=== PATIENT | male | born 1960 | race African-American/Black ===

== ENCOUNTER 2018-03-01 12:59 | Emergency (ER) | payer OTHER ==
[~2018-03-01] VITALS: Ht 177.8 cm; Wt 80.0 kg
[~2018-03-01 12:59] MED LIST: HYDR-3111 PO; Z.0.NO CURRENT MEDS
[2018-03-01 13:02] VITALS: BP 116/66; PULSE 81; RESP 14; TEMP 97.2; O2SAT 99
--- NOTE | 2018-03-01 13:13 | PD ---
HPI Chief Complaint: Sore throat Time Seen by Provider: 13:10 Travel History International Travel<30 days: No Contact w/Intl Traveler<30days: No Traveled to known affect area: No History of Present Illness HPI 57-year-old male smoker presents for evaluation of sore throat. Symptoms started 2 weeks ago. He reports pain when he swallows. There is associated hoarse voice. Symptoms are mild, aggravated by swallowing, no alleviating factors. He denies cough, congestion, shortness of breath, regurgitation, abdominal pain, unusual weight loss, nausea or vomiting, fevers or chills. He is a patient at the [facility]. He has no other complaints at this time. [facility] Past Medical History Cancer: No Cardiovascular Problems: No Diabetes: No Diminished Hearing: No Endocrine: No Genitourinary: No Hepatitis: No Hiatal Hernia: No Immune Disorder: No Neurologic: Yes (SEIZURES IN THE PAST) Psychiatric: No Reproductive: No Respiratory: Yes (COPD) Immunizations Current: No Seizures: Yes (ONE X ONLY AFTER EATING GRAPE FRUIT) Thyroid Disease: No Past Surgical History Abdominal Surgery: No AICD: No Body Medical Devices: HARDWARE IN BOTH ANKLES, L KNEE AND L LEG Cardiac Surgery: No Ear Surgery: No Endocrine Surgery: No Eye Surgery: No Genitourinary Surgery: No Joint Replacement: No Oral Surgery: No Pacemaker: No Thoracic Surgery: No Social History Alcohol Use: Yes (BEER ONCE WEEK) Tobacco Use: Yes (1/2 PPD) Substance Use: No Allergies-Medications (Allergen,Severity, Reaction): Coded Allergies: grapefruit (Unverified Allergy, Severe, 05/03/17) SEIZURES Reported Meds & Prescriptions Reported Meds & Active Scripts Active Reported Vicodin 5/300 (Hydrocodone/Acetaminophen 5/300) 5 Mg/300 Mg Tab 1 Tab PO Q6H PRN No Current Meds (Miscellaneous Medication) Misc Review of Systems Except as stated in HPI: all other systems reviewed are Neg Physical Exam Narrative GENERAL: Well-developed well-nourished male in no acute distress SKIN: Warm and dry. HEAD: Atraumatic. Normocephalic. EYES: Pupils equal and round. No scleral icterus. No injection or drainage. ENT: No nasal bleeding or discharge. Mucous membranes pink and moist. There is no oral pharyngeal erythema or exudate. Uvula midline with no mass-effect. There is no stridor or drooling. Mildly hoarse voice. NECK: Trachea midline. No JVD. No lymphadenopathy. CARDIOVASCULAR: Regular rate and rhythm. No murmur appreciated. RESPIRATORY: No accessory muscle use. Clear to auscultation. Breath sounds equal bilaterally. GASTROINTESTINAL: Abdomen soft, non-tender, nondistended. Hepatic and splenic margins not palpable. Data Data Last Documented VS Vital Signs Date Time Temp Pulse Resp B/P (MAP) Pulse Ox O2 Delivery O2 Flow Rate FiO2 03/01/18 13:17 18 03/01/18 13:02 97.2 81 116/66 (83) 99 Orders Orders Group A Rapid Strep Screen (03/01/18 13:10) Ct Soft Tiss Neck W Iv Cont (03/01/18 ) Complete Blood Count With Diff (03/01/18 13:14) Basic Metabolic Panel (Bmp) (03/01/18 13:14) Iv Access Insert/Monitor (03/01/18 13:14) Strep Culture (Group A) (03/01/18 13:15) Ed Discharge Order (03/01/18 16:57) Labs Laboratory Tests Test 03/01/18 13:25 White Blood Count 7.6 TH/MM3 Red Blood Count 4.30 MIL/MM3 Hemoglobin 12.7 GM/DL Hematocrit 37.3 % Mean Corpuscular Volume 86.7 FL Mean Corpuscular Hemoglobin 29.4 PG Mean Corpuscular Hemoglobin Concent 33.9 % Red Cell Distribution Width 14.1 % Platelet Count 215 TH/MM3 Mean Platelet Volume 8.1 FL Neutrophils (%) (Auto) 50.5 % Lymphocytes (%) (Auto) 37.7 % Monocytes (%) (Auto) 10.4 % Eosinophils (%) (Auto) 1.0 % Basophils (%) (Auto) 0.4 % Neutrophils # (Auto) 3.8 TH/MM3 Lymphocytes # (Auto) 2.9 TH/MM3 Monocytes # (Auto) 0.8 TH/MM3 Eosinophils # (Auto) 0.1 TH/MM3 Basophils # (Auto) 0.0 TH/MM3 CBC Comment DIFF FINAL Differential Comment Blood Urea Nitrogen 7 MG/DL Creatinine 0.68 MG/DL Random Glucose 90 MG/DL Calcium Level 9.0 MG/DL Sodium Level 141 MEQ/L Potassium Level 3.5 MEQ/L Chloride Level 104 MEQ/L Carbon Dioxide Level 27.6 MEQ/L Anion Gap 9 MEQ/L Estimat Glomerular Filtration Rate 146 ML/MIN MDM Medical Decision Making Medical Screen Exam Complete: Yes Emergency Medical Condition: Yes Medical Record Reviewed: Yes Differential Diagnosis Pharyngitis, laryngeal malignancy, retropharyngeal abscess, epiglottitis, infectious mononucleosis Narrative Course 57-year-old male smoker presents with 2 weeks of sore throat and hoarse voice. Physical examination is benign. Rapid strep screen was performed and is negative. History is concerning in this 57-year-old male smoker for possible malignant etiology of his persistent sore throat and hoarse voice, therefore CT soft tissue neck was obtained and reveals small calcification tonsillar pillar base of tongue right and probably physiologic. Clinically this is not consistent with his symptoms. Lab work is unremarkable. Rapid strep screen is negative. At this point time the plan is to have a follow-up with his primary care physician at the [facility] if symptoms persist for possible ENT referral for laryngoscopy. He is agreeable to this plan. Diagnosis Primary Impression: Pharyngitis Additional Impression: Laryngitis Additional Instructions: Treated and well-nourished. Follow-up at the [facility] in 2 weeks if symptoms persist. Return for any emergent medical conditions. Med/Other Pt SpecificInfo: No Change to Meds Disposition: 01 DISCHARGE HOME Condition: Stable Franklin Hoffman Mar 01, 2018 13:13
[2018-03-01 13:41] LABS: AUTOMATED NEUTROPHIL # 3.8 TH/MM3 (1.8-7.7); BASOPHIL % 0.4 % (0.0-2.0); EOSINOPHIL # 0.1 TH/MM3 (0-0.4); HEMATOCRIT 37.3 % (39.0-51.0); HEMOGLOBIN 12.7 GM/DL (13.0-17.0); LYMPH % 37.7 % (9.0-44.0); LYMPHOCYTE # 2.9 TH/MM3 (1.0-4.8); MEAN CELL VOLUME 86.7 FL (80.0-100.0); MEAN CORPUSCULAR HEMOGLOBIN 29.4 PG (27.0-34.0); MEAN CORPUSCULAR HGB CONC 33.9 % (32.0-36.0); MEAN PLATELET VOLUME 8.1 FL (7.0-11.0); MONO % 10.4 % (0.0-8.0); MONOCYTE # 0.8 TH/MM3 (0-0.9); NEUT % 50.5 % (16.0-70.0); PLATELET COUNT 215 TH/MM3 (150-450); RED CELL DISTRIBUTION WIDTH 14.1 % (11.6-17.2); WHITE BLOOD COUNT 7.6 TH/MM3 (4.0-11.0)
[2018-03-01 13:53] LABS: BICARBONATE 27.6 MEQ/L (21.0-32.0); CREATININE 0.68 MG/DL (0.60-1.30)
--- NOTE | 2018-03-01 16:53 | RADRPT ---
EXAM DATE: 03/01/2018 4:39 PM EDT AGE/SEX: 57 years / Male INDICATIONS: Throat pain for two weeks. CLINICAL DATA: This is the patient's initial encounter. Patient reports that signs and symptoms have been present for 2 weeks and indicates a pain score of 6/10. MEDICAL/SURGICAL HISTORY: . Seizure None. RADIATION DOSE: 14.15 CTDI (mGy) COMPARISON: No prior exams available for comparison. TECHNIQUE: Helical acquisition was performed using a multirow detector CT scanner during the adminis tration of 70 ml Omnipaque 350 (iohexol) nonionic water-soluble contrast as a single exam dose. Usi ng automated exposure control and adjustment of the mA and/or kV according to patient size, radiation dose was kept as low as reasonably achievable to obtain optimal diagnostic quality images. FINDINGS: There is minimal mucoperiosteal thickening in the right maxillary sinus. There is a small calcificati on tonsillar pillar right side without inflammatory changes evident. The oropharynx and hypopharynx otherwise unremarkable. Region of the true vocal cords appear normal. There is no adenopathy in the mid and low neck. Subclavicular region is unremarkable. CONCLUSION: 1. Small calcification tonsillar pillar base of the tongue right side probably physiologic. Doubt fo reign body. Correlation suggested. No inflammatory changes evident. Minimal periosteal thickening right maxillary sinus. Electronically signed by: Morgan Marsh MD 03/01/2018 4:52 PM EDT
[2018-03-01] MEDS ORDERED: IOHEXOL 350 MG/ML 10 ML VIAL (for RAD DIAG) IVCONTRAST ONE (17:25)
== END 2018-03-01 17:31 | disposition home or self-care (01) ==
LOC: NEPC 12:59
DX: J02.9 Acute pharyngitis, unspecified (principal); J04.0 Acute laryngitis; J44.9 Chronic obstructive pulmonary disease, unspecified; F17.210 Nicotine dependence, cigarettes, uncomplicated; Z79.899 Other long term (current) drug therapy
CPT/HCPCS: 70491; 80048; 85025; 87081; 87880; 99285; Q9967

== ENCOUNTER 2018-06-15 12:29 | Inpatient (IN) ==
--- NOTE | 2018-06-15 14:07 | ED ---
HPI General Chief Complaint: Recheck/Abnormal Lab/Rx Stated Complaint: Medical Time Seen by Provider: 06/15/18 13:49 Source: patient, RN notes reviewed and old records reviewed Mode of arrival: ambulatory Limitations: no limitations History of Present Illness HPI narrative: 57-year-old male presents to the emergency department, sent from the [facility] for hypokalemia. He states he had labs drawn this morning when he got home he had received a phone call that he should go to the emergency department. He does not know how low his potassium was. He denies any history of hypokalemia. He has no chronic medical problems and takes no prescribed medications. He does state that he has had a 30 pound weight loss over the past month. He reports difficulty eating and has to drink water to get any food down. He has an appointment with GI tomorrow. No other symptoms or complaints. Moderate severity. complaint: abnormal lab Returns today for: called because of abnormal lab/test Context: called for abnormal lab result Associated symptoms: other (weight loss) Related Data Home Medications Medication Instructions Recorded Confirmed No Known Home Medications 06/15/18 06/15/18 Allergies Allergy/AdvReac Type Severity Reaction Status Date / Time grapefruit Allergy Severe Anaphylaxis Verified 06/15/18 14:08 Review of Systems ROS: all other systems reviewed are negative PMFSH Medical History Medical History Patient denies medical problems (Acute) Surgical History Surgical History No history of previous surgery (Acute) Social History Social History Substance History: No History of Abuse Second Hand Smoke Exposure: No Smoking Status: Current some day smoker Tobacco Type: Cigarettes How Often Do You Have a Drink Containing Alcohol: 2 to 4 times a month Recent Travel in [facility] within the Last 8 Weeks: No Recent Out of Country Travel within the Last 8 Weeks: No Immunization History Tetanus Immunization: >5 Years Hx Influenza Vaccine This Season: No Exam Narrative Exam Narrative: GENERAL: Well-nourished, well-developed male patient, afebrile. SKIN: Focused skin assessment warm/dry. HEAD: Normocephalic. Atraumatic. EYES: No scleral icterus. No injection or drainage. NECK: Supple, trachea midline. No JVD or lymphadenopathy. CARDIOVASCULAR: Regular rate and rhythm without murmurs, gallops, or rubs. RESPIRATORY: Breath sounds equal bilaterally. No accessory muscle use. Lung sounds are clear to auscultation GASTROINTESTINAL: Abdomen soft, non-tender, nondistended. MUSCULOSKELETAL: No cyanosis, or edema. BACK: Nontender without obvious deformity. No CVA tenderness. Course Initial Documented Vital Signs Temperature 98.4 F 06/15/18 12:36 Pulse Rate 98 H 06/15/18 12:36 Respiratory Rate 18 06/15/18 12:36 Blood Pressure 104/58 L 06/15/18 12:36 Pulse Oximetry 98 06/15/18 12:36 Last Documented Vital Signs Temperature 98.4 F 06/15/18 12:36 Pulse Rate 65 06/15/18 14:08 Respiratory Rate 18 06/15/18 14:01 Blood Pressure 115/69 06/15/18 14:01 Pulse Oximetry 99 06/15/18 14:01 Medical Decision Making MDM Narrative Medical decision making narrative: 57 year old male presents to the emergency department for evaluation of hypokalemia, sent from the [facility]. EKG, CBC, CMP are ordered and pending. CBC shows no acute abnormality. CMP shows hypokalemia 2.4. Patient is given potassium 40 mEq IV, 40 mg once p.o. Patient will be admitted for hypokalemia. Dr. Tirado accepted admission. Medical Screen Exam Complete: Yes Emergency Medical Condition: Yes Differential Diagnosis Differential Diagnosis: hypokalemia vs. ekg changes vs. medical clearance Medical Records Medical records reviewed: Yes I reviewed the patient's medical records. Lab Data Result diagrams: 06/15/18 14:10 06/15/18 14:10 Lab Results 06/15/18 06/15/18 Range/Units 14:10 14:10 WBC 7.8 (4.0-11.0) th/mm3 RBC 4.52 (4.50-5.90) mil/mm3 Hgb 13.7 (13.0-17.0) gm/dL Hct 40.6 (39.0-51.0) % MCV 89.7 (80.0-100.0) fL MCH 30.4 (27.0-34.0) pg MCHC 33.9 (32.0-36.0) % RDW 14.1 (11.6-17.2) % Plt Count 232 (150-450) th/mm3 MPV 7.9 (7.0-11.0) fL Neut % (Auto) 62.2 (16.0-70.0) % Lymph % (Auto) 27.3 (9.0-44.0) % Ray % (Auto) 9.9 H (0.0-8.0) % Eos % (Auto) 0.2 (0.0-4.0) % Baso % (Auto) 0.4 (0.0-2.0) % Neut # (Auto) 4.8 (1.8-7.7) th/mm3 Lymph # (Auto) 2.1 (1.0-4.8) th/mm3 Ray # (Auto) 0.8 (0.0-0.9) th/mm3 Eos # (Auto) 0.0 (0.0-0.4) th/mm3 Baso # (Auto) 0.0 (0.0-0.2) th/mm3 WBC Differential . Differential Comment Auto diff final Sodium 137 (136-145) meq/L Potassium 2.4 L* (3.5-5.1) meq/L Chloride 97 L (98-107) meq/L Carbon Dioxide 30.1 (21.0-32.0) meq/L Anion Gap 10 (5-15) meq/L BUN 10 (7-18) mg/dL Creatinine 0.86 (0.60-1.30) mg/dL Estimated GFR Greater than 89 (>89) mL/min Random Glucose 93 (74-106) mg/dL Calcium 9.5 (8.5-10.1) mg/dL Total Bilirubin 1.2 H (0.2-1.0) mg/dL AST 11 L (15-37) U/L ALT 11 L (12-78) U/L Alkaline Phosphatase 67 (45-117) U/L Total Protein 8.5 H (6.4-8.2) g/dL Albumin 3.2 L (3.4-5.0) g/dL Discharge Plan Physicians Team ED Provider: Keanu Worthy ED Midlevel Provider: Krystal Dunham Primary Care Provider: [facility] /Orders / Referrals /Forms Prescriptions: No Action No Known Home Medications RF: 0 Discharge Interventions Interventions: Vital Signs Last Done: 06/15/18 14:01 Status ED Status: Admitted Observation Patient
[2018-06-15 14:30] LABS: Baso % (Auto) 0.4 % (0.0-2.0); Eos % (Auto) 0.2 % (0.0-4.0); Hematocrit 40.6 % (39.0-51.0); Hemoglobin 13.7 gm/dL (13.0-17.0); Lymph # (Auto) 2.1 th/mm3 (1.0-4.8); Lymph % (Auto) 27.3 % (9.0-44.0); Mean Corpuscular HGB Conc 33.9 % (32.0-36.0); Mean Corpuscular Hemoglobin 30.4 pg (27.0-34.0); Mean Corpuscular Volume 89.7 fL (80.0-100.0); Mean Platelet Volume 7.9 fL (7.0-11.0); Mono # (Auto) 0.8 th/mm3 (0.0-0.9); Mono % (Auto) 9.9 % (0.0-8.0); Neut # (Auto) 4.8 th/mm3 (1.8-7.7); Neut % (Auto) 62.2 % (16.0-70.0); Platelet Count 232 th/mm3 (150-450); Red Blood Count 4.52 mil/mm3 (4.50-5.90); Red Cell Distribution Width 14.1 % (11.6-17.2); White Blood Count 7.8 th/mm3 (4.0-11.0)
[2018-06-15 14:58] LABS: Alanine Aminotransferase 11 U/L (12-78); Albumin 3.2 g/dL (3.4-5.0); Alkaline Phosphatase 67 U/L (45-117); Anion Gap 10 meq/L (5-15); Aspartate Aminotransferase 11 U/L (15-37); Blood Urea Nitrogen 10 mg/dL (7-18); Calcium 9.5 mg/dL (8.5-10.1); Carbon Dioxide 30.1 meq/L (21.0-32.0); Chloride 97 meq/L (98-107); Glomerular Filtration Rate Greater Than 89 mL/min (>89); Glucose,Random 93 mg/dL (74-106); Sodium 137 meq/L (136-145); Total Protein 8.5 g/dL (6.4-8.2)
[2018-06-15 15:05] LABS: Potassium 2.4 meq/L (3.5-5.1)
[2018-06-15] MEDS: Potassium Chlor 20 mEq Premix 20 MEQ/100 ML PIGGYBACK IV.SIG SCH ×2 (15:36→18:11)
[2018-06-15] MEDS ORDERED: Bisacodyl 10 MG Supp RECTAL PRN ×2 (16:05→16:06)
[2018-06-15] MEDS ORDERED: Potassium Chloride Inj 20 MEQ in Sod Chloride 0.9% Inj 1,000 ML IV.CONT SCH (16:08)
[2018-06-15] MEDS ORDERED: Potassium Chlor 10 mEq Premix 10 MEQ/100 ML PIGGYBACK IV.SIG SCH (17:00)
--- NOTE | 2018-06-15 17:04 | P.HPIM ---
History of Present Illness Service: [facility] Primary Care Physician: [facility] Chief Complaint: abn K at the [facility] today History of Present Illness: This is a 57-year-old -Italian male with no significant past medical history who presented to the emergency room after he had a doctor's visit today at the [facility] showing a low potassium. Patient reports that he is not on any medications, his only complaint is decreased appetite. Patient reports that for the past few months he has had difficulty swallowing liquids as well as solids due to pain. Patient is supposed to have an outpatient workup done at the [facility]. Patient reports 30 pound weight loss over the past few months due to decreased p.o. intake. Patient denies fever, chills, recent illness, chest pain , palpitations, and shortness of breath. Patient reports that he has never had an electrolyte abnormality before. Review of Systems All other systems reviewed negative except as stated in HPI PMFSH - History History Provided By: Patient - Medical History Medical History: Medical History (Last Updated 06/15/18 @ 16:49 by Sabrina Tirado MD) Patient denies medical problems (Acute) - Surgical History Surgical History: Surgical History (Last Updated 06/15/18 @ 16:49 by Sabrina Tirado MD) Hx of knee surgery (Acute) History of ankle surgery (Acute) - Family History Family History: Family History (Last Updated 06/15/18 @ 16:49 by Sabrina Tirado MD) Other No pertinent family history - Social History I have reviewed the patient's Social History: Yes - Tobacco History Second Hand Smoke Exposure: Yes Tobacco Use In Past 30 Days: Yes Smoking Status: Current some day smoker Tobacco Type: Cigarettes Packs Per Day: 1 - Alcohol History How Often Do You Have a Drink Containing Alcohol: 2 to 4 times a month - Substance Use History Substance History: No History of Abuse - Travel History History of Recent Travel: No Recent Travel in the [place] Within the Last 8 Weeks: No Recent Travel Out of the Country Within the Last 8 Weeks: No - Immunization History Tetanus Immunization: >5 Years Hx Influenza Vaccine This Season: No Medications and Allergies Active Medications: Active Medications Acetaminophen (Tylenol) 650 mg PO Q4H PRN PRN Reason: Temp > 100.4 Al Hydroxide/Mg Hydroxide (Milk Of Magnesia Liq) 30 ml PO Q12H PRN PRN Reason: Mild Constipation Bisacodyl (Dulcolax Supp) 10 mg RECTAL DAILY PRN PRN Reason: SEVERE CONSITIPATION Potassium Chloride (Kcl 20 Meq Premix Inj) 20 meq in 100 mls @ 50 mls/hr IV.SIG Q2H CLAUDIA Stop: 06/15/18 19:14 Last Admin: 06/15/18 15:36 Dose: 50 mls/hr Potassium Chloride 40 meq/ (Sodium Chloride) 1,020 mls @ 125 mls/hr IV.CONT .Q8H10M CLAUDIA Potassium Chloride (Kcl 20 Meq Premix Inj) 20 meq in 100 mls @ 50 mls/hr IV.SIG Q2H CLAUDIA Stop: 06/15/18 20:43 Lactulose (Lactulose Liq) 30 ml PO DAILY PRN PRN Reason: SEVERE CONSITIPATION Ondansetron HCl (Zofran Inj) 4 mg IV.PUSH Q6H PRN PRN Reason: NAUSEA OR VOMITING Senna/Docusate Sodium (Gilda-Colace) 1 tab PO BID CLAUDIA Sodium Chloride (Ns Flush) 2 ml IV.FLUSH PRN PRN PRN Reason: FLUSH AFTER USING IV ACCESS Allergies Allergy/AdvReac Type Severity Reaction Status Date / Time grapefruit Allergy Severe Anaphylaxis Verified 06/15/18 14:08 Home Medications Medication Instructions Recorded Confirmed Type No Known Home Medications 06/15/18 06/15/18 History Exam Vital signs: Vital Signs 06/15/18 12:36 06/15/18 14:01 06/15/18 14:08 Temperature 98.4 F Pulse Rate 98 H 63 65 Respiratory Rate 18 18 Blood Pressure 104/58 L 115/69 Pulse Oximetry 98 99 06/15/18 15:35 Temperature Pulse Rate 66 Respiratory Rate 18 Blood Pressure 97/61 L Pulse Oximetry 100 Intake & Output 06/14/18 06/15/18 06/15/18 18:59 06:59 18:59 Weight 77.111 kg Narrative: GENERAL: thin, AAM, in NAD, lying comfortably in bed SKIN: Warm and dry. HEAD: Normocephalic. EYES: No scleral icterus. No injection or drainage. NECK: Supple, trachea midline. No JVD or lymphadenopathy. CARDIOVASCULAR: Regular rate and rhythm without murmurs, gallops, or rubs. RESPIRATORY: Breath sounds equal bilaterally. No accessory muscle use. GASTROINTESTINAL: Abdomen soft, non-tender, nondistended. MUSCULOSKELETAL: No cyanosis, or edema. BACK: Nontender without obvious deformity. No CVA tenderness. Results - Labs CBC & Chem 7: 06/15/18 14:10 06/15/18 14:10 Labs: Short CBC 06/15/18 Range/Units 14:10 WBC 7.8 (4.0-11.0) th/mm3 Hgb 13.7 (13.0-17.0) gm/dL Hct 40.6 (39.0-51.0) % Plt Count 232 (150-450) th/mm3 BMP 06/15/18 14:10 Sodium 137 Potassium 2.4 L* Chloride 97 L Carbon Dioxide 30.1 BUN 10 Creatinine 0.86 Calcium 9.5 Liver Function 06/15/18 Range/Units 14:10 Total Bilirubin 1.2 H (0.2-1.0) mg/dL AST 11 L (15-37) U/L ALT 11 L (12-78) U/L Alkaline Phosphatase 67 (45-117) U/L Albumin 3.2 L (3.4-5.0) g/dL Caprini VTE Risk Assessment Caprini VTE Risk Assessment: No/Low Risk (score <= 1) Caprini Risk Assessment Model: Point Value = 1 Point Value = 2 Point Value = 3 Point Value = 5 Age 41-60 Minor surgery BMI > 25 kg/m2 Swollen legs Varicose veins or History of unexplained or recurrent spontaneous Oral contraceptives or hormone replacement Sepsis (< 1 month) Serious lung disease, including pneumonia (< 1 month) Abnormal pulmonary function Acute myocardial infarction Congestive heart failure (< 1 month) History of inflammatory bowel disease Medical patient at bed rest Age 61-74 Arthroscopic surgery Major open surgery (> 45 min) Laparoscopic surgery (> 45 min) Malignancy Confined to bed (> 72 hours) Immobilizing plaster cast Central venous access Age >= 75 History of VTE Family history of VTE Factor V Leiden Prothrombin [id number] Lupus anticoagulant Anticardiolipin antibodies Elevated serum homocysteine Heparin-induced thrombocytopenia Other congenital or acquired thrombophilia Stroke (< 1 month) Elective arthroplasty Hip, pelvis, or leg fracture Acute spinal cord injury (< 1 month) Prophylaxis Regimen: Total Risk Factor Score Risk Level Prophylaxis Regimen 0-1 Low Early ambulation 2 Moderate Order ONE of the following: *Sequential Compression Device (SCD) *Heparin 5000 units SQ BID 3-4 Higher Order ONE of the following medications: *Heparin 5000 units SQ TID *Enoxaparin/Lovenox 40 mg SQ daily (WT < 150 kg, CrCl > 30 mL/min) *Enoxaparin/Lovenox 30 mg SQ daily (WT < 150 kg, CrCl > 10-29 mL/min) *Enoxaparin/Lovenox 30 mg SQ BID (WT < 150 kg, CrCl > 30 mL/min) AND/OR *Sequential Compression Device (SCD) 5 or more Highest Order ONE of the following medications: *Heparin 5000 units SQ TID (Preferred with Epidurals) *Enoxaparin/Lovenox 40 mg SQ daily (WT < 150 kg, CrCl > 30 mL/min) *Enoxaparin/Lovenox 30 mg SQ daily (WT < 150 kg, CrCl > 10-29 mL/min) *Enoxaparin/Lovenox 30 mg SQ BID (WT < 150 kg, CrCl > 30 mL/min) AND *Sequential Compression Device (SCD) Assessment and Plan - Plan This is a 57 y/o AAM with no significant PMHx admitted for IP mgmt for Hypokalemia, HD#1 1. Hypokalemia -Due to decreased PO intake -K2.4 on admission, replaced with 80meq IV in ED -On Telemetry -Patient cannot tolerate PO, attempted to give oral K in the ED but not tolerated -STAT BMP at 2000 and in AM -Receiving NS with 40meq/L in IVF's 2. Dysphagia -occurs with fluids and solids -will get a bedside swallow study -will get GI consult for possible EGD 3. Weight loss -30lb. weight loss due to decreased PO intake -advised patient need for Colonoscopy as outpatient -will get hemoccult 4. 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
[2018-06-15] MEDS: Potassium Chloride Inj 40 MEQ in Sod Chloride 0.9% Inj 1,000 ML IV.CONT SCH (19:37)
[2018-06-15] MEDS ORDERED: Potassium Chlor 20 mEq Premix 20 MEQ/100 ML PIGGYBACK IV.SIG SCH (20:00)
[2018-06-15] MEDS ORDERED: Senna/Docusate Sodium 8.6/50 MG Tablet PO SCH (21:00)
[2018-06-15] MEDS: Senna/Docusate Sodium 8.6/50 MG Tablet PO SCH (21:34)
[2018-06-15 21:54] LABS: Anion Gap 10 meq/L (5-15); Blood Urea Nitrogen 10 mg/dL (7-18); Calcium 8.7 mg/dL (8.5-10.1); Carbon Dioxide 28.8 meq/L (21.0-32.0); Chloride 101 meq/L (98-107); Glomerular Filtration Rate Greater Than 89 mL/min (>89); Glucose,Random 106 mg/dL (74-106); Sodium 140 meq/L (136-145)
[2018-06-15 22:05] LABS: Potassium 2.7 meq/L (3.5-5.1)
[2018-06-15] MEDS ORDERED: Mag Sulf 1 gm/100 ml Premix 100 ML IV.SIG ONE (22:25)
[2018-06-16] MEDS: Potassium Chloride Inj 40 MEQ in Sod Chloride 0.9% Inj 1,000 ML IV.CONT SCH ×3 (03:47→17:05)
[2018-06-16 07:43] LABS: Baso % (Auto) 0.5 % (0.0-2.0); Eos % (Auto) 0.6 % (0.0-4.0); Hematocrit 38.2 % (39.0-51.0); Hemoglobin 12.8 gm/dL (13.0-17.0); Lymph # (Auto) 2.5 th/mm3 (1.0-4.8); Mean Corpuscular HGB Conc 33.4 % (32.0-36.0); Mean Corpuscular Hemoglobin 30.4 pg (27.0-34.0); Mean Corpuscular Volume 90.9 fL (80.0-100.0); Mono # (Auto) 0.8 th/mm3 (0.0-0.9); Mono % (Auto) 11.7 % (0.0-8.0); Neut # (Auto) 3.2 th/mm3 (1.8-7.7); Neut % (Auto) 49.2 % (16.0-70.0); Platelet Count 185 th/mm3 (150-450); Red Blood Count 4.21 mil/mm3 (4.50-5.90); Red Cell Distribution Width 14.2 % (11.6-17.2); White Blood Count 6.5 th/mm3 (4.0-11.0)
[2018-06-16 08:12] LABS: Albumin 2.7 g/dL (3.4-5.0); Anion Gap 9 meq/L (5-15); Aspartate Aminotransferase 14 U/L (15-37); Blood Urea Nitrogen 9 mg/dL (7-18); Calcium 8.4 mg/dL (8.5-10.1); Carbon Dioxide 25.4 meq/L (21.0-32.0); Chloride 105 meq/L (98-107); Glomerular Filtration Rate Greater Than 89 mL/min (>89); Glucose,Random 98 mg/dL (74-106); Potassium 3.2 meq/L (3.5-5.1); Sodium 139 meq/L (136-145)
[2018-06-16 08:14] LABS: Alanine Aminotransferase 9 U/L (12-78)
[2018-06-16 08:16] LABS: Alkaline Phosphatase 56 U/L (45-117); Total Protein 6.9 g/dL (6.4-8.2)
--- NOTE | 2018-06-16 09:03 | P.PN ---
Subjective Interval history: Patient doing well overnight, he reports that he has been eating overnight despite being NPO and awaiting swallow study. Reports continued pain with swallowing. Physical Exam Vital signs: Vital Signs 06/15/18 12:36 06/15/18 14:01 06/15/18 14:08 Temperature 98.4 F Pulse Rate 98 H 63 65 Respiratory Rate 18 18 Blood Pressure 104/58 L 115/69 Pulse Oximetry 98 99 06/15/18 15:35 06/15/18 19:00 06/15/18 19:42 Temperature 97.8 F Pulse Rate 66 70 67 Respiratory Rate 18 18 18 Blood Pressure 97/61 L 109/66 105/64 Pulse Oximetry 100 98 97 06/15/18 23:57 06/16/18 03:28 06/16/18 05:50 Temperature 98.4 F 98.0 F Pulse Rate 77 69 61 Respiratory Rate 18 20 Blood Pressure 82/50 L 102/69 Pulse Oximetry 100 97 06/16/18 07:46 Temperature 98.1 F Pulse Rate 70 Respiratory Rate 16 Blood Pressure 94/52 L Pulse Oximetry 100 Intake & Output 06/15/18 06/16/18 06/16/18 18:59 06:59 18:59 Intake Total 100 / 100 3035 / 3035 Balance 100 / 100 3035 / 3035 Weight 77.111 kg Intake: IV 100 / 100 1220 / 1220 KCl Inj 40 MEQ In NS Inj 1,000 1020 / 1020 ML @ 125 mls/hr IV.CONT .Q8H10M [facility] Rx#:[id number] Magnesium Sulfate 1 gm/D5W 100 100 / 100 ml Premix 100 ML @ 100 mls/hr IV.SIG ONCE ONE Rx#:[id number] KCl 20 mEq Premix Inj 20 meq In 100 / 100 100 / 100 100 ml @ 50 mls/hr IV.SIG Q2H [facility] Rx#:[id number] Oral 590 / 590 Other 1225 / 1225 Other: Other Intake Source Saline Solution # Voids 3 Date of Last Bowel Movement 06/14/18 Narrative: GENERAL: thin, AAM, in NAD, lying comfortably in bed SKIN: Warm and dry. HEAD: Normocephalic. EYES: No scleral icterus. No injection or drainage. NECK: Supple, trachea midline. No JVD or lymphadenopathy. CARDIOVASCULAR: Regular rate and rhythm without murmurs, gallops, or rubs. RESPIRATORY: Breath sounds equal bilaterally. No accessory muscle use. GASTROINTESTINAL: Abdomen soft, non-tender, nondistended. MUSCULOSKELETAL: No cyanosis, or edema. BACK: Nontender without obvious deformity. No CVA tenderness. Results - Labs CBC & Chem 7: 06/16/18 07:30 06/16/18 07:30 Laboratory Results - last 24 hr 06/15/18 06/15/18 06/15/18 14:10 14:10 21:06 WBC 7.8 RBC 4.52 Hgb 13.7 Hct 40.6 MCV 89.7 MCH 30.4 MCHC 33.9 RDW 14.1 Plt Count 232 MPV 7.9 Neut % (Auto) 62.2 Lymph % (Auto) 27.3 Weston % (Auto) 9.9 H Eos % (Auto) 0.2 Baso % (Auto) 0.4 Neut # (Auto) 4.8 Lymph # (Auto) 2.1 Weston # (Auto) 0.8 Eos # (Auto) 0.0 Baso # (Auto) 0.0 WBC Differential . Differential Comment Auto diff final Sodium 137 140 Potassium 2.4 L* 2.7 L* Chloride 97 L 101 Carbon Dioxide 30.1 28.8 Anion Gap 10 10 BUN 10 10 Creatinine 0.86 0.71 Estimated GFR Greater than 89 Greater than 89 Random Glucose 93 106 Calcium 9.5 8.7 D Magnesium Total Bilirubin 1.2 H AST 11 L ALT 11 L Alkaline Phosphatase 67 Total Protein 8.5 H Albumin 3.2 L 06/15/18 06/16/18 06/16/18 21:06 07:30 07:30 WBC 6.5 RBC 4.21 L Hgb 12.8 L Hct 38.2 L MCV 90.9 MCH 30.4 MCHC 33.4 RDW 14.2 Plt Count 185 MPV 8.0 Neut % (Auto) 49.2 Lymph % (Auto) 38.0 Weston % (Auto) 11.7 H Eos % (Auto) 0.6 Baso % (Auto) 0.5 Neut # (Auto) 3.2 Lymph # (Auto) 2.5 Weston # (Auto) 0.8 Eos # (Auto) 0.0 Baso # (Auto) 0.0 WBC Differential . Differential Comment Auto diff final Sodium 139 Potassium 3.2 L Chloride 105 Carbon Dioxide 25.4 Anion Gap 9 BUN 9 Creatinine 0.55 L Estimated GFR Greater than 89 Random Glucose 98 Calcium 8.4 L Magnesium 1.7 Total Bilirubin 0.7 AST 14 L ALT 9 L Alkaline Phosphatase 56 Total Protein 6.9 D Albumin 2.7 L Assessment and Plan - Plan This is a 57 y/o AAM with no significant PMHx admitted for IP mgmt for Hypokalemia, HD#2 1. Hypokalemia -Due to decreased PO intake -K2.4 on admission, replaced with 80meq IV in ED -K3.2 this AM, will give 40meq IV x1 and cont. NS with 40meq/L in IVF's -On Telemetry -Patient cannot tolerate PO, attempted to give oral K in the ED but not tolerated 2. Dysphagia -occurs with fluids and solids -will get a speech/swallow eval -GI consulted/their reccs as below: Plan: CT abdomen/pelvis to evaluate weight loss Will need EGD- unfortunately pt is eating breakfast so this can not be done today Can be done Tuesday vs outpatient depending on course and correction of electrolytes Protonix Soft diet Further recommendations to follow 3. Weight loss -30lb. weight loss due to decreased PO intake -advised patient need for Colonoscopy as outpatient -Pending hemoccult 4. DVT PPX: SCD's 5. Dispo: F/U CT ABD pelvis and BMP at 1300, if WNL D/C to f/u with GI as an outpatient for EGD Code Status: full Discussed Condition With: patient and plastic cutter Planning: D/C pending K results
--- NOTE | 2018-06-16 10:04 | P.CONGI ---
History of Present Illness Consult date: 06/16/18 Consult reason: Dysphagia Chief complaint: Hypokalemia History of Present Illness: This is a 57-year-old male who denies any significant past medical history. Patient went to the [place] to have routine labs done yesterday, lab work revealed severe hypokalemia which he states he has no history of, they sent him to the ER for further workup. Our service has been consulted to evaluate patient for complaints of dysphagia. He reports for the past 2 months he has been having issues swallowing, states worse with solids and has to drink liquids in order to pass the food. Does feel as if his food gets stuck. Has had extreme difficulty swallowing pills. Denies any odynophagia. Does report that he is regurgitating after meals, mostly just saliva. Denies any nausea or vomiting. Denies any shortness of breath or coughing with eating. Does report a 30 pound unintentional weight loss over the past 2 months which he has attributed to his inability to swallow food. Denies any change in his appetite. Denies any change in bowel habits including constipation and diarrhea, hematochezia and melena. Has never had an EGD or colonoscopy. Denies any family history significant for colon cancer. Patient reports drinking a beer a week. Smokes cigarettes once a week. Denies any illicit drug use. Denies any NSAID use. <Dinora Jimenez - Last Filed: 06/16/18 09:57> Review of Systems Constitutional: Reports weight loss Gastrointestinal: Denies abdominal pain, Denies black, tarry stools, Denies bright, red blood in stools, Denies change in bowel habits, Denies nausea, Denies vomiting Comments: dysphagia, denies odynophagia <Dinora Jimenez - Last Filed: 06/16/18 09:57> [facility] History History Provided By: Patient - Medical History Medical History: Medical History (Last Reviewed 06/16/18 @ 09:10 by KIZZY Cruz) Patient denies medical problems (Acute) - Surgical History Surgical History: Surgical History (Last Updated 06/15/18 @ 16:49 by Sabrina Tirado MD) Hx of knee surgery (Acute) History of ankle surgery (Acute) - Family History Family History: Family History (Last Updated 06/15/18 @ 16:49 by Sabrina Tirado MD) Other No pertinent family history - Tobacco History Second Hand Smoke Exposure: No Tobacco Use In Past 30 Days: No Smoking Status: Current every day smoker Tobacco Type: Cigarettes Packs Per Day: 1 - Alcohol History How Often Do You Have a Drink Containing Alcohol: 2 to 4 times a month - Substance Use History Substance History: No History of Abuse - Travel History History of Recent Travel: No Recent Travel in the [place] Within the Last 8 Weeks: No Recent Travel Out of the Country Within the Last 8 Weeks: No - Immunization History Tetanus Immunization: >5 Years Hx Influenza Vaccine This Season: No <Dinora Jimenez - Last Filed: 06/16/18 09:57> - Medical History Medical History: Medical History (Last Reviewed 06/16/18 @ 09:10 by KIZZY Cruz) Patient denies medical problems (Acute) - Surgical History Surgical History: Surgical History (Last Updated 06/15/18 @ 16:49 by Sabrina Tirado MD) Hx of knee surgery (Acute) History of ankle surgery (Acute) - Family History Family History: Family History (Last Updated 06/15/18 @ 16:49 by Sabrina Tirado MD) Other No pertinent family history <Aaron Silver - Last Filed: 06/16/18 11:51> Medications and Allergies Active Medications: Active Medications Acetaminophen (Tylenol) 650 mg PO Q4H PRN PRN Reason: Temp > 100.4 Al Hydroxide/Mg Hydroxide (Milk Of Magnesia Liq) 30 ml PO Q12H PRN PRN Reason: Mild Constipation Bisacodyl (Dulcolax Supp) 10 mg RECTAL DAILY PRN PRN Reason: SEVERE CONSITIPATION Potassium Chloride 40 meq/ (Sodium Chloride) 1,020 mls @ 125 mls/hr IV.CONT .Q8H10M [facility] Last Admin: 06/16/18 03:47 Dose: 125 mls/hr Potassium Chloride (Kcl 20 Meq Premix Inj) 20 meq in 100 mls @ 50 mls/hr IV.SIG Q2H [facility] Stop: 06/16/18 12:59 Lactulose (Lactulose Liq) 30 ml PO DAILY PRN PRN Reason: SEVERE CONSITIPATION Ondansetron HCl (Zofran Inj) 4 mg IV.PUSH Q6H PRN PRN Reason: NAUSEA OR VOMITING Senna/Docusate Sodium (Gilda-Colace) 1 tab PO BID [facility] Last Admin: 06/15/18 21:34 Dose: Not Given Sodium Chloride (Ns Flush) 2 ml IV.FLUSH PRN PRN PRN Reason: FLUSH AFTER USING IV ACCESS <Dinora Jimenez - Last Filed: 06/16/18 09:57> Active Medications: Active Medications Acetaminophen (Tylenol) 650 mg PO Q4H PRN PRN Reason: Temp > 100.4 Al Hydroxide/Mg Hydroxide (Milk Of Magnesia Liq) 30 ml PO Q12H PRN PRN Reason: Mild Constipation Bisacodyl (Dulcolax Supp) 10 mg RECTAL DAILY PRN PRN Reason: SEVERE CONSITIPATION Diatrizoate Meglum/Diatrizoate Sod ( Gastroview Liq) 18 ml PO ONCE [facility] Potassium Chloride 40 meq/ (Sodium Chloride) 1,020 mls @ 125 mls/hr IV.CONT .Q8H10M [facility] Last Admin: 06/16/18 10:30 Dose: Not Given Potassium Chloride (Kcl 20 Meq Premix Inj) 20 meq in 100 mls @ 50 mls/hr IV.SIG Q2H [facility] Stop: 06/16/18 12:59 Lactulose (Lactulose Liq) 30 ml PO DAILY PRN PRN Reason: SEVERE CONSITIPATION Ondansetron HCl (Zofran Inj) 4 mg IV.PUSH Q6H PRN PRN Reason: NAUSEA OR VOMITING Pantoprazole Sodium (Protonix Inj) 40 mg IV.PUSH Q24H [facility] Last Admin: 06/16/18 11:06 Dose: 40 mg Senna/Docusate Sodium (Gilda-Colace) 1 tab PO BID [facility] Last Admin: 06/16/18 11:08 Dose: 1 tab Sodium Chloride (Ns Flush) 2 ml IV.FLUSH PRN PRN PRN Reason: FLUSH AFTER USING IV ACCESS <Aaron Silver - Last Filed: 06/16/18 11:51> Allergies Allergy/AdvReac Type Severity Reaction Status Date / Time grapefruit Allergy Severe Anaphylaxis Verified 06/15/18 14:08 Home Medications Medication Instructions Recorded Confirmed Type No Known Home Medications 06/15/18 06/15/18 History Exam Vital signs: Vital Signs 06/15/18 12:36 06/15/18 14:01 06/15/18 14:08 Temperature 98.4 F Pulse Rate 98 H 63 65 Respiratory Rate 18 18 Blood Pressure 104/58 L 115/69 Pulse Oximetry 98 99 06/15/18 15:35 06/15/18 19:00 06/15/18 19:42 Temperature 97.8 F Pulse Rate 66 70 67 Respiratory Rate 18 18 18 Blood Pressure 97/61 L 109/66 105/64 Pulse Oximetry 100 98 97 06/15/18 23:57 06/16/18 03:28 06/16/18 05:50 Temperature 98.4 F 98.0 F Pulse Rate 77 69 61 Respiratory Rate 18 20 Blood Pressure 82/50 L 102/69 Pulse Oximetry 100 97 06/16/18 07:46 Temperature 98.1 F Pulse Rate 70 Respiratory Rate 16 Blood Pressure 94/52 L Pulse Oximetry 100 Intake & Output 06/15/18 06/16/18 06/16/18 18:59 06:59 18:59 Intake Total 100 / 100 3035 / 3035 Balance 100 / 100 3035 / 3035 Weight 77.111 kg Intake: IV 100 / 100 1220 / 1220 KCl Inj 40 MEQ In NS Inj 1,000 1020 / 1020 ML @ 125 mls/hr IV.CONT .Q8H10M [facility] Rx#:[id number] Magnesium Sulfate 1 gm/D5W 100 100 / 100 ml Premix 100 ML @ 100 mls/hr IV.SIG ONCE ONE Rx#:[id number] KCl 20 mEq Premix Inj 20 meq In 100 / 100 100 / 100 100 ml @ 50 mls/hr IV.SIG Q2H [facility] Rx#:[id number] Oral 590 / 590 Other 1225 / 1225 Other: Other Intake Source Saline Solution # Voids 3 Date of Last Bowel Movement 06/14/18 - Constitutional no acute distress - Routine HEENT Exam Head: Present: normocephalic, atraumatic - Routine Respiratory Exam Absent: accessory muscle use - Routine Abdominal Exam Present: soft, normoactive bowel sounds. Absent: tenderness, distended - Routine Skin Exam Present: dry, warm - Routine Neurological Exam Present: alert, oriented X3 <Dinora Jimenez - Last Filed: 06/16/18 09:57> Vital signs: Vital Signs 06/15/18 12:36 06/15/18 14:01 06/15/18 14:08 Temperature 98.4 F Pulse Rate 98 H 63 65 Respiratory Rate 18 18 Blood Pressure 104/58 L 115/69 Pulse Oximetry 98 99 06/15/18 15:35 06/15/18 19:00 06/15/18 19:42 Temperature 97.8 F Pulse Rate 66 70 67 Respiratory Rate 18 18 18 Blood Pressure 97/61 L 109/66 105/64 Pulse Oximetry 100 98 97 06/15/18 23:57 06/16/18 03:28 06/16/18 05:50 Temperature 98.4 F 98.0 F Pulse Rate 77 69 61 Respiratory Rate 18 20 Blood Pressure 82/50 L 102/69 Pulse Oximetry 100 97 06/16/18 07:46 06/16/18 11:34 Temperature 98.1 F 97.9 F Pulse Rate 70 61 Respiratory Rate 16 16 Blood Pressure 94/52 L 88/57 L Pulse Oximetry 100 100 Intake & Output 06/15/18 06/16/18 06/16/18 18:59 06:59 18:59 Intake Total 100 / 100 3035 / 3035 Balance 100 / 100 3035 / 3035 Weight 77.111 kg Intake: IV 100 / 100 1220 / 1220 KCl Inj 40 MEQ In NS Inj 1,000 1020 / 1020 ML @ 125 mls/hr IV.CONT .Q8H10M [facility] Rx#:[id number] Magnesium Sulfate 1 gm/D5W 100 100 / 100 ml Premix 100 ML @ 100 mls/hr IV.SIG ONCE ONE Rx#:[id number] KCl 20 mEq Premix Inj 20 meq In 100 / 100 100 / 100 100 ml @ 50 mls/hr IV.SIG Q2H [facility] Rx#:[id number] Oral 590 / 590 Other 1225 / 1225 Other: Other Intake Source Saline Solution # Voids 3 Date of Last Bowel Movement 06/14/18 <Aaron Silver - Last Filed: 06/16/18 11:51> Results - Labs CBC & Chem 7: 06/16/18 07:30 06/16/18 07:30 Labs: Laboratory Results - last 24 hr 06/15/18 06/15/18 06/15/18 14:10 14:10 21:06 WBC 7.8 RBC 4.52 Hgb 13.7 Hct 40.6 MCV 89.7 MCH 30.4 MCHC 33.9 RDW 14.1 Plt Count 232 MPV 7.9 Neut % (Auto) 62.2 Lymph % (Auto) 27.3 Glenn % (Auto) 9.9 H Eos % (Auto) 0.2 Baso % (Auto) 0.4 Neut # (Auto) 4.8 Lymph # (Auto) 2.1 Glenn # (Auto) 0.8 Eos # (Auto) 0.0 Baso # (Auto) 0.0 WBC Differential . Differential Comment Auto diff final Sodium 137 140 Potassium 2.4 L* 2.7 L* Chloride 97 L 101 Carbon Dioxide 30.1 28.8 Anion Gap 10 10 BUN 10 10 Creatinine 0.86 0.71 Estimated GFR Greater than 89 Greater than 89 Random Glucose 93 106 Calcium 9.5 8.7 D Magnesium Total Bilirubin 1.2 H AST 11 L ALT 11 L Alkaline Phosphatase 67 Total Protein 8.5 H Albumin 3.2 L 06/15/18 06/16/18 06/16/18 21:06 07:30 07:30 WBC 6.5 RBC 4.21 L Hgb 12.8 L Hct 38.2 L MCV 90.9 MCH 30.4 MCHC 33.4 RDW 14.2 Plt Count 185 MPV 8.0 Neut % (Auto) 49.2 Lymph % (Auto) 38.0 Glenn % (Auto) 11.7 H Eos % (Auto) 0.6 Baso % (Auto) 0.5 Neut # (Auto) 3.2 Lymph # (Auto) 2.5 Glenn # (Auto) 0.8 Eos # (Auto) 0.0 Baso # (Auto) 0.0 WBC Differential . Differential Comment Auto diff final Sodium 139 Potassium 3.2 L Chloride 105 Carbon Dioxide 25.4 Anion Gap 9 BUN 9 Creatinine 0.55 L Estimated GFR Greater than 89 Random Glucose 98 Calcium 8.4 L Magnesium 1.7 Total Bilirubin 0.7 AST 14 L ALT 9 L Alkaline Phosphatase 56 Total Protein 6.9 D Albumin 2.7 L <Dinora Jimenez - Last Filed: 06/16/18 09:57> - Labs CBC & Chem 7: 06/16/18 07:30 06/16/18 07:30 Labs: Laboratory Results - last 24 hr 06/15/18 06/15/18 06/15/18 14:10 14:10 21:06 WBC 7.8 RBC 4.52 Hgb 13.7 Hct 40.6 MCV 89.7 MCH 30.4 MCHC 33.9 RDW 14.1 Plt Count 232 MPV 7.9 Neut % (Auto) 62.2 Lymph % (Auto) 27.3 Glenn % (Auto) 9.9 H Eos % (Auto) 0.2 Baso % (Auto) 0.4 Neut # (Auto) 4.8 Lymph # (Auto) 2.1 Glenn # (Auto) 0.8 Eos # (Auto) 0.0 Baso # (Auto) 0.0 WBC Differential . Differential Comment Auto diff final Sodium 137 140 Potassium 2.4 L* 2.7 L* Chloride 97 L 101 Carbon Dioxide 30.1 28.8 Anion Gap 10 10 BUN 10 10 Creatinine 0.86 0.71 Estimated GFR Greater than 89 Greater than 89 Random Glucose 93 106 Calcium 9.5 8.7 D Magnesium Total Bilirubin 1.2 H AST 11 L ALT 11 L Alkaline Phosphatase 67 Total Protein 8.5 H Albumin 3.2 L 06/15/18 06/16/18 06/16/18 21:06 07:30 07:30 WBC 6.5 RBC 4.21 L Hgb 12.8 L Hct 38.2 L MCV 90.9 MCH 30.4 MCHC 33.4 RDW 14.2 Plt Count 185 MPV 8.0 Neut % (Auto) 49.2 Lymph % (Auto) 38.0 Glenn % (Auto) 11.7 H Eos % (Auto) 0.6 Baso % (Auto) 0.5 Neut # (Auto) 3.2 Lymph # (Auto) 2.5 Glenn # (Auto) 0.8 Eos # (Auto) 0.0 Baso # (Auto) 0.0 WBC Differential . Differential Comment Auto diff final Sodium 139 Potassium 3.2 L Chloride 105 Carbon Dioxide 25.4 Anion Gap 9 BUN 9 Creatinine 0.55 L Estimated GFR Greater than 89 Random Glucose 98 Calcium 8.4 L Magnesium 1.7 Total Bilirubin 0.7 AST 14 L ALT 9 L Alkaline Phosphatase 56 Total Protein 6.9 D Albumin 2.7 L <Aaron Silver - Last Filed: 06/16/18 11:51> Assessment and Plan - Plan Assessment: - Dysphagia Past 2 months he has been having issues swallowing, states worse with solids and has to drink liquids in order to pass the food. Does feel as if his food gets stuck. Has had extreme difficulty swallowing pills. Denies any odynophagia. Does report that he is regurgitating after meals, mostly just saliva. Denies any nausea or vomiting. Denies any shortness of breath or coughing with eating. Does report a 30 pound unintentional weight loss over the past 2 months which he has attributed to his inability to swallow food. Denies any change in his appetite. Denies any change in bowel habits including constipation and diarrhea, hematochezia and melena. Has never had an EGD or colonoscopy. Denies any family history significant for colon cancer. Patient reports drinking a beer a week. Smokes cigarettes once a week. Denies any illicit drug use. Denies any NSAID use. Plan: CT abdomen/pelvis to evaluate weight loss Will need EGD- unfortunately pt is eating breakfast so this can not be done today Can be done Tuesday vs outpatient depending on course and correction of electrolytes Electrolyte replacement per attending Protonix Soft diet Further recommendations to follow Pt has been seen and examined by myself and Dr. Silver and this note is written on his behalf <Dinora Jimenez - Last Filed: 06/16/18 09:57> - Plan Seen and examined with FITNESS SPECIALIST, CT abd/pelvis and egd planned. Egd tuesday or as outpatient depending upon clinical course. Thank you. The exam, history, and the medical decision-making described in the above note were completed with the assistance of the mid-level provider. I reviewed and agree with the findings presented. I attest that I had a [id number] encounter with the patient on the same day, and personally performed and documented my assessment and findings in the medical record. <Aaron Silver - Last Filed: 06/16/18 11:51>
[2018-06-16] MEDS ORDERED: Diatrizoate Meglum/Diatrizoate Sod Liq 9 ML UDC PO SCH (11:00)
[2018-06-16] MEDS: Pantoprazole Inj 40 MG Vial IV.PUSH SCH (11:06)
[2018-06-16] MEDS: Senna/Docusate Sodium 8.6/50 MG Tablet PO SCH ×2 (11:08→21:00)
[2018-06-16] MEDS: Potassium Chlor 20 mEq Premix 20 MEQ/100 ML PIGGYBACK IV.SIG SCH ×2 (14:06→20:02)
--- NOTE | 2018-06-16 15:14 | ECG ---
Date Performed: 06/15/2018 Time Performed: 14:38:01 PTAGE: 57 years EKG: SINUS BRADYCARDIA BORDERLINE ECG NO PREVIOUS TRACING DOCTOR: Rhiannon Olguin Interpretating Date/Time 06/16/2018 15:10:04
[2018-06-16 16:00] LABS: Anion Gap 9 meq/L (5-15); Blood Urea Nitrogen 7 mg/dL (7-18); Calcium 8.1 mg/dL (8.5-10.1); Carbon Dioxide 29.1 meq/L (21.0-32.0); Chloride 104 meq/L (98-107); Glomerular Filtration Rate Greater Than 89 mL/min (>89); Glucose,Random 81 mg/dL (74-106); Potassium 3.3 meq/L (3.5-5.1); Sodium 142 meq/L (136-145)
[2018-06-16] MEDS ORDERED: Potassium Chlor 20 mEq Premix 20 MEQ/100 ML PIGGYBACK IV.SIG SCH (18:00)
--- NOTE | 2018-06-16 19:01 | CT ---
EXAM DATE: 06/16/2018 6:15 PM EDT AGE/SEX: 57 years / Male INDICATIONS: Weight loss; rule out malignancy. Per patient lost 30 pounds in 1 month CLINICAL DATA: This is the patient's initial encounter. Patient reports that signs and symptoms have been present for 1 month and indicates a pain score of 3/10. MEDICAL/SURGICAL HISTORY: None. . Knee and ankle surgery ORAL CONTRAST: Prescribed oral contrast ingested. RADIATION DOSE: 5.14 CTDI (mGy) COMPARISON: [facility] [place] & [place]ELVIS W/O CONTRAST, 03/06/2012. . TECHNIQUE: Multiple contiguous axial images were obtained through the abdomen and pelvis following b olus infusion of 96 ml Omnipaque 350 (iohexol) nonionic water-soluble contrast as a single exam dos e. Prescribed oral contrast ingested. Using automated exposure control and adjustment of the mA and/ or kV according to patient size, radiation dose was kept as low as reasonably achievable to obtain op timal diagnostic quality images. DICOM format image data is available electronically for review and comparison. FINDINGS: Lung bases are clear. No acute findings in the liver, spleen, adrenals, kidneys or pancreas. No calci fied gallstones or biliary ductal dilatation. No pelvic masses or free fluid. Moderate to advanced degenerative disc disease in the spine. CONCLUSION: 1. No acute findings. Mild fatty liver. Electronically signed by: Justin Leon MD 06/16/2018 7:00 PM EDT
[2018-06-17] MEDS: Potassium Chloride Inj 40 MEQ in Sod Chloride 0.9% Inj 1,000 ML IV.CONT SCH ×2 (05:16→12:16)
[2018-06-17 05:35] LABS: Baso % (Auto) 0.5 % (0.0-2.0); Eos % (Auto) 0.7 % (0.0-4.0); Hematocrit 36.3 % (39.0-51.0); Hemoglobin 12.3 gm/dL (13.0-17.0); Lymph % (Auto) 31.5 % (9.0-44.0); Mean Corpuscular HGB Conc 33.8 % (32.0-36.0); Mean Corpuscular Hemoglobin 30.8 pg (27.0-34.0); Mean Corpuscular Volume 91.1 fL (80.0-100.0); Mean Platelet Volume 8.3 fL (7.0-11.0); Mono # (Auto) 0.7 th/mm3 (0.0-0.9); Mono % (Auto) 11.4 % (0.0-8.0); Neut # (Auto) 3.6 th/mm3 (1.8-7.7); Neut % (Auto) 55.9 % (16.0-70.0); Platelet Count 186 th/mm3 (150-450); Red Blood Count 3.98 mil/mm3 (4.50-5.90); Red Cell Distribution Width 14.4 % (11.6-17.2); White Blood Count 6.4 th/mm3 (4.0-11.0)
[2018-06-17 05:57] LABS: Anion Gap 11 meq/L (5-15); Blood Urea Nitrogen 7 mg/dL (7-18); Calcium 7.4 mg/dL (8.5-10.1); Carbon Dioxide 25.1 meq/L (21.0-32.0); Chloride 107 meq/L (98-107); Glomerular Filtration Rate Greater Than 89 mL/min (>89); Glucose,Random 109 mg/dL (74-106); Potassium 3.2 meq/L (3.5-5.1); Sodium 143 meq/L (136-145)
[2018-06-17 06:20] LABS: Total Protein 6.2 g/dL (6.4-8.2)
--- NOTE | 2018-06-17 08:20 | P.PN ---
Subjective Interval history: Follow-up on patient with dysphagia, weight loss. Patient seen and examined. Patient states he is able to swallow liquids without any difficulty but continues to have sensation of solid food getting stuck in his throat. He denies any complaints of chest pain, heartburn or shortness of breath. He denies any nausea vomiting or abdominal pain. Physical Exam Vital signs: Vital Signs 06/16/18 11:34 06/16/18 15:57 06/16/18 20:00 Temperature 97.9 F 98.3 F 88.7 F L Pulse Rate 61 75 75 Respiratory Rate 16 16 19 Blood Pressure 88/57 L 101/61 95/51 L Pulse Oximetry 100 100 99 06/16/18 23:52 Temperature 98.9 F Pulse Rate 73 Respiratory Rate 19 Blood Pressure 105/57 L Pulse Oximetry 100 Intake & Output 06/16/18 06/17/18 06/17/18 18:59 06:59 18:59 Intake Total 1120 / 1120 1120 / 1120 Balance 1120 / 1120 1120 / 1120 Intake: IV 1120 / 1120 1120 / 1120 KCl Inj 40 MEQ In NS Inj 1,000 1020 / 1020 1020 / 1020 ML @ 125 mls/hr IV.CONT .Q8H10M [facility] Rx#:[id number] KCl 20 mEq Premix Inj 20 meq In 100 / 100 100 ml @ 50 mls/hr IV.SIG Q2H [facility] Rx#:[id number] Other: Date of Last Bowel Movement 06/16/18 Narrative: GENERAL: Well-developed thin -[place] male, in no acute distress. Awake and alert. Appears comfortable. SKIN: Warm and dry. HEAD: Atraumatic. Normocephalic. EYES: Pupils equal and round. No scleral icterus. No injection or drainage. ENT: No nasal bleeding or discharge. Mucous membranes pink and moist. NECK: Trachea midline. CARDIOVASCULAR: Regular rate and rhythm. No murmur auscultated. RESPIRATORY: No accessory muscle use. Clear to auscultation. Breath sounds equal bilaterally. GASTROINTESTINAL: Abdomen soft, non-tender, nondistended. +BS. MUSCULOSKELETAL: Extremities without clubbing, cyanosis, or edema. No obvious deformities. NEUROLOGICAL: Awake and alert. No obvious cranial nerve deficits. Motor grossly within normal limits. Able to move all extremities spontaneously. Normal speech. PSYCHIATRIC: Appropriate mood and affect; insight and judgment normal. Results - Labs CBC & Chem 7: 06/17/18 04:56 06/17/18 04:56 Laboratory Results - last 24 hr 06/16/18 06/17/18 06/17/18 14:58 04:56 04:56 WBC 6.4 RBC 3.98 L Hgb 12.3 L Hct 36.3 L MCV 91.1 MCH 30.8 MCHC 33.8 RDW 14.4 Plt Count 186 MPV 8.3 Neut % (Auto) 55.9 Lymph % (Auto) 31.5 [place] % (Auto) 11.4 H Eos % (Auto) 0.7 Baso % (Auto) 0.5 Neut # (Auto) 3.6 Lymph # (Auto) 2.0 [place] # (Auto) 0.7 Eos # (Auto) 0.0 Baso # (Auto) 0.0 WBC Differential . Differential Comment Auto diff final Sodium 142 143 Potassium 3.3 L 3.2 L Chloride 104 107 Carbon Dioxide 29.1 25.1 Anion Gap 9 11 BUN 7 7 Creatinine 0.72 0.58 L Estimated GFR Greater than 89 Greater than 89 Random Glucose 81 109 H Calcium 8.1 L 7.4 L* Prot Corrected Calcium 7.9 L Total Protein 6.2 L D - Imaging Impressions Abdomen/Pelvis CT 06/16/18 00:00 CONCLUSION: 1. No acute findings. Mild fatty liver. Assessment and Plan - Plan 57 y/o AAM with no significant PMHx admitted for IP mgmt for Hypokalemia Hypokalemia Hypomagnesemia Due to decreased PO intake K2.4 on admission, replaced with 80meq IV in ED Persistent despite repletion, K 3.2 this am Mag level 1.3 -continue with IV K repletion -give 50meq eff x 1 dose now -IV mag repletion ordered -repeat labs in am to monitor response -Continuous cardiac monitoring Dysphagia, occurs with solids mostly -swallow study completed, cleared for soft diet with thin liquids -GI following, appreciate assistance. Plan for EGD on Tuesday. Suspect will need dilatation of esophagus. Weight loss 30lb. weight loss due to decreased PO intake CT abdomen/pelvis unremarkable -advised patient need for Colonoscopy as outpatient -Pending hemoccult -add ensure with meals TID Hypotensive, asymptomatic -Continue with IV fluids -Continue to monitor BP Hypocalcemia -IV calcium repletion ordered -Repeat labs in a.m. DVT PPX: Heparin sq Code Status: FULL Discussed Condition With: Patient, nursing staff, Dr. Davila Discharge Planning: Not ready for discharge secondary to electrolyte imbalance. Discharge pending GI clearance.
[2018-06-17] MEDS ORDERED: Potassium Chloride 25 MEQ Effervescent Tablet PO ONE (08:30)
[2018-06-17] MEDS ORDERED: Calcium Gluconate Inj 1 GM in Dextrose 5% in Water Inj 100 ML IV.SIG ONE ×2 (09:00)
[2018-06-17] MEDS: Senna/Docusate Sodium 8.6/50 MG Tablet PO SCH ×2 (10:38→21:32)
[2018-06-17] MEDS: Pantoprazole Inj 40 MG Vial IV.PUSH SCH (10:38)
--- NOTE | 2018-06-17 11:31 | P.PNGI ---
Subjective Interval history: Patient is sitting up head of bed elevated 45 degrees spitting saliva into a Gatorade bottle. Awake answering simple questions denies any current nausea or vomiting or abdominal pain Dysphasia with some choking episodes in the upper esophageal area, <Zarina Concepcion - Last Filed: 06/17/18 11:25> Interval history: Seen and examined with [employer]ILITY [employer], egd/dil planned for tuesday. NPO after midnight tomorrow. <Aaron Silver - Last Filed: 06/17/18 15:37> Physical Exam Vital signs: Vital Signs 06/16/18 11:34 06/16/18 15:57 06/16/18 20:00 Temperature 97.9 F 98.3 F 88.7 F L Pulse Rate 61 75 75 Respiratory Rate 16 16 19 Blood Pressure 88/57 L 101/61 95/51 L Pulse Oximetry 100 100 99 06/16/18 23:52 06/17/18 08:00 Temperature 98.9 F 98.6 F Pulse Rate 73 61 Respiratory Rate 19 16 Blood Pressure 105/57 L 95/54 L Pulse Oximetry 100 100 Intake & Output 06/16/18 06/17/18 06/17/18 18:59 06:59 18:59 Intake Total 1120 / 1120 1120 / 1120 Balance 1120 / 1120 1120 / 1120 Intake: IV 1120 / 1120 1120 / 1120 KCl Inj 40 MEQ In NS Inj 1,000 1020 / 1020 1020 / 1020 ML @ 125 mls/hr IV.CONT .Q8H10M [facility] Rx#:[id number] KCl 20 mEq Premix Inj 20 meq In 100 / 100 100 ml @ 50 mls/hr IV.SIG Q2H [facility] Rx#:[id number] Other: Date of Last Bowel Movement 06/16/18 - Constitutional mild distress, thin - Routine HEENT Exam Head: Present: normocephalic ENT: Present: mucous membranes moist - Routine Neck Exam Present: supple - Routine Respiratory Exam Present: accessory muscle use (No obvious shortness of breath) - Routine Cardiovascular Exam Present: RRR - Routine Abdominal Exam Present: soft, normoactive bowel sounds (Round, no obvious abdominal pain) - Routine Neurological Exam Present: alert <Zarina Concepcion - Last Filed: 06/17/18 11:25> Vital signs: Vital Signs 06/16/18 15:57 06/16/18 20:00 06/16/18 23:52 Temperature 98.3 F 88.7 F L 98.9 F Pulse Rate 75 75 73 Respiratory Rate 16 19 19 Blood Pressure 101/61 95/51 L 105/57 L Pulse Oximetry 100 99 100 06/17/18 08:00 06/17/18 12:00 Temperature 98.6 F 98.5 F Pulse Rate 62 80 Respiratory Rate 16 18 Blood Pressure 95/54 L 99/72 L Pulse Oximetry 100 100 Intake & Output 06/16/18 06/17/18 06/17/18 18:59 06:59 18:59 Intake Total 1120 / 1120 1120 / 1120 730 / 730 Balance 1120 / 1120 1120 / 1120 730 / 730 Intake: IV 1120 / 1120 1120 / 1120 730 / 730 KCl Inj 40 MEQ In NS Inj 1,000 1020 / 1020 1020 / 1020 620 / 620 ML @ 125 mls/hr IV.CONT .Q8H10M [facility] Rx#:[id number] Calcium Gluconate Inj 1 GM In 110 / 110 D5W Inj 100 ML @ 110 mls/hr IV. SIG ONCE ONE Rx#:[id number] KCl 20 mEq Premix Inj 20 meq In 100 / 100 100 ml @ 50 mls/hr IV.SIG Q2H [facility] Rx#:[id number] Other: Date of Last Bowel Movement 06/16/18 <Aaron Silver - Last Filed: 06/17/18 15:37> Results - Labs CBC & Chem 7: 06/17/18 04:56 06/17/18 04:56 Laboratory Results - last 24 hr 06/16/18 06/17/18 06/17/18 14:58 04:56 04:56 WBC 6.4 RBC 3.98 L Hgb 12.3 L Hct 36.3 L MCV 91.1 MCH 30.8 MCHC 33.8 RDW 14.4 Plt Count 186 MPV 8.3 Neut % (Auto) 55.9 Lymph % (Auto) 31.5 [place] % (Auto) 11.4 H Eos % (Auto) 0.7 Baso % (Auto) 0.5 Neut # (Auto) 3.6 Lymph # (Auto) 2.0 [place] # (Auto) 0.7 Eos # (Auto) 0.0 Baso # (Auto) 0.0 WBC Differential . Differential Comment Auto diff final Sodium 142 143 Potassium 3.3 L 3.2 L Chloride 104 107 Carbon Dioxide 29.1 25.1 Anion Gap 9 11 BUN 7 7 Creatinine 0.72 0.58 L Estimated GFR Greater than 89 Greater than 89 Random Glucose 81 109 H Calcium 8.1 L 7.4 L* Prot Corrected Calcium 7.9 L Magnesium Total Protein 6.2 L D 06/17/18 04:56 WBC RBC Hgb Hct MCV MCH MCHC RDW Plt Count MPV Neut % (Auto) Lymph % (Auto) [place] % (Auto) Eos % (Auto) Baso % (Auto) Neut # (Auto) Lymph # (Auto) [place] # (Auto) Eos # (Auto) Baso # (Auto) WBC Differential Differential Comment Sodium Potassium Chloride Carbon Dioxide Anion Gap BUN Creatinine Estimated GFR Random Glucose Calcium Prot Corrected Calcium Magnesium 1.3 L Total Protein - Imaging Impressions Abdomen/Pelvis CT 06/16/18 00:00 CONCLUSION: 1. No acute findings. Mild fatty liver. <Zarina Concepcion - Last Filed: 06/17/18 11:25> - Labs CBC & Chem 7: 06/17/18 04:56 06/17/18 04:56 Laboratory Results - last 24 hr 06/16/18 06/17/18 06/17/18 14:58 04:56 04:56 WBC 6.4 RBC 3.98 L Hgb 12.3 L Hct 36.3 L MCV 91.1 MCH 30.8 MCHC 33.8 RDW 14.4 Plt Count 186 MPV 8.3 Neut % (Auto) 55.9 Lymph % (Auto) 31.5 [place] % (Auto) 11.4 H Eos % (Auto) 0.7 Baso % (Auto) 0.5 Neut # (Auto) 3.6 Lymph # (Auto) 2.0 [place] # (Auto) 0.7 Eos # (Auto) 0.0 Baso # (Auto) 0.0 WBC Differential . Differential Comment Auto diff final Sodium 142 143 Potassium 3.3 L 3.2 L Chloride 104 107 Carbon Dioxide 29.1 25.1 Anion Gap 9 11 BUN 7 7 Creatinine 0.72 0.58 L Estimated GFR Greater than 89 Greater than 89 Random Glucose 81 109 H Calcium 8.1 L 7.4 L* Prot Corrected Calcium 7.9 L Magnesium Total Protein 6.2 L D 06/17/18 04:56 WBC RBC Hgb Hct MCV MCH MCHC RDW Plt Count MPV Neut % (Auto) Lymph % (Auto) [place] % (Auto) Eos % (Auto) Baso % (Auto) Neut # (Auto) Lymph # (Auto) [place] # (Auto) Eos # (Auto) Baso # (Auto) WBC Differential Differential Comment Sodium Potassium Chloride Carbon Dioxide Anion Gap BUN Creatinine Estimated GFR Random Glucose Calcium Prot Corrected Calcium Magnesium 1.3 L Total Protein - Imaging Impressions Abdomen/Pelvis CT 06/16/18 00:00 CONCLUSION: 1. No acute findings. Mild fatty liver. <Aaron Silver - Last Filed: 06/17/18 15:37> Assessment and Plan - Plan - Dysphagia Past 2 months he has been having issues swallowing, states worse with solids and has to drink liquids in order to pass the food. Does feel as if his food gets stuck. Has had extreme difficulty swallowing pills. Denies any odynophagia. Does report that he is regurgitating after meals, mostly just saliva. Denies any nausea or vomiting. Denies any shortness of breath or coughing with eating. Does report a 30 pound unintentional weight loss over the past 2 months which he has attributed to his inability to swallow food. Denies any change in his appetite. Denies any change in bowel habits including constipation and diarrhea, hematochezia and melena. Has never had an EGD or colonoscopy. Denies any family history significant for colon cancer. Patient reports drinking a beer a week. Smokes cigarettes once a week. Denies any illicit drug use. Denies any NSAID use. 06/17/2018 patient sits up in the bed with a Gatorade bottle spitting moderate to large amounts of saliva, states he does take a few bites of soft food after it is well chewed and chases it with liquids. Does note weight loss but unsure of how much. Hemoglobin 12.3. CT scan noted with mild fatty liver otherwise unremarkable. Discussing with him possible modified barium swallow today with hospitalist. Plan: Diet, dependent on testing, monitor for any obvious choking episodes, soft foods only Monitor labs with any obvious changes in hemoglobin Plan EGD Tuesday, consent, n.p.o. Tuesday night , will probably need dilatation of esophagus. Bowel regimen as needed Further recommendations to follow Patient was seen per myself and Dr. Silver, note was written on his behalf <Zarina Concepcion - Last Filed: 06/17/18 11:25>
[2018-06-17] MEDS ORDERED: Magnesium Sulfate Inj 2 GM in Sodium Chlor 0.9% Inj 96 ML IV.SIG ONE (17:00)
[2018-06-17] MEDS: Heparin - SQ 10,000 UNITS/ML Vial SQ SCH (21:31)
[2018-06-18 07:26] LABS: Anion Gap 9 meq/L (5-15); Blood Urea Nitrogen 7 mg/dL (7-18); Chloride 107 meq/L (98-107); Glomerular Filtration Rate Greater Than 89 mL/min (>89); Glucose,Random 85 mg/dL (74-106); Magnesium 1.4 mg/dL (1.5-2.5); Potassium 3.4 meq/L (3.5-5.1); Sodium 143 meq/L (136-145)
[2018-06-18] MEDS: Heparin - SQ 10,000 UNITS/ML Vial SQ SCH (08:48)
[2018-06-18] MEDS: Senna/Docusate Sodium 8.6/50 MG Tablet PO SCH (08:48)
[2018-06-18] MEDS ORDERED: Potassium Chloride Inj 20 MEQ, Magnesium Sulfate Inj 2 GM in Sod Chloride 0.9% Inj 1,00... IV.SIG ONE (10:00)
[2018-06-18] MEDS: Pantoprazole Inj 40 MG Vial IV.PUSH SCH (11:33)
--- NOTE | 2018-06-18 11:50 | P.PNGI ---
Subjective Interval history: Patient sitting up in the bed eating small amount of eggs which are very soft and keeping hydration close by Nausea vomiting or abdominal pain <Zarina Concepicon - Last Filed: 06/18/18 11:46> Physical Exam Vital signs: Vital Signs 06/17/18 12:00 06/17/18 16:00 06/17/18 19:55 Temperature 98.5 F 97.8 F 98.2 F Pulse Rate 80 74 76 Respiratory Rate 18 16 18 Blood Pressure 99/72 L 106/64 102/58 L Pulse Oximetry 100 100 100 06/17/18 20:20 06/18/18 00:00 06/18/18 04:00 Temperature 98.0 F 98.0 F Pulse Rate 62 73 69 Respiratory Rate 18 18 Blood Pressure 115/62 117/68 Pulse Oximetry 99 100 06/18/18 08:00 06/18/18 08:51 Temperature 98.5 F Pulse Rate 78 71 Respiratory Rate 16 Blood Pressure 101/55 L Pulse Oximetry 99 Intake & Output 06/17/18 06/18/18 06/18/18 18:59 06:59 18:59 Intake Total 730 / 730 100 / 100 Output Total 800 / 800 700 / 700 500 / 500 Balance -70 / -70 -600 / -600 -500 / -500 Intake: IV 730 / 730 100 / 100 KCl Inj 40 MEQ In NS Inj 1,000 620 / 620 ML @ 125 mls/hr IV.CONT .Q8H10M [facility] Rx#:[id number] Calcium Gluconate Inj 1 GM In 110 / 110 D5W Inj 100 ML @ 110 mls/hr IV. SIG ONCE ONE Rx#:[id number] Output: Urine 800 / 800 700 / 700 500 / 500 - Constitutional mild distress, thin - Routine HEENT Exam Head: Present: normocephalic ENT: Present: mucous membranes moist (Excessive copious amounts of saliva noted which patient is spitting up) - Routine Respiratory Exam Present: accessory muscle use (No obvious shortness of breath) - Routine Cardiovascular Exam Present: S1, S2 - Routine Abdominal Exam Present: soft, normoactive bowel sounds (No abdominal pain) <Zarina Concepcion - Last Filed: 06/18/18 11:46> Vital signs: Vital Signs 06/17/18 16:00 06/17/18 19:55 06/17/18 20:20 Temperature 97.8 F 98.2 F Pulse Rate 74 76 62 Respiratory Rate 16 18 Blood Pressure 106/64 102/58 L Pulse Oximetry 100 100 06/18/18 00:00 06/18/18 04:00 06/18/18 08:00 Temperature 98.0 F 98.0 F 98.5 F Pulse Rate 73 69 78 Respiratory Rate 18 18 16 Blood Pressure 115/62 117/68 101/55 L Pulse Oximetry 99 100 99 06/18/18 08:51 06/18/18 11:51 Temperature 98.5 F Pulse Rate 71 68 Respiratory Rate 16 Blood Pressure 98/58 L Pulse Oximetry 100 Intake & Output 06/17/18 06/18/18 06/18/18 18:59 06:59 18:59 Intake Total 730 / 730 100 / 100 Output Total 800 / 800 700 / 700 500 / 500 Balance -70 / -70 -600 / -600 -500 / -500 Intake: IV 730 / 730 100 / 100 KCl Inj 40 MEQ In NS Inj 1,000 620 / 620 ML @ 125 mls/hr IV.CONT .Q8H10M [facility] Rx#:[id number] Calcium Gluconate Inj 1 GM In 110 / 110 D5W Inj 100 ML @ 110 mls/hr IV. SIG ONCE ONE Rx#:[id number] Output: Urine 800 / 800 700 / 700 500 / 500 <Aaron Silver - Last Filed: 06/18/18 12:02> Results - Labs CBC & Chem 7: 06/17/18 04:56 06/18/18 05:39 Laboratory Results - last 24 hr 06/17/18 06/18/18 16:55 05:39 Sodium 143 Potassium 3.7 3.4 L Chloride 107 Carbon Dioxide 27.0 Anion Gap 9 BUN 7 Creatinine 0.42 L Estimated GFR Greater than 89 Random Glucose 85 Calcium 8.0 L Magnesium 1.4 L <Zarina Concepcion - Last Filed: 06/18/18 11:46> - Labs CBC & Chem 7: 06/17/18 04:56 06/18/18 05:39 Laboratory Results - last 24 hr 06/17/18 06/18/18 16:55 05:39 Sodium 143 Potassium 3.7 3.4 L Chloride 107 Carbon Dioxide 27.0 Anion Gap 9 BUN 7 Creatinine 0.42 L Estimated GFR Greater than 89 Random Glucose 85 Calcium 8.0 L Magnesium 1.4 L <Aaron Silver - Last Filed: 06/18/18 12:02> Assessment and Plan - Plan - Dysphagia Past 2 months he has been having issues swallowing, states worse with solids and has to drink liquids in order to pass the food. Does feel as if his food gets stuck. Has had extreme difficulty swallowing pills. Denies any odynophagia. Does report that he is regurgitating after meals, mostly just saliva. Denies any nausea or vomiting. Denies any shortness of breath or coughing with eating. Does report a 30 pound unintentional weight loss over the past 2 months which he has attributed to his inability to swallow food. Denies any change in his appetite. Denies any change in bowel habits including constipation and diarrhea, hematochezia and melena. Has never had an EGD or colonoscopy. Denies any family history significant for colon cancer. Patient reports drinking a beer a week. Smokes cigarettes once a week. Denies any illicit drug use. Denies any NSAID use. 06/17/2018 patient sits up in the bed with a Gatorade bottle spitting moderate to large amounts of saliva, states he does take a few bites of soft food after it is well chewed and chases it with liquids. Does note weight loss but unsure of how much. Hemoglobin 12.3. CT scan noted with mild fatty liver otherwise unremarkable. Discussing with him possible modified barium swallow today with hospitalist. 06/18/2018 patient is sitting on side of the bed attempting to eat soft eggs and drinking significant amount of hydration. Still spitting up copious amounts of saliva but is very cautious as to have no choking episodes. Discussed with patient again consent for EGD with dilatation to be done in a.m. patient understands and is agreeable. Denies any current nausea vomiting or abdominal pain. No obvious bleeding last hemoglobin noted 12.3 Plan: Diet, soft foods , lots of hydration at his bedside patient is instructed to eat slowly and chew food well Consent for EGD Tuesday with dilatation N.p.o. at midnight Monitor labs Bowel regimen as needed Supportive care Further recommendations to follow Patient was seen per myself and Dr. Silver, note was written on his behalf <Zarina Concepcion - Last Filed: 06/18/18 11:46> - Plan Seen and examined with [employer] [employer], sleeping comfortably. EGD/Dilation planned for tomorrow. <Aaron Silver - Last Filed: 06/18/18 12:02>
--- NOTE | 2018-06-18 13:21 | P.PN ---
Subjective Interval history: Follow-up on patient with dysphagia, weight loss. Patient seen and examined. Patient denies any changes. States he slept ok. No nausea, vomiting or abdominal pain. No chest pain or dyspnea. Physical Exam Vital signs: Vital Signs 06/17/18 16:00 06/17/18 19:55 06/17/18 20:20 Temperature 97.8 F 98.2 F Pulse Rate 74 76 62 Respiratory Rate 16 18 Blood Pressure 106/64 102/58 L Pulse Oximetry 100 100 06/18/18 00:00 06/18/18 04:00 06/18/18 08:00 Temperature 98.0 F 98.0 F 98.5 F Pulse Rate 73 69 73 Respiratory Rate 18 18 16 Blood Pressure 115/62 117/68 101/55 L Pulse Oximetry 99 100 99 06/18/18 08:51 06/18/18 11:51 Temperature 98.5 F Pulse Rate 71 68 Respiratory Rate 16 Blood Pressure 98/58 L Pulse Oximetry 100 Intake & Output 06/17/18 06/18/18 06/18/18 18:59 06:59 18:59 Intake Total 730 / 730 100 / 100 Output Total 800 / 800 700 / 700 500 / 500 Balance -70 / -70 -600 / -600 -500 / -500 Weight 79 kg Intake: IV 730 / 730 100 / 100 KCl Inj 40 MEQ In NS Inj 1,000 620 / 620 ML @ 125 mls/hr IV.CONT .Q8H10M [facility] Rx#:[id number] Calcium Gluconate Inj 1 GM In 110 / 110 D5W Inj 100 ML @ 110 mls/hr IV. SIG ONCE ONE Rx#:[id number] Output: Urine 800 / 800 700 / 700 500 / 500 Other: Date of Last Bowel Movement 06/16/18 Narrative: GENERAL: Well-developed thin -[place] male, in no acute distress. Awake and alert. Appears comfortable. SKIN: Warm and dry. HEENT: Atraumatic. Normocephalic. Pupils equal and round. No scleral icterus. No injection or drainage. No nasal bleeding or discharge. Mucous membranes pink and moist. NECK: Trachea midline. CARDIOVASCULAR: Regular rate and rhythm. No murmur auscultated. RESPIRATORY: No accessory muscle use. Clear to auscultation. Breath sounds equal bilaterally. GASTROINTESTINAL: Abdomen soft, non-tender, nondistended. +BS. MUSCULOSKELETAL: Extremities without clubbing, cyanosis, or edema. No obvious deformities. NEUROLOGICAL: Awake and alert. No obvious cranial nerve deficits. Motor grossly within normal limits. Able to move all extremities spontaneously. Normal speech. PSYCHIATRIC: Appropriate mood and affect; insight and judgment normal. Results - Labs CBC & Chem 7: 06/17/18 04:56 06/18/18 05:39 Laboratory Results - last 24 hr 06/17/18 06/18/18 16:55 05:39 Sodium 143 Potassium 3.7 3.4 L Chloride 107 Carbon Dioxide 27.0 Anion Gap 9 BUN 7 Creatinine 0.42 L Estimated GFR Greater than 89 Random Glucose 85 Calcium 8.0 L Magnesium 1.4 L Assessment and Plan - Plan 57 y/o AAM with no significant PMHx admitted for IP mgmt for Hypokalemia Hypokalemia Hypomagnesemia Due to decreased PO intake K2.4 on admission, replaced with 80meq IV in ED Persistent despite repletion, K 3.4 this am Mag level 1.4 after IV repletion -continue with IV K and mag repletion -repeat labs in am -Continuous cardiac monitoring Dysphagia, occurs with solids mostly -swallow study completed, cleared for soft diet with thin liquids -GI following, appreciate assistance. Plan for EGD tomorrow. Suspect will need dilatation of esophagus. -NPO p MN -continue on Protonix IV Weight loss 30lb. weight loss due to decreased PO intake CT abdomen/pelvis unremarkable -advised patient need for Colonoscopy as outpatient -Pending hemoccult -add ensure with meals TID Hypotensive, asymptomatic -Continue with IV fluids -Continue to monitor BP Hypocalcemia -improved s/p IV calcium repletion DVT PPX: Heparin sq Code Status: FULL Discussed Condition With: patient, nursing staff, Dr. Davila Discharge Planning: Not ready for discharge secondary to electrolyte imbalance. Discharge pending GI clearance.
[2018-06-19] MEDS: Heparin - SQ 10,000 UNITS/ML Vial SQ SCH ×2 (00:03→11:57)
[2018-06-19] MEDS: Senna/Docusate Sodium 8.6/50 MG Tablet PO SCH ×3 (00:03→20:37)
[2018-06-19 07:34] LABS: Anion Gap 8 meq/L (5-15); Blood Urea Nitrogen 6 mg/dL (7-18); Calcium 8.2 mg/dL (8.5-10.1); Carbon Dioxide 26.4 meq/L (21.0-32.0); Chloride 111 meq/L (98-107); Glomerular Filtration Rate Greater Than 89 mL/min (>89); Glucose,Random 86 mg/dL (74-106); Magnesium 1.4 mg/dL (1.5-2.5); Potassium 3.9 meq/L (3.5-5.1); Sodium 145 meq/L (136-145)
[2018-06-19] MEDS ORDERED: Lidocaine PF 1% Inj 5 ML Syringe OTHER ONE (10:45)
[2018-06-19] MEDS ORDERED: Succinylcholine Inj 100 MG/5 ML Syringe IV.PUSH ONE (10:45)
[2018-06-19] MEDS ORDERED: Glycopyrrolate Inj 1 MG/5 ML Syringe IV.PUSH ONE (10:45)
[2018-06-19] MEDS ORDERED: Phenylephrine/NS 1000 MCG/10ML Syringe IV.PUSH ONE (10:45)
[2018-06-19] MEDS ORDERED: Metoprolol Tartrate 25 MG Tablet PO ONE (11:00)
[2018-06-19] MEDS ORDERED: Sodium Chlor 0.9% Inj 500 ML IV.CONT ONE (11:00)
[2018-06-19] MEDS ORDERED: Chlorhexidine Gluconate 2% 1 Pack (2 Cloths) TOPICAL ONE (11:00)
[2018-06-19] MEDS ORDERED: fentaNYL 10 mcg/mL Premix Drip 2,500 MCG/250 ML BAG ONE (11:34)
--- NOTE | 2018-06-19 11:49 | P.PN ---
Subjective Interval history: Follow-up on patient with dysphagia, weight loss. Patient seen and examined. Patient is currently n.p.o. for procedure. He continues to have the same complaints of difficulty swallowing, sensation of food getting stuck in his throat. He denies any nausea or vomiting. He denies any abdominal pain. Physical Exam Vital signs: Vital Signs 06/18/18 11:51 06/18/18 15:57 06/18/18 20:00 Temperature 98.5 F 97.6 F Pulse Rate 68 84 75 Respiratory Rate 16 20 17 Blood Pressure 98/58 L 107/62 101/55 L Pulse Oximetry 100 100 100 06/18/18 23:31 06/19/18 03:45 06/19/18 07:51 Temperature 98.5 F 98.9 F 98.5 F Pulse Rate 69 75 62 Respiratory Rate 16 16 16 Blood Pressure 99/57 L 97/54 L 97/61 L Pulse Oximetry 100 100 100 Intake & Output 06/18/18 06/19/18 06/19/18 18:59 06:59 18:59 Intake Total 2807 / 2807 1000 / 1000 1000 / 1000 Output Total 500 / 500 600 / 600 275 / 275 Balance 2307 / 2307 400 / 400 725 / 725 Weight 79 kg 79 kg Intake: IV 1200 / 1200 1000 / 1000 1000 / 1000 NS + KCl 20 mEq Inj 1,000 ML @ 200 / 200 1000 / 1000 1000 / 1000 125 mls/hr IV.CONT .Q8H [facility] Rx# :[id number] KCl Inj 20 MEQ Magnesium 1000 / 1000 Sulfate Inj 2 GM In NS Inj 1, 000 ML @ 500 mls/hr IV.SIG ONCE ONE Rx#:[id number] Other 1607 / 1607 Output: Urine 500 / 500 600 / 600 275 / 275 Other: Other Intake Source Saline Solution Date of Last Bowel Movement 06/16/18 06/19/18 Narrative: GENERAL: Well-developed thin -[place]ian male, in no acute distress. Awake and alert. Appears comfortable. Lying on stretcher outside of room preparing to go to preop. SKIN: Warm and dry. HEENT: Atraumatic. Normocephalic. Pupils equal and round. No scleral icterus. No injection or drainage. No nasal bleeding or discharge. Mucous membranes pink and moist. NECK: Trachea midline. CARDIOVASCULAR: Regular rate and rhythm. No murmur auscultated. RESPIRATORY: No accessory muscle use. Clear to auscultation. Breath sounds equal bilaterally. GASTROINTESTINAL: Abdomen soft, non-tender, nondistended. +BS. MUSCULOSKELETAL: Extremities without clubbing, cyanosis, or edema. No obvious deformities. NEUROLOGICAL: Awake and alert. No obvious cranial nerve deficits. Motor grossly within normal limits. Able to move all extremities spontaneously. Normal speech. PSYCHIATRIC: Appropriate mood and affect; insight and judgment normal. Results - Labs CBC & Chem 7: 06/19/18 13:22 06/19/18 06:40 Laboratory Results - last 24 hr 06/19/18 06:40 Sodium 145 Potassium 3.9 Chloride 111 H Carbon Dioxide 26.4 Anion Gap 8 BUN 6 L Creatinine 0.40 L Estimated GFR Greater than 89 Random Glucose 86 Calcium 8.2 L Magnesium 1.4 L Microbiology 06/18/18 23:45 Stool Stool Occult Blood (SIMON) - Final Hemoccult negative Assessment and Plan - Plan 57 y/o AAM with no significant PMHx admitted for IP mgmt for Hypokalemia Hypokalemia Hypomagnesemia Due to decreased PO intake K2.4 on admission, replaced with 80meq IV in ED Mag level 1.4 after IV repletion -Potassium improved, 3.9 this morning. Continue on IV potassium with fluids. -IV mag repletion ordered -repeat labs in am -Continuous cardiac monitoring Dysphagia, occurs with solids mostly -swallow study completed, cleared for soft diet with thin liquids -GI following, appreciate assistance. For EGD today. Suspect will need dilatation of esophagus. Keep NPO. May need modified barium swallow following EGD procedure. -continue on Protonix IV Weight loss 30lb. weight loss due to decreased PO intake CT abdomen/pelvis unremarkable -advised patient need for Colonoscopy as outpatient -hemoccult neg -add ensure with meals TID Hypotensive, asymptomatic -Continue with IV fluids -Continue to monitor BP Hypocalcemia -improved s/p IV calcium repletion DVT PPX: Heparin sq Code Status: FULL Discussed Condition With: Patient, nursing staff, Dr. Davila Discharge Planning: Not ready for discharge secondary to electrolyte imbalance. Discharge pending GI clearance.
[2018-06-19] MEDS ORDERED: *morphine SULFATE 10 MG/ML PERIprocedure ONLY ONE (11:53)
[2018-06-19] MEDS ORDERED: *morphine SULFATE 4 MG/ML PERIprocedure ONLY ONE (12:17)
--- NOTE | 2018-06-19 12:30 | P.PCN ---
Date of procedure: 06/19/18 Pre-op diagnosis: Dysphagia Procedure: PROCEDURE PERFORMED EGD with dilation and biopsy PROCEDURE: The procedure, risks and benefits were discussed with Patient/POA and informed consent was obtained. Anesthesia sedated Patient with Diprivan. Patient was placed in the left lateral decubitus position. EGD: The Pentax videoscope was introduced through the oropharynx and advanced to the second portion of the duodenum under direct visualization. Retroflexion was performed in the stomach. FINDINGS: The pharynx was very irregular and friable with lots of oozing and bleeding and as such it was difficult to intubate the esophagus and as such the procedure was then changed to general anesthesia and using a guidewire I was able to intubate the esophagus I then dilated with a size 17 savory dilator and then I was able to advance the scope further down into the esophagus the patient had a very irregular and friable tumor of the pharynx and the upper esophagus this was biopsied from the esophageal side just at about the upper esophageal sphincter The esophagus apart from the proximal portion of the esophagus as described above the esophagus appeared to be unremarkable and within normal limits The stomach this to appear to be unremarkable with normal limits The duodenum this to appear to be unremarkable with normal limits ESTIMATED BLOOD LOSS: Minimal SPECIMENS REMOVED: Esophago-pharyngeal biopsy COMPLICATIONS: None 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
[2018-06-19 12:49] LABS: ABG Base Excess 1.5 mmol/L (-2-2); ABG PCO2 46 mmHg (38-42); ABG PO2 86 mmHG (61-120)
[2018-06-19] MEDS ORDERED: Propofol 1000 mg/100 ml Inj 1,000 MG/100 ML BOTTLE IV.CONT PRN (12:53)
[2018-06-19] MEDS ORDERED: Propofol Inj 500 MG/50 ML Vial ONE (12:55)
[2018-06-19] MEDS ORDERED: Magnesium Sulfate Inj 2 GM in Sodium Chlor 0.9% Inj 96 ML IV.SIG PRN (12:56)
[2018-06-19] MEDS ORDERED: Potassium Chloride 25 MEQ Effervescent Tablet PO PRN (12:56)
[2018-06-19] MEDS ORDERED: Potassium Chlor 40 mEq Premix 40 MEQ/100 ML PIGGYBACK IV.SIG PRN ×2 (12:56)
[2018-06-19] MEDS ORDERED: Potassium Phosphate 500 MG Soluble Tablet PO PRN ×2 (12:56)
[2018-06-19] MEDS ORDERED: Sodium Phosphate Inj 30 MMOL in Sodium Chlor 0.9% Inj 250 ML IV.SIG PRN (12:56)
[2018-06-19] MEDS ORDERED: Potassium Chlor 20 mEq Premix 20 MEQ/100 ML PIGGYBACK IV.SIG PRN ×2 (12:56)
[2018-06-19] MEDS ORDERED: Magnesium Oxide 400 MG Tablet PO PRN (12:56)
[2018-06-19] MEDS ORDERED: Potassium Phosphate Inj 30 MMOL in Sodium Chlor 0.9% Inj 250 ML IV.SIG PRN (12:56)
[2018-06-19] MEDS ORDERED: Magnesium Sulfate Inj 4 GM in Sodium Chlor 0.9% Inj 92 ML IV.SIG PRN (12:56)
--- NOTE | 2018-06-19 12:58 | XR ---
EXAM DATE: 06/19/2018 12:11 PM EDT AGE/SEX: 57 years / Male INDICATIONS: Endotracheal tube placement. CLINICAL DATA: This is the patient's initial encounter. Patient reports that signs and symptoms have been present for 1 day and indicates a pain score of Nonresponsive. MEDICAL/SURGICAL HISTORY: None. None. [place] [facility] [place]. . FINDINGS: The endotracheal tube has its tip approximately 4 cm above the anisha in good position. Basilar atele ctatic changes are noted. The heart is stable. The pulmonary vascular pattern is normal. Degenerative changes are noted throughout the thoracic spine. CONCLUSION: 1. Endotracheal tube has its tip approximately 4 cm above the anisha. 2. Bibasilar atelectatic changes. Electronically signed by: Keanu Mckinney MD 06/19/2018 12:57 PM EDT
[2018-06-19] MEDS: Dextrose 5%/NaCl 0.9% Inj 1,000 ML IV.CONT SCH (13:00)
[2018-06-19] MEDS ORDERED: Dextrose 50% in Water 50 ML Vial IV.PUSH PRN (13:00)
[2018-06-19] MEDS: Pantoprazole Inj 40 MG Vial IV.PUSH SCH (13:35)
[2018-06-19 13:53] LABS: Baso % (Auto) 0.4 % (0.0-2.0); Eos % (Auto) 0.2 % (0.0-4.0); Hematocrit 35.5 % (39.0-51.0); Hemoglobin 11.7 gm/dL (13.0-17.0); Lymph # (Auto) 1.1 th/mm3 (1.0-4.8); Lymph % (Auto) 14.9 % (9.0-44.0); Mean Corpuscular HGB Conc 32.9 % (32.0-36.0); Mean Corpuscular Hemoglobin 30.7 pg (27.0-34.0); Mean Corpuscular Volume 93.4 fL (80.0-100.0); Mean Platelet Volume 8.1 fL (7.0-11.0); Mono # (Auto) 0.4 th/mm3 (0.0-0.9); Mono % (Auto) 5.2 % (0.0-8.0); Neut # (Auto) 5.8 th/mm3 (1.8-7.7); Neut % (Auto) 79.3 % (16.0-70.0); Platelet Count 163 th/mm3 (150-450); Red Cell Distribution Width 14.8 % (11.6-17.2); White Blood Count 7.3 th/mm3 (4.0-11.0)
--- NOTE | 2018-06-19 14:14 | MB ---
cc: Gilmra Hermosillo MD DATE: 06/19/2018 CRITICAL CARE CONSULTATION HISTORY OF PRESENT ILLNESS: The patient is a 57-year-old male without significant past medical history who presented to [facility] ED on 06/15/2018 with a decreased appetite; a 30-pound weight loss over the last month. The patient has no chronic medical problems and takes no prescribed medications at home. He was found hypokalemic on admission with a potassium level of 2.[address] scan of the abdomen and pelvis obtained on 06/08/2018 which showed no acute findings and mild fatty liver. 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 He remains on mechanical ventilation postprocedure and Critical Care Medicine was consulted for critical care management. He is currently on fentanyl infusion for sedation and assist control ventilation. ABG showed a pH of 7.37, CO2 46, pO2 86, bicarbonate 26, and saturation of 94%. On AC mode, respiratory rate of 12, tidal volume 500, PEEP of 5 and FiO2 of 50%. Chest x-ray today showed ET tube above the anisha, bibasilar atelectatic changes. PAST MEDICAL HISTORY: No history of hypertension, diabetes, or hyperlipidemia. ALLERGIES: GRAPEFRUIT. MEDICATIONS AT HOME: None. PAST SURGICAL HISTORY: History of knee and ankle surgeries. FAMILY HISTORY: Noncontributory to present illness. REVIEW OF SYSTEMS: As per HPI; review of systems limited as the patient is intubated. PHYSICAL EXAMINATION: GENERAL: A 57-year-old male; remains on mechanical ventilation, post-endoscopy VITAL SIGNS: Temperature 98.5, pulse 62, respiratory rate is 16, blood pressure 97/61 with a MAP of 73, saturation 100% assist control ventilation, respiratory rate of 12, tidal volume 500, PEEP 5, FiO2 of 50%. HEENT: Atraumatic, normocephalic. Pupils are equal, round, reactive to light and accommodation. Extraocular muscles intact. Conjunctivae pink. Nonicteric sclerae. Oral mucosa within normal. NECK: Supple. No JVD, adenopathy or thyromegaly. Trachea in the midline. CARDIOVASCULAR: Regular rate and rhythm. Normal S1, S2. No murmurs, rubs or gallops. PULMONARY: Bilateral equal air entry. No rales or wheezing. ABDOMEN: Soft, nontender, not distended. Positive bowel sounds. EXTREMITIES: No cyanosis, clubbing or edema. NEUROLOGIC: Intubated and on fentanyl drip. LABORATORY DATA: Sodium 145, potassium 3.9, chloride 111, CO2 26, BUN 6, creatinine 0.40, glucose of 86, magnesium 1.4. CBC from 06/17/2018 showed a white blood cell count 6.4, hemoglobin 12.3, hematocrit 36, platelet count 186. RADIOGRAPHIC STUDIES: A chest x-ray showed ET tube above the anisha, bibasilar atelectatic changes. IMPRESSION: 1. Ventilator-dependent respiratory failure. 2. Esophagopharyngeal tumor. 3. Dysphagia. 4. Hypomagnesemia. 5. Anemia. RECOMMENDATIONS: 1. Continue with fentanyl infusion for sedation. 2. Monitor neuro status closely and daily sedation vacation. 3. Continue with vent support and maintain sats above 92%. 4. Bronchodilators in the form of DuoNeb every 6 hours and will initiate ICU vent bundle. 5. Start spontaneous breathing trials in the morning and possible extubation as tolerated. 6. We will check a CT scan of the chest with contrast; rule out metastatic disease. In addition, we will obtain a CT scan of the soft tissue of the neck. 7. Monitor heart rate and blood pressure closely and maintain MAP greater than 65 mmHg. 8. Continued IV fluids; we will change to D5-NS at 75 mL an hour. 9. Monitor renal function, I's and O's and electrolyte replacement per protocol. 10. Continue with Protonix for gastrointestinal prophylaxis. The patient is status post EGD, which showed esophagopharyngeal tumor. We will consult Oncology Service. 11. Monitor his CBC. 12. Monitor for signs of infection, which include fever and WBC. Jackson culture if he spikes a fever. 13. Gastrointestinal prophylaxis with Protonix 40 mg daily and deep venous thrombosis prophylaxis with sequential compression devices. 14. We will place a central line if indicated. MD JOANNE Shannon/cynthia , 01:16 PM , 01:30 PM
[2018-06-19 14:15] LABS: Anion Gap 7 meq/L (5-15); Blood Urea Nitrogen 5 mg/dL (7-18); Calcium 8.5 mg/dL (8.5-10.1); Carbon Dioxide 28.5 meq/L (21.0-32.0); Chloride 110 meq/L (98-107); Glomerular Filtration Rate Greater Than 89 mL/min (>89); Glucose,Random 90 mg/dL (74-106); Magnesium 1.3 mg/dL (1.5-2.5); Phosphorus 1.6 mg/dL (2.5-4.9); Sodium 145 meq/L (136-145)
[2018-06-19] MEDS ORDERED: fentaNYL 10 mcg/mL Premix Drip 2,500 MCG/250 ML BAG IV.SIG PRN (14:30)
[2018-06-19 14:40] LABS: Creatine Kinase 39 U/L (39-308)
[2018-06-19] MEDS: Mag Sulf 1 gm/100 ml Premix 100 ML IV.SIG SCH ×2 (14:44→15:50)
[2018-06-19] MEDS: Insulin NovoLIN Regular Correctional Sugar Inj SQ SCH ×3 (16:23→23:59)
--- NOTE | 2018-06-19 22:18 | CT ---
EXAM DATE: 06/19/2018 8:51 PM EDT AGE/SEX: 57 years / Male INDICATIONS: Throat pain. CLINICAL DATA: This is the patient's subsequent encounter. Patient reports that signs and symptoms h ave been present for 1 week and indicates a pain score of 5/10. MEDICAL/SURGICAL HISTORY: None. None. RADIATION DOSE: 13.94 CTDI (mGy) ; Combined studies [place] [facility] [facility] [place]/2018. . TECHNIQUE: Helical acquisition was performed using a multirow detector CT scanner during the adminis tration of 80 ml Omnipaque 350 (iohexol) nonionic water-soluble contrast as a cumulative dose for mu ltiple exams. Using automated exposure control and adjustment of the mA and/or kV according to patie nt size, radiation dose was kept as low as reasonably achievable to obtain optimal diagnostic quality images. DICOM format image data is available electronically for review and comparison. FINDINGS: There is masslike fullness in the left posterior oropharynx and hypopharynx estimated at approximatel y 2.1 x 2.5 x 4.6 cm in size. This could be infectious, inflammatory or neoplastic. A left jugulodigastric mass is present and measures approximately 1.7 x 1.4 x 1.9 cm with a low-densi ty interior. At the level of the thoracic inlet is an additional low-density mass on the right that measures appro ximately 2.3 x 2.5 x 2.6 cm. This abuts the esophagus and pushes both the esophagus and the trachea t o the left. It appears separate from the thyroid. Emphysema seen of the visualized lung apices. CONCLUSION: 1. Elongated left posterior oral pharyngeal and hypopharyngeal mass. 2. Small left jugular digastric mass which may be a necrotic cervical lymph node or a brachial cyst. 3. Right paraesophageal mass at the level of the thoracic inlet of concern for a partially necrotic lymph node. Electronically signed by: Osvaldo London MD 06/19/2018 10:17 PM EDT
--- NOTE | 2018-06-19 22:22 | CT ---
EXAM DATE: 06/19/2018 8:51 PM EDT AGE/SEX: 57 years / Male INDICATIONS: Shortness of breath. CLINICAL DATA: This is the patient's initial encounter. Patient reports that signs and symptoms have been present for 1 day and indicates a pain score of 0/10. MEDICAL/SURGICAL HISTORY: None. None. RADIATION DOSE: 15.58 CTDI (mGy) ; Combined studies COMPARISON: No prior exams available for comparison. TECHNIQUE: Multiple contiguous axial images were obtained through the chest during bolus infusion of 80 ml Omnipaque 350 (iohexol) nonionic water-soluble contrast as a cumulative dose for multiple exa ms. Images were obtained in suspended respiration using multiple row detector helical technique. U sing automated exposure control and adjustment of the mA and/or kV according to patient size, radiati on dose was kept as low as reasonably achievable to obtain optimal diagnostic quality images. DICOM format image data is available electronically for review and comparison. FINDINGS: There is mild emphysema. Small effusions and mild atelectasis seen of both bases. No pulmonary mass o r infiltrate demonstrated. No pneumothorax. There is a 2.3 x 2.4 x 2.7 cm mass with central low density to the right of the trachea and esophagus at the level of the thoracic inlet. No mediastinal, hilar or axillary lymphadenopathy. CONCLUSION: 1. Small bilateral pleural effusions and mild atelectasis. No pulmonary masses or infiltrates demons trated. 2. Right paraesophageal mass at the level of the thoracic inlet and of concern for a partially necro tic lymph node. Inflammatory and neoplastic etiologies are in the differential. 3. Mild emphysema. Electronically signed by: Osvaldo London MD 06/19/2018 10:20 PM EDT
--- NOTE | 2018-06-20 01:48 | MB ---
cc: Wally Oliver MD DATE: 06/19/2018 REASON FOR CONSULTATION: Consult requested by hospitalist for evaluation of hypopharyngeal/upper esophageal mass. HISTORY OF PRESENT ILLNESS: Maninder is a 57-year-old male. He is without any significant past medical history. He recently developed anorexia and difficulty swallowing. The dysphagia was progressive and initially it was for the solid food and then he was unable to swallow liquid. He has around 30-pound weight loss. He went to see his primary physician at [facility]. A blood test was done and he was found to have severe hypokalemia. He was advised to go to the emergency room. The patient came to the [place] [facility]. Admission blood test on 06/15/2018 did confirm severe hypokalemia with a potassium 2.4. The patient was admitted to the hospital. He has been treated with IV potassium and now his potassium is normal. Due to the difficulty swallowing, GI was consulted. Dr. Sandhu lumber planer, did the upper endoscopy. He found a very large irregular tumor in the hypopharyngeal area. He was unable to intubate the esophagus. He put a guidewire and dilated the area and then he was able to perform upper endoscopy. The duodenum, stomach and most of the esophagus was normal, except there was a friable mass noted in the upper esophagus or hypopharynx. It is difficult to ascertain the exact site of the tumor due to the bleeding. Biopsy of the mass was obtained from the esophagus side. The pathology report is pending. I have been asked to see the patient for further evaluation. The patient states that he is hungry and he wants to eat. He has difficulty swallowing for both solid and liquids. He had a CT scan of the abdomen and pelvis on 06/16/2018, which came back negative except for mild fatty liver. PAST MEDICAL HISTORY: None. PAST SURGICAL HISTORY: Knee surgery, ankle surgery due to trauma. ALLERGIES: NONE TO MEDICATIONS. MEDICATIONS PRIOR TO HOSPITAL: None. FAMILY HISTORY: None for malignancy. SOCIAL HISTORY: The patient smokes cigarettes, 1 pack a day for many years. He also drinks alcohol, 2 drinks every day. PHYSICAL EXAMINATION: GENERAL: He is a well-developed male in no apparent distress. VITAL SIGNS: Temperature is afebrile, 98.1, heart rate is 52, respiratory rate 27, blood pressure 113/64. HEAD, EYES, EARS, NOSE, AND THROAT: Pupils equal, round, reactive to light and accommodation, extraocular movements intact. Anicteric. No oral lesions noted. No thrush noted. NECK: Supple. No JVD. No masses noted. LUNGS: Clear. No wheezing, rhonchi, or rales. HEART: Regular rate and rhythm. No murmur heard. ABDOMEN: Soft and nontender. No hepatosplenomegaly. No abnormal bowel sounds. No guarding or rigidity noted. EXTREMITIES: No pedal edema. No cyanosis, no clubbing. NEUROLOGIC: Awake, alert, oriented x 3. Sensory and motor seem to be intact. SKIN: No bruises or petechiae noted. BREASTS: No masses noted. LYMPH NODES: No cervical, supraclavicular, or axillary lymphadenopathy noted. BACK: There is no spinal tenderness noted. ASSESSMENT: Large obstructive hypopharyngeal mass/upper esophageal mass. The biopsies were obtained and the results are still pending. PLAN: I have reviewed his available records. I have discussed with the patient regarding the upper endoscopy findings, which show a large hypopharyngeal or upper esophageal mass. Biopsies were obtained and I suspect that this will be a squamous cell carcinoma. I will get the CT scan of the soft tissue neck and chest for staging evaluation. Further recommendations once we have the results of the above tests and the pathology report. Thank you for asking my opinion. MD PASCUAL Morris/jairo , 11:52 PM , 12:07 AM GAR[facility] HEALTHEyad
[2018-06-20] MEDS: Dextrose 5%/NaCl 0.9% Inj 1,000 ML IV.CONT SCH (04:21)
[2018-06-20] MEDS: Insulin NovoLIN Regular Correctional Sugar Inj SQ SCH ×3 (04:55→11:36)
[2018-06-20 06:09] LABS: Alkaline Phosphatase 43 U/L (45-117); Total Protein 5.9 g/dL (6.4-8.2)
[2018-06-20 06:17] LABS: Alanine Aminotransferase 8 U/L (12-78); Albumin 2.1 g/dL (3.4-5.0); Anion Gap 10 meq/L (5-15); Aspartate Aminotransferase 18 U/L (15-37); Blood Urea Nitrogen 5 mg/dL (7-18); Calcium 8.1 mg/dL (8.5-10.1); Carbon Dioxide 24.1 meq/L (21.0-32.0); Chloride 109 meq/L (98-107); Glomerular Filtration Rate Greater Than 89 mL/min (>89); Glucose,Random 103 mg/dL (74-106); Magnesium 1.5 mg/dL (1.5-2.5); Phosphorus 2.4 mg/dL (2.5-4.9); Sodium 143 meq/L (136-145)
[2018-06-20 06:19] LABS: Potassium 4.7 meq/L (3.5-5.1)
[2018-06-20 06:52] LABS: Baso % (Auto) 0.2 % (0.0-2.0); Hemoglobin 10.8 gm/dL (13.0-17.0); Lymph # (Auto) 1.6 th/mm3 (1.0-4.8); Lymph % (Auto) 22.2 % (9.0-44.0); Mean Corpuscular HGB Conc 33.8 % (32.0-36.0); Mean Corpuscular Hemoglobin 30.8 pg (27.0-34.0); Mean Corpuscular Volume 91.3 fL (80.0-100.0); Mean Platelet Volume 8.3 fL (7.0-11.0); Mono # (Auto) 0.7 th/mm3 (0.0-0.9); Mono % (Auto) 9.9 % (0.0-8.0); Neut # (Auto) 4.9 th/mm3 (1.8-7.7); Neut % (Auto) 67.7 % (16.0-70.0); Platelet Count 173 th/mm3 (150-450); Red Blood Count 3.51 mil/mm3 (4.50-5.90); Red Cell Distribution Width 14.7 % (11.6-17.2); White Blood Count 7.2 th/mm3 (4.0-11.0)
[2018-06-20] MEDS: Senna/Docusate Sodium 8.6/50 MG Tablet PO SCH ×2 (08:22→21:42)
--- NOTE | 2018-06-20 11:19 | P.PNCC ---
Subjective Subjective Remarks/Hospital Course: 06/20: awake, alert, no acute distress. ROS negative. wants to eat. Objective Vital Signs / I&O: Vital Signs 06/19/18 11:37 06/19/18 11:45 06/19/18 12:00 Temperature 36.5 C Pulse Rate 102 H 104 H 96 H Respiratory Rate 30 H 29 H 30 H Blood Pressure 177/85 H 150/94 H 139/82 Pulse Oximetry 100 100 100 06/19/18 12:15 06/19/18 12:30 06/19/18 12:45 Temperature 36.3 C L Pulse Rate 82 79 80 Respiratory Rate 25 H 25 H 24 Blood Pressure 98/67 L 96/67 L 114/64 Pulse Oximetry 100 100 100 06/19/18 12:50 06/19/18 13:00 06/19/18 13:44 Temperature 36.8 C Pulse Rate 76 47 L Respiratory Rate 25 H 12 Blood Pressure 100/57 L Pulse Oximetry 100 100 100 06/19/18 14:00 06/19/18 14:30 06/19/18 15:00 Temperature Pulse Rate 89 45 L 49 L Respiratory Rate 23 12 12 Blood Pressure 134/86 100/57 L 112/62 Pulse Oximetry 100 100 100 06/19/18 15:08 06/19/18 15:30 06/19/18 16:00 Temperature 37.1 C Pulse Rate 51 L 45 L 56 L Respiratory Rate 12 12 16 Blood Pressure 107/62 102/62 Pulse Oximetry 100 100 100 06/19/18 16:30 06/19/18 16:36 06/19/18 17:00 Temperature Pulse Rate 54 L 48 L Respiratory Rate 14 14 14 Blood Pressure 108/73 102/58 L Pulse Oximetry 100 100 100 06/19/18 17:30 06/19/18 18:00 06/19/18 18:32 Temperature Pulse Rate 46 L 47 L 69 Respiratory Rate 16 22 16 Blood Pressure 99/57 L 94/57 L 120/67 Pulse Oximetry 100 100 100 06/19/18 18:45 06/19/18 19:00 06/19/18 19:01 Temperature Pulse Rate 53 L 55 L Respiratory Rate 14 15 Blood Pressure 101/58 L Pulse Oximetry 100 100 100 06/19/18 19:34 06/19/18 20:00 06/19/18 20:15 Temperature 36.7 C Pulse Rate 56 L 52 L Respiratory Rate 18 27 H Blood Pressure 111/61 113/64 Pulse Oximetry 98 99 99 06/19/18 20:31 06/19/18 21:00 06/19/18 21:54 Temperature Pulse Rate 50 L 52 L 56 L Respiratory Rate 18 10 L 11 L Blood Pressure 113/62 Pulse Oximetry 100 68 L 06/19/18 22:00 06/19/18 23:00 06/19/18 23:27 Temperature Pulse Rate 60 59 L 57 L Respiratory Rate 14 18 18 Blood Pressure 111/57 L Pulse Oximetry 100 100 97 06/20/18 00:00 06/20/18 01:00 06/20/18 02:00 Temperature 36.9 C Pulse Rate 45 L 48 L 48 L Respiratory Rate 9 L 13 11 L Blood Pressure 108/59 L 113/61 Pulse Oximetry 100 100 100 06/20/18 03:00 06/20/18 04:00 06/20/18 04:42 Temperature 36.7 C Pulse Rate 51 L 45 L 45 L Respiratory Rate 11 L 12 15 Blood Pressure 108/64 110/62 Pulse Oximetry 100 100 06/20/18 05:00 06/20/18 06:00 06/20/18 06:01 Temperature Pulse Rate 57 L 64 57 L Respiratory Rate 17 25 H 16 Blood Pressure 101/58 L 127/63 Pulse Oximetry 100 87 L 79 L 06/20/18 07:00 06/20/18 08:00 06/20/18 08:01 Temperature 36.9 C Pulse Rate 54 L 65 52 L Respiratory Rate 21 20 15 Blood Pressure 120/61 112/55 L Pulse Oximetry 100 73 L 100 06/20/18 09:00 06/20/18 09:01 06/20/18 09:28 Temperature Pulse Rate 43 L 44 L 52 L Respiratory Rate 11 L 13 16 Blood Pressure 115/62 Pulse Oximetry 100 100 100 06/20/18 10:00 Temperature Pulse Rate 57 L Respiratory Rate 24 Blood Pressure Pulse Oximetry 77 L Intake & Output 06/19/18 06/20/18 06/20/18 18:59 06:59 18:59 Intake Total 1870 / 1870 1000 / 1000 Output Total 625 / 625 800 / 800 Balance 1245 / 1245 200 / 200 Weight 78.471 kg Intake: IV 1420 / 1420 1000 / 1000 fentaNYL 10 mcg/mL Premix Drip 20 / 20 2,500 mcg In 250 ml @ 0 mls/hr .ROUTE .STK-MED ONE Rx#: [id number] D5W/Normal Saline Inj 1,000 ML 1000 / 1000 @ 75 mls/hr IV.CONT .[id number] [facility] Rx#:[id number] LR 1000 mL Inj 1,000 ML @ 30 200 / 200 mls/hr IV.CONT .Q24H [facility] Rx#: [id number] NS + KCl 20 mEq Inj 1,000 ML @ 1000 / 1000 125 mls/hr IV.CONT .Q8H [facility] Rx# :[id number] Magnesium Sulfate 1 gm/D5W 100 200 / 200 ml Premix 100 ML @ 100 mls/hr IV.SIG Q1H [facility] Rx#:[id number] Oral 0 / 0 Anesthesia Amount 450 / 450 Output: Urine 275 / 275 Urine Amount (Catheter) 350 / 350 800 / 800 Indwelling Urethral Catheter 350 / 350 800 / 800 Other: Date of Last Bowel Movement 06/19/18 06/19/18 # Bowel Movements 0 0 Result Diagrams: 06/20/18 06:29 06/20/18 04:37 Objective Remarks: GENERAL: Middle-age male, sitting in bed, no acute distress. HEENT: Normocephalic. Atraumatic. Pupils equal, round, reactive, conjugate. Mucous membranes are moist NECK: Trachea is midline. There is no JVD. CHEST: Unlabored. Equal chest rise. Nasal cannula oxygen. CARDIOVASCULAR: Normal rate, regular rhythm. Sinus. ABDOMEN: Soft, nontender, nondistended. No guarding. MUSCULOSKELETAL: Pulses 2+. No peripheral edema. NEUROLOGICAL: RASS 0. CAM -. GCS 15. Follows commands. Assessment and Plan - Assessment and Plan Plan: Assessment: 57-year-old male with esophageal mass status post EGD and biopsy now extubated from procedure and stable. Will allow GI to advance diet. Can transfer out of ICU. Appreciate oncologic recs. Esophageal Mass Acute Dysphagia - GI following - diet per GI - oncology consulted - path pending Acute hypoxic and hypercarbic respiratory failure- resolved - post EGD, now extubated doing well. - nebs - pulmonary toilet - wean o2 by nc as tolerated. SCDs S[facility] transfer out of ICU.
[2018-06-20] MEDS: Pantoprazole Inj 40 MG Vial IV.PUSH SCH (11:35)
--- NOTE | 2018-06-20 11:54 | P.PNONC ---
Subjective Interval history: Afebrile. Patient sitting up in chair, talking on the telephone. He has asked me to speak with his significant other via telephone, her name is Rula. I have spoken with her and answered all of her questions. Patient denies any pain or bleeding. He states he has been on a liquid diet and tolerating that, however he "wants to eat meat" We have discussed having a PEG tube placed for nutritional support and a consult for radiation oncology for the hypopharyngeal mass. Objective Vital Signs/Intake & Output: Vital Signs 06/19/18 11:37 06/19/18 11:45 06/19/18 12:00 Temperature 97.7 F Pulse Rate 102 H 104 H 96 H Respiratory Rate 30 H 29 H 30 H Blood Pressure 177/85 H 150/94 H 139/82 Pulse Oximetry 100 100 100 06/19/18 12:15 06/19/18 12:30 06/19/18 12:45 Temperature 97.4 F L Pulse Rate 82 79 80 Respiratory Rate 25 H 25 H 24 Blood Pressure 98/67 L 96/67 L 114/64 Pulse Oximetry 100 100 100 06/19/18 12:50 06/19/18 13:00 06/19/18 13:44 Temperature 98.2 F Pulse Rate 76 47 L Respiratory Rate 25 H 12 Blood Pressure 100/57 L Pulse Oximetry 100 100 100 06/19/18 14:00 06/19/18 14:30 06/19/18 15:00 Temperature Pulse Rate 89 45 L 49 L Respiratory Rate 23 12 12 Blood Pressure 134/86 100/57 L 112/62 Pulse Oximetry 100 100 100 06/19/18 15:08 06/19/18 15:30 06/19/18 16:00 Temperature 98.7 F Pulse Rate 51 L 45 L 56 L Respiratory Rate 12 12 16 Blood Pressure 107/62 102/62 Pulse Oximetry 100 100 100 06/19/18 16:30 06/19/18 16:36 06/19/18 17:00 Temperature Pulse Rate 54 L 48 L Respiratory Rate 14 14 14 Blood Pressure 108/73 102/58 L Pulse Oximetry 100 100 100 06/19/18 17:30 06/19/18 18:00 06/19/18 18:32 Temperature Pulse Rate 46 L 47 L 69 Respiratory Rate 16 22 16 Blood Pressure 99/57 L 94/57 L 120/67 Pulse Oximetry 100 100 100 06/19/18 18:45 06/19/18 19:00 06/19/18 19:01 Temperature Pulse Rate 53 L 55 L Respiratory Rate 14 15 Blood Pressure 101/58 L Pulse Oximetry 100 100 100 06/19/18 19:34 06/19/18 20:00 06/19/18 20:15 Temperature 98.1 F Pulse Rate 56 L 52 L Respiratory Rate 18 27 H Blood Pressure 111/61 113/64 Pulse Oximetry 98 99 99 06/19/18 20:31 06/19/18 21:00 06/19/18 21:54 Temperature Pulse Rate 50 L 52 L 56 L Respiratory Rate 18 10 L 11 L Blood Pressure 113/62 Pulse Oximetry 100 68 L 06/19/18 22:00 06/19/18 23:00 06/19/18 23:27 Temperature Pulse Rate 60 59 L 57 L Respiratory Rate 14 18 18 Blood Pressure 111/57 L Pulse Oximetry 100 100 97 06/20/18 00:00 06/20/18 01:00 06/20/18 02:00 Temperature 98.4 F Pulse Rate 45 L 48 L 48 L Respiratory Rate 9 L 13 11 L Blood Pressure 108/59 L 113/61 Pulse Oximetry 100 100 100 06/20/18 03:00 06/20/18 04:00 06/20/18 04:42 Temperature 98.0 F Pulse Rate 51 L 45 L 45 L Respiratory Rate 11 L 12 15 Blood Pressure 108/64 110/62 Pulse Oximetry 100 100 06/20/18 05:00 06/20/18 06:00 06/20/18 06:01 Temperature Pulse Rate 57 L 64 57 L Respiratory Rate 17 25 H 16 Blood Pressure 101/58 L 127/63 Pulse Oximetry 100 87 L 79 L 06/20/18 07:00 06/20/18 08:00 06/20/18 08:01 Temperature 98.4 F Pulse Rate 54 L 65 52 L Respiratory Rate 21 20 15 Blood Pressure 120/61 112/55 L Pulse Oximetry 100 73 L 100 06/20/18 09:00 06/20/18 09:01 06/20/18 09:28 Temperature Pulse Rate 43 L 44 L 52 L Respiratory Rate 11 L 13 16 Blood Pressure 115/62 Pulse Oximetry 100 100 100 06/20/18 10:00 Temperature Pulse Rate 57 L Respiratory Rate 24 Blood Pressure Pulse Oximetry 77 L Intake & Output 06/19/18 06/20/18 06/20/18 18:59 06:59 18:59 Intake Total 1870 / 1870 1000 / 1000 Output Total 625 / 625 800 / 800 Balance 1245 / 1245 200 / 200 Weight 78.471 kg Intake: IV 1420 / 1420 1000 / 1000 fentaNYL 10 mcg/mL Premix Drip 20 / 20 2,500 mcg In 250 ml @ 0 mls/hr .ROUTE .STK-MED ONE Rx#: [id number] D5W/Normal Saline Inj 1,000 ML 1000 / 1000 @ 75 mls/hr IV.CONT .[id number] [facility] Rx#:[id number] LR 1000 mL Inj 1,000 ML @ 30 200 / 200 mls/hr IV.CONT .Q24H ONE Rx#: [id number] NS + KCl 20 mEq Inj 1,000 ML @ 1000 / 1000 125 mls/hr IV.CONT .Q8H [facility] Rx# :[id number] Magnesium Sulfate 1 gm/D5W 100 200 / 200 ml Premix 100 ML @ 100 mls/hr IV.SIG Q1H [facility] Rx#:[id number] Oral 0 / 0 Anesthesia Amount 450 / 450 Output: Urine 275 / 275 Urine Amount (Catheter) 350 / 350 800 / 800 Indwelling Urethral Catheter 350 / 350 800 / 800 Other: Date of Last Bowel Movement 06/19/18 06/19/18 # Bowel Movements 0 0 Result Diagrams: 06/20/18 06:29 06/20/18 04:37 Laboratory Results: Laboratory Results - last 24 hr 06/19/18 06/19/18 06/19/18 12:42 13:00 13:22 WBC 7.3 RBC 3.80 L Hgb 11.7 L Hct 35.5 L MCV 93.4 MCH 30.7 MCHC 32.9 RDW 14.8 Plt Count 163 MPV 8.1 Neut % (Auto) 79.3 H Lymph % (Auto) 14.9 [place] % (Auto) 5.2 Eos % (Auto) 0.2 Baso % (Auto) 0.4 Neut # (Auto) 5.8 Lymph # (Auto) 1.1 [place] # (Auto) 0.4 Eos # (Auto) 0.0 Baso # (Auto) 0.0 WBC Differential . Differential Comment Auto diff final Puncture Site Left radial Patient Temperature 98.6 O2 Saturation 94 ABG pH 7.37 L ABG pCO2 46 H ABG pO2 86 ABG HCO3 26 ABG O2 Content 15.0 ABG Base Excess 1.5 ABG Methemoglobin 1.7 Gerry Test Present Hemoglobin 11.3 L Carboxyhemoglobin 0.8 O2 Delivery Device Ventilator Vent Setting Inspired O2 50 Critical Value No Sodium Potassium Chloride Carbon Dioxide Anion Gap BUN Creatinine Estimated GFR POC Glucose Random Glucose Calcium Phosphorus Magnesium Total Bilirubin AST ALT Alkaline Phosphatase Total Creatine Kinase Troponin I Total Protein Albumin Nasal Screen MRSA (PCR) Not detected 06/19/18 06/19/18 06/19/18 13:22 13:22 13:22 WBC RBC Hgb Hct MCV MCH MCHC RDW Plt Count MPV Neut % (Auto) Lymph % (Auto) [place] % (Auto) Eos % (Auto) Baso % (Auto) Neut # (Auto) Lymph # (Auto) [place] # (Auto) Eos # (Auto) Baso # (Auto) WBC Differential Differential Comment Puncture Site Patient Temperature O2 Saturation ABG pH ABG pCO2 ABG pO2 ABG HCO3 ABG O2 Content ABG Base Excess ABG Methemoglobin Gerry Test Hemoglobin Carboxyhemoglobin O2 Delivery Device Vent Setting Inspired O2 Critical Value Sodium 145 Potassium 4.0 Chloride 110 H Carbon Dioxide 28.5 Anion Gap 7 BUN 5 L Creatinine 0.47 L Estimated GFR Greater than 89 POC Glucose Random Glucose 90 Calcium 8.5 Phosphorus 1.6 L Magnesium 1.3 L Total Bilirubin AST ALT Alkaline Phosphatase Total Creatine Kinase 39 Troponin I Less than 0.02 L Total Protein Albumin Nasal Screen MRSA (PCR) 06/19/18 06/19/18 06/19/18 13:24 16:13 20:57 WBC RBC Hgb Hct MCV MCH MCHC RDW Plt Count MPV Neut % (Auto) Lymph % (Auto) [place] % (Auto) Eos % (Auto) Baso % (Auto) Neut # (Auto) Lymph # (Auto) [place] # (Auto) Eos # (Auto) Baso # (Auto) WBC Differential Differential Comment Puncture Site Patient Temperature O2 Saturation ABG pH ABG pCO2 ABG pO2 ABG HCO3 ABG O2 Content ABG Base Excess ABG Methemoglobin Gerry Test Hemoglobin Carboxyhemoglobin O2 Delivery Device Vent Setting Inspired O2 Critical Value Sodium Potassium Chloride Carbon Dioxide Anion Gap BUN Creatinine Estimated GFR POC Glucose 104 114 H 144 H Random Glucose Calcium Phosphorus Magnesium Total Bilirubin AST ALT Alkaline Phosphatase Total Creatine Kinase Troponin I Total Protein Albumin Nasal Screen MRSA (PCR) 06/19/18 06/20/18 06/20/18 23:05 04:25 04:37 WBC RBC Hgb Hct MCV MCH MCHC RDW Plt Count MPV Neut % (Auto) Lymph % (Auto) [place] % (Auto) Eos % (Auto) Baso % (Auto) Neut # (Auto) Lymph # (Auto) [place] # (Auto) Eos # (Auto) Baso # (Auto) WBC Differential Differential Comment Puncture Site Patient Temperature O2 Saturation ABG pH ABG pCO2 ABG pO2 ABG HCO3 ABG O2 Content ABG Base Excess ABG Methemoglobin Gerry Test Hemoglobin Carboxyhemoglobin O2 Delivery Device Vent Setting Inspired O2 Critical Value Sodium 143 Potassium 4.7 Chloride 109 H Carbon Dioxide 24.1 Anion Gap 10 BUN 5 L Creatinine 0.48 L Estimated GFR Greater than 89 POC Glucose 120 H 113 H Random Glucose 103 Calcium 8.1 L Phosphorus 2.4 L Magnesium 1.5 Total Bilirubin 0.4 AST 18 ALT 8 L Alkaline Phosphatase 43 L Total Creatine Kinase Troponin I Total Protein 5.9 L Albumin 2.1 L Nasal Screen MRSA (PCR) 06/20/18 06/20/18 06:29 08:15 WBC 7.2 RBC 3.51 L Hgb 10.8 L Hct 32.0 L MCV 91.3 MCH 30.8 MCHC 33.8 RDW 14.7 Plt Count 173 MPV 8.3 Neut % (Auto) 67.7 Lymph % (Auto) 22.2 [place] % (Auto) 9.9 H Eos % (Auto) 0.0 Baso % (Auto) 0.2 Neut # (Auto) 4.9 Lymph # (Auto) 1.6 [place] # (Auto) 0.7 Eos # (Auto) 0.0 Baso # (Auto) 0.0 WBC Differential . Differential Comment Auto diff final Puncture Site Patient Temperature O2 Saturation ABG pH ABG pCO2 ABG pO2 ABG HCO3 ABG O2 Content ABG Base Excess ABG Methemoglobin Gerry Test Hemoglobin Carboxyhemoglobin O2 Delivery Device Vent Setting Inspired O2 Critical Value Sodium Potassium Chloride Carbon Dioxide Anion Gap BUN Creatinine Estimated GFR POC Glucose 100 Random Glucose Calcium Phosphorus Magnesium Total Bilirubin AST ALT Alkaline Phosphatase Total Creatine Kinase Troponin I Total Protein Albumin Nasal Screen MRSA (PCR) Culture Results: Microbiology 06/18/18 23:45 Stool Occult Blood (SIMON) - Final Stool Hemoccult negative Imaging Studies: Impressions Chest CT 06/19/18 00:00 CONCLUSION: 1. Small bilateral pleural effusions and mild atelectasis. No pulmonary masses or infiltrates demonstrated. 2. Right paraesophageal mass at the level of the thoracic inlet and of concern for a partially necrotic lymph node. Inflammatory and neoplastic etiologies are in the differential. 3. Mild emphysema. Soft Tissue Neck CT 06/19/18 00:00 CONCLUSION: 1. Elongated left posterior oral pharyngeal and hypopharyngeal mass. 2. Small left jugular digastric mass which may be a necrotic cervical lymph node or a brachial cyst. 3. Right paraesophageal mass at the level of the thoracic inlet of concern for a partially necrotic lymph node. Chest X-Ray 06/19/18 12:11 CONCLUSION: 1. Endotracheal tube has its tip approximately 4 cm above the anisha. 2. Bibasilar atelectatic changes. Medications: Active Medications Generic Name Dose Route Start Last Admin Trade Name Freq PRN Reason Stop Dose Admin Albuterol 1 ampul 06/19/18 16:00 06/20/18 09:26 Duoneb Neb (Carol Ann) NEB 1 ampul Q6HR NEB CAROL ANN Administration Heparin Sodium (Porcine) 5,000 units 06/17/18 21:00 06/19/18 11:57 Heparin Inj SQ Not Given Q12HR CAROL ANN Sodium Phosphate 30 mmol/ 260 mls @ 42 mls/hr 06/19/18 12:56 06/20/18 07:18 Sodium Chloride IV.SIG 42 mls/hr UNSCH PRN Administration For Phosphorus < 2.5 mg/dL Dextrose/Sodium Chloride 1,000 mls @ 75 mls/hr 06/19/18 15:00 06/20/18 04:21 D5w/Normal Saline Inj IV.CONT 75 mls/hr .[id number] CAROL ANN Administration Fentanyl 2,500 mcg in 250 mls @ 5 mls/hr 06/19/18 14:30 06/19/18 18:56 Fentanyl 10 Mcg/Ml Premix Drip IV.SIG 0 mcg/hr TITRATE PRN 0 mls/hr Per Protocol Titration Protocol 50 MCG/HR Insulin Human Regular 0 units 06/19/18 16:00 06/20/18 08:23 Novolin R Correctional Sugar Inj SQ Not Given Q4HR [facility] Protocol Pantoprazole Sodium 40 mg 06/16/18 11:00 06/19/18 13:35 Protonix Inj IV.PUSH Not Given Q24H CAROL ANN Senna/Docusate Sodium 1 tab 06/15/18 21:00 06/20/18 08:22 Gilda-Colace PO 1 tab BID CAROL ANN Administration Objective Remarks: GENERAL: Thin, disheveled middle-aged male patient, sitting up in chair, in no acute distress. SKIN: Warm and dry. HEAD: Normocephalic. EYES: No scleral icterus. No injection or drainage. NECK: Supple, trachea midline. CARDIOVASCULAR: Regular rate and rhythm without murmurs. RESPIRATORY: Breath sounds equal bilaterally. Non-labored at rest. GASTROINTESTINAL: Abdomen soft, non-tender, nondistended. EXTREMITIES: No cyanosis, or edema. MUSCULOSKELETAL: Adequate muscle tone. NEUROLOGICAL: No obvious focal deficit. Awake, alert, and oriented x3. PSYCHIATRIC: Appropriate mood and affect; insight and judgment normal. Assessment/Plan - Plan Mr. López is a 57-year-old gentleman, who receives his medical care with the [facility]. He went to his primary care physician at the [facility] with complaints of difficulty swallowing. Patient had dysphasia which was progressive, a 30 pound weight loss. His primary care did a blood test and found that he had severe hypokalemia and advised him to go the emergency room. Patient was found to have a hypopharyngeal mass and oncology was consulted. Plan: 1. Large obstructive hypopharyngeal mass/upper esophageal mass. Biopsies were obtained and the results are pending. Mass suspicious for squamous cell carcinoma. Status post EGD on 06/19/2018. CT soft tissue neck showed the following: an elongated left posterior oral pharyngeal and hypopharyngeal mass. Small left jugular digastric mass which may be a necrotic cervical lymph node or brachial cyst. Right paraesophageal mass at the level of the thoracic inlet of concern for a partially necrotic lymph node. CT chest did not show any pulmonary masses or infiltrates. 2. Consult placed to radiation oncology. 3. Hypokalemia, corrected. 4.7 meq/L today. 4. Recommend PEG tube placement for nutritional support. Patient will need PEG tube prior to discharge. - Attending Statement The exam, history, and the medical decision-making described in the above note were completed with the assistance of the mid-level provider. I reviewed and agree with the findings presented. I attest that I had a [id number] encounter with the patient on the same day, and personally performed and documented my assessment and findings in the medical record. able to swallowliquid. CT chest = no lung mets. CT neck = hypopharngeal mass. d/w pt PEG consult XRT
--- NOTE | 2018-06-20 14:58 | P.PNGI ---
Subjective Interval history: Patient is currently sitting up in the chair oxygen on 2 L, talking on the phone in the intensive care setting According to the patient and the nurse and record patient extubated himself yesterday afternoon and states the tube was uncomfortable <Zarina Concepcion - Last Filed: 06/20/18 14:48> Physical Exam Vital signs: Vital Signs 06/19/18 15:00 06/19/18 15:08 06/19/18 15:30 Temperature Pulse Rate 49 L 51 L 45 L Respiratory Rate 12 12 12 Blood Pressure 112/62 107/62 Pulse Oximetry 100 100 100 06/19/18 16:00 06/19/18 16:30 06/19/18 16:36 Temperature 98.7 F Pulse Rate 56 L 54 L Respiratory Rate 16 14 14 Blood Pressure 102/62 108/73 Pulse Oximetry 100 100 100 06/19/18 17:00 06/19/18 17:30 06/19/18 18:00 Temperature Pulse Rate 48 L 46 L 47 L Respiratory Rate 14 16 22 Blood Pressure 102/58 L 99/57 L 94/57 L Pulse Oximetry 100 100 100 06/19/18 18:32 06/19/18 18:45 06/19/18 19:00 Temperature Pulse Rate 69 53 L Respiratory Rate 16 14 Blood Pressure 120/67 Pulse Oximetry 100 100 100 06/19/18 19:01 06/19/18 19:34 06/19/18 20:00 Temperature 98.1 F Pulse Rate 55 L 56 L 52 L Respiratory Rate 15 18 27 H Blood Pressure 101/58 L 111/61 113/64 Pulse Oximetry 100 98 99 06/19/18 20:15 06/19/18 20:31 06/19/18 21:00 Temperature Pulse Rate 50 L 52 L Respiratory Rate 18 10 L Blood Pressure Pulse Oximetry 99 100 06/19/18 21:54 06/19/18 22:00 06/19/18 23:00 Temperature Pulse Rate 56 L 60 59 L Respiratory Rate 11 L 14 18 Blood Pressure 113/62 Pulse Oximetry 68 L 100 100 06/19/18 23:27 06/20/18 00:00 06/20/18 01:00 Temperature 98.4 F Pulse Rate 57 L 45 L 48 L Respiratory Rate 18 9 L 13 Blood Pressure 111/57 L 108/59 L Pulse Oximetry 97 100 100 06/20/18 02:00 06/20/18 03:00 06/20/18 04:00 Temperature 98.0 F Pulse Rate 48 L 51 L 45 L Respiratory Rate 11 L 11 L 12 Blood Pressure 113/61 108/64 110/62 Pulse Oximetry 100 100 100 06/20/18 04:42 06/20/18 05:00 06/20/18 06:00 Temperature Pulse Rate 45 L 57 L 64 Respiratory Rate 15 17 25 H Blood Pressure 101/58 L Pulse Oximetry 100 87 L 06/20/18 06:01 06/20/18 07:00 06/20/18 08:00 Temperature 98.4 F Pulse Rate 57 L 54 L 65 Respiratory Rate 16 21 20 Blood Pressure 127/63 120/61 Pulse Oximetry 79 L 100 73 L 06/20/18 08:01 06/20/18 09:00 06/20/18 09:01 Temperature Pulse Rate 52 L 43 L 44 L Respiratory Rate 15 11 L 13 Blood Pressure 112/55 L 115/62 Pulse Oximetry 100 100 100 06/20/18 09:28 06/20/18 10:00 06/20/18 10:10 Temperature Pulse Rate 52 L 57 L 63 Respiratory Rate 16 24 24 Blood Pressure 109/70 Pulse Oximetry 100 77 L 83 L 06/20/18 11:00 06/20/18 12:00 Temperature 97.6 F Pulse Rate 49 L 65 Respiratory Rate 13 15 Blood Pressure 111/64 133/67 Pulse Oximetry 97 62 L Intake & Output 06/19/18 06/20/18 06/20/18 18:59 06:59 18:59 Intake Total 1870 / 1870 1000 / 1000 Output Total 625 / 625 800 / 800 Balance 1245 / 1245 200 / 200 Weight 78.471 kg Intake: IV 1420 / 1420 1000 / 1000 fentaNYL 10 mcg/mL Premix Drip 20 / 20 2,500 mcg In 250 ml @ 0 mls/hr .ROUTE .STK-MED ONE Rx#: [id number] D5W/Normal Saline Inj 1,000 ML 1000 / 1000 @ 75 mls/hr IV.CONT .[id number] [facility] Rx#:[id number] LR 1000 mL Inj 1,000 ML @ 30 200 / 200 mls/hr IV.CONT .Q24H [facility] Rx#: [id number] NS + KCl 20 mEq Inj 1,000 ML @ 1000 / 1000 125 mls/hr IV.CONT .Q8H [facility] Rx# :[id number] Magnesium Sulfate 1 gm/D5W 100 200 / 200 ml Premix 100 ML @ 100 mls/hr IV.SIG Q1H [facility] Rx#:[id number] Oral 0 / 0 Anesthesia Amount 450 / 450 Output: Urine 275 / 275 Urine Amount (Catheter) 350 / 350 800 / 800 Indwelling Urethral Catheter 350 / 350 800 / 800 Other: Date of Last Bowel Movement 06/19/18 06/19/18 06/19/18 # Bowel Movements 0 0 - Constitutional no acute distress, obese, cachectic - Routine HEENT Exam ENT: Present: mucous membranes moist - Routine Respiratory Exam Present: accessory muscle use (No obvious shortness of breath) - Routine Cardiovascular Exam Present: S1, S2 - Routine Abdominal Exam Present: soft (Flat, no obvious tenderness), normoactive bowel sounds - Urinary Catheter Management Indwelling Urethral Catheter Cath placed during this visit: yes Reason for continuing: Hourly intake/output Insertion date: 06/19/18 Insertion time: 11:53 <Zarina Concepcion - Last Filed: 06/20/18 14:48> Vital signs: Vital Signs 06/19/18 16:36 06/19/18 17:00 06/19/18 17:30 Temperature Pulse Rate 48 L 46 L Respiratory Rate 14 14 16 Blood Pressure 102/58 L 99/57 L Pulse Oximetry 100 100 100 06/19/18 18:00 06/19/18 18:32 06/19/18 18:45 Temperature Pulse Rate 47 L 69 Respiratory Rate 22 16 Blood Pressure 94/57 L 120/67 Pulse Oximetry 100 100 100 06/19/18 19:00 06/19/18 19:01 06/19/18 19:34 Temperature Pulse Rate 53 L 55 L 56 L Respiratory Rate 14 15 18 Blood Pressure 101/58 L 111/61 Pulse Oximetry 100 100 98 06/19/18 20:00 06/19/18 20:15 06/19/18 20:31 Temperature 98.1 F Pulse Rate 52 L 50 L Respiratory Rate 27 H 18 Blood Pressure 113/64 Pulse Oximetry 99 99 06/19/18 21:00 06/19/18 21:54 06/19/18 22:00 Temperature Pulse Rate 52 L 56 L 60 Respiratory Rate 10 L 11 L 14 Blood Pressure 113/62 Pulse Oximetry 100 68 L 100 06/19/18 23:00 06/19/18 23:27 06/20/18 00:00 Temperature 98.4 F Pulse Rate 59 L 57 L 45 L Respiratory Rate 18 18 9 L Blood Pressure 111/57 L Pulse Oximetry 100 97 100 06/20/18 01:00 06/20/18 02:00 06/20/18 03:00 Temperature Pulse Rate 48 L 48 L 51 L Respiratory Rate 13 11 L 11 L Blood Pressure 108/59 L 113/61 108/64 Pulse Oximetry 100 100 100 06/20/18 04:00 06/20/18 04:42 06/20/18 05:00 Temperature 98.0 F Pulse Rate 45 L 45 L 57 L Respiratory Rate 12 15 17 Blood Pressure 110/62 101/58 L Pulse Oximetry 100 100 06/20/18 06:00 06/20/18 06:01 06/20/18 07:00 Temperature Pulse Rate 64 57 L 54 L Respiratory Rate 25 H 16 21 Blood Pressure 127/63 120/61 Pulse Oximetry 87 L 79 L 100 06/20/18 08:00 06/20/18 08:01 06/20/18 09:00 Temperature 98.4 F Pulse Rate 65 52 L 43 L Respiratory Rate 20 15 11 L Blood Pressure 112/55 L Pulse Oximetry 73 L 100 100 06/20/18 09:01 06/20/18 09:28 06/20/18 10:00 Temperature Pulse Rate 44 L 52 L 57 L Respiratory Rate 13 16 24 Blood Pressure 115/62 Pulse Oximetry 100 100 77 L 06/20/18 10:10 06/20/18 11:00 06/20/18 12:00 Temperature 97.6 F Pulse Rate 63 49 L 65 Respiratory Rate 24 13 15 Blood Pressure 109/70 111/64 133/67 Pulse Oximetry 83 L 97 62 L 06/20/18 13:00 06/20/18 14:00 06/20/18 14:22 Temperature Pulse Rate 54 L 68 71 Respiratory Rate 15 23 23 Blood Pressure 112/62 91/59 L Pulse Oximetry 65 L 98 99 06/20/18 15:00 06/20/18 15:08 06/20/18 16:00 Temperature 98.5 F Pulse Rate 57 L 67 57 L Respiratory Rate 17 16 12 Blood Pressure 92/55 L Pulse Oximetry 100 100 06/20/18 16:02 Temperature Pulse Rate 58 L Respiratory Rate 13 Blood Pressure 107/57 L Pulse Oximetry 97 Intake & Output 06/19/18 06/20/18 06/20/18 18:59 06:59 18:59 Intake Total 1870 / 1870 1000 / 1000 Output Total 625 / 625 800 / 800 Balance 1245 / 1245 200 / 200 Weight 78.471 kg Intake: IV 1420 / 1420 1000 / 1000 fentaNYL 10 mcg/mL Premix Drip 20 / 20 2,500 mcg In 250 ml @ 0 mls/hr .ROUTE .STK-MED ONE Rx#: [id number] D5W/Normal Saline Inj 1,000 ML 1000 / 1000 @ 75 mls/hr IV.CONT .[id number] [facility] Rx#:[id number] LR 1000 mL Inj 1,000 ML @ 30 200 / 200 mls/hr IV.CONT .Q24H [facility] Rx#: [id number] NS + KCl 20 mEq Inj 1,000 ML @ 1000 / 1000 125 mls/hr IV.CONT .Q8H [facility] Rx# :[id number] Magnesium Sulfate 1 gm/D5W 100 200 / 200 ml Premix 100 ML @ 100 mls/hr IV.SIG Q1H [facility] Rx#:[id number] Oral 0 / 0 Anesthesia Amount 450 / 450 Output: Urine 275 / 275 Urine Amount (Catheter) 350 / 350 800 / 800 Indwelling Urethral Catheter 350 / 350 800 / 800 Other: Date of Last Bowel Movement 06/19/18 06/19/18 06/19/18 # Bowel Movements 0 0 - Urinary Catheter Management Indwelling Urethral Catheter Cath placed during this visit: no <Bayron Sandhu E - Last Filed: 06/20/18 18:59> Results - Labs CBC & Chem 7: 06/20/18 06:29 06/20/18 04:37 Laboratory Results - last 24 hr 06/19/18 06/19/18 06/19/18 13:00 16:13 20:57 WBC RBC Hgb Hct MCV MCH MCHC RDW Plt Count MPV Neut % (Auto) Lymph % (Auto) [place] % (Auto) Eos % (Auto) Baso % (Auto) Neut # (Auto) Lymph # (Auto) [place] # (Auto) Eos # (Auto) Baso # (Auto) WBC Differential Differential Comment Sodium Potassium Chloride Carbon Dioxide Anion Gap BUN Creatinine Estimated GFR POC Glucose 114 H 144 H Random Glucose Calcium Phosphorus Magnesium Total Bilirubin AST ALT Alkaline Phosphatase Total Protein Albumin Nasal Screen MRSA (PCR) Not detected 06/19/18 06/20/18 06/20/18 23:05 04:25 04:37 WBC RBC Hgb Hct MCV MCH MCHC RDW Plt Count MPV Neut % (Auto) Lymph % (Auto) [place] % (Auto) Eos % (Auto) Baso % (Auto) Neut # (Auto) Lymph # (Auto) [place] # (Auto) Eos # (Auto) Baso # (Auto) WBC Differential Differential Comment Sodium 143 Potassium 4.7 Chloride 109 H Carbon Dioxide 24.1 Anion Gap 10 BUN 5 L Creatinine 0.48 L Estimated GFR Greater than 89 POC Glucose 120 H 113 H Random Glucose 103 Calcium 8.1 L Phosphorus 2.4 L Magnesium 1.5 Total Bilirubin 0.4 AST 18 ALT 8 L Alkaline Phosphatase 43 L Total Protein 5.9 L Albumin 2.1 L Nasal Screen MRSA (PCR) 06/20/18 06/20/18 06:29 08:15 WBC 7.2 RBC 3.51 L Hgb 10.8 L Hct 32.0 L MCV 91.3 MCH 30.8 MCHC 33.8 RDW 14.7 Plt Count 173 MPV 8.3 Neut % (Auto) 67.7 Lymph % (Auto) 22.2 [place] % (Auto) 9.9 H Eos % (Auto) 0.0 Baso % (Auto) 0.2 Neut # (Auto) 4.9 Lymph # (Auto) 1.6 [place] # (Auto) 0.7 Eos # (Auto) 0.0 Baso # (Auto) 0.0 WBC Differential . Differential Comment Auto diff final Sodium Potassium Chloride Carbon Dioxide Anion Gap BUN Creatinine Estimated GFR POC Glucose 100 Random Glucose Calcium Phosphorus Magnesium Total Bilirubin AST ALT Alkaline Phosphatase Total Protein Albumin Nasal Screen MRSA (PCR) - Imaging Impressions Chest CT 06/19/18 00:00 CONCLUSION: 1. Small bilateral pleural effusions and mild atelectasis. No pulmonary masses or infiltrates demonstrated. 2. Right paraesophageal mass at the level of the thoracic inlet and of concern for a partially necrotic lymph node. Inflammatory and neoplastic etiologies are in the differential. 3. Mild emphysema. Soft Tissue Neck CT 06/19/18 00:00 CONCLUSION: 1. Elongated left posterior oral pharyngeal and hypopharyngeal mass. 2. Small left jugular digastric mass which may be a necrotic cervical lymph node or a brachial cyst. 3. Right paraesophageal mass at the level of the thoracic inlet of concern for a partially necrotic lymph node. <Zarina Concepcion - Last Filed: 06/20/18 14:48> - Labs CBC & Chem 7: 06/20/18 06:29 06/20/18 04:37 Laboratory Results - last 24 hr 06/19/18 06/19/18 06/19/18 13:00 20:57 23:05 WBC RBC Hgb Hct MCV MCH MCHC RDW Plt Count MPV Neut % (Auto) Lymph % (Auto) [place] % (Auto) Eos % (Auto) Baso % (Auto) Neut # (Auto) Lymph # (Auto) [place] # (Auto) Eos # (Auto) Baso # (Auto) WBC Differential Differential Comment Sodium Potassium Chloride Carbon Dioxide Anion Gap BUN Creatinine Estimated GFR POC Glucose 144 H 120 H Random Glucose Calcium Phosphorus Magnesium Total Bilirubin AST ALT Alkaline Phosphatase Total Protein Albumin Nasal Screen MRSA (PCR) Not detected 06/20/18 06/20/18 06/20/18 04:25 04:37 06:29 WBC 7.2 RBC 3.51 L Hgb 10.8 L Hct 32.0 L MCV 91.3 MCH 30.8 MCHC 33.8 RDW 14.7 Plt Count 173 MPV 8.3 Neut % (Auto) 67.7 Lymph % (Auto) 22.2 [place] % (Auto) 9.9 H Eos % (Auto) 0.0 Baso % (Auto) 0.2 Neut # (Auto) 4.9 Lymph # (Auto) 1.6 [place] # (Auto) 0.7 Eos # (Auto) 0.0 Baso # (Auto) 0.0 WBC Differential . Differential Comment Auto diff final Sodium 143 Potassium 4.7 Chloride 109 H Carbon Dioxide 24.1 Anion Gap 10 BUN 5 L Creatinine 0.48 L Estimated GFR Greater than 89 POC Glucose 113 H Random Glucose 103 Calcium 8.1 L Phosphorus 2.4 L Magnesium 1.5 Total Bilirubin 0.4 AST 18 ALT 8 L Alkaline Phosphatase 43 L Total Protein 5.9 L Albumin 2.1 L Nasal Screen MRSA (PCR) 06/20/18 08:15 WBC RBC Hgb Hct MCV MCH MCHC RDW Plt Count MPV Neut % (Auto) Lymph % (Auto) [place] % (Auto) Eos % (Auto) Baso % (Auto) Neut # (Auto) Lymph # (Auto) [place] # (Auto) Eos # (Auto) Baso # (Auto) WBC Differential Differential Comment Sodium Potassium Chloride Carbon Dioxide Anion Gap BUN Creatinine Estimated GFR POC Glucose 100 Random Glucose Calcium Phosphorus Magnesium Total Bilirubin AST ALT Alkaline Phosphatase Total Protein Albumin Nasal Screen MRSA (PCR) - Imaging Impressions Chest CT 06/19/18 00:00 CONCLUSION: 1. Small bilateral pleural effusions and mild atelectasis. No pulmonary masses or infiltrates demonstrated. 2. Right paraesophageal mass at the level of the thoracic inlet and of concern for a partially necrotic lymph node. Inflammatory and neoplastic etiologies are in the differential. 3. Mild emphysema. Soft Tissue Neck CT 06/19/18 00:00 CONCLUSION: 1. Elongated left posterior oral pharyngeal and hypopharyngeal mass. 2. Small left jugular digastric mass which may be a necrotic cervical lymph node or a brachial cyst. 3. Right paraesophageal mass at the level of the thoracic inlet of concern for a partially necrotic lymph node. <Bayron Sandhu E - Last Filed: 06/20/18 18:59> Assessment and Plan - Plan 06/20/2018 patient is status post EGD per Dr. Sandhu 06/19/2018. Findings include irregular and friable pharynx. Using a guidewire the esophagus was intubated and a friable tumor of the pharynx and upper esophagus /pharyngeal area was biopsied. Stomach and duodenal were unremarkable. This tumor is likely malignant. Patient was evaluated and working with speech therapy today. Initially plan was to leave intubated for at least 24 hours but patient extubated himself and states that he did not feel well. He was closely monitored in the intensive care and has had no problems with shortness of breath. Was evaluated per speech therapy today and has been able to tolerate clear liquids current hemoglobin 10.8 bilirubin and LFTs are normal. Patient has been evaluated per oncology for further recommendations. Currently patient is requesting a cheeseburger but explained to him the reasons for maintaining very soft foods and liquids. Soft tissue neck CT showed elongated left posterior oral pharyngeal and hypopharyngeal mass. Small left jugular digastric mass which may be a necrotic lymph node or a brachial cyst. Right parapharyngeal mass at the level of the thoracic outlet of concern for partially necrotic lymph node. Plan Diet, monitor swallow any choking episodes, clear liquids for now, patient tolerate and without any issues Biopsies are pending Monitor lab Supportive care Protonix IV Bowel regimen as needed Further recommendations to follow Patient was seen per myself and Dr. Sandhu, note was written on his behalf <Zarina Concepcion - Last Filed: 06/20/18 14:48> - Plan Patient seen and examined Agree with above Continue with current supportive care Monitor labs Oncology note noted we will plan on a PEG tube placement tomorrow Cancer has been confirmed on pathology <Bayron Sandhu - Last Filed: 06/20/18 18:59>
[2018-06-20] MEDS: Heparin - SQ 10,000 UNITS/ML Vial SQ SCH (21:42)
[2018-06-21 05:38] LABS: Hematocrit 31.3 % (39.0-51.0); Hemoglobin 10.3 gm/dL (13.0-17.0); Mean Corpuscular HGB Conc 32.9 % (32.0-36.0); Mean Corpuscular Hemoglobin 30.3 pg (27.0-34.0); Mean Corpuscular Volume 92.1 fL (80.0-100.0); Mean Platelet Volume 9.2 fL (7.0-11.0); Platelet Count 175 th/mm3 (150-450); Red Cell Distribution Width 14.4 % (11.6-17.2); White Blood Count 6.2 th/mm3 (4.0-11.0)
[2018-06-21 05:50] LABS: Anion Gap 8 meq/L (5-15); Blood Urea Nitrogen 4 mg/dL (7-18); Calcium 7.8 mg/dL (8.5-10.1); Carbon Dioxide 29.6 meq/L (21.0-32.0); Chloride 110 meq/L (98-107); Glomerular Filtration Rate Greater Than 89 mL/min (>89); Glucose,Random 71 mg/dL (74-106); Sodium 148 meq/L (136-145)
[2018-06-21] MEDS ORDERED: Lidocaine PF 1% Inj 5 ML Syringe OTHER ONE ×2 (10:00)
[2018-06-21] MEDS ORDERED: Succinylcholine Inj 100 MG/5 ML Syringe IV.PUSH ONE ×2 (10:00)
[2018-06-21] MEDS: Heparin - SQ 10,000 UNITS/ML Vial SQ SCH ×2 (10:35→21:54)
[2018-06-21] MEDS: Senna/Docusate Sodium 8.6/50 MG Tablet PO SCH ×2 (10:36→21:56)
[2018-06-21] MEDS ORDERED: Potassium Chloride 25 MEQ Effervescent Tablet PO ONE (10:55)
--- NOTE | 2018-06-21 10:55 | P.PCN ---
Date of procedure: 06/21/18 Pre-op diagnosis: Throat cancer, dysphagia Procedure: PROCEDURE PERFORMED EGD with PEG placement PROCEDURE: The procedure, risks and benefits were discussed with Patient/POA and informed consent was obtained. Anesthesia sedated Patient with Diprivan. Patient was placed in the left lateral decubitus position. EGD: The Pentax videoscope was introduced through the oropharynx and advanced to the second portion of the duodenum under direct visualization. Retroflexion was performed in the stomach. FINDINGS: The esophagus this was normal The stomach this was normal The duodenum this was normal Following the evaluation of the stomach and the duodenum the stomach was insufflated with air and the area of PEG placement was identified through indentation and transillumination the area was prepped and draped in usual fashion 5 cc of lidocaine were injected locally a small incision was made then an Angiocath was passed into the stomach through which a guidewire was passed this was retrieved with the scope into that a PEG tube was attached and pulled into place and thereafter secured in usual fashion The patient tolerated procedure well and there are no immediate complications ESTIMATED BLOOD LOSS: None SPECIMENS REMOVED: None COMPLICATIONS: None IMPRESSION: Normal EGD Successful PEG placement PLAN: 1. May use PEG tube for medications today 2. May start feeding tomorrow 3. May obtain nutritional consult for tube feeding 4. Flush tube with 50 cc of water every 4-6 hours 5. Always flush tube after feedings 6. Apply abdominal binder as necessary 7. Clamp G-tube after use and flush. Anesthesia: CASSIDY MORENO Surgeon: Bayron Sandhu Pathology: none sent Condition: stable Disposition: floor
[2018-06-21] MEDS: Pantoprazole Inj 40 MG Vial IV.PUSH SCH (12:20)
--- NOTE | 2018-06-21 13:34 | P.PNIM ---
Subjective Interval history: The patient was resting in bed. He said that he was hungry. He denied any pain in his stomach. He said he had the tube placed earlier. Discussed with nursing. Physical Exam Vital signs: Vital Signs 06/20/18 14:00 06/20/18 14:22 06/20/18 15:00 Temperature Pulse Rate 68 71 57 L Respiratory Rate 23 23 17 Blood Pressure 91/59 L 92/55 L Pulse Oximetry 98 99 100 06/20/18 15:08 06/20/18 16:00 06/20/18 16:02 Temperature 98.5 F Pulse Rate 67 57 L 58 L Respiratory Rate 16 12 13 Blood Pressure 107/57 L Pulse Oximetry 100 97 06/20/18 17:00 06/20/18 18:00 06/20/18 19:01 Temperature Pulse Rate 64 85 53 L Respiratory Rate 22 24 13 Blood Pressure 100/55 L 137/71 109/55 L Pulse Oximetry 90 L 99 100 06/20/18 20:00 06/20/18 21:00 06/20/18 21:19 Temperature 98.6 F Pulse Rate 76 64 54 L Respiratory Rate 18 30 H 17 Blood Pressure 122/69 122/62 Pulse Oximetry 98 99 06/20/18 21:28 06/21/18 00:00 06/21/18 01:21 Temperature 98.8 F Pulse Rate 56 L 62 Respiratory Rate 12 Blood Pressure 108/58 L Pulse Oximetry 98 100 06/21/18 04:00 06/21/18 04:08 06/21/18 07:00 Temperature 99.5 F Pulse Rate 68 80 78 Respiratory Rate 17 16 Blood Pressure 94/51 L Pulse Oximetry 98 06/21/18 08:00 06/21/18 09:09 06/21/18 09:10 Temperature 99.1 F Pulse Rate 80 79 Respiratory Rate 18 Blood Pressure 112/64 Pulse Oximetry 98 98 06/21/18 10:15 06/21/18 10:30 06/21/18 10:56 Temperature 98.2 F 98.2 F Pulse Rate 99 H 98 H 90 Respiratory Rate 14 14 14 Blood Pressure 119/62 121/70 127/70 Pulse Oximetry 100 100 100 06/21/18 11:32 06/21/18 11:43 06/21/18 12:00 Temperature 98.6 F Pulse Rate 79 86 Respiratory Rate 19 Blood Pressure 139/84 Pulse Oximetry 99 98 Intake & Output 06/20/18 06/21/18 06/21/18 18:59 06:59 18:59 Intake Total 2340 / 2340 300 / 300 Output Total 1100 / 1100 200 / 200 Balance 1240 / 1240 -200 / -200 300 / 300 Weight 77.6 kg Intake: IV 1360 / 1360 D5W/Normal Saline Inj 1,000 ML 1000 / 1000 @ 75 mls/hr IV.CONT .[id number] [facility] Rx#:[id number] Magnesium Sulfate Inj 2 GM In 100 / 100 NS Inj 96 ML @ 50 mls/hr IV.SIG [facility] PRN Rx#:[id number] Sodium Phosphate Inj 30 MMOL In 260 / 260 NS Inj 250 ML @ 42 mls/hr IV. SIG UNSCH PRN Rx#:[id number] Oral 980 / 980 Anesthesia Amount 300 / 300 Output: Urine 1100 / 1100 200 / 200 Other: Date of Last Bowel Movement 06/19/18 06/20/18 Narrative: GENERAL: No distress. SKIN: Warm and dry. HEENT: Atraumatic. Normocephalic. Pupils equal and round. No scleral icterus. No injection or drainage. No nasal bleeding or discharge. Mucous membranes pink and moist. NECK: Trachea midline. CARDIOVASCULAR: Regular rate and rhythm. No murmur auscultated. RESPIRATORY: No accessory muscle use. Clear to auscultation. Breath sounds equal bilaterally. GASTROINTESTINAL: Abdomen soft, non-tender, nondistended. +BS. PEG tube in place. MUSCULOSKELETAL: Extremities without clubbing, cyanosis, or edema. No obvious deformities. NEUROLOGICAL: Awake and alert. No obvious cranial nerve deficits. Motor grossly within normal limits. Able to move all extremities spontaneously. Normal speech. - Urinary Catheter Management Indwelling Urethral Catheter Cath placed during this visit: yes Reason for continuing: Hourly intake/output Insertion date: 06/19/18 Insertion time: 11:53 Results - Labs CBC & Chem 7: 06/21/18 03:43 06/21/18 03:43 Laboratory Results - last 24 hr 06/21/18 06/21/18 03:43 03:43 WBC 6.2 RBC 3.40 L Hgb 10.3 L Hct 31.3 L MCV 92.1 MCH 30.3 MCHC 32.9 RDW 14.4 Plt Count 175 MPV 9.2 Sodium 148 H Potassium 3.0 L D Chloride 110 H Carbon Dioxide 29.6 Anion Gap 8 BUN 4 L Creatinine 0.36 L Estimated GFR Greater than 89 Random Glucose 71 L Calcium 7.8 L Assessment and Plan - Plan Hypokalemia Hypomagnesemia Hypernatremia Due to decreased PO intake K 2.4 on admission. Mag level 1.4 after IV repletion -D5W with KCl. -repeat labs in am -Continuous cardiac monitoring Dysphagia GI consult appreciated. Esophageal Mass noted. Biopsy confirming SCC. - GI following - tube feeding to begin 06/22. Tinter Photograph consult pending. - oncology following. -speech therapy following. Acute hypoxic and hypercarbic respiratory failure- resolved - post EGD, now extubated doing well. - nebs - pulmonary toilet - wean o2 by nc as tolerated. Weight loss 30lb. weight loss due to decreased PO intake CT abdomen/pelvis unremarkable -tube feeds. Hypotensive, asymptomatic -Continue with IV fluids -Continue to monitor BP Hypocalcemia -improved s/p IV calcium repletion DVT PPX: Heparin sq
--- NOTE | 2018-06-21 14:18 | P.DIET ---
Nutritional Evaluation Type of nutrition evaluation: initial Nutrition consult regarding: Tube Feeding [place] [facility] [place] Subjective Comments: Reports 30# weight loss. Objective - Diagnosis Hypokalemia - Objective % IBW: 93 (IBW = 184#) Body Weight Used for Calculations: Actual (77.6 kg) Energy Needs - Lower Range (kCal/kg): 30 Energy Needs - Upper Range (kCal/kg): 35 Lower Limit kCal/kg (kCals): 2,328 Upper Limit kCal/kg (kCals): 2,716 Lower Limit Protein Factor (Grams per Kg): 1.2 Upper Limit Protein Factor (Grams per Kg): 1.5 Lower Protein Needs (Protein): 93 Upper Protein Needs (Protein): 116 Dietitian Reviewed in Medical Record: Curent medications, Intake & Output, Labs , Medical history Diet Order: NPO Assessment Assessment: Pt is having PEG placed today 2' to an esophageal mass interfering with po intake. To meet needs with TFing, recommend Jevity 1.5 goal rate of 70 mls/hr to provide 2520 kcals, 107 gms protein and 1277 mls of free water. Additional water flushes per MD. Recommendations: Jevity 1.5 @ 70 mls/hr goal Dietitian to Monitor: Lab values, Intake & Output, Tube feeding tolerance, Weight change, Swallow recommendations, Medical course
[2018-06-21] MEDS: KCL 20 mEq/Dextrose 5% Inj 1,000 ML IV.CONT SCH (16:37)
--- NOTE | 2018-06-21 16:43 | P.PNONC ---
Subjective Interval history: Patient lying in bed, resting comfortably. He is status post PEG tube placement this morning. He reports he is hungry and thirsty. We have discussed his pathology findings. Questions answered. Objective Vital Signs/Intake & Output: Vital Signs 06/20/18 17:00 06/20/18 18:00 06/20/18 19:01 Temperature Pulse Rate 64 85 53 L Respiratory Rate 22 24 13 Blood Pressure 100/55 L 137/71 109/55 L Pulse Oximetry 90 L 99 100 06/20/18 20:00 06/20/18 21:00 06/20/18 21:19 Temperature 98.6 F Pulse Rate 76 64 54 L Respiratory Rate 18 30 H 17 Blood Pressure 122/69 122/62 Pulse Oximetry 98 99 06/20/18 21:28 06/21/18 00:00 06/21/18 01:21 Temperature 98.8 F Pulse Rate 56 L 62 Respiratory Rate 12 Blood Pressure 108/58 L Pulse Oximetry 98 100 06/21/18 04:00 06/21/18 04:08 06/21/18 07:00 Temperature 99.5 F Pulse Rate 68 80 78 Respiratory Rate 17 16 Blood Pressure 94/51 L Pulse Oximetry 98 06/21/18 08:00 06/21/18 09:09 06/21/18 09:10 Temperature 99.1 F Pulse Rate 80 79 Respiratory Rate 18 Blood Pressure 112/64 Pulse Oximetry 98 98 06/21/18 10:15 06/21/18 10:30 06/21/18 10:56 Temperature 98.2 F 98.2 F Pulse Rate 99 H 98 H 90 Respiratory Rate 14 14 14 Blood Pressure 119/62 121/70 127/70 Pulse Oximetry 100 100 100 06/21/18 11:32 06/21/18 11:43 06/21/18 12:00 Temperature 98.6 F Pulse Rate 79 86 Respiratory Rate 19 Blood Pressure 139/84 Pulse Oximetry 99 98 Intake & Output 06/20/18 06/21/18 06/21/18 18:59 06:59 18:59 Intake Total 2340 / 2340 300 / 300 Output Total 1100 / 1100 200 / 200 Balance 1240 / 1240 -200 / -200 300 / 300 Weight 77.6 kg Intake: IV 1360 / 1360 D5W/Normal Saline Inj 1,000 ML 1000 / 1000 @ 75 mls/hr IV.CONT .[id number] [facility] Rx#:[id number] Magnesium Sulfate Inj 2 GM In 100 / 100 NS Inj 96 ML @ 50 mls/hr IV.SIG UNSCH PRN Rx#:[id number] Sodium Phosphate Inj 30 MMOL In 260 / 260 NS Inj 250 ML @ 42 mls/hr IV. SIG UNSCH PRN Rx#:[id number] Oral 980 / 980 Anesthesia Amount 300 / 300 Output: Urine 1100 / 1100 200 / 200 Other: Date of Last Bowel Movement 06/19/18 06/20/18 Result Diagrams: 06/21/18 03:43 06/21/18 03:43 Laboratory Results: Laboratory Results - last 24 hr 06/21/18 06/21/18 03:43 03:43 WBC 6.2 RBC 3.40 L Hgb 10.3 L Hct 31.3 L MCV 92.1 MCH 30.3 MCHC 32.9 RDW 14.4 Plt Count 175 MPV 9.2 Sodium 148 H Potassium 3.0 L D Chloride 110 H Carbon Dioxide 29.6 Anion Gap 8 BUN 4 L Creatinine 0.36 L Estimated GFR Greater than 89 Random Glucose 71 L Calcium 7.8 L Culture Results: Microbiology 06/18/18 23:45 Stool Occult Blood (SIMON) - Final Stool Hemoccult negative Medications: Active Medications Generic Name Dose Route Start Last Admin Trade Name Freq PRN Reason Stop Dose Admin Albuterol 1 ampul 06/19/18 16:00 06/21/18 11:43 Duoneb Neb (Carol Ann) NEB Not Given Q6HR NEB [facility] Heparin Sodium (Porcine) 5,000 units 06/17/18 21:00 06/21/18 10:35 Heparin Inj SQ Not Given Q12HR [facility] Pantoprazole Sodium 40 mg 06/16/18 11:00 06/21/18 12:20 Protonix Inj IV.PUSH 40 mg Q24H [facility] Administration Senna/Docusate Sodium 1 tab 06/15/18 21:00 06/21/18 10:36 Gilda-Colace PO Not Given BID [facility]OL [facility] Objective Remarks: GENERAL: Thin, disheveled middle-aged male patient, lying in bed, in no acute distress. SKIN: Warm and dry. HEAD: Normocephalic. EYES: No scleral icterus. No injection or drainage. NECK: Supple, trachea midline. CARDIOVASCULAR: Regular rate and rhythm without murmurs. RESPIRATORY: Breath sounds equal bilaterally. Non-labored at rest. GASTROINTESTINAL: Abdomen soft, non-tender, nondistended. PEG tube in place, dressing dry/intact. EXTREMITIES: No cyanosis, or edema. MUSCULOSKELETAL: Adequate muscle tone. NEUROLOGICAL: No obvious focal deficit. Awake, alert, and oriented x3. PSYCHIATRIC: Appropriate mood and affect; insight and judgment normal. Assessment/Plan - Plan Mr. López is a 57-year-old gentleman, who [facility]. He went to his primary care physician at the [facility] with complaints of difficulty swallowing. Patient had dysphasia which was progressive, a 30 pound weight loss. His primary care did a blood test and found that he had severe hypokalemia and advised him to go the emergency room. Patient was found to have a hypopharyngeal mass and oncology was consulted. Plan: 1. Large obstructive hypopharyngeal mass/upper esophageal mass. 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 2. Radiation oncology consulted. 3. Hypokalemia, receiving replacement. 4. Status post PEG tube placement for nutritional support. Patient reports he is hungry and thirsty. spoke to Dr. Vaughan, okayed using peg tube now. Nursing staff notified that pt could have clear liquids and feedings via peg tube, per dietary recommendation. - Attending Statement The exam, history, and the medical decision-making described in the above note were completed with the assistance of the mid-level provider. I reviewed and agree with the findings presented. I attest that I had a [id number] encounter with the patient on the same day, and personally performed and documented my assessment and findings in the medical record. S/P PEG tube today. D/W Dr Sandhu. Today he did not see tiumor in the esophagus as he was not bleeding and was not swollen. He has tumor in the hypopharynx statring from base of tongue. Bx =- sq cell ca. Recommend XRT and chemo. D/W DR Peres radiation oncologist. Start tube feeding today. NPO by speech therapy for aspiration risk. d/w RN pt needs to talk to [facility] about getting treatment here vs in [place].
--- NOTE | 2018-06-21 16:56 | P.CON ---
History of Present Illness Service: radiation oncology Primary Care Provider: [facility] Family Provider: [facility] Chief [facility] History of Present Illness: Mr. López with difficulty swallowing. Bx proven cancer hypopharnyx, upper esophagus. PMFSH - History History Provided By: Patient - Medical History Medical History: Medical History (Last Reviewed 06/21/18 @ 10:13 by Justin Vargas, PT) Patient denies medical problems (Acute) - Surgical History Surgical History: Surgical History (Last Reviewed 06/21/18 @ 10:13 by Justin Vargas, PT) Hx of knee surgery (Acute) History of ankle surgery (Acute) - Family History Family History: Family History (Last Reviewed 06/17/18 @ 09:45 by Renato Thorne) Other No pertinent family history - Tobacco History Second Hand Smoke Exposure: No Tobacco Use In Past 30 Days: No Smoking Status: Current every day smoker Tobacco Type: Cigarettes Packs Per Day: 1 - Alcohol History How Often Do You Have a Drink Containing Alcohol: 2 to 4 times a month - Substance Use History Substance History: No History of Abuse - Travel History History of Recent Travel: No Recent Travel in the [place] Within the Last 8 Weeks: No Recent Travel Out of the Country Within the Last 8 Weeks: No - Immunization History Tetanus Immunization: >5 Years Hx Influenza Vaccine This Season: No Medications and Allergies Active Medications: Active Medications Acetaminophen (Tylenol) 650 mg PO Q4H PRN PRN Reason: Temp > 100.4 Al Hydroxide/Mg Hydroxide (Milk Of Magnesia Liq) 30 ml PO Q12H PRN PRN Reason: Mild Constipation Albuterol (Duoneb Neb (Carol Ann)) 1 ampul NEB Q6HR NEB [facility] Last Admin: 06/21/18 16:53 Dose: 1 ampul Bisacodyl (Dulcolax Supp) 10 mg RECTAL DAILY PRN PRN Reason: SEVERE CONSITIPATION Dextrose (D50w Vial) 50 ml IV.PUSH UNSCH PRN PRN Reason: PER HYPOGLYCEMIA PROTOCOL Glucagon (Glucagon Inj) 1 mg OTHER PRN PRN PRN Reason: for Hypoglycemia Protocol Heparin Sodium (Porcine) (Heparin Inj) 5,000 units SQ Q12HR [facility] Last Admin: 06/21/18 10:35 Dose: Not Given Potassium Chloride/Dextrose (D5w + Kcl 20 Meq Inj) 1,000 mls @ 100 mls/hr IV.CONT .Q10H [facility] Last Admin: 06/21/18 16:37 Dose: 100 mls/hr Lactulose (Lactulose Liq) 30 ml PO DAILY PRN PRN Reason: SEVERE CONSITIPATION Miscellaneous Information ([facility] Nursing Information) 0 each OTHER UNSCH PRN PRN Reason: SEE LABEL COMMENTS Stop: 06/22/18 10:59 Ondansetron HCl (Zofran Inj) 4 mg IV.PUSH Q6H PRN PRN Reason: NAUSEA OR VOMITING Pantoprazole Sodium (Protonix Inj) 40 mg IV.PUSH Q24H [facility] Last Admin: 06/21/18 12:20 Dose: 40 mg Senna/Docusate Sodium (Gilda-Colace) 1 tab PO BID [facility] Last Admin: 06/21/18 10:36 Dose: Not Given Sodium Chloride (Ns Flush) 2 ml IV.FLUSH PRN PRN PRN Reason: FLUSH AFTER USING IV ACCESS Sodium Chloride (Ns Flush) 2 ml IV.FLUSH BID [facility] Allergies Allergy/AdvReac Type Severity Reaction Status Date / Time grapefruit Allergy Severe Anaphylaxis Verified 06/15/18 14:08 Home Medications Medication Instructions Recorded Confirmed Type No Known Home Medications 06/15/18 06/15/18 History Physical Exam Vital signs: Vital Signs 06/20/18 17:00 06/20/18 18:00 06/20/18 19:01 Temperature Pulse Rate 64 85 53 L Respiratory Rate 22 24 13 Blood Pressure 100/55 L 137/71 109/55 L Pulse Oximetry 90 L 99 100 06/20/18 20:00 06/20/18 21:00 06/20/18 21:19 Temperature 98.6 F Pulse Rate 76 64 54 L Respiratory Rate 18 30 H 17 Blood Pressure 122/69 122/62 Pulse Oximetry 98 99 06/20/18 21:28 06/21/18 00:00 06/21/18 01:21 Temperature 98.8 F Pulse Rate 56 L 62 Respiratory Rate 12 Blood Pressure 108/58 L Pulse Oximetry 98 100 06/21/18 04:00 06/21/18 04:08 06/21/18 07:00 Temperature 99.5 F Pulse Rate 68 80 78 Respiratory Rate 17 16 Blood Pressure 94/51 L Pulse Oximetry 98 06/21/18 08:00 06/21/18 09:09 06/21/18 09:10 Temperature 99.1 F Pulse Rate 80 79 Respiratory Rate 18 Blood Pressure 112/64 Pulse Oximetry 98 98 06/21/18 10:15 06/21/18 10:30 06/21/18 10:56 Temperature 98.2 F 98.2 F Pulse Rate 99 H 98 H 90 Respiratory Rate 14 14 14 Blood Pressure 119/62 121/70 127/70 Pulse Oximetry 100 100 100 06/21/18 11:32 06/21/18 11:43 06/21/18 12:00 Temperature 98.6 F Pulse Rate 79 86 Respiratory Rate 19 Blood Pressure 139/84 Pulse Oximetry 99 98 06/21/18 16:46 06/21/18 16:54 Temperature 98.8 F Pulse Rate 61 81 Respiratory Rate 18 18 Blood Pressure 123/65 Pulse Oximetry 98 Intake & Output 06/20/18 06/21/18 06/21/18 18:59 06:59 18:59 Intake Total 2340 / 2340 300 / 300 Output Total 1100 / 1100 200 / 200 Balance 1240 / 1240 -200 / -200 300 / 300 Weight 77.6 kg Intake: IV 1360 / 1360 D5W/Normal Saline Inj 1,000 ML 1000 / 1000 @ 75 mls/hr IV.CONT .[id number] [facility] Rx#:[id number] Magnesium Sulfate Inj 2 GM In 100 / 100 NS Inj 96 ML @ 50 mls/hr IV.SIG UNSCH PRN Rx#:[id number] Sodium Phosphate Inj 30 MMOL In 260 / 260 NS Inj 250 ML @ 42 mls/hr IV. SIG UNSCH PRN Rx#:[id number] Oral 980 / 980 Anesthesia Amount 300 / 300 Output: Urine 1100 / 1100 200 / 200 Other: Date of Last Bowel Movement 06/19/18 06/20/18 - Urinary Catheter Management Indwelling Urethral Catheter Cath placed during this visit: yes Reason for continuing: Hourly intake/output Insertion date: 06/19/18 Insertion time: 11:53 Assessment and Plan - Plan Discussed with dr rizo. Combined chemo-xrt. Dental evalation perhaps extraction. To be seen in our clinic 06-23-18
[2018-06-21] MEDS: Sodium Chloride 0.9% 2 ML Flush BID IV.FLUSH SCH (21:55)
[2018-06-22] MEDS: KCL 20 mEq/Dextrose 5% Inj 1,000 ML IV.CONT SCH (02:30)
[2018-06-22 05:12] LABS: Hemoglobin 10.3 gm/dL (13.0-17.0); Mean Corpuscular HGB Conc 34.4 % (32.0-36.0); Mean Corpuscular Hemoglobin 30.8 pg (27.0-34.0); Mean Corpuscular Volume 89.5 fL (80.0-100.0); Mean Platelet Volume 9.2 fL (7.0-11.0); Platelet Count 174 th/mm3 (150-450); Red Blood Count 3.35 mil/mm3 (4.50-5.90); Red Cell Distribution Width 13.9 % (11.6-17.2)
[2018-06-22 05:37] LABS: Anion Gap 8 meq/L (5-15); Blood Urea Nitrogen 6 mg/dL (7-18); Calcium 8.3 mg/dL (8.5-10.1); Carbon Dioxide 28.9 meq/L (21.0-32.0); Chloride 106 meq/L (98-107); Glomerular Filtration Rate Greater Than 89 mL/min (>89); Glucose,Random 101 mg/dL (74-106); Magnesium 1.6 mg/dL (1.5-2.5); Phosphorus 3.5 mg/dL (2.5-4.9); Sodium 143 meq/L (136-145)
--- NOTE | 2018-06-22 09:24 | P.PNGI ---
Subjective Interval history: Pt is sleeping, awakes to me calling his name, tolerating TF okay, a little sore around site of PEG tube <Ebenezer Broussard - Last Filed: 06/22/18 09:16> Physical Exam Vital signs: Vital Signs 06/21/18 10:15 06/21/18 10:30 06/21/18 10:56 Temperature 98.2 F 98.2 F Pulse Rate 99 H 98 H 90 Respiratory Rate 14 14 14 Blood Pressure 119/62 121/70 127/70 Pulse Oximetry 100 100 100 06/21/18 11:32 06/21/18 11:43 06/21/18 12:00 Temperature 98.6 F Pulse Rate 79 86 Respiratory Rate 19 Blood Pressure 139/84 Pulse Oximetry 99 98 06/21/18 16:00 06/21/18 16:46 06/21/18 16:54 Temperature 98.8 F Pulse Rate 68 61 81 Respiratory Rate 18 18 Blood Pressure 123/65 Pulse Oximetry 98 06/21/18 20:00 06/21/18 23:33 06/22/18 00:00 Temperature 98.9 F 98.8 F Pulse Rate 75 61 56 L Respiratory Rate 16 18 Blood Pressure 112/64 110/60 Pulse Oximetry 98 99 06/22/18 04:00 06/22/18 05:04 06/22/18 07:00 Temperature 98.7 F Pulse Rate 63 72 82 Respiratory Rate 16 16 Blood Pressure 113/68 Pulse Oximetry 99 98 Intake & Output 06/21/18 06/22/18 06/22/18 18:59 06:59 18:59 Intake Total 300 / 300 1000 / 1000 Output Total 850 / 850 850 / 850 Balance -550 / -550 150 / 150 Weight 77.4 kg Intake: IV 1000 / 1000 D5W + KCL 20 mEq Inj 1,000 ML @ 1000 / 1000 100 mls/hr IV.CONT .Q10H [facility] Rx#:[id number] Anesthesia Amount 300 / 300 Output: Urine 850 / 850 850 / 850 Other: Date of Last Bowel Movement 06/20/18 Narrative: GENERAL: No distress. SKIN: Warm and dry. CARDIOVASCULAR: Regular rate and rhythm. No murmur auscultated. RESPIRATORY: No accessory muscle use. Clear to auscultation. Breath sounds equal bilaterally. GASTROINTESTINAL: Abdomen soft, non-tender, nondistended. +BS. PEG tube in place. MUSCULOSKELETAL: Extremities without clubbing, cyanosis, or edema. No obvious deformities. NEUROLOGICAL: Awake and alert. - Urinary Catheter Management Indwelling Urethral Catheter Cath placed during this visit: yes Reason for continuing: Hourly intake/output Insertion date: 06/19/18 Insertion time: 11:53 <Ebenezer Broussard - Last Filed: 06/22/18 09:16> Vital signs: Vital Signs 06/21/18 16:54 06/21/18 20:00 06/21/18 23:33 Temperature 98.9 F 98.8 F Pulse Rate 81 75 61 Respiratory Rate 18 16 18 Blood Pressure 112/64 110/60 Pulse Oximetry 98 99 06/22/18 00:00 06/22/18 04:00 06/22/18 05:04 Temperature 98.7 F Pulse Rate 56 L 63 72 Respiratory Rate 16 16 Blood Pressure 113/68 Pulse Oximetry 99 98 06/22/18 07:00 06/22/18 09:17 06/22/18 11:00 Temperature 98.4 F Pulse Rate 82 60 55 L Respiratory Rate 16 Blood Pressure 113/70 Pulse Oximetry 99 06/22/18 12:34 06/22/18 15:00 06/22/18 16:05 Temperature 98.8 F 98.9 F Pulse Rate 74 52 L 53 L Respiratory Rate 16 16 Blood Pressure 93/60 L 95/53 L Pulse Oximetry 99 99 06/22/18 16:44 Temperature Pulse Rate Respiratory Rate Blood Pressure Pulse Oximetry 98 Intake & Output 06/21/18 06/22/18 06/22/18 18:59 06:59 18:59 Intake Total 300 / 300 1000 / 1000 800 / 800 Output Total 850 / 850 850 / 850 Balance -550 / -550 150 / 150 800 / 800 Weight 77.4 kg Intake: IV 1000 / 1000 800 / 800 D5W + KCL 20 mEq Inj 1,000 ML @ 1000 / 1000 800 / 800 100 mls/hr IV.CONT .Q10H [facility] Rx#:[id number] Anesthesia Amount 300 / 300 Output: Urine 850 / 850 850 / 850 Other: Date of Last Bowel Movement 06/20/18 06/20/18 - Urinary Catheter Management Indwelling Urethral Catheter Cath placed during this visit: no <Bayron Sandhu - Last Filed: 06/22/18 16:47> Results - Labs CBC & Chem 7: 06/22/18 03:45 06/22/18 03:45 Laboratory Results - last 24 hr 06/22/18 06/22/18 03:45 03:45 WBC 7.0 RBC 3.35 L Hgb 10.3 L Hct 30.0 L MCV 89.5 MCH 30.8 MCHC 34.4 RDW 13.9 Plt Count 174 MPV 9.2 Sodium 143 Potassium 4.0 D Chloride 106 Carbon Dioxide 28.9 Anion Gap 8 BUN 6 L Creatinine 0.50 L Estimated GFR Greater than 89 Random Glucose 101 Calcium 8.3 L Phosphorus 3.5 D Magnesium 1.6 - Imaging Abdomen/Pelvis CT 06/16/18 00:00 CONCLUSION: 1. No acute findings. Mild fatty liver. Chest CT 06/19/18 00:00 CONCLUSION: 1. Small bilateral pleural effusions and mild atelectasis. No pulmonary masses or infiltrates demonstrated. 2. Right paraesophageal mass at the level of the thoracic inlet and of concern for a partially necrotic lymph node. Inflammatory and neoplastic etiologies are in the differential. 3. Mild emphysema. Soft Tissue Neck CT 06/19/18 00:00 CONCLUSION: 1. Elongated left posterior oral pharyngeal and hypopharyngeal mass. 2. Small left jugular digastric mass which may be a necrotic cervical lymph node or a brachial cyst. 3. Right paraesophageal mass at the level of the thoracic inlet of concern for a partially necrotic lymph node. Chest X-Ray 06/19/18 12:11 CONCLUSION: 1. Endotracheal tube has its tip approximately 4 cm above the anisha. 2. Bibasilar atelectatic changes. <Ebenezer Broussard - Last Filed: 06/22/18 09:16> - Labs CBC & Chem 7: 06/22/18 03:45 06/22/18 03:45 Laboratory Results - last 24 hr 06/22/18 06/22/18 03:45 03:45 WBC 7.0 RBC 3.35 L Hgb 10.3 L Hct 30.0 L MCV 89.5 MCH 30.8 MCHC 34.4 RDW 13.9 Plt Count 174 MPV 9.2 Sodium 143 Potassium 4.0 D Chloride 106 Carbon Dioxide 28.9 Anion Gap 8 BUN 6 L Creatinine 0.50 L Estimated GFR Greater than 89 Random Glucose 101 Calcium 8.3 L Phosphorus 3.5 D Magnesium 1.6 <Bayron Sandhu E - Last Filed: 06/22/18 16:47> Assessment and Plan - Plan - Dysphagia- S/P EGD/PEG on 06/21/18, tolerating TF okay - Esophageal Mass- status post EGD per Dr. Sandhu 06/19/2018. Findings include irregular and friable pharynx. Using a guidewire the esophagus was intubated and a friable tumor of the pharynx and upper esophagus / pharyngeal area was biopsied. Stomach and duodenal were unremarkable. This tumor is likely malignant. Biopsy confirming SCC. Oncology following. Plan: - cont TF - oncology on the case - Flush tube after every feeding and meds administration - Gi will sign off - Pt seen and examined by Dr. Sandhu and myself and this note is written on his behalf. <Ebenezer Broussard - Last Filed: 06/22/18 09:16> - Plan Patient seen and examined Agree with above Continue with current supportive care Monitor labs Okay to start tube feeds Not much to add from a GI perspective we will sign off <Bayron Sandhu E - Last Filed: 06/22/18 16:47>
[2018-06-22] MEDS: Heparin - SQ 10,000 UNITS/ML Vial SQ SCH (09:26)
[2018-06-22] MEDS: Senna/Docusate Sodium 8.6/50 MG Tablet PO SCH (09:26)
[2018-06-22] MEDS: Sodium Chloride 0.9% 2 ML Flush BID IV.FLUSH SCH (09:27)
--- NOTE | 2018-06-22 10:40 | P.PNONC ---
Subjective Interval history: Patient sitting at the bedside. Talking on the telephone. He states he has still not been able to eat and ask if he can. He was awaiting speech therapy eval. Tube feeds started yesterday, tolerating well. Complains of some soreness at the PEG tube site. We have discussed his discharge home and his follow-up with radiation oncology and . I have also spoken on the telephone with his significant other Rula. All questions were answered. Objective Vital Signs/Intake & Output: Vital Signs 06/21/18 10:56 06/21/18 11:32 06/21/18 11:43 Temperature 98.2 F 98.6 F Pulse Rate 90 79 Respiratory Rate 14 19 Blood Pressure 127/70 139/84 Pulse Oximetry 100 99 98 06/21/18 12:00 06/21/18 16:00 06/21/18 16:46 Temperature 98.8 F Pulse Rate 86 68 61 Respiratory Rate 18 Blood Pressure 123/65 Pulse Oximetry 98 06/21/18 16:54 06/21/18 20:00 06/21/18 23:33 Temperature 98.9 F 98.8 F Pulse Rate 81 75 61 Respiratory Rate 18 16 18 Blood Pressure 112/64 110/60 Pulse Oximetry 98 99 06/22/18 00:00 06/22/18 04:00 06/22/18 05:04 Temperature 98.7 F Pulse Rate 56 L 63 72 Respiratory Rate 16 16 Blood Pressure 113/68 Pulse Oximetry 99 98 06/22/18 07:00 06/22/18 09:17 Temperature 98.4 F Pulse Rate 82 60 Respiratory Rate 16 Blood Pressure 113/70 Pulse Oximetry 99 Intake & Output 06/21/18 06/22/18 06/22/18 18:59 06:59 18:59 Intake Total 300 / 300 1000 / 1000 800 / 800 Output Total 850 / 850 850 / 850 Balance -550 / -550 150 / 150 800 / 800 Weight 77.4 kg Intake: IV 1000 / 1000 800 / 800 D5W + KCL 20 mEq Inj 1,000 ML @ 1000 / 1000 800 / 800 100 mls/hr IV.CONT .Q10H [facility] Rx#:[id number] Anesthesia Amount 300 / 300 Output: Urine 850 / 850 850 / 850 Other: Date of Last Bowel Movement 06/20/18 06/20/18 Result Diagrams: 06/22/18 03:45 06/22/18 03:45 Laboratory Results: Laboratory Results - last 24 hr 06/22/18 06/22/18 03:45 03:45 WBC 7.0 RBC 3.35 L Hgb 10.3 L Hct 30.0 L MCV 89.5 MCH 30.8 MCHC 34.4 RDW 13.9 Plt Count 174 MPV 9.2 Sodium 143 Potassium 4.0 D Chloride 106 Carbon Dioxide 28.9 Anion Gap 8 BUN 6 L Creatinine 0.50 L Estimated GFR Greater than 89 Random Glucose 101 Calcium 8.3 L Phosphorus 3.5 D Magnesium 1.6 Culture Results: Microbiology 06/18/18 23:45 Stool Occult Blood (SIMON) - Final Stool Hemoccult negative Medications: Active Medications Generic Name Dose Route Start Last Admin Trade Name Freq PRN Reason Stop Dose Admin Albuterol 1 ampul 06/19/18 16:00 06/22/18 09:51 Duoneb Neb (Carol Ann) NEB Not Given Q6HR NEB [facility] Heparin Sodium (Porcine) 5,000 units 06/17/18 21:00 06/22/18 09:26 Heparin Inj SQ 5,000 units Q12HR [facility] Administration Pantoprazole Sodium 40 mg 06/16/18 11:00 06/21/18 12:20 Protonix Inj IV.PUSH 40 mg Q24H [facility] Administration Senna/Docusate Sodium 1 tab 06/15/18 21:00 06/22/18 09:26 Gilda-Colace PO Not Given BID [facility] Sodium Chloride 2 ml 06/21/18 21:00 06/22/18 09:27 Ns Flush IV.FLUSH 2 ml BID [facility] Administration Objective Remarks: GENERAL: Thin, disheveled middle-aged male patient, sitting at bedside, in no acute distress. SKIN: Warm and dry. HEAD: Normocephalic. EYES: No scleral icterus. No injection or drainage. NECK: Supple, trachea midline. CARDIOVASCULAR: Regular rate and rhythm without murmurs. RESPIRATORY: Breath sounds diminished, equal bilaterally. Non-labored at rest. GASTROINTESTINAL: Abdomen soft, non-tender, nondistended. PEG tube in place, dressing dry/intact. EXTREMITIES: No cyanosis, or edema. MUSCULOSKELETAL: Adequate muscle tone. NEUROLOGICAL: No obvious focal deficit. Awake, alert, and oriented x3. PSYCHIATRIC: Appropriate mood and affect; insight and judgment normal. Assessment/Plan - Plan Mr. López is a 57-year-old gentleman, [facility] He went to his primary care physician at the [place] with complaints of difficulty swallowing. Patient had dysphasia which was progressive, a 30 pound weight loss. His primary care did a blood test and found that he had severe hypokalemia and advised him to go the emergency room. Patient was found to have a hypopharyngeal mass and oncology was consulted. Plan: 1. Squamous cell carcinoma with large obstructive hypopharyngeal mass/upper esophageal mass. Patient will follow up with radiation oncology tomorrow and in the clinic next week to begin treatment. 2. I have spoken with Nahomy from case management. She states the patient has [facility] and Medicaid. She states he will be able to have treatment here locally. She will arrange for his transportation. 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 She will call radiation oncology in regards to his appointment tomorrow and will also call our office to make his appointment for next week. Patient and his significant other aware. 3. Status post PEG tube placement for nutritional support. Patient reports he is hungry and thirsty. spoke to Dr. Vaughan yesterday, okayed using peg tube and pt being allowed to eat clear liquids. Nursing staff notified , however held feedings until cleared by speech therapy. Pt awaiting clearance to eat. Will discuss with RN. 4. Patient cleared for discharge from an oncology standpoint. He will follow- up with next week. He has f/u with Rad onc on 06/23/18. Case management making arrangements. - Attending Statement The exam, history, and the medical decision-making described in the above note were completed with the assistance of the mid-level provider. I reviewed and agree with the findings presented. I attest that I had a [id number] encounter with the patient on the same day, and personally performed and documented my assessment and findings in the medical record. tolerating tube feeding well. Wants to eat. speech therapy needs to clear him to eat. Ok to d/c from oncology standpoint. FU as outpt if [facility] authorize to be treated locally.
[2018-06-22] MEDS: Pantoprazole Inj 40 MG Vial IV.PUSH SCH (12:05)
--- NOTE | 2018-06-22 15:34 | P.PNIM ---
Subjective Interval history: The patient was resting in a chair. He said that he was having little discomfort at the site of the PEG tube otherwise was feeling well. He denied any nausea. Discussed with nursing. Physical Exam Vital signs: Vital Signs 06/21/18 16:00 06/21/18 16:46 06/21/18 16:54 Temperature 98.8 F Pulse Rate 68 61 81 Respiratory Rate 18 18 Blood Pressure 123/65 Pulse Oximetry 98 06/21/18 20:00 06/21/18 23:33 06/22/18 00:00 Temperature 98.9 F 98.8 F Pulse Rate 75 61 56 L Respiratory Rate 16 18 Blood Pressure 112/64 110/60 Pulse Oximetry 98 99 06/22/18 04:00 06/22/18 05:04 06/22/18 07:00 Temperature 98.7 F Pulse Rate 63 72 82 Respiratory Rate 16 16 Blood Pressure 113/68 Pulse Oximetry 99 98 06/22/18 09:17 06/22/18 11:00 06/22/18 12:34 Temperature 98.4 F 98.8 F Pulse Rate 60 55 L 74 Respiratory Rate 16 16 Blood Pressure 113/70 93/60 L Pulse Oximetry 99 99 Intake & Output 06/21/18 06/22/18 06/22/18 18:59 06:59 18:59 Intake Total 300 / 300 1000 / 1000 800 / 800 Output Total 850 / 850 850 / 850 Balance -550 / -550 150 / 150 800 / 800 Weight 77.4 kg Intake: IV 1000 / 1000 800 / 800 D5W + KCL 20 mEq Inj 1,000 ML @ 1000 / 1000 800 / 800 100 mls/hr IV.CONT .Q10H [facility] Rx#:[id number] Anesthesia Amount 300 / 300 Output: Urine 850 / 850 850 / 850 Other: Date of Last Bowel Movement 06/20/18 06/20/18 Narrative: GENERAL: No distress. SKIN: Warm and dry. CARDIOVASCULAR: Regular rate and rhythm. No murmur auscultated. RESPIRATORY: No accessory muscle use. Clear to auscultation. Breath sounds equal bilaterally. GASTROINTESTINAL: Abdomen soft, non-tender, nondistended. +BS. PEG tube in place. MUSCULOSKELETAL: Extremities without clubbing, cyanosis, or edema. No obvious deformities. NEUROLOGICAL: Awake and alert. - Urinary Catheter Management Indwelling Urethral Catheter Cath placed during this visit: yes Reason for continuing: Hourly intake/output Insertion date: 06/19/18 Insertion time: 11:53 Results - Labs CBC & Chem 7: 06/22/18 03:45 06/22/18 03:45 Laboratory Results - last 24 hr 06/22/18 06/22/18 03:45 03:45 WBC 7.0 RBC 3.35 L Hgb 10.3 L Hct 30.0 L MCV 89.5 MCH 30.8 MCHC 34.4 RDW 13.9 Plt Count 174 MPV 9.2 Sodium 143 Potassium 4.0 D Chloride 106 Carbon Dioxide 28.9 Anion Gap 8 BUN 6 L Creatinine 0.50 L Estimated GFR Greater than 89 Random Glucose 101 Calcium 8.3 L Phosphorus 3.5 D Magnesium 1.6 Assessment and Plan - Plan Hypokalemia Hypomagnesemia Hypernatremia Due to decreased PO intake K 2.4 on admission. Mag level 1.4 after IV repletion -repeat labs in am -Continuous cardiac monitoring Dysphagia/ Esophageal cancer GI consult appreciated. Esophageal Mass noted. Biopsy confirming SCC. - GI following - tube feeding started 06/22. - oncology/ radiation onc following. -speech therapy following. Modified barium swallow scheduled 06/23. Acute hypoxic and hypercarbic respiratory failure- resolved - post EGD, now extubated doing well. - nebs - pulmonary toilet - wean o2 by nc as tolerated. Weight loss 30lb. weight loss due to decreased PO intake CT abdomen/pelvis unremarkable -tube feeds. Hypotensive, asymptomatic -Continue with IV fluids -Continue to monitor BP Hypocalcemia -improved s/p IV calcium repletion DVT PPX: Heparin sq Discharge Planning: Anticipate d/c home in 1-2 days with [facility]
--- NOTE | 2018-06-22 16:56 | P.DCO ---
- Physical Therapy Order: Evaluate and treat, Improve ambulation, Strength and gait training - Home Health Nursing Order: Medical education, Signs/symptoms of disease process, Medication education-adverse effect, Wound care and dressing changes, Nursing assessment with vital signs - Case Management Consult Yes - Certification I have seen patient Maninder López on 06/22/18. My clinical findings support the need for the requested home health care services because: Deconditioned with increased weakness, Limited ability to care for self, Injectable medication education/administration I certify that my clinical findings support that this patient is homebound because: Unsafe to leave home unassisted
[2018-06-23] MEDS: Heparin - SQ 10,000 UNITS/ML Vial SQ SCH ×3 (00:52→20:04)
[2018-06-23] MEDS: Senna/Docusate Sodium 8.6/50 MG Tablet PO SCH ×3 (00:52→20:14)
[2018-06-23] MEDS: Sodium Chloride 0.9% 2 ML Flush BID IV.FLUSH SCH ×3 (00:56→20:14)
[2018-06-23 07:26] LABS: Hematocrit 33.7 % (39.0-51.0); Hemoglobin 11.3 gm/dL (13.0-17.0); Mean Corpuscular HGB Conc 33.6 % (32.0-36.0); Mean Corpuscular Hemoglobin 30.7 pg (27.0-34.0); Mean Corpuscular Volume 91.2 fL (80.0-100.0); Mean Platelet Volume 8.9 fL (7.0-11.0); Platelet Count 198 th/mm3 (150-450); Red Cell Distribution Width 14.3 % (11.6-17.2); White Blood Count 6.2 th/mm3 (4.0-11.0)
[2018-06-23 07:46] LABS: Anion Gap 7 meq/L (5-15); Blood Urea Nitrogen 6 mg/dL (7-18); Calcium 8.1 mg/dL (8.5-10.1); Carbon Dioxide 30.7 meq/L (21.0-32.0); Chloride 108 meq/L (98-107); Glomerular Filtration Rate Greater Than 89 mL/min (>89); Glucose,Random 97 mg/dL (74-106); Potassium 3.6 meq/L (3.5-5.1); Sodium 146 meq/L (136-145)
[2018-06-23] MEDS: Acetaminophen 325 MG Tablet PO PRN ×4 (09:29→23:43)
--- NOTE | 2018-06-23 12:46 | RADONCMHDR ---
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 López initially seen as inpatient. He remains inpatient. He will be discharged today. Biopsy-proven hypopharyngeal esophageal cancer. He reports difficulty swallowing proxy 2 months. Is unable at times to swallow his own saliva. He denies any prior radiation therapy. He did have a PEG tube placed. He comes in today for further evaluation. He does report 1 loose tooth lower mandible. Teeth seem in fairly reasonable condition in a general way. Further evaluation with dentist in the works. He does report a dry throat. REVIEW OF SYSTEMS: ConstitutionalComplains of change in weight loss of 30lbs in 2 months. Denies lack of appetite, fatigue, fever, lethargy, malaise, night sweats and rigors / chills.Allergic/Immunologic Complains of allergies. Denies adverse reactions.HeadDenies alopecia.EyesComplains of visual difficulties WEARS CORRECTIVE LENSES. Denies blurred vision, double vision, lacrimation, night blindness and photophobia.ENMTComplains of dysphagia, mouth dryness and sputum production. Denies ear pain, epistaxis, esophagitis, problems with hearing, oral bleeding, otitis, sinusitis, stomatitis, altered taste and tinnitus.NeckDenies neck masses, muscle weakness, neck pain, decreased range of motion and swelling of the neck.IntegumentaryDenies alopecia, blistering, bruising, dry skin, facial burning, nail changes, photosensitivity, pruritus, rash and urticaria.BreastsDenies breast masses, nipple discharge, nipple inversion and pain. CardiovascularDenies arrhythmias, chest pain, dyspnea, edema, orthopnea and palpitations. RespiratoryComplains of cough clear/white. Denies dyspnea, hemoptysis, hiccoughs, pleuritic chest pain and wheezing.GastrointestinalComplains of abdominal pain. Denies change in bowel habits, constipation, diarrhea, heartburn / dyspepsia, hematemesis, hematochezia, hemorrhoids, melena / GI bleeding, nausea, pain / cramping, satiety and vomiting.ROS Genitourinary (M) Complains of nocturia. Denies dysuria, frequency, hematuria, impotence, incontinence, renal stone disease, retrograde ejaculation, scrotal swelling, urgency and urine color change. MusculoskeletalDenies arthritis, bone pain, joint pain, muscle weakness and decreased range of motion.NeurologicComplains of seizure x1 in lifetime. Denies disorientation, dizziness, abnormal gait, headaches, insomnia, memory loss, motor weakness, sensory problems, paralysis and stroke.PsychiatricDenies delusions, hallucinations, mood swings, depression and euphoria. EndocrineDenies diabetes, hot flashes, menstrual irregularities and thyroid disease. Hematologic/LymphaticDenies easy bruising and tender or enlarged lymph nodes. PHYSICAL EXAMINATION: KPS 90. Eyes extraocular muscle intact. No scleral icterus extremities no clubbing cyanosis edema. Vital signs noted. Teeth in fair condition. Bottom tooth one tooth loose left side slightly left of midline. Oral mucosa moist. Appears to have a mass involving the posterior pharyngeal wall oropharynx. No mass tongue base palpation. Palpable neck node level 2 left neck. Flexible nasopharyngoscopy performed. 2% viscous lidocaine. Significant pooling in the oropharynx. Posterior pharyngeal wall with mass. Seems to involve piriform sinus hypopharynx as well. Base of tongue appears normal vallecula appears normal. The scope withdrawn RADIOLOGY DATA: CT soft tissue neck demonstrates approximately 2-3 cm mass hypopharynx area. PET/CT ordered pending. PATHOLOGY DATA: Squamous cell cancer inpatient biopsy. ASESSMENT /PLAN: Mr. López 58-year-old male with biopsy-proven squamous cell cancer oropharynx hypopharynx. We discussed definitive deviation peer we discussed PEG tube. We discussed dietitian to help with feeding. We discussed [place] nurse navigator to help with dental extractions if needed or dental evaluation. I placed a call to significant other Rula [phone]. I discussed his case with Dr. Oliver as well. We do recommend combined chemoradiation therapy. NCCNguidelines would support this approach. We discussed potential toxicities pain with swallowing sore throat. We discussed facial hair loss. We discussed skin darkening. We discussed significant toxicity pain with swallowing sore throat. Low risk of severe permanent injury such as inability to swallow. He is agreeable to proceeding with treatment. We will schedule him for CT simulation today. He may need further dental work that would require re-simulation but perhaps not. Fairly locally advanced disease on exam imaging. Plan 70 Gy to gross disease gross jorje disease greater than 50 Gy to bilateral neck. We will coordinate care with Dr. Oliver. Recommend combined chemo radiation. Greater than 50% of the 25-minute [id number] encounter today involved treatment considerations counseling coordination of care. Plan reevaluation in 1 week. Will review nurse navigator further outpatient imaging treatment plan. Ronald Peres MD 06/23/2018 12:45:30 PM This report was verified electronicallyThis report was verified electronically
--- NOTE | 2018-06-23 13:24 | P.PNONC ---
Subjective Interval history: Patient wants to eat Tolerating PEG tube feeding well at 65 cc an hour. Wants to go home Objective Vital Signs/Intake & Output: Vital Signs 06/22/18 15:00 06/22/18 16:05 06/22/18 16:44 Temperature 98.9 F Pulse Rate 52 L 53 L Respiratory Rate 16 Blood Pressure 95/53 L Pulse Oximetry 99 98 06/22/18 20:00 06/22/18 20:47 06/23/18 00:00 Temperature 98.4 F 99.0 F Pulse Rate 63 60 59 L Respiratory Rate 16 20 16 Blood Pressure 109/62 103/55 L Pulse Oximetry 100 98 06/23/18 04:00 06/23/18 08:00 06/23/18 09:09 Temperature 99.3 F 99.8 F H Pulse Rate 70 73 64 Respiratory Rate 18 16 Blood Pressure 100/53 L 112/56 L Pulse Oximetry 98 98 Intake & Output 06/22/18 06/23/18 06/23/18 18:59 06:59 18:59 Intake Total 1024 / 1024 Output Total 1000 / 1000 650 / 650 Balance -650 / -650 Weight 75.6 kg Intake: IV 800 / 800 D5W + KCL 20 mEq Inj 1,000 ML @ 800 / 800 100 mls/hr IV.CONT .Q10H [facility] Rx#:[id number] Tube Feeding Water Bolus Amount 200 / 200 Output: Urine 1000 / 1000 650 / 650 Other: Date of Last Bowel Movement 06/20/18 06/20/18 06/20/18 Result Diagrams: 06/23/18 06:05 06/23/18 06:05 Laboratory Results: Laboratory Results - last 24 hr 06/23/18 06/23/18 06:05 06:05 WBC 6.2 RBC 3.70 L Hgb 11.3 L Hct 33.7 L MCV 91.2 MCH 30.7 MCHC 33.6 RDW 14.3 Plt Count 198 MPV 8.9 Sodium 146 H Potassium 3.6 Chloride 108 H Carbon Dioxide 30.7 Anion Gap 7 BUN 6 L Creatinine 0.53 L Estimated GFR Greater than 89 Random Glucose 97 Calcium 8.1 L Medications: Active Medications Generic Name Dose Route Start Last Admin Trade Name Freq PRN Reason Stop Dose Admin Acetaminophen 650 mg 06/15/18 16:06 06/23/18 09:29 Tylenol PO 650 mg Q4H PRN Administration Temp > 100.4 Albuterol 1 ampul 06/19/18 16:00 06/23/18 08:31 Duoneb Neb (Carol Ann) NEB Not Given Q6HR NEB CAROL ANN Heparin Sodium (Porcine) 5,000 units 06/17/18 21:00 06/23/18 09:32 Heparin Inj SQ Not Given Q12HR CAROL ANN Lansoprazole 30 mg 06/23/18 09:00 06/23/18 09:30 Prevacid Solutab NG/OG 30 mg DAILY CAROL ANN Administration Senna/Docusate Sodium 1 tab 06/15/18 21:00 06/23/18 09:31 Gilda-Colace PO Not Given BID CAROL ANN Sodium Chloride 2 ml 06/15/18 13:59 06/23/18 09:31 Ns Flush IV.FLUSH 2 ml PRN PRN Administration FLUSH AFTER USING IV ACCESS Sodium Chloride 2 ml 06/21/18 21:00 06/23/18 09:43 Ns Flush IV.FLUSH Not Given BID CAROL ANN Sterile Water 100 ml 06/22/18 12:00 06/23/18 00:56 Free Water G-TUBE 100 ml Q6HR CAROL ANN Administration Objective Remarks: GENERAL: Well-nourished, well-developed patient. SKIN: Warm and dry. HEAD: Normocephalic. EYES: No scleral icterus. No injection or drainage. NECK: Supple, trachea midline. No JVD or lymphadenopathy. LYMPHATIC: No adenopathy. CARDIOVASCULAR: Regular rate and rhythm without murmurs. RESPIRATORY: Breath sounds equal bilaterally. No accessory muscle use. GASTROINTESTINAL: Abdomen soft, non-tender, nondistended. EXTREMITIES: No cyanosis, or edema. MUSCULOSKELETAL: Adequate muscle tone. NEUROLOGICAL: No obvious focal deficit. Awake, alert, and oriented x3. Assessment/Plan - Plan Mr. López is a 57-year-old gentleman, who receives his medical care with the [place]. He went to his primary care physician at the [place] with complaints of difficulty swallowing. Patient had dysphasia which was progressive, a 30 pound weight loss. His primary care did a blood test and found that he had severe hypokalemia and advised him to go the emergency room. Patient was found to have a hypopharyngeal mass and oncology was consulted. Plan: 1. Squamous cell carcinoma with large obstructive hypopharyngeal mass/upper esophageal mass. Patient will follow up with radiation oncology tomorrow and in the clinic next week to begin treatment. 2. I have spoken with Nahomy from case management. She states the patient has [place] and [place]. She states he will be able to have treatment here locally. She will arrange for his transportation. She will speak with his director of casework services with his Medicaid. She will call radiation oncology in regards to his appointment tomorrow and will also call our office to make his appointment for next week. Patient and his significant other aware. 3. Status post PEG tube placement for nutritional support. Patient reports he is hungry and thirsty. spoke to Dr. Vaughan yesterday, okayed using peg tube and pt being allowed to eat clear liquids. Nursing staff notified , however held feedings until cleared by speech therapy. Pt awaiting clearance to eat. Will discuss with RN. 4. Patient cleared for discharge from an oncology standpoint. He will follow- up with next week. He has f/u with Rad onc on 06/23/18. Case management making arrangements. 06/23/2018 Patient has been tolerating PEG tube feeding extremely well. Patient is still n.p.o. by speech therapist. Patient will have barium swallow this afternoon and the speech therapist decide whether he can eat or drink. Patient can be discharged from oncology standpoint. [place] approved radiation and chemotherapy locally. I will see the patient back in the office next week sometime and arrange the chemotherapy.. Patient was evaluated by Dr. Peres again today. On his examination he agrees that patient has oral hypopharyngeal cancer and not esophageal cancer. He will arrange PET scan as an outpatient. We will give him combined concurrent radiation and chemotherapy. I will sign off on the case and will be available as needed
--- NOTE | 2018-06-23 14:31 | FL ---
EXAM DATE: 06/23/2018 12:00 AM EDT AGE/SEX: 57 years / Male INDICATIONS: Dysphagia. Pharyngeal tumor. CLINICAL DATA: This is the patient's subsequent encounter. Patient reports that signs and symptoms h ave been present for 2 months and indicates a pain score of 0/10. MEDICAL/SURGICAL HISTORY: None. . Peg tube placed this week. COMPARISON: No prior exams available for comparison. FLUORO TIME: 1.6 IMAGE COUNT: 0 FINDINGS: A modified barium swallow was performed with speech pathology. Patient was given a variety of liquids to swallow. There is pooling of all substances, including thin barium, nectar-thick barium and puddi ng-thick barium, within the paired valleculae and piriform sinuses. Minimal transient penetration of the supraglottic larynx occurs with large boluses of thin barium. No tracheal aspiration occurs. For a full detailed report, see report by the speech pathologist. CONCLUSION: Pooling of all substances, including thin barium, nectar-thick barium and pudding-thick barium, withi n the paired valleculae and piriform sinuses. Minimal transient penetration of the supraglottic laryn x occurs with large boluses of thin barium. No tracheal aspiration occurs. Electronically signed by: Keanu Mckinney MD 06/23/2018 2:30 PM EDT
--- NOTE | 2018-06-23 15:45 | P.DS ---
Date of admission: 06/19/18 13:20 Primary care physician: [facility] Anticipated date of discharge: 06/27/18 Brief History from admission: This is a 57-year-old -[place] male with no significant past medical history who presented to the emergency room after he had a doctor's visit today at the [facility] showing a low potassium. Patient reports that he is not on any medications, his only complaint is decreased appetite. Patient reports that for the past few months he has had difficulty swallowing liquids as well as solids due to pain. Patient is supposed to have an outpatient workup done at the [facility]. Patient reports 30 pound weight loss over the past few months due to decreased p.o. intake. Patient denies fever, chills, recent illness, chest pain , palpitations, and shortness of breath. Patient reports that he has never had an electrolyte abnormality before. Patient update on day of discharge: The patient was anxious to go home. He did have a fever overnight and examination of the PEG tube did reveal pus. Discharge will be held for fever workup and initiation of IV antibiotics. DS: Diagnosis - Discharge Diagnosis (1) Hypopharyngeal cancer Status: Acute (2) Acute hypokalemia Status: Acute DS: Medications - Discharge Medications Prescriptions: lactose-reduced food with fibr [Jevity 1.5 Salvador] See Label Instructions .ROUTE .COMPLEX 30 Days lansoprazole [Prevacid SoluTab] 30 mg NG/OG DAILY #30 tab water for injection, sterile 300 ml G-TUBE Q8H 30 Days ml DS: Summary Hospital Course: Dysphagia/ Hypopharyngeal cancer GI was consulted. Esophageal mass noted on EGD. Biopsy confirmed SCC. Oncology and radiation oncology were consulted. A PEG tube was placed, the flooring machine operator was consulted and tube feeds were started. Bolus tube feeding recommendations were made in anticipation of discharge. The pt worked with speech therapy and a modified barium swallow was performed. The pt will be discharged with home health services. He will follow up with oncology and GI as an outpt. Fever Pt with fever of 101.3 overnight 06/27. PEG tube with foul-smelling pus around it. He was callaway-cultured and IV vancomycin was started. Discharge was held. GI was notified about the PEG tube. He will received Tylenol as needed. Antibiotics will be adjusted as needed pending the work-up. Hypokalemia/ Hypomagnesemia/ Hypernatremia Potassium level was 2.4 on admission. He received repletion. He was monitored on telemetry. He was started on tube feeds. Resolved. Acute hypoxic and hypercarbic respiratory failure The pt remained intubated following the EGD. He has been doing well on room air. He received oxygen and nebs as needed. He will have a repeat CXR as part of the fever work-up. - Time Spent with Patient Total time spent providing and/or coordinating discharge services: Greater than 30 minutes - Quality: VTE Deep Vein Thrombosis/Pulmonary Embolism Present on Admission: No Exam Vital signs: Vital Signs 06/22/18 16:05 06/22/18 16:44 06/22/18 20:00 Temperature 98.9 F 98.4 F Pulse Rate 53 L 63 Respiratory Rate 16 16 Blood Pressure 95/53 L 109/62 Pulse Oximetry 99 98 100 06/22/18 20:47 06/23/18 00:00 06/23/18 04:00 Temperature 99.0 F 99.3 F Pulse Rate 60 59 L 70 Respiratory Rate 20 16 18 Blood Pressure 103/55 L 100/53 L Pulse Oximetry 98 98 06/23/18 08:00 06/23/18 09:09 06/23/18 13:35 Temperature 99.8 F H 98.2 F Pulse Rate 73 64 61 Respiratory Rate 16 16 Blood Pressure 112/56 L 106/67 Pulse Oximetry 98 99 Intake & Output 06/22/18 06/23/18 06/23/18 18:59 06:59 18:59 Intake Total 1024 / 1024 Output Total 1000 / 1000 650 / 650 Balance -650 / -650 Weight 75.6 kg Intake: IV 800 / 800 D5W + KCL 20 mEq Inj 1,000 ML @ 800 / 800 100 mls/hr IV.CONT .Q10H [facility] Rx#:[id number] Tube Feeding Water Bolus Amount 200 / 200 Output: Urine 1000 / 1000 650 / 650 Other: Date of Last Bowel Movement 06/20/18 06/20/18 06/20/18 Narrative: GENERAL: No distress. SKIN: Warm and dry. CARDIOVASCULAR: Regular rate and rhythm. No murmur auscultated. RESPIRATORY: No accessory muscle use. Clear to auscultation. Breath sounds equal bilaterally. GASTROINTESTINAL: Abdomen soft, non-tender, nondistended. +BS. PEG tube in place with small amount of foul smelling pus noted. MUSCULOSKELETAL: Extremities without clubbing, cyanosis, or edema. No obvious deformities. NEUROLOGICAL: Awake and alert. Results Procedures completed during hospitalization: See hospital course Completed studies during hospitalization: Pending at discharge 06/19/18 11:51 Surgical [PTH] Urgent Labs on day of discharge: Labs from last 24 hours 06/23/18 06/23/18 06:05 06:05 WBC 6.2 RBC 3.70 L Hgb 11.3 L Hct 33.7 L MCV 91.2 MCH 30.7 MCHC 33.6 RDW 14.3 Plt Count 198 MPV 8.9 Sodium 146 H Potassium 3.6 Chloride 108 H Carbon Dioxide 30.7 Anion Gap 7 BUN 6 L Creatinine 0.53 L Estimated GFR Greater than 89 Random Glucose 97 Calcium 8.1 L - Impressions ITS Impressions Abdomen/Pelvis CT 06/16/18 00:00 CONCLUSION: 1. No acute findings. Mild fatty liver. Chest CT 06/19/18 00:00 CONCLUSION: 1. Small bilateral pleural effusions and mild atelectasis. No pulmonary masses or infiltrates demonstrated. 2. Right paraesophageal mass at the level of the thoracic inlet and of concern for a partially necrotic lymph node. Inflammatory and neoplastic etiologies are in the differential. 3. Mild emphysema. Soft Tissue Neck CT 06/19/18 00:00 CONCLUSION: 1. Elongated left posterior oral pharyngeal and hypopharyngeal mass. 2. Small left jugular digastric mass which may be a necrotic cervical lymph node or a brachial cyst. 3. Right paraesophageal mass at the level of the thoracic inlet of concern for a partially necrotic lymph node. Chest X-Ray 06/19/18 12:11 CONCLUSION: 1. Endotracheal tube has its tip approximately 4 cm above the anisha. 2. Bibasilar atelectatic changes. Videofluoroscopic Swallow 06/23/18 00:00 CONCLUSION: Pooling of all substances, including thin barium, nectar-thick barium and pudding-thick barium, within the paired valleculae and piriform sinuses. Minimal transient penetration of the supraglottic larynx occurs with large boluses of thin barium. No tracheal aspiration occurs. Discharge Plan - Discharge Disposition Patient Disposition: Disch W/Home Health Service - Discharge Condition Condition: Stable - Discharge Details Anticipated Discharge Date: 06/26/18 - Physicians Team Primary Care Provider: [facility] Attending Provider: Bola Perry Other Providers: Aaron Silver MD ; Kennedy Rivera MD ; Mary Oliver MD ; Ronald Peres MD
--- NOTE | 2018-06-23 16:53 | P.PNIM ---
Subjective Interval history: The patient was on his way for an examination. He was hoping to go home soon. He denied any acute complaints. Discussed with nursing and case management. Physical Exam Vital signs: Vital Signs 06/22/18 20:00 06/22/18 20:47 06/23/18 00:00 Temperature 98.4 F 99.0 F Pulse Rate 63 60 59 L Respiratory Rate 16 20 16 Blood Pressure 109/62 103/55 L Pulse Oximetry 100 98 06/23/18 04:00 06/23/18 08:00 06/23/18 09:09 Temperature 99.3 F 99.8 F H Pulse Rate 70 73 64 Respiratory Rate 18 16 Blood Pressure 100/53 L 112/56 L Pulse Oximetry 98 98 06/23/18 13:35 Temperature 98.2 F Pulse Rate 61 Respiratory Rate 16 Blood Pressure 106/67 Pulse Oximetry 99 Intake & Output 06/22/18 06/23/18 06/23/18 18:59 06:59 18:59 Intake Total 1024 / 1024 Output Total 1000 / 1000 650 / 650 Balance -650 / -650 Weight 75.6 kg Intake: IV 800 / 800 D5W + KCL 20 mEq Inj 1,000 ML @ 800 / 800 100 mls/hr IV.CONT .Q10H FORMERLY [facility], 1928–1983 Rx#:[id number] Tube Feeding Water Bolus Amount 200 / 200 Output: Urine 1000 / 1000 650 / 650 Other: Date of Last Bowel Movement 06/20/18 06/20/18 06/20/18 Narrative: GENERAL: No distress. SKIN: Warm and dry. CARDIOVASCULAR: Regular rate and rhythm. No murmur auscultated. RESPIRATORY: No accessory muscle use. Clear to auscultation. Breath sounds equal bilaterally. GASTROINTESTINAL: Abdomen soft, non-tender, nondistended. +BS. PEG tube in place. MUSCULOSKELETAL: Extremities without clubbing, cyanosis, or edema. No obvious deformities. NEUROLOGICAL: Awake and alert. - Urinary Catheter Management Indwelling Urethral Catheter Cath placed during this visit: yes Reason for continuing: Hourly intake/output Insertion date: 06/19/18 Insertion time: 11:53 Results - Labs CBC & Chem 7: 06/23/18 06:05 06/23/18 06:05 Laboratory Results - last 24 hr 06/23/18 06/23/18 06:05 06:05 WBC 6.2 RBC 3.70 L Hgb 11.3 L Hct 33.7 L MCV 91.2 MCH 30.7 MCHC 33.6 RDW 14.3 Plt Count 198 MPV 8.9 Sodium 146 H Potassium 3.6 Chloride 108 H Carbon Dioxide 30.7 Anion Gap 7 BUN 6 L Creatinine 0.53 L Estimated GFR Greater than 89 Random Glucose 97 Calcium 8.1 L - Imaging Impressions Videofluoroscopic Swallow 06/23/18 00:00 CONCLUSION: Pooling of all substances, including thin barium, nectar-thick barium and pudding-thick barium, within the paired valleculae and piriform sinuses. Minimal transient penetration of the supraglottic larynx occurs with large boluses of thin barium. No tracheal aspiration occurs. 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 Mag level 1.4 after IV repletion -repeat labs in am -Continuous cardiac monitoring Dysphagia/ Esophageal cancer GI consult appreciated. Esophageal Mass noted. Biopsy confirming SCC. - GI following - tube feeding started 06/22. Will need home health care and tube feeds set up for discharge. Case management assistance appreciated. - oncology/ radiation onc following. -speech therapy following. Modified barium swallow noted. Acute hypoxic and hypercarbic respiratory failure- resolved - post EGD, now extubated doing well. - nebs - pulmonary toilet - wean o2 by nc as tolerated. Weight loss 30lb. weight loss due to decreased PO intake CT abdomen/pelvis unremarkable -tube feeds. Hypotensive, asymptomatic -Continue with IV fluids -Continue to monitor BP Hypocalcemia -improved s/p IV calcium repletion DVT PPX: Heparin sq Discharge Planning: Anticipate d/c home when home health care is set up
[2018-06-24] MEDS: Acetaminophen 325 MG Tablet PO PRN ×2 (05:13→14:42)
[2018-06-24 06:54] LABS: Hematocrit 32.9 % (39.0-51.0); Mean Corpuscular HGB Conc 33.4 % (32.0-36.0); Mean Corpuscular Hemoglobin 30.4 pg (27.0-34.0); Mean Corpuscular Volume 91.1 fL (80.0-100.0); Mean Platelet Volume 9.1 fL (7.0-11.0); Platelet Count 209 th/mm3 (150-450); Red Blood Count 3.61 mil/mm3 (4.50-5.90); Red Cell Distribution Width 14.1 % (11.6-17.2); White Blood Count 6.1 th/mm3 (4.0-11.0)
[2018-06-24 07:33] LABS: Anion Gap 9 meq/L (5-15); Blood Urea Nitrogen 8 mg/dL (7-18); Calcium 8.6 mg/dL (8.5-10.1); Carbon Dioxide 29.5 meq/L (21.0-32.0); Chloride 107 meq/L (98-107); Glomerular Filtration Rate Greater Than 89 mL/min (>89); Glucose,Random 96 mg/dL (74-106); Magnesium 1.8 mg/dL (1.5-2.5); Phosphorus 3.3 mg/dL (2.5-4.9); Potassium 3.5 meq/L (3.5-5.1); Sodium 145 meq/L (136-145)
[2018-06-24] MEDS: Sodium Chloride 0.9% 2 ML Flush BID IV.FLUSH SCH ×2 (08:43→21:12)
[2018-06-24] MEDS: Heparin - SQ 10,000 UNITS/ML Vial SQ SCH ×2 (08:43→21:07)
[2018-06-24] MEDS: Senna/Docusate Sodium 8.6/50 MG Tablet PO SCH ×2 (08:43→21:01)
[2018-06-24] MEDS ORDERED: Potassium Chloride 25 MEQ Effervescent Tablet PO ONE (15:35)
--- NOTE | 2018-06-24 16:08 | P.PNIM ---
Subjective Interval history: The patient reports that he has been working with speech therapy. He has some pain still at the PEG tube site. Discussed with nursing who reports tube feed residuals. Physical Exam Vital signs: Vital Signs 06/23/18 20:00 06/23/18 21:33 06/24/18 00:00 Temperature 99.5 F 98.5 F Pulse Rate 69 67 Respiratory Rate 16 18 Blood Pressure 90/49 L 107/65 Pulse Oximetry 99 99 99 06/24/18 04:00 06/24/18 07:27 06/24/18 08:00 Temperature 99.3 F 97.9 F Pulse Rate 64 65 64 Respiratory Rate 18 18 Blood Pressure 93/62 L 103/60 Pulse Oximetry 97 100 06/24/18 12:00 Temperature 98.7 F Pulse Rate 61 Respiratory Rate 16 Blood Pressure 119/71 Pulse Oximetry 100 Intake & Output 06/23/18 06/24/18 06/24/18 18:59 06:59 18:59 Intake Total 1330 / 1330 1050 / 1050 Output Total 500 / 500 750 / 750 Balance 830 / 830 300 / 300 Intake: Oral 0 / 0 Tube Feeding 1280 / 1280 700 / 700 Water Bolus Amount 50 / 50 350 / 350 Output: Urine 500 / 500 750 / 750 Other: Date of Last Bowel Movement 06/20/18 06/20/18 06/22/18 Narrative: GENERAL: No distress. SKIN: Warm and dry. CARDIOVASCULAR: Regular rate and rhythm. No murmur auscultated. RESPIRATORY: No accessory muscle use. Clear to auscultation. Breath sounds equal bilaterally. GASTROINTESTINAL: Abdomen soft, non-tender, nondistended. +BS. PEG tube in place. MUSCULOSKELETAL: Extremities without clubbing, cyanosis, or edema. No obvious deformities. NEUROLOGICAL: Awake and alert. - Urinary Catheter Management Indwelling Urethral Catheter Cath placed during this visit: yes Reason for continuing: Hourly intake/output Insertion date: 06/19/18 Insertion time: 11:53 Results - Labs CBC & Chem 7: 06/24/18 05:59 06/24/18 05:59 Laboratory Results - last 24 hr 06/24/18 06/24/18 05:59 05:59 WBC 6.1 RBC 3.61 L Hgb 11.0 L Hct 32.9 L MCV 91.1 MCH 30.4 MCHC 33.4 RDW 14.1 Plt Count 209 MPV 9.1 Sodium 145 Potassium 3.5 Chloride 107 Carbon Dioxide 29.5 Anion Gap 9 BUN 8 Creatinine 0.47 L Estimated GFR Greater than 89 Random Glucose 96 Calcium 8.6 Phosphorus 3.3 Magnesium 1.8 - Procedures See hospital course Assessment and Plan - Assessment (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 Mag level 1.4 after IV repletion -monitor as needed. -continue tube feeds. -Continuous cardiac monitoring Dysphagia/ Esophageal cancer GI consult appreciated. Esophageal Mass noted. Biopsy confirming SCC. - GI following - tube feeding started 06/22. Will need home health care and tube feeds set up for discharge. Case management assistance appreciated. - oncology/ radiation onc following. -speech therapy following. Modified barium swallow noted. -decrease tube feeds to 50 ml/hr. Reconsult reference librarian to see if bolus feedings are an option. Acute hypoxic and hypercarbic respiratory failure- resolved - post EGD, now extubated doing well. - nebs - pulmonary toilet - wean o2 by nc as tolerated. Weight loss 30lb. weight loss due to decreased PO intake CT abdomen/pelvis unremarkable -tube feeds. Hypotensive, asymptomatic -Continue with IV fluids -Continue to monitor BP Hypocalcemia -improved s/p IV calcium repletion DVT PPX: Heparin sq Discharge Planning: Anticipate d/c home when home health care is set up, likely Tuesday
[2018-06-25 07:10] LABS: Hematocrit 33.1 % (39.0-51.0); Mean Corpuscular HGB Conc 33.2 % (32.0-36.0); Mean Corpuscular Hemoglobin 30.2 pg (27.0-34.0); Mean Corpuscular Volume 90.8 fL (80.0-100.0); Mean Platelet Volume 8.8 fL (7.0-11.0); Platelet Count 220 th/mm3 (150-450); Red Blood Count 3.64 mil/mm3 (4.50-5.90); Red Cell Distribution Width 14.3 % (11.6-17.2); White Blood Count 7.2 th/mm3 (4.0-11.0)
[2018-06-25 07:35] LABS: Anion Gap 9 meq/L (5-15); Blood Urea Nitrogen 7 mg/dL (7-18); Carbon Dioxide 29.8 meq/L (21.0-32.0); Chloride 104 meq/L (98-107); Glomerular Filtration Rate Greater Than 89 mL/min (>89); Glucose,Random 89 mg/dL (74-106); Sodium 143 meq/L (136-145)
[2018-06-25] MEDS: Heparin - SQ 10,000 UNITS/ML Vial SQ SCH ×2 (08:02→20:07)
[2018-06-25] MEDS: Sodium Chloride 0.9% 2 ML Flush BID IV.FLUSH SCH ×2 (08:03→20:07)
[2018-06-25] MEDS: Senna/Docusate Sodium 8.6/50 MG Tablet PO SCH ×2 (08:03→20:07)
--- NOTE | 2018-06-25 10:49 | P.PNIM ---
Subjective Interval history: The patient was resting comfortably in bed. He was hoping to go home tomorrow. He described less pain at the PEG tube site. Discussed with nursing. Physical Exam Vital signs: Vital Signs 06/24/18 12:00 06/24/18 16:00 06/24/18 20:00 Temperature 98.7 F 99.2 F 99.2 F Pulse Rate 61 78 69 Respiratory Rate 16 16 15 Blood Pressure 119/71 108/58 L 108/63 Pulse Oximetry 100 99 97 06/25/18 00:00 06/25/18 04:00 06/25/18 06:46 Temperature 98.6 F 98 F Pulse Rate 70 60 59 L Respiratory Rate 16 16 Blood Pressure 98/57 L 97/60 L Pulse Oximetry 98 100 06/25/18 08:00 06/25/18 09:44 Temperature 98.5 F Pulse Rate 61 Respiratory Rate 16 Blood Pressure 95/59 L Pulse Oximetry 98 95 Intake & Output 06/24/18 06/25/18 06/25/18 18:59 06:59 18:59 Intake Total 1250 / 1250 480 / 480 Output Total 740 / 740 575 / 575 Balance 510 / 510 -95 / -95 Weight 75.5 kg Intake: Oral 610 / 610 480 / 480 Tube Feeding 460 / 460 Water Bolus Amount 180 / 180 Output: Urine 740 / 740 575 / 575 Other: Date of Last Bowel Movement 06/22/18 06/22/18 06/22/18 Narrative: GENERAL: No distress. SKIN: Warm and dry. CARDIOVASCULAR: Regular rate and rhythm. No murmur auscultated. RESPIRATORY: No accessory muscle use. Clear to auscultation. Breath sounds equal bilaterally. GASTROINTESTINAL: Abdomen soft, non-tender, nondistended. +BS. PEG tube in place. MUSCULOSKELETAL: Extremities without clubbing, cyanosis, or edema. No obvious deformities. NEUROLOGICAL: Awake and alert. - Urinary Catheter Management Indwelling Urethral Catheter Cath placed during this visit: yes Reason for continuing: Hourly intake/output Insertion date: 06/19/18 Insertion time: 11:53 Results - Labs CBC & Chem 7: 06/25/18 06:30 06/25/18 06:30 Laboratory Results - last 24 hr 06/25/18 06/25/18 06:30 06:30 WBC 7.2 RBC 3.64 L Hgb 11.0 L Hct 33.1 L MCV 90.8 MCH 30.2 MCHC 33.2 RDW 14.3 Plt Count 220 MPV 8.8 Sodium 143 Potassium 4.0 Chloride 104 Carbon Dioxide 29.8 Anion Gap 9 BUN 7 Creatinine 0.51 L Estimated GFR Greater than 89 Random Glucose 89 Calcium 8.0 L - Procedures See hospital course Assessment and Plan - Assessment (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 Mag level 1.4 after IV repletion -monitor as needed. -continue tube feeds. -Continuous cardiac monitoring Dysphagia/ Esophageal cancer GI consult appreciated. Esophageal Mass noted. Biopsy confirming SCC. -GI following -tube feeding started 06/22. Will need home health care and tube feeds set up for discharge. Case management assistance appreciated. -oncology/ radiation onc following. -speech therapy following. Modified barium swallow noted. -decrease tube feeds to 50 ml/hr. Reconsult seo engineer to see if bolus feedings are an option. Still with large residuals. Acute hypoxic and hypercarbic respiratory failure- resolved -post EGD, now extubated doing well. -nebs -pulmonary toilet -wean o2 by nc as tolerated. Weight loss 30lb. weight loss due to decreased PO intake CT abdomen/pelvis unremarkable -tube feeds as above. Hypotension Asymptomatic. -Continue to monitor BP off of IVFs. Hypocalcemia -improved s/p IV calcium repletion DVT PPX: Heparin sq Discharge Planning: Anticipate d/c home when home health care is set up, likely Tuesday
--- NOTE | 2018-06-25 11:34 | P.DIET ---
Nutritional Evaluation Type of nutrition evaluation: follow-up Nutrition consult regarding: Tube Feeding [place] [facility] [place] [facility] [place] Subjective Subjective Comments: Reports 30# weight loss. Objective - Diagnosis Hypokalemia - Objective % IBW: 93 (IBW = 184#) Body Weight Used for Calculations: Actual (77.6 kg) Energy Needs - Lower Range (kCal/kg): 30 Energy Needs - Upper Range (kCal/kg): 35 Lower Limit kCal/kg (kCals): 2,328 Upper Limit kCal/kg (kCals): 2,716 Lower Limit Protein Factor (Grams per Kg): 1.2 Upper Limit Protein Factor (Grams per Kg): 1.5 Lower Protein Needs (Protein): 93 Upper Protein Needs (Protein): 116 Dietitian Reviewed in Medical Record: Curent medications, Intake & Output, Labs , Medical history Diet Order: TF Speech Therapy Recommendations: Yes (CL for pleasure) Assessment Assessment: Pt with PEG placed 2' to an esophageal mass interfering with po intake. Per speech, pt can have CL diet for pleasure only. [facility] [place] of current TF Jevity 1.5. Nutritional needs as assessed above. Recommend bolus feedings as below which will provide 2520 kcals, 107 gms protein and 1277 mls of free water. This is adequate to meet pt's nutritional needs. Recommendations: TF Jevity 1.5 bolus feedings: suggested schedule below: 1. 360mls at 8am, 11am, 2pm, 8pm and 240mls at 5pm 2. 30mls free water flush before and after each feeding 3. 300mls q 8 hrs to meet pt's fluid needs. Dietitian to Monitor: Lab values, Intake & Output, Tube feeding tolerance, Weight change, Medical course
[2018-06-26 06:24] LABS: Hematocrit 33.3 % (39.0-51.0); Mean Corpuscular HGB Conc 32.9 % (32.0-36.0); Mean Corpuscular Hemoglobin 29.9 pg (27.0-34.0); Mean Platelet Volume 8.1 fL (7.0-11.0); Platelet Count 241 th/mm3 (150-450); Red Blood Count 3.66 mil/mm3 (4.50-5.90); Red Cell Distribution Width 14.3 % (11.6-17.2); White Blood Count 8.3 th/mm3 (4.0-11.0)
[2018-06-26 06:52] LABS: Anion Gap 8 meq/L (5-15); Blood Urea Nitrogen 8 mg/dL (7-18); Calcium 8.4 mg/dL (8.5-10.1); Carbon Dioxide 30.7 meq/L (21.0-32.0); Chloride 99 meq/L (98-107); Glomerular Filtration Rate Greater Than 89 mL/min (>89); Glucose,Random 98 mg/dL (74-106); Potassium 3.8 meq/L (3.5-5.1); Sodium 138 meq/L (136-145)
[2018-06-26] MEDS: Heparin - SQ 10,000 UNITS/ML Vial SQ SCH ×2 (08:57→21:19)
[2018-06-26] MEDS: Senna/Docusate Sodium 8.6/50 MG Tablet PO SCH ×2 (08:57→21:17)
[2018-06-26] MEDS: Sodium Chloride 0.9% 2 ML Flush BID IV.FLUSH SCH ×2 (08:58→21:20)
--- NOTE | 2018-06-26 14:42 | P.PNIM ---
Subjective Interval history: The pt was looking forward to going home. No acute complaints. Discussed with nursing. Physical Exam Vital signs: Vital Signs 06/25/18 16:00 06/25/18 20:00 06/26/18 00:00 Temperature 99.9 F H 99 F 98.4 F Pulse Rate 66 69 66 Respiratory Rate 16 16 16 Blood Pressure 93/51 L 108/66 92/55 L Pulse Oximetry 100 100 06/26/18 04:00 06/26/18 07:40 06/26/18 08:50 Temperature 99.4 F 99.7 F H Pulse Rate 75 68 77 Respiratory Rate 16 16 Blood Pressure 106/58 L 106/57 L Pulse Oximetry 98 98 06/26/18 12:00 06/26/18 12:09 Temperature 99.1 F Pulse Rate 70 68 Respiratory Rate 18 Blood Pressure 87/48 L Pulse Oximetry 98 Intake & Output 06/25/18 06/26/18 06/26/18 18:59 06:59 18:59 Intake Total 4840 / 4840 1125 / 1125 Output Total 560 / 560 950 / 950 Balance 4280 / 4280 175 / 175 Weight 75.2 kg Intake: Oral 440 / 440 Tube Feeding 4000 / 4000 500 / 500 Tube Irrigant 400 / 400 Water Bolus Amount 625 / 625 Output: Urine 560 / 560 950 / 950 Other: Date of Last Bowel Movement 06/22/18 06/22/18 Narrative: GENERAL: No distress. SKIN: Warm and dry. CARDIOVASCULAR: Regular rate and rhythm. No murmur auscultated. RESPIRATORY: No accessory muscle use. Clear to auscultation. Breath sounds equal bilaterally. GASTROINTESTINAL: Abdomen soft, non-tender, nondistended. +BS. PEG tube in place. MUSCULOSKELETAL: Extremities without clubbing, cyanosis, or edema. No obvious deformities. NEUROLOGICAL: Awake and alert. - Urinary Catheter Management Indwelling Urethral Catheter Cath placed during this visit: yes Reason for continuing: Hourly intake/output Insertion date: 06/19/18 Insertion time: 11:53 Results - Labs CBC & Chem 7: 06/26/18 06:15 06/26/18 06:15 Laboratory Results - last 24 hr 06/26/18 06/26/18 06:15 06:15 WBC 8.3 RBC 3.66 L Hgb 11.0 L Hct 33.3 L MCV 91.0 MCH 29.9 MCHC 32.9 RDW 14.3 Plt Count 241 MPV 8.1 Sodium 138 Potassium 3.8 Chloride 99 Carbon Dioxide 30.7 Anion Gap 8 BUN 8 Creatinine 0.58 L Estimated GFR Greater than 89 Random Glucose 98 Calcium 8.4 L - Procedures See hospital course Assessment and Plan - Assessment (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 Mag level 1.4 after IV repletion -monitor as needed. -continue tube feeds. Changed to bolus feeds. -Continuous cardiac monitoring Dysphagia/ Esophageal cancer GI consult appreciated. Esophageal Mass noted. Biopsy confirming SCC. -GI following -tube feeding started 06/22. Will need home health care and tube feeds set up for discharge. Case management assistance appreciated. -oncology/ radiation onc following. -speech therapy following. Modified barium swallow noted. -change to bolus feeds per help desk coordinator. Acute hypoxic and hypercarbic respiratory failure- resolved -post EGD, now extubated doing well. -nebs -pulmonary toilet -wean o2 by nc as tolerated. Weight loss 30lb. weight loss due to decreased PO intake CT abdomen/pelvis unremarkable -tube feeds as above. Hypotension Asymptomatic. -Continue to monitor BP off of IVFs. Hypocalcemia -improved s/p IV calcium repletion DVT PPX: Heparin sq Discharge Planning: Anticipate d/c home when home health care is set up, likely Tuesday
[2018-06-27] MEDS: Acetaminophen 325 MG Tablet PO PRN ×3 (00:17→19:35)
[2018-06-27 06:56] LABS: Hematocrit 32.6 % (39.0-51.0); Hemoglobin 10.8 gm/dL (13.0-17.0); Mean Corpuscular HGB Conc 33.1 % (32.0-36.0); Mean Corpuscular Hemoglobin 30.1 pg (27.0-34.0); Mean Corpuscular Volume 90.8 fL (80.0-100.0); Mean Platelet Volume 8.8 fL (7.0-11.0); Platelet Count 237 th/mm3 (150-450); Red Blood Count 3.59 mil/mm3 (4.50-5.90); Red Cell Distribution Width 13.6 % (11.6-17.2); White Blood Count 7.7 th/mm3 (4.0-11.0)
[2018-06-27 07:14] LABS: Anion Gap 10 meq/L (5-15); Blood Urea Nitrogen 10 mg/dL (7-18); Calcium 8.4 mg/dL (8.5-10.1); Carbon Dioxide 31.5 meq/L (21.0-32.0); Chloride 99 meq/L (98-107); Glomerular Filtration Rate Greater Than 89 mL/min (>89); Glucose,Random 89 mg/dL (74-106); Potassium 3.8 meq/L (3.5-5.1); Sodium 140 meq/L (136-145)
[2018-06-27] MEDS: Senna/Docusate Sodium 8.6/50 MG Tablet PO SCH ×2 (09:53→21:46)
[2018-06-27] MEDS: Sodium Chloride 0.9% 2 ML Flush BID IV.FLUSH SCH ×2 (09:54→21:46)
[2018-06-27] MEDS: Heparin - SQ 10,000 UNITS/ML Vial SQ SCH ×2 (09:54→21:45)
[2018-06-27] MEDS ORDERED: Vancomycin Consult Pharmacy OTHER PRN (12:11)
--- NOTE | 2018-06-27 13:03 | P.PNIM ---
Subjective Interval history: The patient was anxious to go home. He had no acute complaints except for some mild abdominal discomfort. He said he was tolerating the tube feeds. Discussed with nursing. Physical Exam Vital signs: Vital Signs 06/26/18 16:00 06/26/18 16:45 06/26/18 17:21 Temperature 100.4 F H Pulse Rate 67 74 Respiratory Rate 16 Blood Pressure 98/64 L Pulse Oximetry 98 98 06/26/18 20:02 06/26/18 20:55 06/27/18 00:00 Temperature 100.5 F H 101.3 F H Pulse Rate 72 70 72 Respiratory Rate 16 16 Blood Pressure 102/58 L 98/52 L Pulse Oximetry 98 98 06/27/18 00:12 06/27/18 04:01 06/27/18 04:35 Temperature 100 F H Pulse Rate 70 63 68 Respiratory Rate 16 Blood Pressure 98/52 L Pulse Oximetry 98 06/27/18 07:00 06/27/18 09:12 06/27/18 09:46 Temperature 99.9 F H Pulse Rate 69 75 Respiratory Rate 16 Blood Pressure 101/58 L Pulse Oximetry 98 98 06/27/18 11:00 06/27/18 12:33 Temperature 101 F H Pulse Rate 81 80 Respiratory Rate 16 Blood Pressure 110/59 L Pulse Oximetry 99 Intake & Output 06/26/18 06/27/18 06/27/18 18:59 06:59 18:59 Intake Total 1140 / 1140 Output Total 350 / 350 Balance 790 / 790 Weight 70.8 kg Intake: Oral 240 / 240 Tube Feeding 500 / 500 Water Bolus Amount 400 / 400 Output: Urine 350 / 350 Other: Date of Last Bowel Movement 06/22/18 Narrative: GENERAL: No distress. SKIN: Warm and dry. CARDIOVASCULAR: Regular rate and rhythm. No murmur auscultated. RESPIRATORY: No accessory muscle use. Clear to auscultation. Breath sounds equal bilaterally. GASTROINTESTINAL: Abdomen soft, non-tender, nondistended. +BS. PEG tube in place with small amount of foul-smelling pus around it. MUSCULOSKELETAL: Extremities without clubbing, cyanosis, or edema. No obvious deformities. NEUROLOGICAL: Awake and alert. - Urinary Catheter Management Indwelling Urethral Catheter Cath placed during this visit: yes Reason for continuing: Hourly intake/output Insertion date: 06/19/18 Insertion time: 11:53 Results - Labs CBC & Chem 7: 06/27/18 05:18 06/27/18 05:18 Laboratory Results - last 24 hr 06/27/18 06/27/18 05:18 05:18 WBC 7.7 RBC 3.59 L Hgb 10.8 L Hct 32.6 L MCV 90.8 MCH 30.1 MCHC 33.1 RDW 13.6 Plt Count 237 MPV 8.8 Sodium 140 Potassium 3.8 Chloride 99 Carbon Dioxide 31.5 Anion Gap 10 BUN 10 Creatinine 0.59 L Estimated GFR Greater than 89 Random Glucose 89 Calcium 8.4 L - Procedures See hospital course Assessment and Plan - Assessment (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 -monitor as needed. -continue tube feeds. Changed to bolus feeds. -Continuous cardiac monitoring -resolved. Dysphagia/ Esophageal cancer GI consult appreciated. Esophageal Mass noted. Biopsy confirming SCC. -tube feeding started 06/22. Will need home health care and tube feeds set up for discharge. Case management assistance appreciated. -oncology/ radiation onc following. -speech therapy following. Modified barium swallow noted. -change to bolus feeds per hospital sales representative. Fever Pt with fever overnight 06/27. PEG tube with foul-smelling pus around it. -callaway-culture. -GI notified about PEG tube. -start IV vancomycin. -Tylenol as needed. Acute hypoxic and hypercarbic respiratory failure- resolved -post EGD, now extubated doing well. -nebs -pulmonary toilet -wean o2 by nc as tolerated. -CXR pending. Weight loss 30lb. weight loss due to decreased PO intake CT abdomen/pelvis unremarkable -tube feeds as above. Hypotension Asymptomatic. -Continue to monitor BP off of IVFs. Hypocalcemia -improved s/p IV calcium repletion DVT PPX: Heparin sq Discharge Planning: Discharge held for fever work-up, antibiotics
--- NOTE | 2018-06-27 14:03 | XR ---
EXAM DATE: 06/27/2018 11:46 AM EDT AGE/SEX: 57 years / Male INDICATIONS: Cough. Evaluate for possible pneumonia. CLINICAL DATA: This is the patient's subsequent encounter. Patient reports that signs and symptoms h ave been present for 2 weeks and indicates a pain score of 0/10. MEDICAL/SURGICAL HISTORY: None. . Knee and ankle surgery COMPARISON: [facility] [place], CHEST 1V SINGLE AP, 06/19/2018. . FINDINGS: A single AP view of the chest demonstrates the lungs to be symmetrically aerated without evidence of mass, infiltrate or effusion. The cardiomediastinal contours are unremarkable. Osseous structures a re intact. CONCLUSION: No acute cardiopulmonary disease. There is no evidence of pneumonia. Electronically signed by: Bola Lancaster MD 06/27/2018 2:02 PM EDT
[2018-06-27 15:17] LABS: Bilirubin,Urine Negative (Negative); Clarity,Urine Clear (Clear); Color,Urine Yellow (Yellw/Straw); Glucose,Urine (UA) Negative (Negative); Leukocyte Esterase,Urine Negative (Negative); Nitrite,Urine Negative (Negative); Specific Gravity,Urine 1.011 (1.002-1.035); Squamous Epithelial Cell,Urine <1 /hpf (0-5); Urobilinogen,Urine 4 or Greater mg/dL (Less than 2)
[2018-06-27] MEDS: Vancomycin Inj 1,250 MG in Sodium Chlor 0.9% Inj 250 ML IV.SIG SCH (16:02)
--- NOTE | 2018-06-27 17:13 | P.PNGI ---
Subjective Interval history: 57-year-old male, status post PEG tube placement on 06/21/2018 without any complications. Patient noted increased soreness at PEG tube site over the past 24 hours and today noted pain during PEG tube feeding. Patient has been doing his own bolus feeds without any known complications. Gastroenterology was reconsulted to evaluate possible PEG tube site infection. <Zarina Concepcion - Last Filed: 06/27/18 17:16> Physical Exam Vital signs: Vital Signs 06/26/18 17:21 06/26/18 20:02 06/26/18 20:55 Temperature 100.5 F H Pulse Rate 72 70 Respiratory Rate 16 Blood Pressure 102/58 L Pulse Oximetry 98 98 06/27/18 00:00 06/27/18 00:12 06/27/18 04:01 Temperature 101.3 F H Pulse Rate 72 70 63 Respiratory Rate 16 Blood Pressure 98/52 L Pulse Oximetry 98 06/27/18 04:35 06/27/18 07:00 06/27/18 09:12 Temperature 100 F H Pulse Rate 68 69 Respiratory Rate 16 Blood Pressure 98/52 L Pulse Oximetry 98 98 06/27/18 09:46 06/27/18 11:00 06/27/18 12:33 Temperature 99.9 F H 101 F H Pulse Rate 75 81 80 Respiratory Rate 16 16 Blood Pressure 101/58 L 110/59 L Pulse Oximetry 98 99 06/27/18 14:49 06/27/18 15:00 Temperature 99.9 F H Pulse Rate 79 77 Respiratory Rate 16 Blood Pressure 104/56 L Pulse Oximetry 99 Intake & Output 06/26/18 06/27/18 06/27/18 18:59 06:59 18:59 Intake Total 1140 / 1140 Output Total 350 / 350 Balance 790 / 790 Weight 70.8 kg Intake: Oral 240 / 240 Tube Feeding 500 / 500 Water Bolus Amount 400 / 400 Output: Urine 350 / 350 Other: Date of Last Bowel Movement 06/22/18 - Urinary Catheter Management Indwelling Urethral Catheter Cath placed during this visit: yes Reason for continuing: Hourly intake/output Insertion date: 06/19/18 Insertion time: 11:53 <Zarina Concepcion - Last Filed: 06/27/18 17:16> Vital signs: Vital Signs 06/26/18 20:02 06/26/18 20:55 06/27/18 00:00 Temperature 100.5 F H 101.3 F H Pulse Rate 72 70 72 Respiratory Rate 16 16 Blood Pressure 102/58 L 98/52 L Pulse Oximetry 98 98 06/27/18 00:12 06/27/18 04:01 06/27/18 04:35 Temperature 100 F H Pulse Rate 70 63 68 Respiratory Rate 16 Blood Pressure 98/52 L Pulse Oximetry 98 06/27/18 07:00 06/27/18 09:12 06/27/18 09:46 Temperature 99.9 F H Pulse Rate 69 75 Respiratory Rate 16 Blood Pressure 101/58 L Pulse Oximetry 98 98 06/27/18 11:00 06/27/18 12:33 06/27/18 14:49 Temperature 101 F H 99.9 F H Pulse Rate 81 80 79 Respiratory Rate 16 16 Blood Pressure 110/59 L 104/56 L Pulse Oximetry 99 99 06/27/18 15:00 Temperature Pulse Rate 77 Respiratory Rate Blood Pressure Pulse Oximetry Intake & Output 06/26/18 06/27/18 06/27/18 18:59 06:59 18:59 Intake Total 1140 / 1140 Output Total 350 / 350 Balance 790 / 790 Weight 70.8 kg Intake: Oral 240 / 240 Tube Feeding 500 / 500 Water Bolus Amount 400 / 400 Output: Urine 350 / 350 Other: Date of Last Bowel Movement 06/22/18 - Urinary Catheter Management Indwelling Urethral Catheter Cath placed during this visit: no <Aaron Silver - Last Filed: 06/27/18 17:49> Results - Labs CBC & Chem 7: 06/27/18 05:18 06/27/18 05:18 Laboratory Results - last 24 hr 06/27/18 06/27/18 06/27/18 05:18 05:18 14:45 WBC 7.7 RBC 3.59 L Hgb 10.8 L Hct 32.6 L MCV 90.8 MCH 30.1 MCHC 33.1 RDW 13.6 Plt Count 237 MPV 8.8 Sodium 140 Potassium 3.8 Chloride 99 Carbon Dioxide 31.5 Anion Gap 10 BUN 10 Creatinine 0.59 L Estimated GFR Greater than 89 Random Glucose 89 Calcium 8.4 L Urine Color Yellow Urine Clarity Clear Urine pH 7.0 Ur Specific [place] 1.011 Urine Protein Negative Urine Glucose (UA) Negative Urine Ketones Negative Urine Occult Blood Negative Urine Nitrate Negative Urine Bilirubin Negative Urine Urobilinogen 4 or greater Ur Leukocyte Esterase Negative Urine RBC Less than 1 Urine WBC Less than 1 Ur Squamous Epith Cells <1 Micro UA Comment Culture not ind Ur Microscopic Review Not Reportable Urine Culture Comments Culture not ind - Imaging Impressions Chest X-Ray 06/27/18 11:46 CONCLUSION: No acute cardiopulmonary disease. There is no evidence of pneumonia. - Procedures See hospital course <Zarina Concepcion - Last Filed: 06/27/18 17:16> - Labs CBC & Chem 7: 06/27/18 05:18 06/27/18 05:18 Laboratory Results - last 24 hr 06/27/18 06/27/18 06/27/18 05:18 05:18 14:45 WBC 7.7 RBC 3.59 L Hgb 10.8 L Hct 32.6 L MCV 90.8 MCH 30.1 MCHC 33.1 RDW 13.6 Plt Count 237 MPV 8.8 Sodium 140 Potassium 3.8 Chloride 99 Carbon Dioxide 31.5 Anion Gap 10 BUN 10 Creatinine 0.59 L Estimated GFR Greater than 89 Random Glucose 89 Calcium 8.4 L Urine Color Yellow Urine Clarity Clear Urine pH 7.0 Ur Specific [place] 1.011 Urine Protein Negative Urine Glucose (UA) Negative Urine Ketones Negative Urine Occult Blood Negative Urine Nitrate Negative Urine Bilirubin Negative Urine Urobilinogen 4 or greater Ur Leukocyte Esterase Negative Urine RBC Less than 1 Urine WBC Less than 1 Ur Squamous Epith Cells <1 Micro UA Comment Culture not ind Ur Microscopic Review Not Reportable Urine Culture Comments Culture not ind - Imaging Impressions Chest X-Ray 06/27/18 11:46 CONCLUSION: No acute cardiopulmonary disease. There is no evidence of pneumonia. <Aaron Silver - Last Filed: 06/27/18 17:49> Assessment and Plan - Plan Gastroenterology was reconsulted for possible PEG tube site infection. Patient noted increased soreness at PEG tube site 24 hours ago and today while given his on bolus feeds he noticed pain during the feeding. Site showed some mild erythema with crusty purulent drainage around the for before. Tube was painful to any type of movement on examination. Will evaluate correct tube placement as well as any acute signs of infection or peritonitis. -Patient initially admitted with dysphagia- S/P EGD/PEG on 06/21/18 - Esophageal Mass- status post EGD per Dr. Sandhu 06/19/2018. Findings include irregular and friable pharynx. Using a guidewire the esophagus was intubated and a friable tumor of the pharynx and upper esophagus / pharyngeal area was biopsied. Stomach and duodenal were unremarkable. This tumor is likely malignant. Biopsy confirming SCC. 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 Plan Diet hold all tube feeds for now Placed patient IV hydration D5 and half-normal saline at 84 cc an hour Wound culture is pending from today. Check CT scan abdomen with IV contrast, evaluate for any signs of peritonitis and tube placement position Monitor labs with special attention to white count Vancomycin IV was initiated today Further recommendations to follow Patient was seen per myself and Dr. Silver, note was written on his behalf <Zarina Concepcion - Last Filed: 06/27/18 17:16> - Plan Seen and examined with ADULT CARE PROVIDER, pain and tenderness around PEG site since yesterday. HOLD TF. check CT. cultures ordered. Will follow. <Aaron Silver - Last Filed: 06/27/18 17:49>
[2018-06-27] MEDS: Dextrose 5%/NaCl 0.45% Inj 1,000 ML IV.CONT SCH (17:55)
--- NOTE | 2018-06-27 19:11 | CT ---
EXAM DATE: 06/27/2018 5:47 PM EDT AGE/SEX: 57 years / Male INDICATIONS: Evaluate peg tube. CLINICAL DATA: This is the patient's initial encounter. Patient reports that signs and symptoms have been present for 1 day and indicates a pain score of 4/10. MEDICAL/SURGICAL HISTORY: . Peg tube. Esophageal cancer . Orthopedic ORAL CONTRAST: No oral contrast ingested. RADIATION DOSE: 7.76 CTDI (mGy) COMPARISON: [facility] [place]ELVIS W CONTRAST, 06/16/2018. . TECHNIQUE: Multiple contiguous axial images were obtained through the abdomen and pelvis following b olus infusion of 70 ml Omnipaque 350 (iohexol) nonionic water-soluble contrast as a single exam dos e. No oral contrast ingested. Using automated exposure control and adjustment of the mA and/or kV ac cording to patient size, radiation dose was kept as low as reasonably achievable to obtain optimal di agnostic quality images. DICOM format image data is available electronically for review and comparis on. FINDINGS: Lower Lungs: There is increased density at the posterior right lower lung likely related to atelectas is. Liver: The liver has a homogeneous density without space-occupying lesion. There is no dilation of th e biliary tree. Spleen: Homogeneous density without enlargement. Pancreas: Unremarkable without mass or calcification. Kidneys: Normal in size and shape. No evidence of hydronephrosis. There is a 0.8 cm hypodensity seen in the posterior left upper kidney and a 1.1 cm density seen in the anterior superior lateral right kidney. These were present previously. They likely represent cysts. Adrenal Glands: Unremarkable. Aorta: The aorta and proximal iliac vessels are grossly unremarkable without aneurysmal dilation. Bowel/Mesentery: There is a G-tube. The tip appears to extend into the anterior aspect of the stomac h. The bulb of the G-tube is seen just deep to the anterior abdominal wall. Presumably the anterior a spect of the stomach is present coursing anterior abdominal wall although the anterior margin of the stomach cannot be discerned. Dilated or thickened bowel is not seen. Abdominal Wall: Again noted is the G-tube. Retroperitoneum: No evidence of adenopathy in the retrocrural, para-aortic, or deep pelvic regions. Bladder: Contours are smooth. Reproductive Organs: No abnormal masses or calcifications seen. Inguinal: The inguinal region is unremarkable without evidence of adenopathy. Bony Structures: There is degenerative change in the lumbar spine. CONCLUSION: 1. NG tube with its tip in the stomach. The bulb portion of the G tube is just deep to the anterior abdominal wall. 2. Hypodensities in the kidneys likely related to cysts. Electronically signed by: Osvaldo Gaston MD 06/27/2018 7:09 PM EDT
[2018-06-28] MEDS: Vancomycin Inj 1,250 MG in Sodium Chlor 0.9% Inj 250 ML IV.SIG SCH ×2 (02:44→14:24)
[2018-06-28] MEDS: Senna/Docusate Sodium 8.6/50 MG Tablet PO SCH ×2 (09:02→20:32)
[2018-06-28] MEDS: Heparin - SQ 10,000 UNITS/ML Vial SQ SCH ×2 (09:03→20:44)
[2018-06-28] MEDS: Dextrose 5%/NaCl 0.45% Inj 1,000 ML IV.CONT SCH ×2 (09:56→20:45)
--- NOTE | 2018-06-28 11:15 | P.PNIM ---
Subjective Interval history: Patient reports some discomfort around the feeding tube. Otherwise no new complaints. Afebrile. Physical Exam Vital signs: Vital Signs 06/27/18 12:33 06/27/18 14:49 06/27/18 15:00 Temperature 101 F H 99.9 F H Pulse Rate 80 79 77 Respiratory Rate 16 16 Blood Pressure 110/59 L 104/56 L Pulse Oximetry 99 99 06/27/18 19:35 06/27/18 20:06 06/27/18 21:50 Temperature 101.6 F H 100.1 F H Pulse Rate 78 83 Respiratory Rate 18 Blood Pressure 110/68 Pulse Oximetry 97 06/27/18 23:41 06/28/18 00:22 06/28/18 04:00 Temperature 99.5 F 99.7 F H Pulse Rate 81 74 69 Respiratory Rate 18 Blood Pressure 98/56 L 91/54 L Pulse Oximetry 99 99 06/28/18 04:05 06/28/18 07:48 06/28/18 08:52 Temperature 98.8 F Pulse Rate 66 68 72 Respiratory Rate 16 Blood Pressure 100/59 L Pulse Oximetry 98 Intake & Output 06/27/18 06/28/18 06/28/18 18:59 06:59 18:59 Intake Total 1362.5 / 1362.5 805 / 805 1000 / 1000 Output Total 1335 / 1335 775 / 775 Balance 27.5 / 27.5 30 / 30 1000 / 1000 Weight 70 kg Intake: IV 262.5 / 262.5 265 / 265 1000 / 1000 D5W/1/2 NS Inj 1,000 ML @ 84 1000 / 1000 mls/hr IV.CONT .[id number] [facility] Rx# :[id number] Vancomycin Inj 1,250 MG In NS 262.5 / 262.5 265 / 265 Inj 250 ML @ 262.5 mls/hr IV. SIG Q12H [facility] Rx#:[id number] Oral 0 / 0 540 / 540 Tube Feeding 600 / 600 Water Bolus Amount 500 / 500 Output: Urine 1335 / 1335 775 / 775 Other: Date of Last Bowel Movement 06/22/18 06/27/18 Narrative: GENERAL: No distress. SKIN: PEG tube dressing appear clean and intact. No surrounding cellulitis or drainage noted today. CARDIOVASCULAR: Regular rate and rhythm. No murmur auscultated. RESPIRATORY: No accessory muscle use. Clear to auscultation. Breath sounds equal bilaterally. GASTROINTESTINAL: Abdomen soft, non-tender, nondistended. +BS. PEG tube in place. MUSCULOSKELETAL: Extremities without clubbing, cyanosis, or edema. No obvious deformities. NEUROLOGICAL: Awake and alert. - Urinary Catheter Management Indwelling Urethral Catheter Cath placed during this visit: yes Reason for continuing: Hourly intake/output Insertion date: 06/19/18 Insertion time: 11:53 Results - Labs CBC & Chem 7: 06/27/18 05:18 06/27/18 05:18 Laboratory Results - last 24 hr 06/27/18 14:45 Urine Color Yellow Urine Clarity Clear Urine pH 7.0 Ur Specific [place] 1.011 Urine Protein Negative Urine Glucose (UA) Negative Urine Ketones Negative Urine Occult Blood Negative Urine Nitrate Negative Urine Bilirubin Negative Urine Urobilinogen 4 or greater Ur Leukocyte Esterase Negative Urine RBC Less than 1 Urine WBC Less than 1 Ur Squamous Epith Cells <1 Micro UA Comment Culture not ind Ur Microscopic Review Not Reportable Urine Culture Comments Culture not ind Microbiology 06/27/18 12:53 Blood - Peripheral Aerobic Blood Culture - Preliminary No growth in 1 day 06/27/18 12:53 Blood - Peripheral Anaerobic Blood Culture - Preliminary No growth in 1 day 06/27/18 12:48 Blood - Peripheral Aerobic Blood Culture - Preliminary No growth in 1 day 06/27/18 12:48 Blood - Peripheral Anaerobic Blood Culture - Preliminary No growth in 1 day 06/27/18 12:37 Wound - Abdominal Gram Stain - Final - Imaging Impressions Abdomen/Pelvis CT 06/27/18 00:00 CONCLUSION: 1. NG tube with its tip in the stomach. The bulb portion of the G tube is just deep to the anterior abdominal wall. 2. Hypodensities in the kidneys likely related to cysts. Chest X-Ray 06/27/18 11:46 CONCLUSION: No acute cardiopulmonary disease. There is no evidence of pneumonia. 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 -Electrolyte abnormalities corrected after replacement. Patient restarted on tube feeding. Fever with concern for PEG site infection: -callaway-culture. -Appreciate GI following. CT of the abdomen results noted. - KUB with Gastrografin study per GI today. -Continue IV vancomycin. -Tylenol as needed. Dysphagia/ Esophageal cancer GI consult appreciated. Esophageal Mass noted. Biopsy confirming SCC. -tube feeding started 06/22. Will need home health care and tube feeds set up for discharge. Case management assistance appreciated. -oncology/ radiation onc following. -speech therapy following. Modified barium swallow noted. -change to bolus feeds per roller presser operator. Tube feed on hold for now. Acute hypoxic and hypercarbic respiratory failure- resolved -post EGD, now extubated doing well. -nebs -pulmonary toilet -wean o2 by nc as tolerated. -CXR pending. Weight loss 30lb. weight loss due to decreased PO intake CT abdomen/pelvis unremarkable -tube feeds as above. Hypotension Asymptomatic. -Continue to monitor BP off of IVFs. Hypocalcemia -improved s/p IV calcium repletion DVT PPX: Heparin sq
--- NOTE | 2018-06-28 11:41 | P.PNGI ---
Subjective Interval history: Pt resting in bed. Complaining of some pain around PEG site. Currently no active drainage, gauze bandage is clean, dry and intact. TF on hold. <Dinora Jimenez - Last Filed: 06/28/18 11:33> Physical Exam Vital signs: Vital Signs 06/27/18 12:33 06/27/18 14:49 06/27/18 15:00 Temperature 101 F H 99.9 F H Pulse Rate 80 79 77 Respiratory Rate 16 16 Blood Pressure 110/59 L 104/56 L Pulse Oximetry 99 99 06/27/18 19:35 06/27/18 20:06 06/27/18 21:50 Temperature 101.6 F H 100.1 F H Pulse Rate 78 83 Respiratory Rate 18 Blood Pressure 110/68 Pulse Oximetry 97 06/27/18 23:41 06/28/18 00:22 06/28/18 04:00 Temperature 99.5 F 99.7 F H Pulse Rate 81 74 69 Respiratory Rate 18 Blood Pressure 98/56 L 91/54 L Pulse Oximetry 99 99 06/28/18 04:05 06/28/18 07:48 06/28/18 08:52 Temperature 98.8 F Pulse Rate 66 68 72 Respiratory Rate 16 Blood Pressure 100/59 L Pulse Oximetry 98 Intake & Output 06/27/18 06/28/18 06/28/18 18:59 06:59 18:59 Intake Total 1362.5 / 1362.5 805 / 805 1000 / 1000 Output Total 1335 / 1335 775 / 775 Balance 27.5 / 27.5 30 / 30 1000 / 1000 Weight 70 kg Intake: IV 262.5 / 262.5 265 / 265 1000 / 1000 D5W/1/2 NS Inj 1,000 ML @ 84 1000 / 1000 mls/hr IV.CONT .[id number] [facility] Rx# :[id number] Vancomycin Inj 1,250 MG In NS 262.5 / 262.5 265 / 265 Inj 250 ML @ 262.5 mls/hr IV. SIG Q12H [facility] Rx#:[id number] Oral 0 / 0 540 / 540 Tube Feeding 600 / 600 Water Bolus Amount 500 / 500 Output: Urine 1335 / 1335 775 / 775 Other: Date of Last Bowel Movement 06/22/18 06/27/18 - Constitutional no acute distress - Routine HEENT Exam Head: Present: normocephalic, atraumatic - Routine Respiratory Exam Absent: accessory muscle use - Routine Abdominal Exam Present: soft, normoactive bowel sounds, tenderness (tenderness around PEG, PEG site with no active drainage, gauze dressing is clean, dry and intact ). Absent : distended - Routine Skin Exam Present: dry, warm - Routine Neurological Exam Present: alert, oriented X3 - Urinary Catheter Management Indwelling Urethral Catheter Cath placed during this visit: yes Reason for continuing: Hourly intake/output Insertion date: 06/19/18 Insertion time: 11:53 <Dinora Jimenez - Last Filed: 06/28/18 11:33> Vital signs: Vital Signs 06/27/18 14:49 06/27/18 15:00 06/27/18 19:35 Temperature 99.9 F H 101.6 F H Pulse Rate 79 77 78 Respiratory Rate 16 18 Blood Pressure 104/56 L 110/68 Pulse Oximetry 99 97 06/27/18 20:06 06/27/18 21:50 06/27/18 23:41 Temperature 100.1 F H Pulse Rate 83 81 Respiratory Rate Blood Pressure Pulse Oximetry 06/28/18 00:22 06/28/18 04:00 06/28/18 04:05 Temperature 99.5 F 99.7 F H Pulse Rate 74 69 66 Respiratory Rate 18 Blood Pressure 98/56 L 91/54 L Pulse Oximetry 99 99 06/28/18 07:48 06/28/18 08:52 Temperature 98.8 F Pulse Rate 68 72 Respiratory Rate 16 Blood Pressure 100/59 L Pulse Oximetry 98 Intake & Output 06/27/18 06/28/18 06/28/18 18:59 06:59 18:59 Intake Total 1362.5 / 1362.5 805 / 805 1000 / 1000 Output Total 1335 / 1335 775 / 775 Balance 27.5 / 27.5 30 / 30 1000 / 1000 Weight 70 kg Intake: IV 262.5 / 262.5 265 / 265 1000 / 1000 D5W/1/2 NS Inj 1,000 ML @ 84 1000 / 1000 mls/hr IV.CONT .[id number] [facility] Rx# :[id number] Vancomycin Inj 1,250 MG In NS 262.5 / 262.5 265 / 265 Inj 250 ML @ 262.5 mls/hr IV. SIG Q12H [facility] Rx#:[id number] Oral 0 / 0 540 / 540 Tube Feeding 600 / 600 Water Bolus Amount 500 / 500 Output: Urine 1335 / 1335 775 / 775 Other: Date of Last Bowel Movement 06/22/18 06/27/18 - Urinary Catheter Management Indwelling Urethral Catheter Cath placed during this visit: no <Aaron Silver - Last Filed: 06/28/18 14:06> Results - Labs CBC & Chem 7: 06/27/18 05:18 06/27/18 05:18 Laboratory Results - last 24 hr 06/27/18 14:45 Urine Color Yellow Urine Clarity Clear Urine pH 7.0 Ur Specific [place] 1.011 Urine Protein Negative Urine Glucose (UA) Negative Urine Ketones Negative Urine Occult Blood Negative Urine Nitrate Negative Urine Bilirubin Negative Urine Urobilinogen 4 or greater Ur Leukocyte Esterase Negative Urine RBC Less than 1 Urine WBC Less than 1 Ur Squamous Epith Cells <1 Micro UA Comment Culture not ind Ur Microscopic Review Not Reportable Urine Culture Comments Culture not ind Microbiology 06/27/18 12:53 Blood - Peripheral Aerobic Blood Culture - Preliminary No growth in 1 day 06/27/18 12:53 Blood - Peripheral Anaerobic Blood Culture - Preliminary No growth in 1 day 06/27/18 12:48 Blood - Peripheral Aerobic Blood Culture - Preliminary No growth in 1 day 06/27/18 12:48 Blood - Peripheral Anaerobic Blood Culture - Preliminary No growth in 1 day 06/27/18 12:37 Wound - Abdominal Gram Stain - Final - Imaging Impressions Abdomen/Pelvis CT 06/27/18 00:00 CONCLUSION: 1. NG tube with its tip in the stomach. The bulb portion of the G tube is just deep to the anterior abdominal wall. 2. Hypodensities in the kidneys likely related to cysts. Chest X-Ray 06/27/18 11:46 CONCLUSION: No acute cardiopulmonary disease. There is no evidence of pneumonia. - Procedures See hospital course <Dinoar Jimenez - Last Filed: 06/28/18 11:33> - Labs CBC & Chem 7: 06/27/18 05:18 06/27/18 05:18 Laboratory Results - last 24 hr 06/27/18 14:45 Urine Color Yellow Urine Clarity Clear Urine pH 7.0 Ur Specific [place] 1.011 Urine Protein Negative Urine Glucose (UA) Negative Urine Ketones Negative Urine Occult Blood Negative Urine Nitrate Negative Urine Bilirubin Negative Urine Urobilinogen 4 or greater Ur Leukocyte Esterase Negative Urine RBC Less than 1 Urine WBC Less than 1 Ur Squamous Epith Cells <1 Micro UA Comment Culture not ind Ur Microscopic Review Not Reportable Urine Culture Comments Culture not ind Microbiology 06/27/18 12:37 Wound - Abdominal Gram Stain - Final 06/27/18 12:37 Wound - Abdominal Wound Culture - Preliminary Streptococcus species 06/27/18 12:53 Blood - Peripheral Aerobic Blood Culture - Preliminary No growth in 1 day 06/27/18 12:53 Blood - Peripheral Anaerobic Blood Culture - Preliminary No growth in 1 day 06/27/18 12:48 Blood - Peripheral Aerobic Blood Culture - Preliminary No growth in 1 day 06/27/18 12:48 Blood - Peripheral Anaerobic Blood Culture - Preliminary No growth in 1 day - Imaging Impressions Abdomen/Pelvis CT 06/27/18 00:00 CONCLUSION: 1. NG tube with its tip in the stomach. The bulb portion of the G tube is just deep to the anterior abdominal wall. 2. Hypodensities in the kidneys likely related to cysts. Chest X-Ray 06/27/18 11:46 CONCLUSION: No acute cardiopulmonary disease. There is no evidence of pneumonia. Abdomen X-Ray 06/28/18 00:00 CONCLUSION: Contrast is seen within the stomach suggesting good placement of PEG tube. 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 S/P EGD with successful PEG placement on 06/21 RECONSULT for drainage around PEG CT abd/pelvis W IV contrast --> NG tube with its tip in the stomach. The bulb portion of the G tube is just deep to the anterior abdominal wall. (06/28) CT noted as above. No active drainage from PEG. Gauze dressing is clean , dry and intact. Bumper pulled back about 2 cm to loosen PEG tube. KUB with Gastrografin to confirm placement. Hold TF. Wound gram stain- few WBCs, mixed magda. Culture pending Discussed with Dr. Luther Plan: KUB with Gastrografin Hold TF Wound culture pending Dressing changes as needed Further recommendations pending results This patient has been seen and examined by myself and Dr. Silver and this note is written on his behalf <Dinora Jimenez - Last Filed: 06/28/18 11:33> - Plan Seen and examined with WARDROBE CONSULTANT, PEG tube bumper loosened. Gastrografin through G tube. IF position verified can resume TF . Discussed with pt. Nurse and Dr Bills. <Aaron Silver - Last Filed: 06/28/18 14:06>
[2018-06-28] MEDS ORDERED: Diatrizoate Meglum/Diatrizoate Sod Liq 120 ML Bottle (for RAD diag) G-TUBE ONE (13:25)
--- NOTE | 2018-06-28 13:42 | XR ---
EXAM DATE: 06/28/2018 12:00 AM EDT AGE/SEX: 57 years / Male INDICATIONS: Peg tube placement. CLINICAL DATA: This is the patient's subsequent encounter. Patient reports that signs and symptoms h ave been present for 1 week and indicates a pain score of 0/10. MEDICAL/SURGICAL HISTORY: . Esophageal cancer . Peg tube. COMPARISON: No prior exams available for comparison. FINDINGS: The abdominal bowel gas pattern is normal. There is oral contrast within the stomach and within the large bowel. No abnormal masses, calcifications, or organomegaly is seen. The osseous structures are unremarkable. CONCLUSION: Contrast is seen within the stomach suggesting good placement of PEG tube. Electronically signed by: José Miguel Cabrera MD 06/28/2018 1:41 PM EDT
[2018-06-28] MEDS: Sodium Chloride 0.9% 2 ML Flush BID IV.FLUSH SCH (21:00)
[2018-06-29] MEDS ORDERED: Pharmacy Ordered Lab Info OTHER ONE (01:45)
[2018-06-29] MEDS: Vancomycin Inj 1,250 MG in Sodium Chlor 0.9% Inj 250 ML IV.SIG SCH (02:10)
[2018-06-29 02:38] LABS: Hematocrit 31.7 % (39.0-51.0); Hemoglobin 10.5 gm/dL (13.0-17.0); Mean Corpuscular HGB Conc 33.1 % (32.0-36.0); Mean Corpuscular Hemoglobin 29.9 pg (27.0-34.0); Mean Corpuscular Volume 90.2 fL (80.0-100.0); Mean Platelet Volume 8.7 fL (7.0-11.0); Platelet Count 254 th/mm3 (150-450); Red Blood Count 3.51 mil/mm3 (4.50-5.90); Red Cell Distribution Width 13.7 % (11.6-17.2); White Blood Count 5.7 th/mm3 (4.0-11.0)
[2018-06-29 02:53] LABS: Glomerular Filtration Rate Greater Than 89 mL/min (>89)
[2018-06-29 02:54] LABS: Vancomycin,Trough 12.3 mcg/mL (5.0-10.0)
--- NOTE | 2018-06-29 09:56 | P.PNGI ---
Subjective Interval history: Patient resting in bed, giving himself free water flushes. Denies any tenderness to exit at this time. Denies any nausea, vomiting, abdominal pain. <Dinora Jimenez - Last Filed: 06/29/18 13:06> Physical Exam Vital signs: Vital Signs 06/28/18 12:00 06/28/18 12:58 06/28/18 16:00 Temperature 98.9 F 99.7 F H Pulse Rate 72 67 84 Respiratory Rate 16 19 Blood Pressure 94/59 L 90/57 L Pulse Oximetry 99 99 06/28/18 17:18 06/28/18 20:00 06/28/18 20:40 Temperature 99.5 F Pulse Rate 66 70 Respiratory Rate 15 Blood Pressure 104/60 Pulse Oximetry 98 99 06/28/18 23:20 06/29/18 00:06 06/29/18 04:10 Temperature 99 F Pulse Rate 66 68 66 Respiratory Rate 18 Blood Pressure 103/58 L Pulse Oximetry 99 06/29/18 04:40 06/29/18 07:00 06/29/18 08:20 Temperature 97.8 F Pulse Rate 62 69 Respiratory Rate 16 Blood Pressure 93/58 L Pulse Oximetry 98 98 Intake & Output 06/28/18 06/29/18 06/29/18 18:59 06:59 18:59 Intake Total 1265 / 1265 1265 / 1265 Output Total 625 / 625 720 / 720 Balance 640 / 640 545 / 545 Weight 70.2 kg Intake: IV 1265 / 1265 1265 / 1265 D5W/1/2 NS Inj 1,000 ML @ 84 1000 / 1000 1000 / 1000 mls/hr IV.CONT .[id number] [facility] Rx# :[id number] Vancomycin Inj 1,250 MG In NS 265 / 265 265 / 265 Inj 250 ML @ 262.5 mls/hr IV. SIG Q12H [facility] Rx#:[id number] Output: Urine 625 / 625 720 / 720 Other: Date of Last Bowel Movement 06/27/18 06/27/18 - Constitutional no acute distress - Routine HEENT Exam Head: Present: normocephalic, atraumatic - Routine Respiratory Exam Absent: accessory muscle use - Routine Abdominal Exam Present: soft, normoactive bowel sounds. Absent: tenderness, distended Comments: PEG site with no active drainage, gauze dressing is clean, dry and intact - Routine Skin Exam Present: dry, warm - Routine Neurological Exam Present: alert, oriented X3 - Urinary Catheter Management Indwelling Urethral Catheter Cath placed during this visit: yes Reason for continuing: Hourly intake/output Insertion date: 06/19/18 Insertion time: 11:53 <Dinora Jimenez - Last Filed: 06/29/18 13:06> Vital signs: Vital Signs 06/28/18 17:18 06/28/18 20:00 06/28/18 20:40 Temperature 99.5 F Pulse Rate 66 70 Respiratory Rate 15 Blood Pressure 104/60 Pulse Oximetry 98 99 06/28/18 23:20 06/29/18 00:06 06/29/18 04:10 Temperature 99 F Pulse Rate 66 68 66 Respiratory Rate 18 Blood Pressure 103/58 L Pulse Oximetry 99 06/29/18 04:40 06/29/18 07:00 06/29/18 08:20 Temperature 97.8 F Pulse Rate 62 69 Respiratory Rate 16 Blood Pressure 93/58 L Pulse Oximetry 98 98 06/29/18 09:55 06/29/18 11:00 06/29/18 12:49 Temperature 98.4 F 99.2 F Pulse Rate 70 86 90 Respiratory Rate 16 18 Blood Pressure 102/66 91/53 L Pulse Oximetry 100 99 Intake & Output 06/28/18 06/29/18 06/29/18 18:59 06:59 18:59 Intake Total 1265 / 1265 1265 / 1265 1100 / 1100 Output Total 625 / 625 720 / 720 Balance 640 / 640 545 / 545 1100 / 1100 Weight 70.2 kg Intake: IV 1265 / 1265 1265 / 1265 1100 / 1100 D5W/1/2 NS Inj 1,000 ML @ 84 1000 / 1000 1000 / 1000 1000 / 1000 mls/hr IV.CONT .[id number] [facility] Rx# :[id number] Vancomycin Inj 1,250 MG In NS 265 / 265 265 / 265 Inj 250 ML @ 262.5 mls/hr IV. SIG Q12H [facility] Rx#:[id number] Rocephin Inj 1,000 MG In NS Inj 100 / 100 100 ML @ 200 mls/hr IV.SIG Q12H [facility] Rx#:[id number] Output: Urine 625 / 625 720 / 720 Other: Date of Last Bowel Movement 06/27/18 06/27/18 - Urinary Catheter Management Indwelling Urethral Catheter Cath placed during this visit: no <Aaron Silver - Last Filed: 06/29/18 16:53> Results - Labs CBC & Chem 7: 06/29/18 02:08 06/29/18 02:08 Laboratory Results - last 24 hr 06/29/18 06/29/18 02:08 02:08 WBC 5.7 RBC 3.51 L Hgb 10.5 L Hct 31.7 L MCV 90.2 MCH 29.9 MCHC 33.1 RDW 13.7 Plt Count 254 MPV 8.7 Creatinine 0.46 L Estimated GFR Greater than 89 Vancomycin Trough 12.3 H Microbiology 06/27/18 12:37 Wound - Abdominal Gram Stain - Final 06/27/18 12:37 Wound - Abdominal Wound Culture - Preliminary Streptococcus species 06/27/18 12:53 Blood - Peripheral Aerobic Blood Culture - Preliminary No growth in 1 day 06/27/18 12:53 Blood - Peripheral Anaerobic Blood Culture - Preliminary No growth in 1 day 06/27/18 12:48 Blood - Peripheral Aerobic Blood Culture - Preliminary No growth in 1 day 06/27/18 12:48 Blood - Peripheral Anaerobic Blood Culture - Preliminary No growth in 1 day - Imaging Impressions Abdomen X-Ray 06/28/18 00:00 CONCLUSION: Contrast is seen within the stomach suggesting good placement of PEG tube. - Procedures See hospital course <Dinora Jimenez - Last Filed: 06/29/18 13:06> - Labs CBC & Chem 7: 06/29/18 02:08 06/29/18 02:08 Laboratory Results - last 24 hr 06/29/18 06/29/18 02:08 02:08 WBC 5.7 RBC 3.51 L Hgb 10.5 L Hct 31.7 L MCV 90.2 MCH 29.9 MCHC 33.1 RDW 13.7 Plt Count 254 MPV 8.7 Creatinine 0.46 L Estimated GFR Greater than 89 Vancomycin Trough 12.3 H Microbiology 06/27/18 12:37 Wound - Abdominal Gram Stain - Final 06/27/18 12:37 Wound - Abdominal Wound Culture - Final Beta Streptococcus Group C Beta Streptococcus Group F Fusobacterium species 06/27/18 12:53 Blood - Peripheral Aerobic Blood Culture - Preliminary No growth in 2 days 06/27/18 12:53 Blood - Peripheral Anaerobic Blood Culture - Preliminary No growth in 2 days 06/27/18 12:48 Blood - Peripheral Aerobic Blood Culture - Preliminary No growth in 2 days 06/27/18 12:48 Blood - Peripheral Anaerobic Blood Culture - Preliminary No growth in 2 days <Aaron Silver - Last Filed: 06/29/18 16:53> Assessment and Plan - Plan Assessment: - Dysphagia S/P EGD on 06/19 with 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 S/P EGD with successful PEG placement on 06/21 RECONSULT for drainage around PEG CT abd/pelvis W IV contrast --> NG tube with its tip in the stomach. The bulb portion of the G tube is just deep to the anterior abdominal wall. (06/28) CT noted as above. No active drainage from PEG. Gauze dressing is clean , dry and intact. Bumper pulled back about 2 cm to loosen PEG tube. KUB with Gastrografin to confirm placement. Hold TF. Wound gram stain- few WBCs, mixed magda. (+) strep (06/29) S/P KUB with Gastrografin yesterday which reveals good placement of PEG in stomach. Pt denies any pain to PEG site. No active drainage. Wound culture (+) strep- started on Rocephin Discussed with Dr. Luther Plan: Resume TF Dressing changes as needed Our service will sign off, please reconsult as needed Have pt follow up with GI after DC This patient has been seen and examined by myself and Dr. Silver and this note is written on his behalf <Dinora Jimenez - Last Filed: 06/29/18 13:06> - Plan Seen and examined by COST CONTROL SPECIALIST, resume TF as needed. GI will sign off. Thank you <Aaron Silver - Last Filed: 06/29/18 16:53>
[2018-06-29] MEDS: Sodium Chloride 0.9% 2 ML Flush BID IV.FLUSH SCH ×2 (09:58→12:51)
[2018-06-29] MEDS: Heparin - SQ 10,000 UNITS/ML Vial SQ SCH (09:58)
[2018-06-29] MEDS: Senna/Docusate Sodium 8.6/50 MG Tablet PO SCH (09:59)
[2018-06-29 12:50] VITALS: BP 91/53; PULSE 90; RESP 18; TEMP 99.2; O2SAT 99
--- NOTE | 2018-06-29 13:29 | P.DS ---
Date of admission: 06/19/18 13:20 Primary care physician: [facility] Anticipated date of discharge: 06/27/18 Brief History from admission: HPI from the admitting physician: This is a 57-year-old -[place] male with no significant past medical history who presented to the emergency room after he had a doctor's visit today at the [facility] showing a low potassium. Patient reports that he is not on any medications, his only complaint is decreased appetite. Patient reports that for the past few months he has had difficulty swallowing liquids as well as solids due to pain. Patient is supposed to have an outpatient workup done at the [facility]. Patient reports 30 pound weight loss over the past few months due to decreased p.o. intake. Patient denies fever, chills, recent illness, chest pain , palpitations, and shortness of breath. Patient reports that he has never had an electrolyte abnormality before. Patient update on day of discharge: Patient reports he is feeling great. He denies further abdominal pain. Abdominal film shows feeding tube in the right place. DS: Diagnosis - Discharge Diagnosis (1) Hypopharyngeal cancer Status: Acute (2) Acute hypokalemia Status: Acute (3) Irritation around percutaneous endoscopic gastrostomy (PEG) tube site Status: Acute DS: Medications - Discharge Medications Prescriptions: lactose-reduced food with fibr [Jevity 1.5 Salvador] See Label Instructions .ROUTE .COMPLEX 30 Days lansoprazole [Prevacid SoluTab] 30 mg NG/OG DAILY #30 tab water for injection, sterile 300 ml G-TUBE Q8H 30 Days ml DS: Summary Hospital Course: 57-year-old male admitted and treated for the following: Dysphagia/ Hypopharyngeal cancer GI was consulted. Esophageal mass noted on EGD. Biopsy confirmed SCC. Oncology and radiation oncology were consulted. A PEG tube was placed, the benefit director was consulted and tube feeds were started. Bolus tube feeding recommendations were made. The pt worked with speech therapy and a modified barium swallow was performed. The pt will be discharged with home health services. He will follow up with oncology and GI as an outpt. The patient did develop a fever, irritation and some drainage around PEG tube site. Tube readjusted per GI. This was cultured and grew beta strep. He was treated with antibiotics Hypokalemia/ Hypomagnesemia/ Hypernatremia Potassium level was 2.4 on admission. He received repletion. He was monitored on telemetry. He was started on tube feeds. Resolved. Acute hypoxic and hypercarbic respiratory failure The pt remained intubated following the EGD. He was later extubated and has been doing well on room air. He received oxygen and nebs as needed. - Time Spent with Patient Total time spent providing and/or coordinating discharge services: Greater than 30 minutes - Quality: VTE Deep Vein Thrombosis/Pulmonary Embolism Present on Admission: No Exam Vital signs: Vital Signs 06/28/18 16:00 06/28/18 17:18 06/28/18 20:00 Temperature 99.7 F H Pulse Rate 84 66 Respiratory Rate 19 Blood Pressure 90/57 L Pulse Oximetry 99 98 06/28/18 20:40 06/28/18 23:20 06/29/18 00:06 Temperature 99.5 F 99 F Pulse Rate 70 66 68 Respiratory Rate 15 18 Blood Pressure 104/60 103/58 L Pulse Oximetry 99 99 06/29/18 04:10 06/29/18 04:40 06/29/18 07:00 Temperature 97.8 F Pulse Rate 66 62 69 Respiratory Rate 16 Blood Pressure 93/58 L Pulse Oximetry 98 06/29/18 08:20 06/29/18 09:55 06/29/18 11:00 Temperature 98.4 F Pulse Rate 70 86 Respiratory Rate 16 Blood Pressure 102/66 Pulse Oximetry 98 100 06/29/18 12:49 Temperature 99.2 F Pulse Rate 90 Respiratory Rate 18 Blood Pressure 91/53 L Pulse Oximetry 99 Intake & Output 06/28/18 06/29/18 06/29/18 18:59 06:59 18:59 Intake Total 1265 / 1265 1265 / 1265 Output Total 625 / 625 720 / 720 Balance 640 / 640 545 / 545 Weight 70.2 kg Intake: IV 1265 / 1265 1265 / 1265 D5W/1/2 NS Inj 1,000 ML @ 84 1000 / 1000 1000 / 1000 mls/hr IV.CONT .[id number] [facility] Rx# :[id number] Vancomycin Inj 1,250 MG In NS 265 / 265 265 / 265 Inj 250 ML @ 262.5 mls/hr IV. SIG Q12H [facility] Rx#:[id number] Output: Urine 625 / 625 720 / 720 Other: Date of Last Bowel Movement 06/27/18 06/27/18 Narrative: GENERAL: No distress. SKIN: PEG tube dressing appear clean and intact. No surrounding cellulitis or drainage noted today. CARDIOVASCULAR: Regular rate and rhythm. No murmur auscultated. RESPIRATORY: No accessory muscle use. Clear to auscultation. Breath sounds equal bilaterally. GASTROINTESTINAL: Abdomen soft, non-tender, nondistended. +BS. PEG tube in place. MUSCULOSKELETAL: Extremities without clubbing, cyanosis, or edema. No obvious deformities. NEUROLOGICAL: Awake and alert. Results Procedures completed during hospitalization: See hospital course Completed studies during hospitalization: Pending at discharge 06/19/18 11:51 Surgical [PTH] Urgent Labs on day of discharge: Labs from last 24 hours 06/29/18 06/29/18 02:08 02:08 WBC 5.7 RBC 3.51 L Hgb 10.5 L Hct 31.7 L MCV 90.2 MCH 29.9 MCHC 33.1 RDW 13.7 Plt Count 254 MPV 8.7 Creatinine 0.46 L Estimated GFR Greater than 89 Vancomycin Trough 12.3 H Preliminary micro results at discharge 06/27/18 12:53 Aerobic Blood Culture - Preliminary Blood - Peripheral No growth in 2 days Anaerobic Blood Culture - Preliminary No growth in 2 days 06/27/18 12:48 Aerobic Blood Culture - Preliminary Blood - Peripheral No growth in 2 days Anaerobic Blood Culture - Preliminary No growth in 2 days - Impressions ITS Impressions Chest CT 06/19/18 00:00 CONCLUSION: 1. Small bilateral pleural effusions and mild atelectasis. No pulmonary masses or infiltrates demonstrated. 2. Right paraesophageal mass at the level of the thoracic inlet and of concern for a partially necrotic lymph node. Inflammatory and neoplastic etiologies are in the differential. 3. Mild emphysema. Soft Tissue Neck CT 06/19/18 00:00 CONCLUSION: 1. Elongated left posterior oral pharyngeal and hypopharyngeal mass. 2. Small left jugular digastric mass which may be a necrotic cervical lymph node or a brachial cyst. 3. Right paraesophageal mass at the level of the thoracic inlet of concern for a partially necrotic lymph node. Videofluoroscopic Swallow 06/23/18 00:00 CONCLUSION: Pooling of all substances, including thin barium, nectar-thick barium and pudding-thick barium, within the paired valleculae and piriform sinuses. Minimal transient penetration of the supraglottic larynx occurs with large boluses of thin barium. No tracheal aspiration occurs. Abdomen/Pelvis CT 06/27/18 00:00 CONCLUSION: 1. NG tube with its tip in the stomach. The bulb portion of the G tube is just deep to the anterior abdominal wall. 2. Hypodensities in the kidneys likely related to cysts. Chest X-Ray 06/27/18 11:46 CONCLUSION: No acute cardiopulmonary disease. There is no evidence of pneumonia. Abdomen X-Ray 06/28/18 00:00 CONCLUSION: Contrast is seen within the stomach suggesting good placement of PEG tube. Discharge Plan - Discharge Disposition Patient Disposition: /Home Health Service - Discharge Condition Condition: Stable - Discharge Order Discharge Orders: Discharge Order (Routine); Ordered 06/29/18 Ordered By: Bayron Luther - Discharge Details Anticipated Discharge Date: 06/29/18 - Physicians Team Primary Care Provider: [facility] Attending Provider: Bayron Luther Other Providers: Aaron Silver MD ; Kennedy Rivera MD ; Mary Oliver MD ; Ronald Peres MD
== END 2018-06-29 16:20 | disposition home health service (06) ==
LOC: NEPE 12:29 → NEDH 12:29 → NEPHCDU 19:35 → HCPC 06-19 11:34 → HIMC 06-19 12:08 → HCIN 06-21 00:30
PROVIDERS: ADMIT Family Medicine; ATTEND Family Medicine
DX: R13.10 Dysphagia, unspecified; R63.0 Anorexia; K76.0 Fatty (change of) liver, not elsewhere classified; R63.3 Feeding difficulties; C13.9 Malignant neoplasm of hypopharynx, unspecified; E87.0 Hyperosmolality and hypernatremia; C13.8 Malignant neoplasm of overlapping sites of hypopharynx; E87.6 Hypokalemia; E83.51 Hypocalcemia; R63.4 Abnormal weight loss; F17.210 Nicotine dependence, cigarettes, uncomplicated; E83.42 Hypomagnesemia; J96.02 Acute respiratory failure with hypercapnia; I95.9 Hypotension, unspecified; C15.3 Malignant neoplasm of upper third of esophagus; D64.9 Anemia, unspecified; J96.01 Acute respiratory failure with hypoxia; Z91.018 Allergy to other foods

== ENCOUNTER 2018-07-26 13:17 | Observation (INO) ==
--- NOTE | 2018-07-26 16:44 | ED ---
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 The patient had a PEG tube placed on June 21. He reports that he gets most of his nutrition through this although he typically drinks water and vegetable juices orally. He reports that his feeding tube has been clogged for 2 days. He denies any abdominal pain, nausea or vomiting, fevers or chills. He otherwise feels well. He is following with an oncologist at the [facility] in [place]. Radiation oncologist Dr. Peres. He has not yet started chemotherapy or radiation. He has no other complaints at this time. Related Data Previous Rx's Medication Instructions Recorded lansoprazole [Prevacid SoluTab] 30 mg NG/OG DAILY #30 tab 06/23/18 cefuroxime axetil 500 mg PO Q12H #8 tab 06/29/18 Allergies Allergy/AdvReac Type Severity Reaction Status Date / Time grapefruit Allergy Severe Anaphylaxis Verified 07/26/18 13:27 Review of Systems ROS: all other systems reviewed are negative [facility] Medical History Medical History Patient denies medical problems (Acute) Tumor (Acute) Surgical History Surgical History Hx of knee surgery (Acute) History of ankle surgery (Acute) Social History Social History Substance History: No History of Abuse Second Hand Smoke Exposure: No Smoking Status: Current some day smoker Tobacco Type: Cigarettes Packs Per Day: 1 Cigarettes Per Day: 20.0 How Often Do You Have a Drink Containing Alcohol: Never Hx Recent Travel: No Recent Travel in [facility] within the Last 8 Weeks: No Recent Out of Country Travel within the Last 8 Weeks: No Exam Narrative Exam Narrative: GENERAL: This is a well-developed somewhat thin appearing male in no acute distress. He is holding a spitting bottle in his hand, occasionally spits into it. Vital signs from triage were reviewed however they were retaken when he presented to the room and he is afebrile, is not tachycardic and he has normal blood pressure. SKIN: Warm and dry. HEAD: Atraumatic. Normocephalic. EYES: Pupils equal and round. No scleral icterus. No injection or drainage. ENT: No nasal bleeding or discharge. Mucous membranes pink and moist. NECK: Trachea midline. No JVD. CARDIOVASCULAR: Regular rate and rhythm. No murmur appreciated. RESPIRATORY: No accessory muscle use. Clear to auscultation. Breath sounds equal bilaterally. GASTROINTESTINAL: Abdomen soft, non-tender, nondistended. Hepatic and splenic margins not palpable. PEG tube is noted left upper quadrant, Intact. MUSCULOSKELETAL: No obvious deformities. No clubbing. No cyanosis. No edema. NEUROLOGICAL: Awake and alert. No obvious cranial nerve deficits. Motor grossly within normal limits. Normal speech. Course Initial Documented Vital Signs Temperature 100.2 F H 07/26/18 13:25 Pulse Rate 116 H 07/26/18 13:25 Respiratory Rate 18 07/26/18 13:25 Blood Pressure 94/55 L 07/26/18 13:25 Pulse Oximetry 98 07/26/18 13:25 Last Documented Vital Signs Temperature 98.3 F 07/26/18 13:27 Pulse Rate 66 07/26/18 13:27 Respiratory Rate 19 07/26/18 13:27 Blood Pressure 124/62 07/26/18 13:27 Pulse Oximetry 100 07/26/18 13:27 Medical Decision Making MAILE Attestation MAILE supervised visit: Yes Attestation: I was present with the advanced practitioner during the management of this patient. I discussed the case with the advanced practitioner and agree with the findings and plan as documented in their note except as noted below. 57yM with PEG for dysphagia placed 5 weeks ago by GI, presents with inability to flush tube. Here, we were unable to flush the tube and it was noted to be leaking. We attempted placement of a new tube but met resistance; COLLEEN Hoffman discussed with GI, who recommends keeping the patient in the hospital with plan to place new PEG tomorrow. MDM Narrative Medical decision making narrative: 57-year-old male with PEG tube which was placed on June 21 via endoscopy, history of esophageal cancer, presents because his feeding tube is been clogged for the past 2 days. The nurse attempted to flush however fluid was leaking around the PEG tube insertion site. Therefore we attempted to exchange the PEG tube at bedside however were met with a lot of resistance when attempting to insert the new one. Therefore I discussed with the on-call technical sales specialist Dr. Trejo who would like the patient to be admitted and she will consult and likely place a new PEG tube tomorrow. Medical Screen Exam Complete: Yes Emergency Medical Condition: Yes Differential Diagnosis Differential Diagnosis: Clogged PEG tube versus dislodged PEG tube versus infected PEG tube site Discharge Plan Discharge Disposition Patient Disposition: 30 Still Patient Discharge Condition Condition: Stable Discharge Details Diagnosis: PEG tube malfunction Physicians Team ED Provider: Yisel Preston ED Midlevel Provider: Franklin Hoffman Primary Care Provider: [facility] Attending Provider: Bear Oconnor Other Providers: Lindsay Trejo Rxs /Orders / Referrals /Forms Prescriptions: No Action lansoprazole [Prevacid SoluTab] 30 mg Tablet,Disintegrat, Delay Rel 30 mg NG/OG DAILY Qty: 30 RF: 0 cefuroxime axetil 500 mg Tablet 500 mg PO Q12H Qty: 8 RF: 0 Status ED Status: With Doctor
[2018-07-26] MEDS ORDERED: Iohexol 350 MG/ML 50 ML Vial (for Rad Diag) IVCONTRAST ONE (18:41)
[2018-07-26 19:16] LABS: Baso % (Auto) 0.4 % (0.0-2.0); Eos # (Auto) 0.1 th/mm3 (0.0-0.4); Eos % (Auto) 0.9 % (0.0-4.0); Hematocrit 34.7 % (39.0-51.0); Hemoglobin 11.4 gm/dL (13.0-17.0); Lymph # (Auto) 2.8 th/mm3 (1.0-4.8); Lymph % (Auto) 29.6 % (9.0-44.0); Mean Corpuscular Hemoglobin 29.2 pg (27.0-34.0); Mean Corpuscular Volume 88.5 fL (80.0-100.0); Mean Platelet Volume 8.5 fL (7.0-11.0); Mono # (Auto) 1.1 th/mm3 (0.0-0.9); Mono % (Auto) 12.1 % (0.0-8.0); Neut # (Auto) 5.3 th/mm3 (1.8-7.7); Platelet Count 254 th/mm3 (150-450); Red Blood Count 3.92 mil/mm3 (4.50-5.90); White Blood Count 9.3 th/mm3 (4.0-11.0)
[2018-07-26 19:28] LABS: Activated Partial Thrombo Time 28.9 sec (23.4-31.7); INR 1.1 Ratio; Prothrombin Time 10.9 sec (9.8-11.6)
[2018-07-26 19:48] LABS: Alanine Aminotransferase 11 U/L (12-78)
[2018-07-26 19:49] LABS: Alkaline Phosphatase 56 U/L (45-117); Total Protein 9.2 g/dL (6.4-8.2)
[2018-07-26 19:52] LABS: Anion Gap 13 meq/L (5-15); Aspartate Aminotransferase 16 U/L (15-37); Blood Urea Nitrogen 16 mg/dL (7-18); Calcium 10.1 mg/dL (8.5-10.1); Carbon Dioxide 26.3 meq/L (21.0-32.0); Chloride 100 meq/L (98-107); Glomerular Filtration Rate Greater Than 89 mL/min (>89); Glucose,Random 70 mg/dL (74-106); Magnesium 2.1 mg/dL (1.5-2.5); Sodium 139 meq/L (136-145)
--- NOTE | 2018-07-26 22:00 | P.HPIM ---
History of Present Illness Primary Care Physician: [facility] Chief Complaint: peg tube malfuction History of Present Illness: 57 y/o male with a recent diagnosis of Hypopharyngeal cancer and recent peg placement on 06/21 presented to the ED with complaints of a clogged peg tube. Patient states it has been clogged for the past 2 days. He is still able to take liquids and soft foods by mouth. He has not started any chemo or radiation as of yet for the cancer. The peg tube was attempted to be replaced in the ED but was unsuccessful. Patient denies any chest pain, sob, fever, chills, abdominal pain, nausea or vomiting. Review of Systems ROS: all other systems reviewed are negative [facility] Medical History Medical History Patient denies medical problems (Acute) Tumor (Acute) Surgical History Surgical History Hx of knee surgery (Acute) History of ankle surgery (Acute) Family History Family History Other No pertinent family history Social History Social History Substance History: No History of Abuse Second Hand Smoke Exposure: No Smoking Status: Current some day smoker Tobacco Type: Cigarettes Packs Per Day: 1 Cigarettes Per Day: 20.0 How Often Do You Have a Drink Containing Alcohol: Never Hx Recent Travel: No Recent Travel in [facility] within the Last 8 Weeks: No Recent Out of Country Travel within the Last 8 Weeks: No Immunization History Tetanus Immunization: <5 Years Medications and Allergies Allergies Allergy/AdvReac Type Severity Reaction Status Date / Time grapefruit Allergy Severe Anaphylaxis Verified 07/26/18 13:27 Active Medications: Active Medications Sodium Chloride (Ns Flush) 2 ml IV.FLUSH BID [facility] Sodium Chloride (Ns Flush) 2 ml IV.FLUSH PRN PRN PRN Reason: FLUSH AFTER USING IV ACCESS Physical Exam Vital signs: Last Vital Signs Temp 98.8 F 07/26/18 20:00 Pulse 93 H 07/26/18 20:00 Resp 14 07/26/18 20:00 BP 86/50 L 07/26/18 20:00 Pulse Ox 100 07/26/18 20:00 Intake & Output 07/24/18 07/25/18 07/26/18 07/27/18 06:59 06:59 06:59 06:59 Weight 72.575 kg Narrative: GENERAL: well nourished patient in no distress SKIN: Warm and dry. HEAD: Normocephalic. EYES: No scleral icterus. No injection or drainage. NECK: Supple, trachea midline. No JVD or lymphadenopathy. CARDIOVASCULAR: Regular rate and rhythm without murmurs, gallops, or rubs. RESPIRATORY: Breath sounds equal bilaterally. No accessory muscle use. GASTROINTESTINAL: Abdomen soft, non-tender, nondistended. MUSCULOSKELETAL: No cyanosis, or edema. old peg site non drainaging Assessment and Plan Plan 57 y/o male with a recent diagnosis of Hypopharyngeal cancer and recent peg placement on 06/21 presented to the ED with complaints of a clogged peg tube. Malfunction peg tube -Consult to GI for replacement -NPO Hypopharyngeal cancer, squamous cell -Patient will follow outpatient with oncology DVT prophylaxis: SCDs Discussed Condition With: Patient and RN
--- NOTE | 2018-07-27 08:40 | P.CONGI ---
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 Patient presented to the emergency room at [facility] on 07/26/2018 with complaint of PEG tube being clogged. Patient states tube has been clogged and leaking for 2 days. Patient states that he administers 6 cans of tube feeding once daily every evening, and thinks he may have forgotten to flush tube after administering. Patient states he tried to flush tube numerous times with warm water and was unsuccessful. Patient endorses that he does eat solid foods from time to time and tries to maintain soft consistency foods. He is aware that he needs to take precautions due to intermittent difficulty swallowing. Patient states he has not yet begun chemo or radiation for the pharyngeal tumor and will be following up with physicians in [place] regarding treatment. Patient denies ever having had a colonoscopy. Denies any known family history for gastrointestinal disorders. Patient states he normally has one loose bowel movement daily without any noted blood or mucus. Patient does endorse smoking cigarettes 1 pack/day and states he does drink alcohol socially on the weekend estimated 4 beers. Our service has been consulted for PEG tube replacement <Jayne Barger - Last Filed: 07/27/18 08:26> Review of Systems All other systems reviewed negative except as stated in HPI <Jayne Barger - Last Filed: 07/27/18 08:26> PMFSH - History History Provided By: Patient - Medical History Medical History: Medical History (Last Reviewed 07/26/18 @ 23:23 by MONICA Machado) Patient denies medical problems (Acute) Tumor - Surgical History Surgical History: Surgical History (Last Reviewed 07/26/18 @ 23:23 by MONICA Machado) Hx of knee surgery (Acute) History of ankle surgery (Acute) - Family History Family History: Family History (Last Reviewed 07/26/18 @ 23:23 by MONICA Machado) Other No pertinent family history - Tobacco History Second Hand Smoke Exposure: Yes Tobacco Use In Past 30 Days: Yes Smoking Status: Current some day smoker Tobacco Type: Cigarettes Packs Per Day: 1 - Alcohol History How Often Do You Have a Drink Containing Alcohol: Never - Substance Use History Substance History: No History of Abuse - Travel History History of Recent Travel: No Recent Travel in the [place] Within the Last 8 Weeks: No Recent Travel Out of the Country Within the Last 8 Weeks: No - Immunization History Tetanus Immunization: <5 Years <Jayne Barger - Last Filed: 07/27/18 08:26> - Medical History Medical History: Medical History (Last Reviewed 07/26/18 @ 23:23 by MONICA Machado) Patient denies medical problems (Acute) Tumor - Surgical History Surgical History: Surgical History (Last Reviewed 07/26/18 @ 23:23 by MONICA Machado) Hx of knee surgery (Acute) History of ankle surgery (Acute) - Family History Family History: Family History (Last Reviewed 07/26/18 @ 23:23 by MONICA Machado) Other No pertinent family history <Lindsay Trejo - Last Filed: 07/27/18 21:42> Medications and Allergies Active Medications: Active Medications Sodium Chloride (Ns Flush) 2 ml IV.FLUSH BID [facility] Last Admin: 07/26/18 23:18 Dose: 2 ml Sodium Chloride (Ns Flush) 2 ml IV.FLUSH PRN PRN PRN Reason: FLUSH AFTER USING IV ACCESS <Jayne Barger - Last Filed: 07/27/18 08:26> Active Medications: Active Medications Miscellaneous Information (Mis Nursing Information) 0 each OTHER UNSCH PRN PRN Reason: SEE LABEL COMMENTS Stop: 07/28/18 16:24 Sodium Chloride (Ns Flush) 2 ml IV.FLUSH BID [facility] Last Admin: 07/27/18 20:48 Dose: 2 ml Sodium Chloride (Ns Flush) 2 ml IV.FLUSH PRN PRN PRN Reason: FLUSH AFTER USING IV ACCESS <Lindsay Trejo - Last Filed: 07/27/18 21:42> Allergies Allergy/AdvReac Type Severity Reaction Status Date / Time grapefruit Allergy Severe Anaphylaxis Verified 07/26/18 13:27 Exam Vital signs: Vital Signs 07/26/18 13:25 07/26/18 13:27 07/26/18 19:13 Temperature 100.2 F H 98.3 F Pulse Rate 116 H 66 92 H Respiratory Rate 18 19 16 Blood Pressure 94/55 L 124/62 116/60 Pulse Oximetry 98 100 07/26/18 20:00 07/27/18 00:00 07/27/18 04:00 Temperature 98.8 F 99.4 F 99.0 F Pulse Rate 93 H 80 76 Respiratory Rate 14 19 17 Blood Pressure 86/50 L 93/59 L 93/58 L Pulse Oximetry 100 98 98 07/27/18 07:45 Temperature 97.3 F L Pulse Rate 79 Respiratory Rate 16 Blood Pressure 100/57 L Pulse Oximetry 99 Intake & Output 07/26/18 07/27/18 07/27/18 18:59 06:59 18:59 Intake Total 650 / 650 Balance 650 / 650 Weight 72.575 kg 72.575 kg Intake: Oral 650 / 650 Other: # Voids 2 Date of Last Bowel Movement 07/25/18 Weight On Admission 72.575 kg - Constitutional no acute distress - Routine HEENT Exam Head: Present: normocephalic - Routine Respiratory Exam Present: CTA bilaterally. Absent: accessory muscle use - Routine Cardiovascular Exam Present: RRR - Routine Abdominal Exam Present: soft, normoactive bowel sounds. Absent: tenderness, distended, guarding, firm Comments: PEG tube site with small amount of loaiza colored drainage on gauze dressing - Routine Extremities Exam Absent: edema - Routine Skin Exam Present: dry, warm - Routine Neurological Exam Present: alert - Routine Psychiatric Exam Present: normal affect, cooperative <Barger,Jayne - Last Filed: 07/27/18 08:26> Vital signs: Vital Signs 07/27/18 00:00 07/27/18 04:00 07/27/18 07:45 Temperature 99.4 F 99.0 F 97.3 F L Pulse Rate 80 76 79 Respiratory Rate 19 17 16 Blood Pressure 93/59 L 93/58 L 100/57 L Pulse Oximetry 98 98 99 07/27/18 11:44 07/27/18 16:24 07/27/18 16:30 Temperature 98.6 F 97.9 F Pulse Rate 78 94 H 92 H Respiratory Rate 18 16 16 Blood Pressure 90/52 L 94/63 L 96/63 L Pulse Oximetry 99 100 100 07/27/18 16:45 07/27/18 19:59 Temperature 98.7 F Pulse Rate 88 71 Respiratory Rate 16 14 Blood Pressure 114/71 102/65 Pulse Oximetry 100 99 Intake & Output 07/27/18 07/27/18 07/28/18 06:59 18:59 06:59 Intake Total 650 / 650 300 / 300 Balance 650 / 650 300 / 300 Weight 72.575 kg Intake: Oral 650 / 650 Anesthesia Amount 300 / 300 Other: # Voids 2 Date of Last Bowel Movement 07/25/18 Weight On Admission 72.575 kg <Lindsay Trejo - Last Filed: 07/27/18 21:42> Results - Labs CBC & Chem 7: 07/26/18 19:00 07/26/18 19:00 Labs: Laboratory Results - last 24 hr 07/26/18 07/26/18 07/26/18 19:00 19:00 19:00 WBC 9.3 RBC 3.92 L Hgb 11.4 L Hct 34.7 L MCV 88.5 MCH 29.2 MCHC 33.0 RDW 13.0 Plt Count 254 MPV 8.5 Neut % (Auto) 57.0 Lymph % (Auto) 29.6 [place] % (Auto) 12.1 H Eos % (Auto) 0.9 Baso % (Auto) 0.4 Neut # (Auto) 5.3 Lymph # (Auto) 2.8 [place] # (Auto) 1.1 H Eos # (Auto) 0.1 Baso # (Auto) 0.0 WBC Differential . Differential Comment Auto diff final PT 10.9 INR 1.1 APTT 28.9 Sodium 139 Potassium 4.0 Chloride 100 Carbon Dioxide 26.3 Anion Gap 13 BUN 16 Creatinine 0.72 Estimated GFR Greater than 89 Random Glucose 70 L Calcium 10.1 Magnesium 2.1 Total Bilirubin 0.7 AST 16 ALT 11 L Alkaline Phosphatase 56 Total Protein 9.2 H Albumin 3.0 L <Jayne Barger - Last Filed: 07/27/18 08:26> - Labs CBC & Chem 7: 07/26/18 19:00 07/26/18 19:00 <Lindsay Trejo - Last Filed: 07/27/18 21:42> Assessment and Plan (1) PEG tube malfunction Status: Acute Code(s): K94.23 - Gastrostomy malfunction - Plan This patient is a 57-year-old male 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 Patient presented to the emergency room at [facility] on 07/26/2018 with complaint of PEG tube being clogged. Patient states tube has been clogged and leaking for 2 days. Patient states that he administers 6 cans of tube feeding once daily every evening, and thinks he may have forgotten to flush tube after administering. Patient states he tried to flush tube numerous times with warm water and was unsuccessful. Patient endorses that he does eat solid foods from time to time and tries to maintain soft consistency foods. He is aware that he needs to take precautions due to intermittent difficulty swallowing. Patient states he has not yet begun chemo or radiation for the pharyngeal tumor and will be following up with physicians in [place] regarding treatment. Patient denies ever having had a colonoscopy. Denies any known family history for gastrointestinal disorders. Patient states he normally has one loose bowel movement daily without any noted blood or mucus. Patient does endorse smoking cigarettes 1 pack/day and states he does drink alcohol socially on the weekend estimated 4 beers. Our service has been consulted for PEG tube replacement PEG tube placement PEG tube clogged times 2 days per patient. Patient attempted to flush same numerous times with warm water and was unsuccessful. Status post recent diagnosis hypopharyngeal tumor. Patient states he is able to tolerate soft foods by mouth. Feeding tube removed upon arrival to ER and will be replaced by endoscopy. 06/21/2018 EGD with PEG placement procedure: The esophagus this was normal The stomach this was normal The duodenum this was normal Following the evaluation of the stomach and the duodenum the stomach was insufflated with air and the area of PEG placement was identified through indentation and transillumination the area was prepped and draped in usual fashion 5 cc of lidocaine were injected locally a small incision was made then an Angiocath was passed into the stomach through which a guidewire was passed this was retrieved with the scope into that a PEG tube was attached and pulled into place and thereafter secured in usual fashion The patient tolerated procedure well and there are no immediate complications Plan -Remain n.p.o. -Obtain consent for PEG placement with EGD -PEG placement scheduled for today -Supportive care -Further recommendations to follow This patient has been seen by myself and Dr. Trejo and this note is written on her behalf - Attending Attestation Dr. Trejo <Jayne Barger - Last Filed: 07/27/18 08:26> (1) PEG tube malfunction Status: Acute Code(s): K94.23 - Gastrostomy malfunction - Attending Attestation seen, examined agree with above <Lindsay Trejo - Last Filed: 07/27/18 21:42>
--- NOTE | 2018-07-27 13:41 | P.PN ---
Subjective Interval history: Patient seen lying quietly in bed. He is waiting for interventional radiology to replace PEG tube. Denies any nausea or vomiting. No chest pain or shortness of breath. No fever or chills. Tells me that he does have family at home who helps care for him and he would like to get out of here as soon as possible. Physical Exam Vital signs: Vital Signs 07/26/18 19:13 07/26/18 20:00 07/27/18 00:00 Temperature 98.8 F 99.4 F Pulse Rate 92 H 93 H 80 Respiratory Rate 16 14 19 Blood Pressure 116/60 86/50 L 93/59 L Pulse Oximetry 100 98 07/27/18 04:00 07/27/18 07:45 07/27/18 11:44 Temperature 99.0 F 97.3 F L 98.6 F Pulse Rate 76 79 78 Respiratory Rate 17 16 18 Blood Pressure 93/58 L 100/57 L 90/52 L Pulse Oximetry 98 99 99 Intake & Output 07/26/18 07/27/18 07/27/18 18:59 06:59 18:59 Intake Total 650 / 650 Balance 650 / 650 Weight 72.575 kg 72.575 kg Intake: Oral 650 / 650 Other: # Voids 2 Date of Last Bowel Movement 07/25/18 Weight On Admission 72.575 kg Narrative: GENERAL: Thin, well-developed adult male in no distress. SKIN: Warm and dry. HEAD: Normocephalic. CARDIOVASCULAR: Regular rate and rhythm. RESPIRATORY: Breath sounds equal bilaterally. No accessory muscle use. GASTROINTESTINAL: Abdomen soft, non-tender, nondistended. Gauze dressing over former PEG site; no drainage noted. MUSCULOSKELETAL: No cyanosis, or edema. Neuro: Alert and oriented Results - Labs CBC & Chem 7: 07/26/18 19:00 07/26/18 19:00 Laboratory Results - last 24 hr 07/26/18 07/26/18 07/26/18 19:00 19:00 19:00 WBC 9.3 RBC 3.92 L Hgb 11.4 L Hct 34.7 L MCV 88.5 MCH 29.2 MCHC 33.0 RDW 13.0 Plt Count 254 MPV 8.5 Neut % (Auto) 57.0 Lymph % (Auto) 29.6 Lane % (Auto) 12.1 H Eos % (Auto) 0.9 Baso % (Auto) 0.4 Neut # (Auto) 5.3 Lymph # (Auto) 2.8 Lane # (Auto) 1.1 H Eos # (Auto) 0.1 Baso # (Auto) 0.0 WBC Differential . Differential Comment Auto diff final PT 10.9 INR 1.1 APTT 28.9 Sodium 139 Potassium 4.0 Chloride 100 Carbon Dioxide 26.3 Anion Gap 13 BUN 16 Creatinine 0.72 Estimated GFR Greater than 89 Random Glucose 70 L Calcium 10.1 Magnesium 2.1 Total Bilirubin 0.7 AST 16 ALT 11 L Alkaline Phosphatase 56 Total Protein 9.2 H Albumin 3.0 L Assessment and Plan - Plan 57 y/o male with a recent diagnosis of Hypopharyngeal cancer and recent peg placement on 06/21 presented to the ED with complaints of a clogged peg tube. 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 Patient can be discharged once cleared by GI
[2018-07-27] MEDS ORDERED: ceFAZolin 1 GM Premix Inj 1 GM/50 ML FROZ.PIGGY IV.SIG ONE (15:52)
--- NOTE | 2018-07-27 16:32 | GIPROC ---
[facility] [address] [facility]. 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 TOPICAL ANESTHETIC: none CONSENT: The patient understands the risks and benefits of the procedure and understands that these risks include, but are not limited to: sedation, allergic reaction, infection, perforation and/or bleeding. Alternative means of evaluation and treatment include, among others: physical exam, x-rays, and/or surgical intervention. The patient elects to proceed with this endoscopic procedure. medical equipment was checked for proper function. Hand hygiene and appropriate measures for infection prevention was taken. After the risks, benefits and alternatives of the procedure were thoroughly explained, Informed consent was verified, confirmed and timeout was successfully executed by the treatment team. The patient was anesthetized with topical anesthesia and the Pentax EG-[id number] endoscope was introduced through the mouth and advanced to the esophagus upper. The gastroscope was then slowly withdrawn and removed. Patietn placed in supine position, scope passed above upper esophageal sphyncter, very fraible mucosa, bleeding easily, changed to pediatric sope, could not be passed , also bleeding from tumor, mild desaturations, discussed with anesthesia we will cancel procedure for now . Bleeding stopped-20 cc loss. ADVERSE EVENTS: There were no complications. IMPRESSIONS: Patietn placed in supine position, scope passed above upper esophageal sphyncter, very fraible mucosa, bleeding easily, changed to pediatric sope, could not be passed , also bleeding from tumor, mild desaturations, discussed with anesthesia we will cancel procedure for now . Bleeding stopped RECOMMENDATIONS: Clear liquid consult ir for peg placement PATIENT CONDITION: stable DISPOSITION: Inpatient REPEAT EXAM: Return as needed for EGD Lindsay Trejo MD eSigned: Lindsay Trejo MD 07/27/2018 4:32 PM cc:
--- NOTE | 2018-07-28 10:39 | P.PNGI ---
Subjective Interval history: Patient resting soundly with eyes closed Discussed plan for interventional radiology PEG tube placement N.p.o. at this time, states he tolerated small amounts of clear liquids without coughing or choking <Jayne Barger - Last Filed: 07/28/18 10:39> Physical Exam Vital signs: Vital Signs 07/27/18 11:44 07/27/18 16:24 07/27/18 16:30 Temperature 98.6 F 97.9 F Pulse Rate 78 94 H 92 H Respiratory Rate 18 16 16 Blood Pressure 90/52 L 94/63 L 96/63 L Pulse Oximetry 99 100 100 07/27/18 16:45 07/27/18 19:59 07/27/18 23:45 Temperature 98.7 F 98.3 F Pulse Rate 88 71 87 Respiratory Rate 16 14 16 Blood Pressure 114/71 102/65 101/60 Pulse Oximetry 100 99 98 07/28/18 03:57 07/28/18 07:41 Temperature 98.6 F 98.1 F Pulse Rate 77 79 Respiratory Rate 16 16 Blood Pressure 103/60 107/61 Pulse Oximetry 98 100 Intake & Output 07/27/18 07/28/18 07/28/18 18:59 06:59 18:59 Intake Total 660 / 660 Output Total 200 / 200 Balance 660 / 660 -200 / -200 Intake: Oral 360 / 360 Anesthesia Amount 300 / 300 Output: Urine 200 / 200 Other: Date of Last Bowel Movement 07/25/18 - Constitutional no acute distress - Routine HEENT Exam Head: Present: normocephalic - Routine Respiratory Exam Present: CTA bilaterally. Absent: accessory muscle use - Routine Abdominal Exam Present: soft, normoactive bowel sounds, tenderness, wound. Absent: distended, guarding, firm Comments: PEG tube site without drainage - Routine Extremities Exam Absent: edema - Routine Skin Exam Present: dry, warm - Routine Neurological Exam Present: alert - Routine Psychiatric Exam Present: normal affect, cooperative <Jayne Barger - Last Filed: 07/28/18 10:39> Vital signs: Vital Signs 07/27/18 19:59 07/27/18 23:45 07/28/18 03:57 Temperature 98.7 F 98.3 F 98.6 F Pulse Rate 71 87 77 Respiratory Rate 14 16 16 Blood Pressure 102/65 101/60 103/60 Pulse Oximetry 99 98 98 07/28/18 07:41 07/28/18 11:51 07/28/18 16:05 Temperature 98.1 F 99.4 F 97.7 F Pulse Rate 79 71 71 Respiratory Rate 16 20 20 Blood Pressure 107/61 91/52 L 105/67 Pulse Oximetry 100 99 97 07/28/18 16:15 07/28/18 16:30 Temperature Pulse Rate 66 65 Respiratory Rate 20 20 Blood Pressure 96/60 L 100/63 Pulse Oximetry 96 96 Intake & Output 07/27/18 07/28/18 07/28/18 18:59 06:59 18:59 Intake Total 710 / 710 Output Total 200 / 200 Balance 710 / 710 -200 / -200 Intake: IV 50 / 50 Oral 360 / 360 Anesthesia Amount 300 / 300 Output: Urine 200 / 200 Other: Date of Last Bowel Movement 07/25/18 07/25/18 <Lindsay Trejo - Last Filed: 07/28/18 17:39> Results - Labs CBC & Chem 7: 07/26/18 19:00 07/26/18 19:00 <Jayne Barger - Last Filed: 07/28/18 10:39> - Labs CBC & Chem 7: 07/26/18 19:00 07/26/18 19:00 - Imaging Impressions Gastrostomy Tube Placement 07/28/18 00:00 CONCLUSION: 1. Uncomplicated gastrostomy tube placement as above. 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 Patient presented to the emergency room at [facility] on 07/26/2018 with complaint of PEG tube being clogged. Patient states tube has been clogged and leaking for 2 days. Patient states that he administers 6 cans of tube feeding once daily every evening, and thinks he may have forgotten to flush tube after administering. Patient states he tried to flush tube numerous times with warm water and was unsuccessful. Patient endorses that he does eat solid foods from time to time and tries to maintain soft consistency foods. He is aware that he needs to take precautions due to intermittent difficulty swallowing. Patient states he has not yet begun chemo or radiation for the pharyngeal tumor and will be following up with physicians in [place] regarding treatment. Patient denies ever having had a colonoscopy. Denies any known family history for gastrointestinal disorders. Patient states he normally has one loose bowel movement daily without any noted blood or mucus. Patient does endorse smoking cigarettes 1 pack/day and states he does drink alcohol socially on the weekend estimated 4 beers. Our service has been consulted for PEG tube replacement PEG tube placement PEG tube clogged times 2 days per patient. Patient attempted to flush same numerous times with warm water and was unsuccessful. Status post recent diagnosis hypopharyngeal tumor. Patient states he is able to tolerate soft foods by mouth. Feeding tube removed upon arrival to ER and will be replaced by endoscopy. 06/21/2018 EGD with PEG placement procedure: The esophagus this was normal The stomach this was normal The duodenum this was normal Following the evaluation of the stomach and the duodenum the stomach was insufflated with air and the area of PEG placement was identified through indentation and transillumination the area was prepped and draped in usual fashion 5 cc of lidocaine were injected locally a small incision was made then an Angiocath was passed into the stomach through which a guidewire was passed this was retrieved with the scope into that a PEG tube was attached and pulled into place and thereafter secured in usual fashion The patient tolerated procedure well and there are no immediate complications 07/28/2018 07/27/2018 PEG tube replacement attempt: Patient placed in supine position, scope passed above upper esophageal sphincter, very friable mucosa, bleeding easily, changed to pediatric scope, could not be passed , also bleeding from tumor, mild desaturations, discussed with anesthesia we will cancel procedure for now . Bleeding stopped. Plan -N.p.o. -IR consulted for PEG placement -Supportive care -Further recommendations to follow This patient has been seen by myself and Dr. Trejo and this note is written on her behalf - Attending Attestation Dr. Trejo <Jayne Barger - Last Filed: 07/28/18 10:39> (1) PEG tube malfunction Status: Acute Code(s): K94.23 - Gastrostomy malfunction - Attending Attestation seen, examined agree with above gi will sign off call us as needed <Lindsay Trejo - Last Filed: 07/28/18 17:39>
--- NOTE | 2018-07-28 15:15 | P.PN ---
Subjective Interval history: Patient is seen lying in bed. He is waiting for second try PEG tube placement. Denies any nausea vomiting or diarrhea. He has been able to swallow without difficulty. Currently n.p.o. Physical Exam Vital signs: Vital Signs 07/27/18 16:24 07/27/18 16:30 07/27/18 16:45 Temperature 97.9 F Pulse Rate 94 H 92 H 88 Respiratory Rate 16 16 16 Blood Pressure 94/63 L 96/63 L 114/71 Pulse Oximetry 100 100 100 07/27/18 19:59 07/27/18 23:45 07/28/18 03:57 Temperature 98.7 F 98.3 F 98.6 F Pulse Rate 71 87 77 Respiratory Rate 14 16 16 Blood Pressure 102/65 101/60 103/60 Pulse Oximetry 99 98 98 07/28/18 07:41 07/28/18 11:51 Temperature 98.1 F 99.4 F Pulse Rate 79 71 Respiratory Rate 16 20 Blood Pressure 107/61 91/52 L Pulse Oximetry 100 99 Intake & Output 07/27/18 07/28/18 07/28/18 18:59 06:59 18:59 Intake Total 710 / 710 Output Total 200 / 200 Balance 710 / 710 -200 / -200 Intake: IV 50 / 50 Oral 360 / 360 Anesthesia Amount 300 / 300 Output: Urine 200 / 200 Other: Date of Last Bowel Movement 07/25/18 07/25/18 Narrative: GENERAL: Thin, well-developed adult male in no distress. SKIN: Warm and dry. HEAD: Normocephalic. CARDIOVASCULAR: Regular rate and rhythm. RESPIRATORY: Breath sounds equal bilaterally. No accessory muscle use. GASTROINTESTINAL: Abdomen soft, non-tender, nondistended. Gauze dressing over former PEG site; no drainage noted. MUSCULOSKELETAL: No cyanosis, or edema. Neuro: Alert and oriented Results - Labs CBC & Chem 7: 07/26/18 19:00 07/26/18 19:00 Assessment and Plan - Assessment (1) PEG tube malfunction Code(s): K94.23 - Gastrostomy malfunction Status: Acute - Plan 57 y/o male with a recent diagnosis of Hypopharyngeal cancer and recent peg placement on 06/21 presented to the ED with complaints of a clogged peg tube. 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 Patient can be discharged once cleared by GI
[2018-07-28] MEDS ORDERED: fentaNYL Citrate Inj 100 MCG/2 ML Ampul ONE (15:21)
--- NOTE | 2018-07-28 16:54 | IR ---
EXAM DATE: 07/28/2018 4:13 PM EST AGE/SEX: 57 years / Male INDICATIONS: Patient presents with clogged Peg tube in need of a new one. CLINICAL DATA: This is the patient's initial encounter. Patient reports that signs and symptoms have been present for 2 days and indicates a pain score of 0/10. MEDICAL/SURGICAL HISTORY: . Hypopharyngeal cancer . Knee surgery, ankle surgery COMPARISON: No prior exams available for comparison. FLUORO TIME (min): .9 IMAGE SERIES: SEDATION TIME (min): 30 CONTRAST (cc): 10cc Omnipaque (iohexol) 350 MEDICATION(S): 2mg fentanyl (Sublimaze) IV 100mcg fentanyl (Sublimaze) IV DEVICE(S): 18 [place]ian gastrostomy tube . . PROCEDURE: 1. Fluoroscopically guided gastrostomy tube placement. 2. Conscious sedation with continuous EKG and oximetry monitoring. The risks, benefits and alternatives to the procedure were explained and verbal and written consent w as obtained. The site was prepped in sterile fashion. Full sterile technique was used, including ca p, mask, sterile gloves and gown and a large sterile sheet. Hand hygiene and 2% chlorhexidine and/or betadine/alcohol prep was utilized per protocol for cutaneous antisepsis. The skin and subcutaneous tissues were infiltrated with local anesthetic solution. Fluoroscopy was used to corry the position of the liver.. The stomach was insufflated with room air. Three percutaneous fasteners were placed to secure the anterior gastric wall. A small incision was made between the fasteners. The stomach was accessed with an 18 gauge needle. A n 0.035 wire was advanced into the small bowel. The tract was dilated. The gastrostomy tube was int roduced through a peel-away sheath. The position was confirmed with an injection of contrast. Conscious sedation was performed with the prescribed dosages and duration as above in the presence of an independent trained radiology nurse to assist in the monitoring of the patient. EKG and oximetry remained stable throughout the procedure. The patient tolerated the procedure well and there were n o complications. The patient was sent to post anesthesia recovery in stable condition. CONCLUSION: 1. Uncomplicated gastrostomy tube placement as above. Electronically signed by: Justin Dodson MD 07/28/2018 4:52 PM EST
--- NOTE | 2018-07-28 17:27 | P.RAD ---
Post Procedure Progress Note - Pre Procedure Diagnosis (1) Hypopharyngeal cancer - Post Procedure Diagnosis (1) Hypopharyngeal cancer - Procedure Information Procedure Date: 07/28/18 Supervising Radiologist: Justin Dodosn MD Anesthesia: Conscious Sedation - Plan of Activity Patient to Unit: Nursing Unit Patient Condition: Fair See PACS Report for procedural detail/treatment. Feeding Tube Feeding Tube: Gastrostomy Procedure: Placement Greenlandic Tube Size: 18
[2018-07-29 07:33] VITALS: BP 103/58; PULSE 71; RESP 16; TEMP 98.8; O2SAT 99
--- NOTE | 2018-07-29 08:21 | P.DS ---
Date of admission: 07/26/18 18:40 Primary care physician: 's [facility] Attending physician on discharge: Bayron Luther Anticipated date of discharge: 07/29/18 Brief History from admission: 57 y/o male with a recent diagnosis of Hypopharyngeal cancer and recent peg placement on 06/21 presented to the ED with complaints of a clogged peg tube. Patient states it has been clogged for the past 2 days. He is still able to take liquids and soft foods by mouth. He has not started any chemo or radiation as of yet for the cancer. The peg tube was attempted to be replaced in the ED but was unsuccessful. Patient denies any chest pain, sob, fever, chills, abdominal pain, nausea or vomiting. Patient update on day of discharge: Seen lying comfortably in bed. He tells me he has been able to flush his PEG tube with no problem. He has no discomfort, nausea vomiting or diarrhea. He would like to go home DS: Diagnosis - Discharge Diagnosis (1) PEG tube malfunction Status: Resolved DS: Summary Hospital Course: 57 y/o male with a recent diagnosis of Hypopharyngeal cancer and recent peg placement on 06/21 presented to the ED with complaints of a clogged peg tube. Malfunction peg tube -Consult to GI for replacement; failed placement w/ EGD; consult to IR - placed 07/28/18. Hypopharyngeal cancer, squamous cell -Patient will follow outpatient with oncology - Time Spent with Patient Total time spent providing and/or coordinating discharge services: Less than 30 minutes - Quality: VTE Deep Vein Thrombosis/Pulmonary Embolism Present on Admission: No Exam Vital signs: Vital Signs 07/28/18 11:51 07/28/18 16:05 07/28/18 16:15 Temperature 99.4 F 97.7 F Pulse Rate 71 71 66 Respiratory Rate 20 20 20 Blood Pressure 91/52 L 105/67 96/60 L Pulse Oximetry 99 97 96 07/28/18 16:30 07/28/18 17:55 07/28/18 18:00 Temperature 98.7 F 98.8 F Pulse Rate 65 76 70 Respiratory Rate 20 16 16 Blood Pressure 100/63 90/52 L 99/58 L Pulse Oximetry 96 100 100 07/28/18 20:00 07/29/18 00:47 07/29/18 04:00 Temperature 98.4 F 98.0 F 98.2 F Pulse Rate 75 70 72 Respiratory Rate 17 18 18 Blood Pressure 98/57 L 101/58 L 98/55 L Pulse Oximetry 100 96 07/29/18 07:31 Temperature 98.8 F Pulse Rate 71 Respiratory Rate 16 Blood Pressure 103/58 L Pulse Oximetry 99 Intake & Output 07/28/18 07/29/18 07/29/18 18:59 06:59 18:59 Output Total 750 / 750 Balance -750 / -750 Output: Urine 750 / 750 Other: Date of Last Bowel Movement 07/25/18 Narrative: GENERAL: Thin, well-developed adult male in no distress. SKIN: Warm and dry. HEAD: Normocephalic. CARDIOVASCULAR: Regular rate and rhythm. RESPIRATORY: Breath sounds equal bilaterally. No accessory muscle use. GASTROINTESTINAL: Abdomen soft, non-tender, nondistended. Gauze dressing over former PEG site; no drainage noted. MUSCULOSKELETAL: No cyanosis, or edema. Neuro: Alert and oriented Results Procedures completed during hospitalization: EGD Peg placement - Impressions ITS Impressions Gastrostomy Tube Placement 07/28/18 00:00 CONCLUSION: 1. Uncomplicated gastrostomy tube placement as above. Discharge Plan - Discharge Disposition Patient Disposition: Discharge Home - Discharge Condition Condition: Stable - Discharge Order Discharge Orders: Discharge Order (Routine); Ordered 07/29/18 Ordered By: Odette Michelle - Physicians Team Primary Care Provider: [facility] [place] Attending Provider: Bayron Luther Other Providers: Lindsay Trejo MD
== END 2018-07-29 09:42 | disposition home or self-care (01) ==
LOC: NEDA 13:17 → NEPE 13:17 → NEDA 20:11 → NEPHCDU 20:16 → N06 07-28 19:27 → NEPHCDU 07-28 19:28
PROVIDERS: ADMIT Family Medicine; ATTEND Family Medicine

== ENCOUNTER 2018-08-11 19:16 | Inpatient (IN) ==
[2018-08-11] MEDS ORDERED: Acetaminophen 325 MG Tablet PO ONE (21:47)
--- NOTE | 2018-08-11 21:50 | ED ---
HPI General Chief complaint: Fever Stated complaint: fever Time Seen by Provider: 08/11/18 21:36 Source: patient Mode of arrival: ambulatory Limitations: no limitations History of Present Illness HPI narrative: 57-year-old male with history of right neck mass/cancer, status post first round of chemotherapy 1 week ago at the [facility], here for evaluation of fever, generalized malaise, cough. Symptoms started yesterday. Cough is productive of yellowish sputum. He has generalized weakness and some shortness of breath on exertion. No abdominal pain, no vomiting or diarrhea. Related Data Previous Rx's Medication Instructions Recorded lansoprazole [Prevacid SoluTab] 30 mg NG/OG DAILY #30 tab 06/23/18 cefuroxime axetil 500 mg PO Q12H #8 tab 06/29/18 Allergies Allergy/AdvReac Type Severity Reaction Status Date / Time grapefruit Allergy Severe Anaphylaxis Verified 08/11/18 20:56 Review of Systems ROS: all other systems reviewed are negative [facility] Medical History Medical History Patient denies medical problems (Acute) Uses feeding tube (Acute) Tumor (Acute) Surgical History Surgical History Hx of knee surgery (Acute) History of ankle surgery (Acute) Social History Social History Substance History: No History of Abuse Second Hand Smoke Exposure: Yes Smoking Status: Current some day smoker Tobacco Type: Cigarettes Packs Per Day: 1 Cigarettes Per Day: 20.0 How Often Do You Have a Drink Containing Alcohol: Never Hx Recent Travel: No Recent Travel [facility] within the Last 8 Weeks: No Recent Out of Country Travel within the Last 8 Weeks: No Immunization History Tetanus Immunization: Unsure Exam Narrative Exam Narrative: GENERAL: Well-developed, cachectic appearing, awake, alert, no apparent distress. SKIN: Focused skin assessment warm/dry. Right chest wall port with site clean, dry, intact. HEAD: Atraumatic. Normocephalic. EYES: Pupils equal and round. No scleral icterus. No injection or drainage. ENT: Mucous membranes pink and moist. NECK: Trachea midline. No JVD. No nuchal rigidity. CARDIOVASCULAR: Tachycardic, rate 130, regular. RESPIRATORY: No accessory muscle use. Clear to auscultation. Breath sounds equal bilaterally. GASTROINTESTINAL: Abdomen soft, non-tender, nondistended. MUSCULOSKELETAL: No obvious deformities. No clubbing. No cyanosis. No edema. NEUROLOGICAL: Awake and alert. No obvious cranial nerve deficits. Motor grossly within normal limits. Normal speech. PSYCHIATRIC: Appropriate mood and affect; insight and judgment normal. Course Initial Documented Vital Signs Temperature 99.2 F 08/11/18 20:56 Pulse Rate 129 H 08/11/18 20:56 Respiratory Rate 16 08/11/18 20:56 Blood Pressure 93/55 L 08/11/18 20:56 Pulse Oximetry 99 08/11/18 20:56 Last Documented Vital Signs Temperature 99.2 F 08/11/18 20:56 Pulse Rate 90 08/11/18 23:14 Respiratory Rate 18 08/11/18 23:14 Blood Pressure 81/45 L 08/11/18 23:14 Pulse Oximetry 95 08/11/18 23:15 Critical Care Time Critical Care Time: Yes Total Critical Care Time: 35 Attestation: Aggregate critical care time was 35 minutes. Time to perform other separately billable procedures was not included in the critical care time. My time did not include minutes spent treating any other patients simultaneously or on activities that did not directly contribute to the patient's treatment. The services I provided to this patient were to treat and/or prevent clinically significant deterioration that could result in: , septic shock, worsening condition, permanent disability I provided critical care services requiring my management, as noted below: Chart data review, documentation time, medication orders and management, vital sign assessments/reviewing monitor data, ordering and reviewing lab tests, ordering and interpreting/reviewing x-rays and diagnostic studies, care of the patient and discussion of the patient with the admitting physicians. Medical Decision Making MDM Narrative Medical decision making narrative: Initial vital signs show tachycardia, hypotension, fever. Sepsis protocol initiated, the patient was empirically given cefepime and vancomycin as well as 2 L normal saline IV. CBC is remarkable for WBC 1.5 with 9% bands. ANC is 615. CMP remarkable for BUN 80, creatinine 2.68, sodium 148. This is significantly worse than his baseline renal function. Chest x-ray shows right upper lobe pneumonia. Again the patient was initially empirically given cefepime and vancomycin. He was also written for a dose of IV azithromycin after chest x-ray was resulted. He remains tachycardic after 2 L normal saline IV and will be given a third liter bolus. He will be admitted for further treatment and evaluation of sepsis , pneumonia, neutropenia. Case discussed with fence making machine operator Dr. Merchant who will admit the patient to the fence making machine operator service. Medical Screen Exam Complete: Yes Emergency Medical Condition: Yes Differential Diagnosis Differential Diagnosis: Sepsis, pneumonia, bacteremia, neutropenic fever Lab Data Result diagrams: 08/11/18 22:10 08/11/18 22:10 Lab Results 08/11/18 08/11/18 08/11/18 Range/Units 22:10 22:10 22:10 WBC 1.5 L (4.0-11.0) th/mm3 RBC 3.43 L (4.50-5.90) mil/mm3 Hgb 10.0 L (13.0-17.0) gm/dL Hct 29.5 L (39.0-51.0) % MCV 86.0 (80.0-100.0) fL MCH 29.1 (27.0-34.0) pg MCHC 33.8 (32.0-36.0) % RDW 13.0 (11.6-17.2) % Plt Count 92 L D (150-450) th/mm3 MPV 10.8 (7.0-11.0) fL Prelim Diff (Auto) Slide review pending WBC Differential Manual diff final Seg Neuts % (Manual) 32 (16-70) % Band Neuts % (Manual) 9 H (0-6) % Lymphocytes % (Manual) 48 H (9-44) % Monocytes % (Manual) 11 H (0-8) % Abs Neuts (Manual) 0.6 L (1.8-7.7) th/mm3 Differential Comment . Platelet Estimate Low L (Normal) Platelet Morphology Enlarged H (Normal) RBC Morphology Normal (Normal) PT 10.6 (9.8-11.6) sec INR 1.0 Ratio APTT 31.0 (23.4-31.7) sec Sodium 148 H (136-145) meq/L Potassium 4.2 (3.5-5.1) meq/L Chloride 111 H (98-107) meq/L Carbon Dioxide 29.8 (21.0-32.0) meq/L Anion Gap 7 (5-15) meq/L BUN 80 H (7-18) mg/dL Creatinine 2.68 H (0.60-1.30) mg/dL Estimated GFR 30 L (>89) mL/min Random Glucose 174 H (74-106) mg/dL Lactic Acid (0.4-2.0) mmol/L Calcium 8.8 (8.5-10.1) mg/dL Magnesium 2.4 (1.5-2.5) mg/dL Total Bilirubin 0.6 (0.2-1.0) mg/dL AST 14 L (15-37) U/L ALT 15 (12-78) U/L Alkaline Phosphatase 54 (45-117) U/L Total Protein 8.3 H (6.4-8.2) g/dL Albumin 2.4 L (3.4-5.0) g/dL 08/11/18 Range/Units 22:20 WBC (4.0-11.0) th/mm3 RBC (4.50-5.90) mil/mm3 Hgb (13.0-17.0) gm/dL Hct (39.0-51.0) % MCV (80.0-100.0) fL MCH (27.0-34.0) pg MCHC (32.0-36.0) % RDW (11.6-17.2) % Plt Count (150-450) th/mm3 MPV (7.0-11.0) fL Prelim Diff (Auto) WBC Differential Seg Neuts % (Manual) (16-70) % Band Neuts % (Manual) (0-6) % Lymphocytes % (Manual) (9-44) % Monocytes % (Manual) (0-8) % Abs Neuts (Manual) (1.8-7.7) th/mm3 Differential Comment Platelet Estimate (Normal) Platelet Morphology (Normal) RBC Morphology (Normal) PT (9.8-11.6) sec INR Ratio APTT (23.4-31.7) sec Sodium (136-145) meq/L Potassium (3.5-5.1) meq/L Chloride (98-107) meq/L Carbon Dioxide (21.0-32.0) meq/L Anion Gap (5-15) meq/L BUN (7-18) mg/dL Creatinine (0.60-1.30) mg/dL Estimated GFR (>89) mL/min Random Glucose (74-106) mg/dL Lactic Acid 2.0 (0.4-2.0) mmol/L Calcium (8.5-10.1) mg/dL Magnesium (1.5-2.5) mg/dL Total Bilirubin (0.2-1.0) mg/dL AST (15-37) U/L ALT (12-78) U/L Alkaline Phosphatase (45-117) U/L Total Protein (6.4-8.2) g/dL Albumin (3.4-5.0) g/dL Imaging Data Radiologist's impression: Chest X-Ray 08/11/18 21:48 CONCLUSION: Right upper lobe pneumonia. Discharge Plan Discharge Disposition Patient Disposition: 30 Still Patient Discharge Condition Condition: Serious Discharge Details Diagnosis: Sepsis, Pneumonia, Acute kidney injury, Neutropenia Physicians Team ED Provider: Carlos A Mccurdy Primary Care Provider: [facility],Physician 's Rxs /Orders / Referrals /Forms Prescriptions: No Action lansoprazole [Prevacid SoluTab] 30 mg Tablet,Disintegrat, Delay Rel 30 mg NG/OG DAILY Qty: 30 RF: 0 cefuroxime axetil 500 mg Tablet 500 mg PO Q12H Qty: 8 RF: 0 Discharge Interventions Interventions: Vital Signs Last Done: 08/11/18 23:14 Status ED Status: With Doctor
[2018-08-11] MEDS ORDERED: Vancomycin Inj 1,000 MG in Sodium Chlor 0.9% Inj 250 ML IV.SIG ONE (21:51)
[2018-08-11] MEDS ORDERED: Sod Chloride 0.9% Inj 800 ML IV.SIG SCH (22:00)
[2018-08-11] MEDS ORDERED: Sod Chloride 0.9% Inj 1,000 ML IV.SIG SCH (22:00)
[2018-08-11 22:46] LABS: Hematocrit 29.5 % (39.0-51.0); Mean Corpuscular HGB Conc 33.8 % (32.0-36.0); Mean Corpuscular Hemoglobin 29.1 pg (27.0-34.0); Mean Platelet Volume 10.8 fL (7.0-11.0); Platelet Count 92 th/mm3 (150-450); Red Blood Count 3.43 mil/mm3 (4.50-5.90); White Blood Count 1.5 th/mm3 (4.0-11.0)
--- NOTE | 2018-08-11 22:49 | XR ---
EXAM DATE: 08/11/2018 10:35 PM EST AGE/SEX: 57 years / Male INDICATIONS: Fever and dizziness. CLINICAL DATA: This is the patient's initial encounter. Patient reports that signs and symptoms have been present for 2 days and indicates a pain score of 0/10. MEDICAL/SURGICAL HISTORY: Carcinoma, esophageal. . Chemo port. COMPARISON: [facility] [place], CHEST 1V SINGLE AP, 06/27/2018. [facility] [place], CT CHEST W CONTRAST, 06/19/2018. . FINDINGS: An ill-defined infiltrate has developed of the right lung apex. Lungs otherwise appear clear. No pleu ral effusion demonstrated. No pneumothorax. Heart size stable, within normal limits. Since the prior chest x-ray, a right internal jugular Gndhol-r-Trte catheter has been placed. CONCLUSION: Right upper lobe pneumonia. Electronically signed by: Osvaldo London MD 08/11/2018 10:48 PM EST
[2018-08-11] MEDS ORDERED: Azithromycin Inj 500 MG in Sodium Chlor 0.9% Inj 250 ML IV.SIG ONE (22:57)
[2018-08-11] MEDS ORDERED: Sodium Chlor 0.9% Inj 500 ML IV.SIG SCH (23:00)
[2018-08-11 23:02] LABS: Prothrombin Time 10.6 sec (9.8-11.6)
[2018-08-11 23:06] LABS: Alanine Aminotransferase 15 U/L (12-78); Albumin 2.4 g/dL (3.4-5.0); Anion Gap 7 meq/L (5-15); Aspartate Aminotransferase 14 U/L (15-37); Blood Urea Nitrogen 80 mg/dL (7-18); Calcium 8.8 mg/dL (8.5-10.1); Carbon Dioxide 29.8 meq/L (21.0-32.0); Chloride 111 meq/L (98-107); Glomerular Filtration Rate 30 mL/min (>89); Glucose,Random 174 mg/dL (74-106); Magnesium 2.4 mg/dL (1.5-2.5); Potassium 4.2 meq/L (3.5-5.1); Sodium 148 meq/L (136-145)
[2018-08-11 23:07] LABS: Alkaline Phosphatase 54 U/L (45-117); Total Protein 8.3 g/dL (6.4-8.2)
[2018-08-11 23:13] LABS: Lymphocytes 48 % (9-44); Monocytes 11 % (0-8); RBC Morphology Normal (Normal)
[2018-08-11] MEDS ORDERED: Vancomycin Consult Pharmacy OTHER PRN (23:46)
[2018-08-11] MEDS ORDERED: Dextrose 50% in Water 50 ML Vial IV.PUSH PRN (23:48)
[2018-08-11] MEDS ORDERED: Bisacodyl 10 MG Supp RECTAL PRN (23:48)
[2018-08-11] MEDS ORDERED: Albumin Human 5% Inj 500 ML IV.SIG STA (23:48)
--- NOTE | 2018-08-11 23:54 | P.HPCC ---
History of Present Illness Service: Critical Care Medicine Primary Care Physician: [facility] Chief Complaint: fever, fatigue History of Present Illness: 57yM with history of squamous cell carcinoma of the base of the tongue, complicated by significant dysphagia s/p PEG placement. first cycle of chemotherapy last week. complains of 2 days of fever, chills, cough, sputum production. RUL infiltrate on CXR. pancytopenic and borderline neutropenic. associated kidney injury with elevated Cr. patient admits to drinking gatorade, eating popsicles, drinking juice. known aspirations and last evaluated by speech was strict NPO with sips of water for comfort. ROS negative for chest pain, shortness of breath, nausea, vomiting, diarrhea, constipation, abdominal pain. remainder ROS negative. Hypotensive with sbp 70s on my evaluation, although fluid responsive, receiving ivf on my evaluation. Inpatient Certification: I certify that the inpatient services were ordered in accordance with Medicare regulations governing the order. This includes certification that hospital inpatient services are reasonable and necessary and in the case of services not specified as inpatient-only under 42 CFR 419.22(n), that they are appropriately provided as inpatient services in accordance to with the 2-midnight benchmark under 43 CFR 412.3(e) Estimated Total Length of Stay (Days): 7 Plans for Post Hospital Care: Not yet determined Review of Systems All other systems reviewed negative except as stated in HPI PMFSH - History History Provided By: Patient - Medical History Medical History: Medical History (Last Reviewed 08/12/18 @ 00:18 by Garrett Urbina MD) Patient denies medical problems (Acute) Uses feeding tube Tumor - Surgical History Surgical History: Surgical History (Last Reviewed 08/12/18 @ 00:18 by Garrett Urbina MD) Hx of knee surgery (Acute) History of ankle surgery (Acute) - Family History Family History: Family History (Last Reviewed 08/12/18 @ 00:18 by Garrett Urbina MD) Other No pertinent family history - Social History I have reviewed the patient's Social History: Yes - Tobacco History Second Hand Smoke Exposure: Yes Tobacco Use In Past 30 Days: Yes Smoking Status: Current some day smoker Tobacco Type: Cigarettes Packs Per Day: 1 - Alcohol History How Often Do You Have a Drink Containing Alcohol: Never - Substance Use History Substance History: No History of Abuse - Travel History History of Recent Travel: No Recent Travel in the [place] Within the Last 8 Weeks: No Recent Travel Out of the Country Within the Last 8 Weeks: No - Immunization History Tetanus Immunization: Unsure Medications and Allergies Active Medications: Active Medications Albuterol (Duoneb Neb (Carol Ann)) 1 ampul NEB Q6HR NEB CAROL ANN Albuterol (Duoneb Neb (Prn)) 1 ampul NEB Q2HR NEB PRN PRN Reason: WHEEZING Bisacodyl (Dulcolax Supp) 10 mg RECTAL DAILY PRN PRN Reason: if no BM in last 24h Chlorhexidine Gluconate (Chlorhexidine 2% Cloth) 3 pack TOPICAL DAILY@0400 CAROL ANN Stop: 08/17/18 03:59 Chlorhexidine Gluconate (Chlorhexidine 2% Cloth) 3 pack TOPICAL DAILY@0400 PRN PRN Reason: Extra cloth needed Stop: 08/17/18 03:59 Dextrose (D50w Vial) 50 ml IV.PUSH UNSCH PRN PRN Reason: PER HYPOGLYCEMIA PROTOCOL Enoxaparin Sodium (Lovenox Inj) 30 mg SQ DAILY CAROL ANN Glucagon (Glucagon Inj) 1 mg OTHER PRN PRN PRN Reason: for Hypoglycemia Protocol Sodium Chloride (Ns Inj) 1,000 mls @ 0 mls/hr IV.SIG .Q0M CAROL ANN Last Admin: 08/11/18 23:43 Dose: 1,000 mls/hr Sodium Chloride (Ns Inj) 800 mls @ 0 mls/hr IV.SIG .Q0M CAROL ANN Azithromycin 500 mg/ Sodium (Chloride) 250 mls @ 250 mls/hr IV.SIG ONCE ONE Stop: 08/11/18 23:56 Albumin Human (Alburx 5% Inj) 500 mls @ 250 mls/hr IV.SIG STAT STA Stop: 08/12/18 01:47 Cefepime HCl 2,000 mg/ Sodium (Chloride) 100 mls @ 200 mls/hr IV.SIG Q12H CAROL ANN Metronidazole/Sodium Chloride (Flagyl 500 Mg Inj) 100 mls @ 100 mls/hr IV.SIG Q6H CAROL ANN Sodium Chloride (Ns Inj) 1,000 mls @ 125 mls/hr IV.CONT .Q8H CAROL ANN Lactated Ringer's (Lr 1000 Ml Inj) 1,000 mls @ 0 mls/hr IV.SIG BOLUS ONE Stop: 08/11/18 23:53 Insulin Human Regular (Novolin R Correctional Sugar Inj) 0 units SQ Q6HR CAROL ANN; Protocol Lactulose (Lactulose Liq) 30 ml PO BID CAROL ANN Ondansetron HCl (Zofran Inj) 4 mg IV.PUSH Q6H PRN PRN Reason: NAUSEA OR VOMITING Oxycodone HCl (Roxicodone) 5 mg G-TUBE Q4H PRN PRN Reason: Pain 1-5 Pantoprazole Sodium (Protonix Inj) 40 mg IV.PUSH Q24H CAROL ANN Pharmacy Profile Note (Vancomycin Consult Pharmacy) 1 each OTHER UNSCH PRN PRN Reason: Pharmacy to dose Polyethylene Glycol (Miralax) 17 gm PO BID CAROL ANN Senna/Docusate Sodium (Gilda-Colace) 1 tab PO BID CAROL ANN Sodium Chloride (Ns Flush) 2 ml IV.FLUSH UNSCH PRN PRN Reason: FLUSH AFTER USING IV ACCESS Allergies Allergy/AdvReac Type Severity Reaction Status Date / Time grapefruit Allergy Severe Anaphylaxis Verified 08/11/18 20:56 Results - Labs CBC & Chem 7: 08/11/18 22:10 08/11/18 22:10 Labs: Short CBC 08/11/18 Range/Units 22:10 WBC 1.5 L (4.0-11.0) th/mm3 Hgb 10.0 L (13.0-17.0) gm/dL Hct 29.5 L (39.0-51.0) % Plt Count 92 L D (150-450) th/mm3 BMP 08/11/18 22:10 Sodium 148 H Potassium 4.2 Chloride 111 H Carbon Dioxide 29.8 BUN 80 H Creatinine 2.68 H Calcium 8.8 Liver Function 08/11/18 Range/Units 22:10 Total Bilirubin 0.6 (0.2-1.0) mg/dL AST 14 L (15-37) U/L ALT 15 (12-78) U/L Alkaline Phosphatase 54 (45-117) U/L Albumin 2.4 L (3.4-5.0) g/dL - Imaging Impressions Chest X-Ray 08/11/18 21:48 CONCLUSION: Right upper lobe pneumonia. Exam Vital signs: Vital Signs 08/11/18 20:56 08/11/18 23:14 08/11/18 23:15 Temperature 37.3 C Pulse Rate 129 H 90 Respiratory Rate 16 18 Blood Pressure 93/55 L 81/45 L Pulse Oximetry 99 99 95 08/11/18 23:46 Temperature Pulse Rate 93 H Respiratory Rate 16 Blood Pressure 89/52 L Pulse Oximetry 96 Intake & Output 08/11/18 08/11/18 08/12/18 06:59 18:59 06:59 Intake Total 600 / 600 Balance 600 / 600 Weight 74.843 kg Intake: IV 600 / 600 Maxipime Inj 2,000 MG In NS Inj 100 / 100 100 ML @ 200 mls/hr IV.SIG ONCE ONE Rx#:[id number] NS Inj 500 ML @ 1000 mls/hr IV. 500 / 500 SIG BOLUS CAROL ANN Rx#:[id number] Narrative: GENERAL: Middle-age male who appears older than stated age, cachectic, lying in bed HEENT: Normocephalic. Atraumatic. Pupils equal, round, reactive, conjugate. Mucous membranes are moist NECK: Trachea is midline. There is no JVD. CHEST: Equal chest rise. Nasal cannula oxygen. CARDIOVASCULAR: Normal rate, regular. Sinus. Hypotensive with systolic of 77 on my evaluation. Actively receiving IV fluid bolus. ABDOMEN: Soft, nontender, nondistended. No guarding. MUSCULOSKELETAL: Pulses 2+. No peripheral edema. NEUROLOGICAL: RASS 0. CAM -. Follows commands. No focal deficits. Septic Shock Reassessment Septic shock perfusion: reassessment completed Caprini VTE Risk Assessment Caprini VTE Risk Assessment: Moderate/High Risk (score >= 2) Caprini Risk Assessment Model: Point Value = 1 Point Value = 2 Point Value = 3 Point Value = 5 Age 41-60 Minor surgery BMI > 25 kg/m2 Swollen legs Varicose veins or History of unexplained or recurrent spontaneous Oral contraceptives or hormone replacement Sepsis (< 1 month) Serious lung disease, including pneumonia (< 1 month) Abnormal pulmonary function Acute myocardial infarction Congestive heart failure (< 1 month) History of inflammatory bowel disease Medical patient at bed rest Age 61-74 Arthroscopic surgery Major open surgery (> 45 min) Laparoscopic surgery (> 45 min) Malignancy Confined to bed (> 72 hours) Immobilizing plaster cast Central venous access Age >= 75 History of VTE Family history of VTE Factor V Leiden Prothrombin [id number] Lupus anticoagulant Anticardiolipin antibodies Elevated serum homocysteine Heparin-induced thrombocytopenia Other congenital or acquired thrombophilia Stroke (< 1 month) Elective arthroplasty Hip, pelvis, or leg fracture Acute spinal cord injury (< 1 month) Prophylaxis Regimen: Total Risk Factor Score Risk Level Prophylaxis Regimen 0-1 Low Early ambulation 2 Moderate Order ONE of the following: *Sequential Compression Device (SCD) *Heparin 5000 units SQ BID 3-4 Higher Order ONE of the following medications: *Heparin 5000 units SQ TID *Enoxaparin/Lovenox 40 mg SQ daily (WT < 150 kg, CrCl > 30 mL/min) *Enoxaparin/Lovenox 30 mg SQ daily (WT < 150 kg, CrCl > 10-29 mL/min) *Enoxaparin/Lovenox 30 mg SQ BID (WT < 150 kg, CrCl > 30 mL/min) AND/OR *Sequential Compression Device (SCD) 5 or more Highest Order ONE of the following medications: *Heparin 5000 units SQ TID (Preferred with Epidurals) *Enoxaparin/Lovenox 40 mg SQ daily (WT < 150 kg, CrCl > 30 mL/min) *Enoxaparin/Lovenox 30 mg SQ daily (WT < 150 kg, CrCl > 10-29 mL/min) *Enoxaparin/Lovenox 30 mg SQ BID (WT < 150 kg, CrCl > 30 mL/min) AND *Sequential Compression Device (SCD) Assessment and Plan - Assessment and Plan Plan: Assessment: 57yM with head and neck cancer and neutropenic severe sepsis. life- threatening multiorgan dysfunction in the setting of pancytopenia and severe sepsis. critically ill. admit to ICU. abx, fluid resuscitation. may require vasopressors. Plan by systems: Neurologic: Oxycodone 5 mg every 4 hours as needed for pain Respiratory: Right upper lobe pneumonia Most likely secondary to chronic aspiration by clinical history, although unlikely anatomic location for this May also have some element of multifocal pneumonia which is not visible on chest x-ray due to severe dehydration Wean oxygen by nasal cannula for goal SPO2 greater than 90% Nebs Aggressive pulmonary toilet Out of bed PT consult Cardiovascular: Severe sepsis Continue IV fluid resuscitation May require vasopressors Renal: Acute kidney injury Strict I's and O's Place Garcia Check urine electrolytes Likely secondary to severe sepsis Continue volume resuscitation Renal ultrasound to rule out obstruction/hydronephrosis -- Strict I/Os FEN/GI: Hypernatremia Free water deficit Severe dehydration Acute intravascular volume depletion Acute protein calorie malnutritionsevere Severe dysphasia Strict n.p.o. Restart tube feeds, Jevity 1.5 at 60 mils an hour Nutrition consult Normal saline IV fluids at 125 cc an hour 1 additional liter IV fluid bolus 500 cc 5% albumin bolus Daily BMP, magnesium, phosphorus Reconsult speech for repeat barium swallow study which was recommended on last admission Hyponatremia likely secondary to dehydration, trend Heme/ID: Severe neutropenic sepsis Right upper lobe pneumonia Likely aspiration pneumonia Base of the tongue squamous cell carcinoma Pancytopenia Febrile neutropenia Thrombocytopenia secondary to chemotherapy Anemia secondary to chemotherapy Continue vancomycin with pharmacy dosing Cefepime renally adjusted Flagyl Blood culture Sputum culture Oncology consulted Daily CBC No active bleeding suspected, no indications for transfusion at this time Endocrine: Hyperglycemia of critical illness -- SSI, medium scale, every 6 Prophylaxis: GI Prophylaxis Protonix IV every 24 hours DVT Prophylaxis -- SCDs Lovenox 30 mg subcu daily Lines: PIV's May require central venous access Garcia for hourly I's and O's in the setting of acute kidney injury. If he clinically improves can DC Garcia within 24 hours. Dispo: Admit ICU. Very critically ill. Likely decompensate further. Note: At the patient's request I have attempted to contact his "lady friend" whose name is Rula whose phone number is [phone]. However I was unable to reach her. This patient remains critically ill with one or more organ systems which are or may become a threat to life. I have spent in excess of 47 minutes discontinuously in the care and management of this patient. This time is exclusive of procedures, and includes, but is not limited to, evaluation of the patient, review of the medical record, discussions with family, consultants, nursing staff, or respiratory therapy, and documentation in the medical record. Code Status: Full code
[2018-08-12 00:46] LABS: Bacteria,Urine Rare /hpf; Bilirubin,Urine Negative (Negative); Clarity,Urine Hazy (Clear); Color,Urine Yellow (Yellw/Straw); Glucose,Urine (UA) Negative (Negative); Hyaline Casts,Urine 1 /lpf (0-3); Leukocyte Esterase,Urine Negative (Negative); Mucus,Urine Few /lpf (Occasional); Nitrite,Urine Negative (Negative); Specific Gravity,Urine 1.012 (1.002-1.035); Squamous Epithelial Cell,Urine 1 /hpf (0-5)
[2018-08-12] MEDS: Insulin NovoLIN Regular Correctional Sugar Inj SQ SCH ×4 (01:38→18:03)
--- NOTE | 2018-08-12 01:41 | US ---
EXAM DATE: 08/12/2018 1:36 AM EST AGE/SEX: 57 years / Male INDICATIONS: Elevated BUN and creatinine. CLINICAL DATA: This is the patient's initial encounter. Patient reports that signs and symptoms have been present for 1 day and indicates a pain score of 0/10. MEDICAL/SURGICAL HISTORY: . Peg tube. Esophageal cancer. Smoker. . Orthopedic. COMPARISON: No prior exams available for comparison. MEASUREMENTS: Right Kidney:__12.0 x 5.8 x 6.4 cm Left Kidney:__12.9 x 7.1 x 6.3 cm FINDINGS: Right Kidney: Increased echotexture. No mass or hydronephrosis. Left Kidney: Increased echotexture. No mass or hydronephrosis. Bladder: Within normal limits given the degree of distension. Other: None. CONCLUSION: 1. No acute findings. Echogenic kidneys characteristic of medical renal disease. 2. Tiny 1 cm right renal cyst. Electronically signed by: Justin Leon MD 08/12/2018 1:40 AM EST
[2018-08-12] MEDS: Enoxaparin Inj 30 MG/0.3 ML Syringe SQ SCH ×2 (01:42→08:39)
[2018-08-12] MEDS: Sod Chloride 0.9% Inj 1,000 ML IV.CONT SCH ×3 (02:30→17:46)
[2018-08-12] MEDS: Chlorhexidine Gluconate 2% 1 Pack (2 Cloths) TOPICAL SCH (03:07)
[2018-08-12] MEDS ORDERED: Chlorhexidine Gluconate 2% 1 Pack (2 Cloths) TOPICAL PRN (04:00)
[2018-08-12 05:23] LABS: Baso % (Auto) 0.4 % (0.0-2.0); Hematocrit 22.4 % (39.0-51.0); Hemoglobin 7.5 gm/dL (13.0-17.0); Lymph # (Auto) 0.9 th/mm3 (1.0-4.8); Lymph % (Auto) 59.2 % (9.0-44.0); Mean Corpuscular HGB Conc 33.6 % (32.0-36.0); Mean Corpuscular Hemoglobin 29.3 pg (27.0-34.0); Mean Corpuscular Volume 87.4 fL (80.0-100.0); Mean Platelet Volume 10.9 fL (7.0-11.0); Mono # (Auto) 0.2 th/mm3 (0.0-0.9); Mono % (Auto) 13.7 % (0.0-8.0); Neut # (Auto) 0.4 th/mm3 (1.8-7.7); Neut % (Auto) 26.7 % (16.0-70.0); Platelet Count 72 th/mm3 (150-450); Red Blood Count 2.57 mil/mm3 (4.50-5.90); Red Cell Distribution Width 13.2 % (11.6-17.2); White Blood Count 1.5 th/mm3 (4.0-11.0)
[2018-08-12 05:49] LABS: Calcium 7.8 mg/dL (8.5-10.1); Carbon Dioxide 25.7 meq/L (21.0-32.0); Magnesium 2.1 mg/dL (1.5-2.5); Potassium 4.1 meq/L (3.5-5.1)
[2018-08-12 08:27] LABS: Dohle Bodies Present; Lymphocytes 54 % (9-44); Monocytes 7 % (0-8); Platelet Morphology Normal (Normal)
[2018-08-12] MEDS: Polyethylene Glycol 3350 17 GM Packet PO SCH ×2 (08:40→22:47)
[2018-08-12] MEDS: Senna/Docusate Sodium 8.6/50 MG Tablet PO SCH ×2 (08:40→22:46)
--- NOTE | 2018-08-12 10:52 | P.PNCC ---
Subjective Subjective Remarks/Hospital Course: 57yM with history of squamous cell carcinoma of the base of the tongue, complicated by significant dysphagia s/p PEG placement. first cycle of chemotherapy last week. complains of 2 days of fever, chills, cough, sputum production. RUL infiltrate on CXR. pancytopenic and borderline neutropenic. associated kidney injury with elevated Cr. patient admits to drinking gatorade, eating popsicles, drinking juice. known aspirations and last evaluated by speech was strict NPO with sips of water for comfort. ROS negative for chest pain, shortness of breath, nausea, vomiting, diarrhea, constipation, abdominal pain. remainder ROS negative. Hypotensive with sbp 70s on my evaluation, although fluid responsive, receiving ivf on my evaluation. SUBJ 08/12/18: Lying in bed not in any acute distress remains neutropenic. Blood pressure improved currently normotensive. Adequate urine output creatinine improved to 1.89. Discussed treatment plan with Dr. Rivera Objective Vital Signs / I&O: Vital Signs 08/11/18 20:56 08/11/18 23:14 08/11/18 23:15 Temperature 99.2 F Pulse Rate 129 H 90 Respiratory Rate 16 18 Blood Pressure 93/55 L 81/45 L Pulse Oximetry 99 99 95 08/11/18 23:46 08/12/18 00:23 08/12/18 01:02 Temperature 98.3 F Pulse Rate 93 H 80 80 Respiratory Rate 16 16 31 H Blood Pressure 89/52 L 95/53 L Pulse Oximetry 96 99 08/12/18 01:15 08/12/18 02:00 08/12/18 03:00 Temperature 98.1 F Pulse Rate 80 77 83 Respiratory Rate 24 17 18 Blood Pressure 100/53 L Pulse Oximetry 98 97 08/12/18 04:00 08/12/18 05:00 08/12/18 05:14 Temperature 98.7 F Pulse Rate 82 75 66 Respiratory Rate 17 16 16 Blood Pressure Pulse Oximetry 98 100 08/12/18 05:27 08/12/18 06:00 08/12/18 07:00 Temperature Pulse Rate 82 73 79 Respiratory Rate 22 15 20 Blood Pressure 105/59 L 105/53 L 123/59 L Pulse Oximetry 100 99 100 08/12/18 08:00 08/12/18 09:00 08/12/18 09:25 Temperature 97.9 F Pulse Rate 78 69 75 Respiratory Rate 14 20 18 Blood Pressure 126/58 L 116/56 L Pulse Oximetry 100 100 08/12/18 09:26 08/12/18 10:49 Temperature 98.9 F Pulse Rate 83 Respiratory Rate 18 Blood Pressure 109/55 L Pulse Oximetry 99 96 Intake & Output 08/11/18 08/12/18 08/12/18 18:59 06:59 18:59 Intake Total 4885 / 4885 715 / 715 Output Total 650 / 650 Balance 4235 / 4235 715 / 715 Weight 71 kg Intake: IV 4885 / 4885 715 / 715 NS Inj 1,000 ML @ 125 mls/hr IV 385 / 385 615 / 615 .CONT .Q8H [facility] Rx#:[id number] Alburx 5% Inj 500 ML @ 250 mls/ 500 / 500 hr IV.SIG STAT STA Rx#:[id number] Azithromycin Inj 500 MG In NS 250 / 250 Inj 250 ML @ 250 mls/hr IV.SIG ONCE ONE Rx#:[id number] Maxipime Inj 2,000 MG In NS Inj 100 / 100 100 ML @ 200 mls/hr IV.SIG ONCE ONE Rx#:[id number] LR 1000 mL Inj 1,000 ML @ Wide 1000 / 1000 Open IV.SIG BOLUS ONE Rx#: [id number] NS Inj 800 ML @ Wide Open IV. 1800 / 1800 SIG .Q0M [facility] Rx#:[id number] NS Inj 500 ML @ 1000 mls/hr IV. 500 / 500 SIG BOLUS [facility] Rx#:[id number] Vancomycin Inj 1,000 MG In NS 250 / 250 Inj 250 ML @ 250 mls/hr IV.SIG ONCE ONE Rx#:[id number] Flagyl 500 MG Inj 100 ML @ 100 100 / 100 100 / 100 mls/hr IV.SIG Q6HR [facility] Rx#: [id number] Oral 0 / 0 Intake (Blood Product) Amt 0 / 0 Rbc As-3 Leukoreduced Unit 0 / 0 [id number] Output: Urine 650 / 650 Gastric Drainage 0 / 0 Gastrostomy Tube (PEG) 0 / 0 Other: Date of Last Bowel Movement 08/11/18 08/11/18 # Bowel Movements 0 Weight On Admission 66.5 kg Result Diagrams: 08/12/18 04:56 08/12/18 04:56 Objective Remarks: GENERAL: Middle-age male who appears older than stated age, cachectic, lying in bed HEENT: Normocephalic. Atraumatic. Pupils equal, round, reactive, conjugate. Mucous membranes dry NECK: Trachea is midline. There is no JVD. CHEST: Equal chest rise. Nasal cannula oxygen. CARDIOVASCULAR: Normal rate, regular. Sinus. Normotensive ABDOMEN: Soft, nontender, nondistended. No guarding. MUSCULOSKELETAL: Pulses 2+. No peripheral edema. NEUROLOGICAL: RASS 0. CAM -. Follows commands. No focal deficits. Assessment and Plan - Assessment and Plan Plan: Assessment: 57yM with head and neck cancer and neutropenic severe sepsis. life- threatening multiorgan dysfunction in the setting of pancytopenia and severe sepsis. critically ill. Abx, fluid resuscitation. may require vasopressors. Plan by systems: Neurologic: Oxycodone 5 mg every 4 hours as needed for pain Respiratory: Right upper lobe pneumonia Most likely secondary to chronic aspiration by clinical history, although unlikely anatomic location for this May also have some element of multifocal pneumonia which is not visible on chest x-ray due to severe dehydration Wean oxygen by nasal cannula for goal SPO2 greater than 90% Nebs, Aggressive pulmonary toilet Out of bed PT consult Cardiovascular: Severe sepsis Continue IV fluid resuscitation Broad-spectrum antibiotics as below Renal: Acute kidney injury Strict I's and O's Continue Garcia Likely secondary to severe sepsis Continue volume resuscitation Renal ultrasound to rule out obstruction/hydronephrosis-negative for obstruction -- Strict I/Os FEN/GI: Hypernatremia Free water deficit Severe dehydration Acute intravascular volume depletion Acute protein calorie malnutritionsevere Severe dysphasia Strict n.p.o. Jevity 1.5 at 60 mils an hour Nutrition consult Normal saline IV fluids at 125 cc an hour s/p 1 additional liter IV fluid bolus, 500 cc 5% albumin bolus Daily BMP, magnesium, phosphorus Reconsult speech for repeat barium swallow study which was recommended on last admission Hyponatremia likely secondary to dehydration, trend Heme/ID: Severe neutropenic sepsis Right upper lobe pneumonia Base of the tongue squamous cell carcinoma Pancytopenia Febrile neutropenia Thrombocytopenia secondary to chemotherapy Anemia secondary to chemotherapy Continue vancomycin with pharmacy dosing Cefepime renally adjusted Flagyl Blood culture, Sputum culture Oncology consulted discussed with Dr. Rivera Daily CBC No active bleeding suspected, no indications for transfusion at this time Endocrine: Hyperglycemia of critical illness -- SSI, medium scale, every 6 Prophylaxis: GI Prophylaxis Protonix IV every 24 hours DVT Prophylaxis -- SCDs Lovenox 30 mg subcu daily Lines: PIV's Garcia for hourly I's and O's in the setting of acute kidney injury. If he clinically improves can DC Garcia within 24 hours. Dispo: Patient was critically ill but now more stabilizing. Appears stable for transfer to oncology floor with telemetry. Hospitalist to assume care in a.m. Note: At the patient's request I have attempted to contact his "lady friend" whose name is Rula whose phone number is [phone]. However I was unable to reach her.
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
--- NOTE | 2018-08-12 14:03 | ECG ---
Date Performed: 08/11/2018 Time Performed: 22:04:54 PTAGE: 57 years EKG: SINUS TACHYCARDIA NONSPECIFIC T-WAVE ABNORMALITY ABNORMAL RHYTHM ECG PREVIOUS TRACING : 06/15/2018 14.38 Since the previous tracing, no significant change noted DOCTOR: Juan Manuel Abbott Interpretating Date/Time 08/12/2018 14:02:08
[2018-08-12 15:19] LABS: Hematocrit 29.3 % (39.0-51.0)
[2018-08-12] MEDS ORDERED: Vancomycin Inj 1,000 MG in Sodium Chlor 0.9% Inj 250 ML IV.SIG ONE (18:00)
[2018-08-13] MEDS: Sod Chloride 0.9% Inj 1,000 ML IV.CONT SCH ×2 (00:33→06:23)
[2018-08-13] MEDS: Pantoprazole Inj 40 MG Vial IV.PUSH SCH (00:34)
[2018-08-13] MEDS: Insulin NovoLIN Regular Correctional Sugar Inj SQ SCH ×4 (00:34→18:00)
[2018-08-13 07:27] LABS: Calcium 8.1 mg/dL (8.5-10.1); Carbon Dioxide 24.4 meq/L (21.0-32.0); Magnesium 1.6 mg/dL (1.5-2.5); Phosphorus 2.6 mg/dL (2.5-4.9); Potassium 3.4 meq/L (3.5-5.1); Vancomycin,Random 18.9 Comment
[2018-08-13 07:28] LABS: Baso % (Auto) 0.1 % (0.0-2.0); Eos % (Auto) 0.8 % (0.0-4.0); Hematocrit 26.4 % (39.0-51.0); Hemoglobin 9.1 gm/dL (13.0-17.0); Lymph # (Auto) 0.9 th/mm3 (1.0-4.8); Lymph % (Auto) 67.4 % (9.0-44.0); Mean Corpuscular HGB Conc 34.3 % (32.0-36.0); Mean Corpuscular Hemoglobin 29.9 pg (27.0-34.0); Mean Corpuscular Volume 87.2 fL (80.0-100.0); Mean Platelet Volume 10.9 fL (7.0-11.0); Mono # (Auto) 0.3 th/mm3 (0.0-0.9); Mono % (Auto) 24.1 % (0.0-8.0); Neut # (Auto) 0.1 th/mm3 (1.8-7.7); Neut % (Auto) 7.6 % (16.0-70.0); Platelet Count 60 th/mm3 (150-450); Red Blood Count 3.03 mil/mm3 (4.50-5.90); Red Cell Distribution Width 13.4 % (11.6-17.2); White Blood Count 1.4 th/mm3 (4.0-11.0)
[2018-08-13 08:34] LABS: Lymphocytes 71 % (9-44); Monocytes 18 % (0-8); Toxic Granulation 2+
[2018-08-13 08:35] LABS: Dohle Bodies Present
--- NOTE | 2018-08-13 10:03 | P.DIET ---
Nutritional Evaluation Type of nutrition evaluation: initial Nutrition consult regarding: Tube Feeding [place] [facility] [place] [facility] [place] - Diagnosis Sepsis, PNA, neutropenia, DOMINICK - Objective % IBW: 80 (IBW: 83.6kg) Body Weight Used for Calculations: Actual (66.5kg admit wt) Energy Needs - Lower Range (kCal/kg): 33 Energy Needs - Upper Range (kCal/kg): 37 Lower Limit kCal/kg (kCals): 2,194 Upper Limit kCal/kg (kCals): 2,461 Lower Limit Protein Factor (Grams per Kg): 1.2 Upper Limit Protein Factor (Grams per Kg): 1.5 Lower Protein Needs (Protein): 80 Upper Protein Needs (Protein): 100 Fluid Factor (ml/kg): 35 Estimated Fluid Needs (ml): 2,328 Dietitian Reviewed in Medical Record: Current diet, Curent medications, Intake & Output, Labs, Medical history Diet Order: NPO Objective Comments: PMH: squamous cell carcinoma of the base of the tongue, complicated by significant dysphagia s/p PEG placement. first cycle of chemotherapy last week. Labs of note: Cr 1.49, Na 156, K+ 3.4, WBC 1.4, Hgb 9.1, Hct 26.4 UOP: 2750mls/24 hrs, +1 BM Assessment Assessment: Pt at high nutritional risk r/t his current clinical status. Pt has PEG tube r/ t dysphagia due to cancer of the tongue. Pt's nutritional needs as assessed above. He is at 80% of his ideal body weight and receiving chemotherapy. Recommend Jevity with goal rate 65ml/hr to provide 2340kcals, 100gms protein and 1186mls free water. Pt will need 300mls free water flushes q 6 hrs to meet his fluid needs. Noted DOMINICK much improved, UOP good, Cr down from 2.68 at admission. Will monitor TF tolerance, clinical course. Recommendations: TF Jevity 1.5 with goal rate 65ml/hr Dietitian to Monitor: Lab values, Electrolytes, Renal labs, Intake & Output, Tube feeding tolerance, Weight change, Medical course
--- NOTE | 2018-08-13 10:23 | P.PN ---
Subjective Interval history: Follow-up right upper lobe pneumonia/squamous cell carcinoma of the tongue/ dysphagia August 13, 2018-patient seen and examined, no acute event overnight. Currently afebrile. N.p.o. Physical Exam Vital signs: Vital Signs 08/12/18 10:49 08/12/18 10:50 08/12/18 10:51 Temperature 98.9 F Pulse Rate 83 84 85 Respiratory Rate 18 18 17 Blood Pressure 109/55 L 109/54 L 112/55 L Pulse Oximetry 96 70 L 94 L 08/12/18 10:52 08/12/18 11:00 08/12/18 11:06 Temperature 98.9 F Pulse Rate 90 71 74 Respiratory Rate 21 15 17 Blood Pressure 109/55 L 115/54 L 114/56 L Pulse Oximetry 84 L 77 L 100 08/12/18 11:15 08/12/18 11:30 08/12/18 11:45 Temperature Pulse Rate 77 92 H 68 Respiratory Rate 17 18 17 Blood Pressure 114/56 L 119/58 L 126/60 Pulse Oximetry 100 98 100 08/12/18 12:00 08/12/18 12:15 08/12/18 12:30 Temperature 98.7 F Pulse Rate 76 83 73 Respiratory Rate 26 H 20 20 Blood Pressure 125/56 L 128/58 L 128/60 Pulse Oximetry 100 100 99 08/12/18 12:45 08/12/18 13:00 08/12/18 13:15 Temperature Pulse Rate 66 65 68 Respiratory Rate 17 21 18 Blood Pressure 115/56 L 119/58 L 119/57 L Pulse Oximetry 100 100 100 08/12/18 13:30 08/12/18 16:00 08/12/18 20:00 Temperature 99.6 F 99.7 F H Pulse Rate 71 87 87 Respiratory Rate 18 16 16 Blood Pressure 123/58 L 106/55 L 111/49 L Pulse Oximetry 100 100 98 08/12/18 20:30 08/12/18 21:18 08/12/18 21:21 Temperature Pulse Rate 87 80 Respiratory Rate 18 Blood Pressure Pulse Oximetry 99 08/13/18 00:00 08/13/18 03:56 08/13/18 04:00 Temperature Pulse Rate 90 80 100 H Respiratory Rate 16 18 18 Blood Pressure 117/53 L Pulse Oximetry 98 100 08/13/18 07:35 08/13/18 09:25 Temperature 99.4 F Pulse Rate 79 100 H Respiratory Rate 20 18 Blood Pressure 116/55 L Pulse Oximetry 100 100 Intake & Output 08/12/18 08/13/18 08/13/18 18:59 06:59 18:59 Intake Total 2615 / 2615 1880 / 1880 Output Total 1250 / 1250 1500 / 1500 Balance 1365 / 1365 380 / 380 Weight 67.5 kg Intake: IV 2014 1100 / 1100 NS Inj 1,000 ML @ 125 mls/hr IV 1615 / 1615 1000 / 1000 .CONT .Q8H CLAUDIA Rx#:[id number] Maxipime Inj 2,000 MG In NS Inj 100 / 100 100 ML @ 200 mls/hr IV.SIG Q12H CLAUDIA Rx#:[id number] Flagyl 500 MG Inj 100 ML @ 100 300 / 300 100 / 100 mls/hr IV.SIG Q6HR CLAUDIA Rx#: [id number] Oral 200 / 200 Tube Irrigant 60 / 60 Water Bolus Amount 720 / 720 Intake (Blood Product) Amt 400 / 400 Rbc As-3 Leukoreduced Unit 400 / 400 [id number] Output: Urine 1250 / 1250 1500 / 1500 Gastric Drainage 0 / 0 Gastrostomy Tube (PEG) 0 / 0 Other: Date of Last Bowel Movement 08/11/18 08/11/18 08/13/18 # Bowel Movements 1 Narrative: GENERAL: NAD SKIN: Warm and dry. HEAD: Normocephalic. EYES: No scleral icterus. No injection or drainage. NECK: Supple, trachea midline. No JVD or lymphadenopathy. CARDIOVASCULAR: Regular rate and rhythm without murmurs, gallops, or rubs. RESPIRATORY: Breath sounds equal bilaterally. No accessory muscle use. GASTROINTESTINAL: Abdomen soft, non-tender, nondistended. PEG in place MUSCULOSKELETAL: No cyanosis, or edema. BACK: Nontender without obvious deformity. No CVA tenderness. Results - Labs CBC & Chem 7: 08/13/18 05:54 08/13/18 05:54 Laboratory Results - last 24 hr 08/12/18 08/12/18 08/12/18 08:57 11:50 15:10 WBC RBC Hgb 10.0 L D Hct 29.3 L MCV MCH MCHC RDW Plt Count MPV Prelim Diff (Auto) Neut % (Auto) Lymph % (Auto) [place] % (Auto) Eos % (Auto) Baso % (Auto) Neut # (Auto) Lymph # (Auto) [place] # (Auto) Eos # (Auto) Baso # (Auto) WBC Differential Seg Neuts % (Manual) Band Neuts % (Manual) Lymphocytes % (Manual) Monocytes % (Manual) Basophils % (Manual) Abs Neuts (Manual) Differential Comment Toxic Granulation Dohle Bodies Platelet Estimate Platelet Morphology Sodium Potassium Chloride Carbon Dioxide Anion Gap BUN Creatinine Estimated GFR POC Glucose 102 Random Glucose Calcium Phosphorus Magnesium Random Vancomycin Blood Type A Positive Antibody Screen Negative MTS Gel Crossmatch See Detail 08/12/18 08/13/18 08/13/18 18:01 05:54 05:54 WBC 1.4 L RBC 3.03 L Hgb 9.1 L Hct 26.4 L MCV 87.2 MCH 29.9 MCHC 34.3 RDW 13.4 Plt Count 60 L MPV 10.9 Prelim Diff (Auto) Slide review pending Neut % (Auto) 7.6 L Lymph % (Auto) 67.[address] [place] % (Auto) 24.1 H Eos % (Auto) 0.8 Baso % (Auto) 0.1 Neut # (Auto) 0.1 L* Lymph # (Auto) 0.[address] # (Auto) 0.3 Eos # (Auto) 0.0 Baso # (Auto) 0.0 WBC Differential Manual diff final Seg Neuts % (Manual) 9 L Band Neuts % (Manual) 1 Lymphocytes % (Manual) 71 H Monocytes % (Manual) 18 H Basophils % (Manual) 1 Abs Neuts (Manual) 0.1 L* Differential Comment . Toxic Granulation 2+ H Dohle Bodies Present H Platelet Estimate Low L Platelet Morphology Enlarged H Sodium 156 H* Potassium 3.4 L Chloride 122 H Carbon Dioxide 24.4 Anion Gap 10 BUN 39 H Creatinine 1.49 H Estimated GFR 59 L POC Glucose 104 Random Glucose 86 Calcium 8.1 L Phosphorus 2.6 Magnesium 1.6 Random Vancomycin 18.9 Blood Type Antibody Screen MTS Gel Crossmatch Microbiology 08/11/18 22:20 Blood - Peripheral Aerobic Blood Culture - Preliminary No growth in 1 day 08/11/18 22:20 Blood - Peripheral Anaerobic Blood Culture - Preliminary No growth in 1 day 08/11/18 22:10 Blood - Peripheral Aerobic Blood Culture - Preliminary No growth in 1 day 08/11/18 22:10 Blood - Peripheral Anaerobic Blood Culture - Preliminary No growth in 1 day Assessment and Plan - Plan 57-year-old man with Right upper lobe pneumonia Currently on cefepime and Flagyl, monitor culture report Nebs, Aggressive pulmonary toilet Severe sepsis Continue IV fluid resuscitation Broad-spectrum antibiotics including Flagyl and cefepime Acute kidney injury Strict I's and O's Continue IV fluid hydration and monitor BUN and creatinine Renal ultrasound to rule out obstruction/hydronephrosis-negative for obstruction Hypernatremia Free water deficit Severe dehydration Acute intravascular volume depletion Acute protein calorie malnutritionsevere Severe dysphasia Strict n.p.o. continue IV fluid hydration Jevity 1.5 at 60 mils an hour Daily BMP, magnesium, phosphorus Reconsult speech for repeat barium swallow study which was recommended on last admission Severe neutropenic sepsis Right upper lobe pneumonia 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 Rivera Daily CBC Hyperglycemia of critical illness -- SSI, medium scale, every 6 Prophylaxis: GI Prophylaxis Protonix IV every 24 hours DVT Prophylaxis -- SCDs Lovenox 30 mg subcu daily
[2018-08-13] MEDS: Enoxaparin Inj 30 MG/0.3 ML Syringe SQ SCH (10:33)
[2018-08-13] MEDS: Polyethylene Glycol 3350 17 GM Packet PO SCH (10:34)
[2018-08-13] MEDS: Senna/Docusate Sodium 8.6/50 MG Tablet PO SCH (10:35)
--- NOTE | 2018-08-13 10:42 | P.PNONC ---
Subjective Interval history: Afebrile, sleeping on approach but awakens easily to voice. Patient denies any shortness of breath, states he just received a breathing treatment. Denies nausea vomiting or diarrhea. He reports he slept well, however he is trying to get some rest prior to working with physical therapy. Objective Vital Signs/Intake & Output: Vital Signs 08/12/18 10:49 08/12/18 10:50 08/12/18 10:51 Temperature 98.9 F Pulse Rate 83 84 85 Respiratory Rate 18 18 17 Blood Pressure 109/55 L 109/54 L 112/55 L Pulse Oximetry 96 70 L 94 L 08/12/18 10:52 08/12/18 11:00 08/12/18 11:06 Temperature 98.9 F Pulse Rate 90 71 74 Respiratory Rate 21 15 17 Blood Pressure 109/55 L 115/54 L 114/56 L Pulse Oximetry 84 L 77 L 100 08/12/18 11:15 08/12/18 11:30 08/12/18 11:45 Temperature Pulse Rate 77 92 H 68 Respiratory Rate 17 18 17 Blood Pressure 114/56 L 119/58 L 126/60 Pulse Oximetry 100 98 100 08/12/18 12:00 08/12/18 12:15 08/12/18 12:30 Temperature 98.7 F Pulse Rate 76 83 73 Respiratory Rate 26 H 20 20 Blood Pressure 125/56 L 128/58 L 128/60 Pulse Oximetry 100 100 99 08/12/18 12:45 08/12/18 13:00 08/12/18 13:15 Temperature Pulse Rate 66 65 68 Respiratory Rate 17 21 18 Blood Pressure 115/56 L 119/58 L 119/57 L Pulse Oximetry 100 100 100 08/12/18 13:30 08/12/18 16:00 08/12/18 20:00 Temperature 99.6 F 99.7 F H Pulse Rate 71 87 87 Respiratory Rate 18 16 16 Blood Pressure 123/58 L 106/55 L 111/49 L Pulse Oximetry 100 100 98 08/12/18 20:30 08/12/18 21:18 08/12/18 21:21 Temperature Pulse Rate 87 80 Respiratory Rate 18 Blood Pressure Pulse Oximetry 99 08/13/18 00:00 08/13/18 03:56 08/13/18 04:00 Temperature Pulse Rate 90 80 100 H Respiratory Rate 16 18 18 Blood Pressure 117/53 L Pulse Oximetry 98 100 08/13/18 07:35 08/13/18 09:25 Temperature 99.4 F Pulse Rate 79 100 H Respiratory Rate 20 18 Blood Pressure 116/55 L Pulse Oximetry 100 100 Intake & Output 08/12/18 08/13/18 08/13/18 18:59 06:59 18:59 Intake Total 2615 / 2615 1880 / 1880 Output Total 1250 / 1250 1500 / 1500 Balance 1365 / 1365 380 / 380 Weight 67.5 kg Intake: IV 2014 1100 / 1100 NS Inj 1,000 ML @ 125 mls/hr IV 1615 / 1615 1000 / 1000 .CONT .Q8H CAROL ANN Rx#:[id number] Maxipime Inj 2,000 MG In NS Inj 100 / 100 100 ML @ 200 mls/hr IV.SIG Q12H CAROL ANN Rx#:[id number] Flagyl 500 MG Inj 100 ML @ 100 300 / 300 100 / 100 mls/hr IV.SIG Q6HR CAROL ANN Rx#: [id number] Oral 200 / 200 Tube Irrigant 60 / 60 Water Bolus Amount 720 / 720 Intake (Blood Product) Amt 400 / 400 Rbc As-3 Leukoreduced Unit 400 / 400 [id number] Output: Urine 1250 / 1250 1500 / 1500 Gastric Drainage 0 / 0 Gastrostomy Tube (PEG) 0 / 0 Other: Date of Last Bowel Movement 08/11/18 08/11/18 08/13/18 # Bowel Movements 1 Result Diagrams: 08/13/18 05:54 08/13/18 05:54 Laboratory Results: Laboratory Results - last 24 hr 08/12/18 08/12/18 08/12/18 08:57 11:50 15:10 WBC RBC Hgb 10.0 L D Hct 29.3 L MCV MCH MCHC RDW Plt Count MPV Prelim Diff (Auto) Neut % (Auto) Lymph % (Auto) [place] % (Auto) Eos % (Auto) Baso % (Auto) Neut # (Auto) Lymph # (Auto) [place] # (Auto) Eos # (Auto) Baso # (Auto) WBC Differential Seg Neuts % (Manual) Band Neuts % (Manual) Lymphocytes % (Manual) Monocytes % (Manual) Basophils % (Manual) Abs Neuts (Manual) Differential Comment Toxic Granulation Dohle Bodies Platelet Estimate Platelet Morphology Sodium Potassium Chloride Carbon Dioxide Anion Gap BUN Creatinine Estimated GFR POC Glucose 102 Random Glucose Calcium Phosphorus Magnesium Random Vancomycin Blood Type A Positive Antibody Screen Negative MTS Gel Crossmatch See Detail 08/12/18 08/13/18 08/13/18 18:01 05:54 05:54 WBC 1.4 L RBC 3.03 L Hgb 9.1 L Hct 26.4 L MCV 87.2 MCH 29.9 MCHC 34.3 RDW 13.4 Plt Count 60 L MPV 10.9 Prelim Diff (Auto) Slide review pending Neut % (Auto) 7.6 L Lymph % (Auto) 67.4 H [place] % (Auto) 24.1 H Eos % (Auto) 0.8 Baso % (Auto) 0.1 Neut # (Auto) 0.1 L* Lymph # (Auto) 0.9 L [place] # (Auto) 0.3 Eos # (Auto) 0.0 Baso # (Auto) 0.0 WBC Differential Manual diff final Seg Neuts % (Manual) 9 L Band Neuts % (Manual) 1 Lymphocytes % (Manual) 71 H Monocytes % (Manual) 18 H Basophils % (Manual) 1 Abs Neuts (Manual) 0.1 L* Differential Comment . Toxic Granulation 2+ H Dohle Bodies Present H Platelet Estimate Low L Platelet Morphology Enlarged H Sodium 156 H* Potassium 3.4 L Chloride 122 H Carbon Dioxide 24.4 Anion Gap 10 BUN 39 H Creatinine 1.49 H Estimated GFR 59 L POC Glucose 104 Random Glucose 86 Calcium 8.1 L Phosphorus 2.6 Magnesium 1.6 Random Vancomycin 18.9 Blood Type Antibody Screen MTS Gel Crossmatch Culture Results: Microbiology 08/11/18 22:20 Aerobic Blood Culture - Preliminary Blood - Peripheral No growth in 1 day Anaerobic Blood Culture - Preliminary No growth in 1 day 08/11/18 22:10 Aerobic Blood Culture - Preliminary Blood - Peripheral No growth in 1 day Anaerobic Blood Culture - Preliminary No growth in 1 day 08/11/18 22:10 Influenza Types A,B Antigen - Final Nasal Wash Negative for FLU A and B antigen Infection due to influenza A or B cannot be ruled out since the antigen present in the sample may be below the detection limit of the test. Medications: Active Medications Generic Name Dose Route Start Last Admin Trade Name Freq PRN Reason Stop Dose Admin Albuterol 1 ampul 08/12/18 04:00 08/13/18 09:25 Duoneb Neb (Carol Ann) NEB 1 ampul Q6HR NEB CAROL ANN Administration Chlorhexidine Gluconate 3 pack 08/12/18 04:00 08/12/18 03:07 Chlorhexidine 2% Cloth TOPICAL 08/17/18 03:59 3 pack DAILY@0400 CAROL ANN Administration Enoxaparin Sodium 30 mg 08/12/18 00:49 08/12/18 08:39 Lovenox Inj SQ 30 mg DAILY CAROL ANN Administration Sodium Chloride 1,000 mls @ 0 mls/hr 08/11/18 22:00 08/12/18 00:29 Ns Inj IV.SIG Infused .Q0M CAROL ANN Infusion Wide Open Sodium Chloride 800 mls @ 0 mls/hr 08/11/18 22:00 08/12/18 01:37 Ns Inj IV.SIG Infused .Q0M CAROL ANN Infusion Wide Open Cefepime HCl 2,000 mg/ Sodium 100 mls @ 200 mls/hr 08/12/18 10:00 08/12/18 22 :45 Chloride IV.SIG 200 mls/hr Q12H CAROL ANN Administration Metronidazole/Sodium Chloride 100 mls @ 100 mls/hr 08/12/18 00:00 08/13/18 06 :21 Flagyl 500 Mg Inj IV.SIG 100 mls/hr Q6HR CAROL ANN Administration Sodium Chloride 1,000 mls @ 125 mls/hr 08/11/18 23:45 08/13/18 06:23 Ns Inj IV.CONT 125 mls/hr .Q8H CAROL ANN Administration Insulin Human Regular 0 units 08/12/18 00:00 08/13/18 06:22 Novolin R Correctional Sugar Inj SQ Not Given Q6HR [facility] Protocol Lactulose 30 ml 08/12/18 09:00 08/12/18 22:45 Lactulose Liq PO 30 ml BID CAROL ANN Administration Pantoprazole Sodium 40 mg 08/13/18 00:00 08/13/18 00:34 Protonix Inj IV.PUSH 40 mg Q24H CAROL ANN Administration Polyethylene Glycol 17 gm 08/12/18 09:00 08/12/18 22:47 Miralax PO Not Given BID CAROL ANN Senna/Docusate Sodium 1 tab 08/12/18 09:00 08/12/18 22:46 Gilda-Colace PO Not Given BID CAROL ANN Objective Remarks: GENERAL: Chronically ill-appearing male patient, appears older than stated age, in no acute distress. SKIN: Warm and dry. HEAD: Normocephalic. EYES: No scleral icterus. No injection or drainage. NECK: Supple, trachea midline. CARDIOVASCULAR: Regular rate and rhythm without murmurs. RESPIRATORY: Posterior breath sounds clear, equal bilaterally. No accessory muscle use. GASTROINTESTINAL: Abdomen soft, non-tender, nondistended. PEG tube to LUQ. EXTREMITIES: No cyanosis, or edema. MUSCULOSKELETAL: Adequate muscle tone. NEUROLOGICAL: No obvious focal deficit. Sleeping, awakens easily to voice, alert, and oriented x3. PSYCHIATRIC: Appropriate mood and affect; insight and judgment normal. Assessment/Plan - Plan Mr. 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 Currently admitted for neutropenia, pneumonia, pancytopenia and renal failure. Recommendations: 1. Squamous cell carcinoma, status [facility] completed approximately 5 days ago. 2. Pancytopenia, secondary to chemotherapy. 3. Neutropenia, afebrile. Chest x-ray shows right upper lobe pneumonia. Blood cultures no growth times 1 day. Currently on cefepime and Flagyl, received vancomycin yesterday-this has been discontinued. 4. Renal function improving. - Attending Statement The exam, history, and the medical decision-making described in the above note were completed with the assistance of the mid-level provider. I reviewed and agree with the findings presented. I attest that I had a [id number] encounter with the patient on the same day, and personally performed and documented my assessment and findings in the medical record. Prior to coming to the hospital the patient was able to take liquids without a problem. He has a G-tube which is not being used. Will begin clear liquids and feeding through the G-tube 1 can of Ensure 3 times a day. He has a low- grade temperature. We will continue antibiotics and anticipate that the blood counts will recover in the next several days.
[2018-08-13] MEDS ORDERED: Vancomycin Inj 1,000 MG in Sodium Chlor 0.9% Inj 250 ML IV.SIG ONE (16:00)
[2018-08-14] MEDS ORDERED: Acetaminophen 325 MG Tablet PO ONE (00:38)
[2018-08-14] MEDS: Chlorhexidine Gluconate 2% 1 Pack (2 Cloths) TOPICAL SCH ×2 (00:56→04:14)
[2018-08-14] MEDS: Polyethylene Glycol 3350 17 GM Packet PO SCH ×3 (00:57→21:24)
[2018-08-14] MEDS: Senna/Docusate Sodium 8.6/50 MG Tablet PO SCH ×3 (00:57→21:24)
[2018-08-14] MEDS: Sod Chloride 0.9% Inj 1,000 ML IV.CONT SCH ×3 (00:58→01:00)
[2018-08-14] MEDS: Pantoprazole Inj 40 MG Vial IV.PUSH SCH ×2 (01:01→23:23)
[2018-08-14] MEDS: Insulin NovoLIN Regular Correctional Sugar Inj SQ SCH ×5 (01:04→23:37)
[2018-08-14 06:49] LABS: Hematocrit 30.5 % (39.0-51.0); Hemoglobin 10.1 gm/dL (13.0-17.0); Mean Corpuscular Hemoglobin 29.4 pg (27.0-34.0); Mean Corpuscular Volume 88.9 fL (80.0-100.0); Mean Platelet Volume 9.5 fL (7.0-11.0); Platelet Count 63 th/mm3 (150-450); Red Blood Count 3.43 mil/mm3 (4.50-5.90); Red Cell Distribution Width 13.3 % (11.6-17.2); White Blood Count 1.6 th/mm3 (4.0-11.0)
[2018-08-14 07:14] LABS: Alanine Aminotransferase 9 U/L (12-78); Alkaline Phosphatase 41 U/L (45-117); Anion Gap 9 meq/L (5-15); Aspartate Aminotransferase 10 U/L (15-37); Blood Urea Nitrogen 26 mg/dL (7-18); Calcium 8.6 mg/dL (8.5-10.1); Carbon Dioxide 26.6 meq/L (21.0-32.0); Chloride 122 meq/L (98-107); Glomerular Filtration Rate 58 mL/min (>89); Glucose,Random 87 mg/dL (74-106); Magnesium 1.5 mg/dL (1.5-2.5); Phosphorus 2.2 mg/dL (2.5-4.9); Total Protein 6.9 g/dL (6.4-8.2); Vancomycin,Random 17.1 Comment
[2018-08-14 07:34] LABS: Sodium 158 meq/L (136-145)
[2018-08-14 08:44] LABS: Lymphocytes 64 % (9-44); Monocytes 11 % (0-8); Myelocytes 1 % (0-0); Plasma Cells 1 % (0-0)
[2018-08-14] MEDS: Vancomycin Inj 1,000 MG in Sodium Chlor 0.9% Inj 250 ML IV.SIG SCH ×2 (11:15→11:16)
[2018-08-14] MEDS: Enoxaparin Inj 30 MG/0.3 ML Syringe SQ SCH (11:15)
--- NOTE | 2018-08-14 12:09 | P.PN ---
Subjective Interval history: Follow-up right upper lobe pneumonia/squamous cell carcinoma of the tongue/ dysphagia/neutropenia/pancytopenia/hypernatremia August 13, 2018-patient seen and examined, no acute event overnight. Currently afebrile. N.p.o. August 14, 2018-patient seen and examined, he was spiking fevers yesterday. Currently afebrile. Physical Exam Vital signs: Vital Signs 08/13/18 15:20 08/13/18 16:00 08/13/18 16:57 Temperature 100.4 F H Pulse Rate 86 87 86 Respiratory Rate 18 18 Blood Pressure 121/54 L Pulse Oximetry 100 08/13/18 17:47 08/13/18 20:00 08/13/18 21:30 Temperature 99.8 F H 100.2 F H Pulse Rate 86 75 Respiratory Rate 18 14 Blood Pressure 122/62 Pulse Oximetry 99 99 08/14/18 00:00 08/14/18 03:23 08/14/18 04:00 Temperature 99.0 F 98.9 F Pulse Rate 97 H 76 84 Respiratory Rate 16 18 18 Blood Pressure 120/68 120/66 Pulse Oximetry 99 100 08/14/18 09:59 Temperature Pulse Rate 88 Respiratory Rate 16 Blood Pressure Pulse Oximetry 100 Intake & Output 08/13/18 08/14/18 08/14/18 18:59 06:59 18:59 Intake Total 650 / 650 1775 / 1775 Output Total 1600 / 1600 1401 / 1401 Balance -950 / -950 374 / 374 Weight 67.5 kg Intake: IV 650 / 650 1415 / 1415 NS Inj 1,000 ML @ 125 mls/hr IV 1115 / 1115 .CONT .Q8H CLAUDIA Rx#:[id number] Maxipime Inj 2,000 MG In NS Inj 100 / 100 100 / 100 100 ML @ 200 mls/hr IV.SIG Q12H CLAUDIA Rx#:[id number] Vancomycin Inj 1,000 MG In NS 250 / 250 Inj 250 ML @ 250 mls/hr IV.SIG ONCE ONE Rx#:[id number] Flagyl 500 MG Inj 100 ML @ 100 300 / 300 200 / 200 mls/hr IV.SIG Q6HR CLAUDIA Rx#: [id number] Tube Irrigant 120 / 120 Water Bolus Amount 240 / 240 Output: Urine 1600 / 1600 1175 / 1175 Stool 225 / 225 Urine/Stool Mix 1 / Gastric Drainage 0 / 0 Gastrostomy Tube (PEG) 0 / 0 Other: # Voids 1 Date of Last Bowel Movement 08/13/18 08/14/18 # Bowel Movements 2 # Oral Regurgitations 425 Narrative: GENERAL: NAD SKIN: Warm and dry. HEAD: Normocephalic. EYES: No scleral icterus. No injection or drainage. NECK: Supple, trachea midline. No JVD or lymphadenopathy. CARDIOVASCULAR: Regular rate and rhythm without murmurs, gallops, or rubs. RESPIRATORY: Breath sounds equal bilaterally. No accessory muscle use. GASTROINTESTINAL: Abdomen soft, non-tender, nondistended. PEG in place MUSCULOSKELETAL: No cyanosis, or edema. BACK: Nontender without obvious deformity. No CVA tenderness. Results - Labs CBC & Chem 7: 08/14/18 06:23 08/14/18 06:23 Laboratory Results - last 24 hr 08/13/18 08/13/18 08/14/18 12:46 17:45 06:23 WBC 1.6 L RBC 3.43 L Hgb 10.1 L Hct 30.5 L MCV 88.9 MCH 29.4 MCHC 33.0 RDW 13.3 Plt Count 63 L MPV 9.5 Prelim Diff (Auto) Manual diff required WBC Differential Manual diff final Seg Neuts % (Manual) 20 Band Neuts % (Manual) 2 Lymphocytes % (Manual) 64 H Monocytes % (Manual) 11 H Basophils % (Manual) 1 Myelocytes % (Man) 1 H Plasma Cell % (Manual) 1 H Abs Neuts (Manual) 0.4 L* Differential Comment . Platelet Estimate Low L Platelet Morphology Enlarged H Sodium Potassium Chloride Carbon Dioxide Anion Gap BUN Creatinine Estimated GFR POC Glucose 102 96 Random Glucose Calcium Phosphorus Magnesium Total Bilirubin AST ALT Alkaline Phosphatase Total Protein Albumin Random Vancomycin 08/14/18 06:23 WBC RBC Hgb Hct MCV MCH MCHC RDW Plt Count MPV Prelim Diff (Auto) WBC Differential Seg Neuts % (Manual) Band Neuts % (Manual) Lymphocytes % (Manual) Monocytes % (Manual) Basophils % (Manual) Myelocytes % (Man) Plasma Cell % (Manual) Abs Neuts (Manual) Differential Comment Platelet Estimate Platelet Morphology Sodium 158 H* Potassium 3.0 L Chloride 122 H Carbon Dioxide 26.6 Anion Gap 9 BUN 26 H Creatinine 1.50 H Estimated GFR 58 L POC Glucose Random Glucose 87 Calcium 8.6 Phosphorus 2.2 L Magnesium 1.5 Total Bilirubin 0.8 AST 10 L ALT 9 L Alkaline Phosphatase 41 L Total Protein 6.9 D Albumin 2.0 L Random Vancomycin 17.1 Microbiology 08/11/18 22:20 Blood - Peripheral Aerobic Blood Culture - Preliminary No growth in 3 days 08/11/18 22:20 Blood - Peripheral Anaerobic Blood Culture - Preliminary No growth in 3 days 08/11/18 22:10 Blood - Peripheral Aerobic Blood Culture - Preliminary No growth in 3 days 08/11/18 22:10 Blood - Peripheral Anaerobic Blood Culture - Preliminary No growth in 3 days Assessment and Plan - Plan 57-year-old man with Right upper lobe pneumonia Currently on cefepime and Flagyl, monitor culture report Nebs, Aggressive pulmonary toilet Severe sepsis Continue IV fluid resuscitation Broad-spectrum antibiotics including Flagyl and cefepime Acute kidney injury Strict I's and O's Continue IV fluid hydration and monitor BUN and creatinine Renal ultrasound to rule out obstruction/hydronephrosis-negative for obstruction Hypernatremia Free water deficit Severe dehydration Acute intravascular volume depletion Acute protein calorie malnutritionsevere Severe dysphasia Strict n.p.o. 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 Rivera Consult infectious disease specialist as needed Daily CBC Hyperglycemia of critical illness -- SSI, medium scale, every 6 Prophylaxis: GI Prophylaxis Protonix IV every 24 hours DVT Prophylaxis -- SCDs Lovenox 30 mg subcu daily
--- NOTE | 2018-08-14 15:25 | P.PNONC ---
Subjective Interval history: T-max 100.4 F. Patient is suctioning with Yonker, the canister is full of brown clear liquid. Order tube feed this a.m., discussed with RN. Patient has food tray at bedside, discussed with speech therapy, she is recommending sips for pleasure only and nutrition via PEG tube. Objective Vital Signs/Intake & Output: Vital Signs 08/13/18 16:00 08/13/18 16:57 08/13/18 17:47 Temperature 99.8 F H Pulse Rate 87 86 Respiratory Rate 18 Blood Pressure Pulse Oximetry 08/13/18 20:00 08/13/18 21:30 08/14/18 00:00 Temperature 100.2 F H 99.0 F Pulse Rate 86 75 97 H Respiratory Rate 18 14 16 Blood Pressure 122/62 120/68 Pulse Oximetry 99 99 99 08/14/18 03:23 08/14/18 04:00 08/14/18 09:59 Temperature 98.9 F Pulse Rate 76 84 88 Respiratory Rate 18 18 16 Blood Pressure 120/66 Pulse Oximetry 100 100 08/14/18 12:00 Temperature 100 F H Pulse Rate Respiratory Rate 18 Blood Pressure Pulse Oximetry Intake & Output 08/13/18 08/14/18 08/14/18 18:59 06:59 18:59 Intake Total 650 / 650 1775 / 1775 250 / 250 Output Total 1600 / 1600 1401 / 1401 Balance -950 / -950 374 / 374 250 / 250 Weight 67.5 kg Intake: IV 650 / 650 1415 / 1415 250 / 250 NS Inj 1,000 ML @ 125 mls/hr IV 1115 / 1115 .CONT .Q8H CAROL ANN Rx#:[id number] Maxipime Inj 2,000 MG In NS Inj 100 / 100 100 / 100 100 ML @ 200 mls/hr IV.SIG Q12H CAROL ANN Rx#:[id number] Vancomycin Inj 1,000 MG In NS 250 / 250 250 / 250 Inj 250 ML @ 250 mls/hr IV.SIG Q24H CAROL ANN Rx#:[id number] Flagyl 500 MG Inj 100 ML @ 100 300 / 300 200 / 200 mls/hr IV.SIG Q6HR CAROL ANN Rx#: [id number] Tube Irrigant 120 / 120 Water Bolus Amount 240 / 240 Output: Urine 1600 / 1600 1175 / 1175 Stool 225 / 225 Urine/Stool Mix 1 / 1 Gastric Drainage 0 / 0 Gastrostomy Tube (PEG) 0 / 0 Other: # Voids 1 Date of Last Bowel Movement 08/13/18 08/14/18 # Bowel Movements 2 # Oral Regurgitations 425 Result Diagrams: 08/14/18 06:23 08/14/18 06:23 Laboratory Results: Laboratory Results - last 24 hr 08/13/18 08/14/18 08/14/18 17:45 06:23 06:23 WBC 1.6 L RBC 3.43 L Hgb 10.1 L Hct 30.5 L MCV 88.9 MCH 29.4 MCHC 33.0 RDW 13.3 Plt Count 63 L MPV 9.5 Prelim Diff (Auto) Manual diff required WBC Differential Manual diff final Seg Neuts % (Manual) 20 Band Neuts % (Manual) 2 Lymphocytes % (Manual) 64 H Monocytes % (Manual) 11 H Basophils % (Manual) 1 Myelocytes % (Man) 1 H Plasma Cell % (Manual) 1 H Abs Neuts (Manual) 0.4 L* Differential Comment . Platelet Estimate Low L Platelet Morphology Enlarged H Sodium 158 H* Potassium 3.0 L Chloride 122 H Carbon Dioxide 26.6 Anion Gap 9 BUN 26 H Creatinine 1.50 H Estimated GFR 58 L POC Glucose 96 Random Glucose 87 Calcium 8.6 Phosphorus 2.2 L Magnesium 1.5 Total Bilirubin 0.8 AST 10 L ALT 9 L Alkaline Phosphatase 41 L Total Protein 6.9 D Albumin 2.0 L Random Vancomycin 17.1 Culture Results: Microbiology 08/11/18 22:20 Aerobic Blood Culture - Preliminary Blood - Peripheral No growth in 3 days Anaerobic Blood Culture - Preliminary No growth in 3 days 08/11/18 22:10 Aerobic Blood Culture - Preliminary Blood - Peripheral No growth in 3 days Anaerobic Blood Culture - Preliminary No growth in 3 days 08/11/18 22:10 Influenza Types A,B Antigen - Final Nasal Wash Negative for FLU A and B antigen Infection due to influenza A or B cannot be ruled out since the antigen present in the sample may be below the detection limit of the test. Medications: Active Medications Generic Name Dose Route Start Last Admin Trade Name Freq PRN Reason Stop Dose Admin Albuterol 1 ampul 08/12/18 04:00 08/14/18 09:59 Duoneb Neb (Carol Ann) NEB 1 ampul Q6HR NEB CAROL ANN Administration Chlorhexidine Gluconate 3 pack 08/12/18 04:00 08/14/18 04:14 Chlorhexidine 2% Cloth TOPICAL 08/17/18 03:59 Not Given DAILY@0400 CAROL ANN Enoxaparin Sodium 30 mg 08/12/18 00:49 08/14/18 11:15 Lovenox Inj SQ 30 mg DAILY CAROL ANN Administration Sodium Chloride 1,000 mls @ 0 mls/hr 08/11/18 22:00 08/12/18 00:29 Ns Inj IV.SIG Infused .Q0M CAROL ANN Infusion Wide Open Sodium Chloride 800 mls @ 0 mls/hr 08/11/18 22:00 08/12/18 01:37 Ns Inj IV.SIG Infused .Q0M CAROL ANN Infusion Wide Open Cefepime HCl 2,000 mg/ Sodium 100 mls @ 200 mls/hr 08/12/18 10:00 08/14/18 11 :17 Chloride IV.SIG 200 mls/hr Q12H CAROL ANN Administration Metronidazole/Sodium Chloride 100 mls @ 100 mls/hr 08/12/18 00:00 08/14/18 14 :28 Flagyl 500 Mg Inj IV.SIG 100 mls/hr Q6HR CAROL ANN Administration Vancomycin HCl 1,000 mg/ 250 mls @ 250 mls/hr 08/14/18 11:00 08/14/18 14:27 Sodium Chloride IV.SIG Infused Q24H CAROL ANN Infusion Insulin Human Regular 0 units 08/12/18 00:00 08/14/18 05:16 Novolin R Correctional Sugar Inj SQ Not Given Q6HR CAROL ANN Protocol Lactulose 30 ml 08/12/18 09:00 08/14/18 11:16 Lactulose Liq PO 30 ml BID CAROL ANN Administration Pantoprazole Sodium 40 mg 08/13/18 00:00 08/14/18 01:01 Protonix Inj IV.PUSH 40 mg Q24H CAROL ANN Administration Polyethylene Glycol 17 gm 08/12/18 09:00 08/14/18 11:17 Miralax PO 17 gm BID CAROL ANN Administration Senna/Docusate Sodium 1 tab 08/12/18 09:00 08/14/18 11:17 Gilda-Colace PO 1 tab BID CAROL ANN Administration Objective Remarks: GENERAL: Chronically ill-appearing male patient, appears older than stated age, in no acute distress. SKIN: Warm and dry. HEAD: Normocephalic. EYES: No scleral icterus. No injection or drainage. NECK: Supple, trachea midline. CARDIOVASCULAR: Regular rate and rhythm without murmurs. RESPIRATORY: Posterior breath sounds clear, equal bilaterally. No accessory muscle use. GASTROINTESTINAL: Abdomen soft, non-tender, nondistended. PEG tube to LUQ. EXTREMITIES: No cyanosis, or edema. MUSCULOSKELETAL: Adequate muscle tone. NEUROLOGICAL: No obvious focal deficit. Awake, alert, and oriented x3. PSYCHIATRIC: Appropriate mood and affect; insight and judgment normal. Assessment/Plan - Plan Mr. 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 Currently admitted for neutropenia, pneumonia, pancytopenia and renal failure. Recommendations: 1. Squamous cell carcinoma, status post [facility] completed approximately 5 days prior to admission. 2. Pancytopenia, secondary to chemotherapy. 3. Neutropenia, T-max 100.4F. Chest x-ray shows right upper lobe pneumonia. Blood cultures no growth times 3 days. Currently on cefepime and Flagyl, and vancomycin. 4. Ordered continuous tube feed, per dietitian's recommendation. Discussed with RN. 5. Concerns with aspiration, speech therapy is recommending sips for pleasure only. Patient self suctioning mouth with the yanchor, canister is full of brown clear fluid. - Attending Statement The exam, history, and the medical decision-making described in the above note were completed with the assistance of the mid-level provider. I reviewed and agree with the findings presented. I attest that I had a [id number] encounter with the patient on the same day, and personally performed and documented my assessment and findings in the medical record. "I am feeling better " Low-grade fever, neutropenia persist but slowly improving Thrombocytopenia and pancytopenia due to the recent chemotherapy cisplatin and 5 -FU Radiation therapy not be initiated until his teeth get fixed He is tolerating tube feeding well His blood count will improve in the next several days Once ANC is more than 1000 then we will stop the antibiotics and if he remains afebrile then he could be discharged He has a follow-up appointment scheduled with his [place] oncologist on August 28 Monitor CBC Discussed with RICARDO
[2018-08-14] MEDS: Potassium Chlor 20 mEq Premix 20 MEQ/100 ML PIGGYBACK IV.SIG SCH ×3 (16:11→22:11)
[2018-08-14] MEDS: Dextrose 10% in Water Inj 1,000 ML IV.CONT SCH (19:10)
[2018-08-15] MEDS: Potassium Chlor 20 mEq Premix 20 MEQ/100 ML PIGGYBACK IV.SIG SCH ×5 (00:40→22:53)
[2018-08-15] MEDS: Dextrose 10% in Water Inj 1,000 ML IV.CONT SCH ×4 (00:40→23:17)
[2018-08-15] MEDS: Sod Chloride 0.9% Inj 1,000 ML IV.CONT SCH (01:39)
[2018-08-15] MEDS: Chlorhexidine Gluconate 2% 1 Pack (2 Cloths) TOPICAL SCH (03:56)
[2018-08-15] MEDS: Insulin NovoLIN Regular Correctional Sugar Inj SQ SCH ×4 (05:01→23:39)
[2018-08-15 06:43] LABS: Hematocrit 30.2 % (39.0-51.0); Hemoglobin 9.9 gm/dL (13.0-17.0); Mean Corpuscular HGB Conc 32.6 % (32.0-36.0); Mean Corpuscular Hemoglobin 29.3 pg (27.0-34.0); Mean Platelet Volume 9.6 fL (7.0-11.0); Platelet Count 78 th/mm3 (150-450); Red Blood Count 3.36 mil/mm3 (4.50-5.90); Red Cell Distribution Width 13.6 % (11.6-17.2); White Blood Count 2.8 th/mm3 (4.0-11.0)
[2018-08-15 06:58] LABS: Alanine Aminotransferase 8 U/L (12-78); Albumin 1.9 g/dL (3.4-5.0); Alkaline Phosphatase 40 U/L (45-117); Anion Gap 6 meq/L (5-15); Aspartate Aminotransferase 7 U/L (15-37); Blood Urea Nitrogen 20 mg/dL (7-18); Carbon Dioxide 26.6 meq/L (21.0-32.0); Chloride 123 meq/L (98-107); Glomerular Filtration Rate 65 mL/min (>89); Glucose,Random 152 mg/dL (74-106); Magnesium 1.3 mg/dL (1.5-2.5); Phosphorus 0.9 mg/dL (2.5-4.9); Total Protein 6.5 g/dL (6.4-8.2)
[2018-08-15 07:14] LABS: Potassium 2.9 meq/L (3.5-5.1); Sodium 156 meq/L (136-145)
[2018-08-15 08:34] LABS: Lymphocytes 56 % (9-44); Monocytes 7 % (0-8)
--- NOTE | 2018-08-15 09:58 | P.PN ---
Subjective Interval history: Follow-up right upper lobe pneumonia/squamous cell carcinoma of the tongue/ dysphagia/neutropenia/pancytopenia/hypernatremia August 13, 2018-patient seen and examined, no acute event overnight. Currently afebrile. N.p.o. August 14, 2018-patient seen and examined, he was spiking fevers yesterday. Currently afebrile. August 15, 2018-patient seen and examined, spiking fever again yesterday. States he feels fine currently today. No chest pain or shortness of breath. Physical Exam Vital signs: Vital Signs 08/14/18 09:59 08/14/18 12:00 08/14/18 15:41 Temperature 100 F H Pulse Rate 88 78 Respiratory Rate 16 18 16 Blood Pressure Pulse Oximetry 100 08/14/18 16:00 08/14/18 20:00 08/14/18 20:01 Temperature 99.7 F H 98.6 F Pulse Rate 95 H 103 H 79 Respiratory Rate 18 16 18 Blood Pressure 117/56 L 103/59 L Pulse Oximetry 100 97 93 L 08/15/18 00:00 08/15/18 04:00 08/15/18 05:19 Temperature 98.4 F 98.6 F Pulse Rate 81 85 85 Respiratory Rate 16 16 20 Blood Pressure 94/51 L 105/55 L Pulse Oximetry 99 100 08/15/18 08:00 Temperature 99.3 F Pulse Rate 91 H Respiratory Rate 18 Blood Pressure 110/51 L Pulse Oximetry 100 Intake & Output 08/14/18 08/15/18 08/15/18 18:59 06:59 18:59 Intake Total 1627 / 1627 2000 / 2000 Output Total 650 / 650 1175 / 1175 Balance 977 / 977 825 / 825 Weight 67 kg Intake: IV 450 / 450 1800 / 1800 D10W Inj 1,000 ML @ 84 mls/hr 1000 / 1000 IV.CONT .[id number] CLAUDIA Rx#: [id number] Maxipime Inj 2,000 MG In NS Inj 200 / 200 100 ML @ 200 mls/hr IV.SIG Q12H CLAUDIA Rx#:[id number] KCl 20 mEq Premix Inj 20 meq In 100 / 100 300 / 300 100 ml @ 50 mls/hr IV.SIG Q2H CLAUDIA Rx#:[id number] Vancomycin Inj 1,000 MG In NS 250 / 250 Inj 250 ML @ 250 mls/hr IV.SIG Q24H CLAUDIA Rx#:[id number] Flagyl 500 MG Inj 100 ML @ 100 100 / 100 300 / 300 mls/hr IV.SIG Q6HR CLAUDIA Rx#: [id number] Oral 480 / 480 200 / 200 Tube Feeding 105 / 105 Water Bolus Amount 592 / 592 Output: Urine 650 / 650 1175 / 1175 Other: Date of Last Bowel Movement 08/13/18 08/14/18 Narrative: GENERAL: NAD SKIN: Warm and dry. HEAD: Normocephalic. EYES: No scleral icterus. No injection or drainage. NECK: Supple, trachea midline. No JVD or lymphadenopathy. CARDIOVASCULAR: Regular rate and rhythm without murmurs, gallops, or rubs. RESPIRATORY: Breath sounds equal bilaterally. No accessory muscle use. GASTROINTESTINAL: Abdomen soft, non-tender, nondistended. PEG in place MUSCULOSKELETAL: No cyanosis, or edema. BACK: Nontender without obvious deformity. No CVA tenderness. Results - Labs CBC & Chem 7: 08/15/18 06:02 08/15/18 06:02 Laboratory Results - last 24 hr 08/14/18 08/14/18 08/15/18 19:58 23:21 04:58 WBC RBC Hgb Hct MCV MCH MCHC RDW Plt Count MPV Prelim Diff (Auto) WBC Differential Seg Neuts % (Manual) Band Neuts % (Manual) Lymphocytes % (Manual) Monocytes % (Manual) Abs Neuts (Manual) Differential Comment Platelet Estimate Platelet Morphology Sodium Potassium Chloride Carbon Dioxide Anion Gap BUN Creatinine Estimated GFR POC Glucose 137 H 191 H 143 H Random Glucose Calcium Phosphorus Magnesium Total Bilirubin AST ALT Alkaline Phosphatase Total Protein Albumin 08/15/18 08/15/18 06:02 06:02 WBC 2.8 L D RBC 3.36 L Hgb 9.9 L Hct 30.2 L MCV 90.0 MCH 29.3 MCHC 32.6 RDW 13.6 Plt Count 78 L MPV 9.6 Prelim Diff (Auto) Manual diff required WBC Differential Manual diff final Seg Neuts % (Manual) 30 Band Neuts % (Manual) 7 H Lymphocytes % (Manual) 56 H Monocytes % (Manual) 7 Abs Neuts (Manual) 1.0 L Differential Comment . Platelet Estimate Low L Platelet Morphology Enlarged H Sodium 156 H* Potassium 2.9 L* Chloride 123 H Carbon Dioxide 26.6 Anion Gap 6 BUN 20 H Creatinine 1.37 H Estimated GFR 65 L POC Glucose Random Glucose 152 H Calcium 8.0 L Phosphorus 0.9 L D Magnesium 1.3 L Total Bilirubin 0.4 AST 7 L ALT 8 L Alkaline Phosphatase 40 L Total Protein 6.5 Albumin 1.9 L Microbiology 08/11/18 22:20 Blood - Peripheral Aerobic Blood Culture - Preliminary No growth in 3 days 08/11/18 22:20 Blood - Peripheral Anaerobic Blood Culture - Preliminary No growth in 3 days 08/11/18 22:10 Blood - Peripheral Aerobic Blood Culture - Preliminary No growth in 3 days 08/11/18 22:10 Blood - Peripheral Anaerobic Blood Culture - Preliminary No growth in 3 days Assessment and Plan - Plan 57-year-old man with Right upper lobe pneumonia Currently on cefepime and Flagyl, monitor culture report Nebs, Aggressive pulmonary toilet Severe sepsis Continue IV fluid resuscitation Broad-spectrum antibiotics including Flagyl and cefepime Acute kidney injury Strict I's and O's Continue IV fluid hydration and monitor BUN and creatinine Renal ultrasound to rule out obstruction/hydronephrosis-negative for obstruction Hypernatremia Free water deficit Severe dehydration Acute intravascular volume depletion Acute protein calorie malnutritionsevere Severe dysphasia Continue D10 water 08/14/18 Jevity 1.5 at 60 mils an hour with tray, Speech therapy recommended thin liquid diet on August 12, 2018 Daily BMP, magnesium, phosphorus Severe neutropenic sepsis Right upper lobe pneumonia 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 Rivera Consult infectious disease specialist as needed Daily CBC Hyperglycemia of critical illness -- SSI, medium scale, every 6 Hypokalemia We will give potassium IV now and monitor electrolyte Prophylaxis: GI Prophylaxis Protonix IV every 24 hours DVT Prophylaxis -- SCDs Lovenox 30 mg subcu daily
[2018-08-15] MEDS: Enoxaparin Inj 30 MG/0.3 ML Syringe SQ SCH (10:48)
[2018-08-15] MEDS: Polyethylene Glycol 3350 17 GM Packet PO SCH ×2 (10:54→22:34)
[2018-08-15] MEDS: Senna/Docusate Sodium 8.6/50 MG Tablet PO SCH ×2 (10:54→22:24)
[2018-08-15] MEDS: Vancomycin Inj 1,000 MG in Sodium Chlor 0.9% Inj 250 ML IV.SIG SCH (12:22)
--- NOTE | 2018-08-15 13:24 | P.PNONC ---
Subjective Interval history: Afebrile. Patient lying in bed, inquiring when he will be able to home. No complaints at this time. Denies pain or shortness of breath. Denies N/V/D Objective Vital Signs/Intake & Output: Vital Signs 08/14/18 15:41 08/14/18 16:00 08/14/18 20:00 Temperature 99.7 F H 98.6 F Pulse Rate 78 95 H 103 H Respiratory Rate 16 18 16 Blood Pressure 117/56 L 103/59 L Pulse Oximetry 100 97 08/14/18 20:01 08/15/18 00:00 08/15/18 04:00 Temperature 98.4 F 98.6 F Pulse Rate 79 81 85 Respiratory Rate 18 16 16 Blood Pressure 94/51 L 105/55 L Pulse Oximetry 93 L 99 100 08/15/18 05:19 08/15/18 08:00 08/15/18 09:00 Temperature 99.3 F Pulse Rate 85 91 H 97 H Respiratory Rate 20 18 14 Blood Pressure 110/51 L Pulse Oximetry 100 08/15/18 10:03 08/15/18 12:00 Temperature 99.9 F H Pulse Rate 87 Respiratory Rate 18 Blood Pressure 110/51 L Pulse Oximetry 93 L 100 Intake & Output 08/14/18 08/15/18 08/15/18 18:59 06:59 18:59 Intake Total 1627 / 1627 2000 / 2000 1100 / 1100 Output Total 650 / 650 1175 / 1175 Balance 977 / 977 825 / 825 1100 / 1100 Weight 67 kg Intake: IV 450 / 450 1800 / 1800 1100 / 1100 D10W Inj 1,000 ML @ 84 mls/hr 1000 / 1000 1000 / 1000 IV.CONT .[id number] [facility] Rx#: [id number] Maxipime Inj 2,000 MG In NS Inj 200 / 200 100 / 100 100 ML @ 200 mls/hr IV.SIG Q12H [facility] Rx#:[id number] KCl 20 mEq Premix Inj 20 meq In 100 / 100 300 / 300 100 ml @ 50 mls/hr IV.SIG Q2H [facility] Rx#:[id number] Vancomycin Inj 1,000 MG In NS 250 / 250 Inj 250 ML @ 250 mls/hr IV.SIG Q24H [facility] Rx#:[id number] Flagyl 500 MG Inj 100 ML @ 100 100 / 100 300 / 300 mls/hr IV.SIG Q6HR [facility] Rx#: [id number] Oral 480 / 480 200 / 200 Tube Feeding 105 / 105 Water Bolus Amount 592 / 592 Output: Urine 650 / 650 1175 / 1175 Other: Date of Last Bowel Movement 08/13/18 08/14/18 Result Diagrams: 08/15/18 06:02 08/15/18 06:02 Laboratory Results: Laboratory Results - last 24 hr 08/14/18 08/14/18 08/15/18 19:58 23:21 04:58 WBC RBC Hgb Hct MCV MCH MCHC RDW Plt Count MPV Prelim Diff (Auto) WBC Differential Seg Neuts % (Manual) Band Neuts % (Manual) Lymphocytes % (Manual) Monocytes % (Manual) Abs Neuts (Manual) Differential Comment Platelet Estimate Platelet Morphology Sodium Potassium Chloride Carbon Dioxide Anion Gap BUN Creatinine Estimated GFR POC Glucose 137 H 191 H 143 H Random Glucose Calcium Phosphorus Magnesium Total Bilirubin AST ALT Alkaline Phosphatase Total Protein Albumin 08/15/18 08/15/18 06:02 06:02 WBC 2.8 L D RBC 3.36 L Hgb 9.9 L Hct 30.2 L MCV 90.0 MCH 29.3 MCHC 32.6 RDW 13.6 Plt Count 78 L MPV 9.6 Prelim Diff (Auto) Manual diff required WBC Differential Manual diff final Seg Neuts % (Manual) 30 Band Neuts % (Manual) 7 H Lymphocytes % (Manual) 56 H Monocytes % (Manual) 7 Abs Neuts (Manual) 1.0 L Differential Comment . Platelet Estimate Low L Platelet Morphology Enlarged H Sodium 156 H* Potassium 2.9 L* Chloride 123 H Carbon Dioxide 26.6 Anion Gap 6 BUN 20 H Creatinine 1.37 H Estimated GFR 65 L POC Glucose Random Glucose 152 H Calcium 8.0 L Phosphorus 0.9 L D Magnesium 1.3 L Total Bilirubin 0.4 AST 7 L ALT 8 L Alkaline Phosphatase 40 L Total Protein 6.5 Albumin 1.9 L Culture Results: Microbiology 08/11/18 22:20 Aerobic Blood Culture - Preliminary Blood - Peripheral No growth in 4 days Anaerobic Blood Culture - Preliminary No growth in 4 days 08/11/18 22:10 Aerobic Blood Culture - Preliminary Blood - Peripheral No growth in 4 days Anaerobic Blood Culture - Preliminary No growth in 4 days Medications: Active Medications Generic Name Dose Route Start Last Admin Trade Name Freq PRN Reason Stop Dose Admin Albuterol 1 ampul 08/12/18 04:00 08/15/18 09:58 Duoneb Neb ([facility]) NEB 1 ampul Q6HR NEB [facility] Administration Chlorhexidine Gluconate 3 pack 08/12/18 04:00 08/15/18 03:56 Chlorhexidine 2% Cloth TOPICAL 08/17/18 03:59 Not Given DAILY@0400 [facility] Enoxaparin Sodium 30 mg 08/12/18 00:49 08/15/18 10:48 Lovenox Inj SQ 30 mg DAILY [facility] Administration Sodium Chloride 1,000 mls @ 0 mls/hr 08/11/18 22:00 08/12/18 00:29 Ns Inj IV.SIG Infused .Q0M [facility] Infusion Wide Open Sodium Chloride 800 mls @ 0 mls/hr 08/11/18 22:00 08/12/18 01:37 Ns Inj IV.SIG Infused .Q0M [facility] Infusion Wide Open Cefepime HCl 2,000 mg/ Sodium 100 mls @ 200 mls/hr 08/12/18 10:00 08/15/18 11 :40 Chloride IV.SIG Infused Q12H [facility] Infusion Metronidazole/Sodium Chloride 100 mls @ 100 mls/hr 08/12/18 00:00 08/15/18 12 :38 Flagyl 500 Mg Inj IV.SIG 100 mls/hr Q6HR [facility] Administration Vancomycin HCl 1,000 mg/ 250 mls @ 250 mls/hr 08/14/18 11:00 08/15/18 12:22 Sodium Chloride IV.SIG 250 mls/hr Q24H [facility] Administration Dextrose 1,000 mls @ 84 mls/hr 08/14/18 12:15 08/15/18 12:41 D10w Inj IV.CONT 84 mls/hr .[id number] [facility] Administration Potassium Chloride 20 meq in 100 mls @ 50 mls/hr 08/15/18 11:00 08/15/18 12: 30 Kcl 20 Meq Premix Inj IV.SIG 08/15/18 18:59 50 mls/hr Q2H [facility] Administration Insulin Human Regular 0 units 08/12/18 00:00 08/15/18 05:01 Novolin R Correctional Sugar Inj SQ Not Given Q6HR [facility] Protocol Lactulose 30 ml 08/12/18 09:00 08/15/18 10:54 Lactulose Liq PO Not Given BID [facility] Pantoprazole Sodium 40 mg 08/13/18 00:00 08/14/18 23:23 Protonix Inj IV.PUSH 40 mg Q24H [facility] Administration Polyethylene Glycol 17 gm 08/12/18 09:00 08/15/18 10:54 Miralax PO 17 gm BID [facility] Administration Senna/Docusate Sodium 1 tab 08/12/18 09:00 08/15/18 10:54 Gilda-Colace PO 1 tab BID [facility] Administration Objective Remarks: GENERAL: Chronically ill-appearing male patient, appears older than stated age, in no acute distress. SKIN: Warm and dry. HEAD: Normocephalic. EYES: No scleral icterus. No injection or drainage. NECK: Supple, trachea midline. CARDIOVASCULAR: Regular rate and rhythm without murmurs. RESPIRATORY: Posterior breath sounds clear, equal bilaterally. No accessory muscle use. GASTROINTESTINAL: Abdomen soft, non-tender, nondistended. PEG tube to LUQ with tube feed in place. EXTREMITIES: No cyanosis, or edema. MUSCULOSKELETAL: Adequate muscle tone. NEUROLOGICAL: No obvious focal deficit. Awake, alert, and oriented x3. PSYCHIATRIC: Appropriate mood and affect; insight and judgment normal. Assessment/Plan - Plan Mr. 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 Currently admitted for neutropenia, pneumonia, pancytopenia and renal failure. Recommendations: 1. Squamous cell carcinoma, status [facility] completed approximately 5 days prior to admission. 2. Pancytopenia, secondary to chemotherapy. 3. Neutropenia, afebrile. ANC 1000 today. blood cultures no growth times 4 days. Currently on cefepime and Flagyl, and vancomycin. 4. Upper lobe pneumonia. Currently on the above antibiotics, will transition to oral. 5. Hypokalemia and hypernatremia, management per attending. - Attending Statement The exam, history, and the medical decision-making described in the above note were completed with the assistance of the mid-level provider. I reviewed and agree with the findings presented. I attest that I had a [id number] encounter with the patient on the same day, and personally performed and documented my assessment and findings in the medical record. Patient is anxious to go home He is overall feeling better Denies any cough, fever or shortness of breath Tube feeding tolerating well ANC 1000 Neutropenia has improved and this will continue to get better. Blood cultures are negative DC vancomycin, cefepime, and Flagyl. Start Levaquin oral Home soon
[2018-08-15] MEDS ORDERED: Acetaminophen 325 MG Tablet PO ONE (20:36)
[2018-08-15] MEDS ORDERED: Potassium Chlor 20 mEq Premix 20 MEQ/100 ML PIGGYBACK IV.SIG SCH (23:15)
[2018-08-15] MEDS: Pantoprazole Inj 40 MG Vial IV.PUSH SCH (23:41)
[2018-08-16 07:00] LABS: Hematocrit 27.1 % (39.0-51.0); Hemoglobin 8.9 gm/dL (13.0-17.0); Mean Corpuscular HGB Conc 32.9 % (32.0-36.0); Mean Corpuscular Hemoglobin 29.3 pg (27.0-34.0); Mean Platelet Volume 9.7 fL (7.0-11.0); Platelet Count 90 th/mm3 (150-450); Red Blood Count 3.05 mil/mm3 (4.50-5.90); Red Cell Distribution Width 13.7 % (11.6-17.2); White Blood Count 3.1 th/mm3 (4.0-11.0)
[2018-08-16 07:46] LABS: Lymphocytes 38 % (9-44); Metamyelocytes 1 % (0-1); Monocytes 10 % (0-8); Platelet Morphology Normal (Normal); Tallied Nucleated RBC 1 (0-0)
[2018-08-16 07:50] LABS: Alanine Aminotransferase 7 U/L (12-78); Albumin 1.7 g/dL (3.4-5.0); Alkaline Phosphatase 38 U/L (45-117); Anion Gap 8 meq/L (5-15); Aspartate Aminotransferase 8 U/L (15-37); Blood Urea Nitrogen 16 mg/dL (7-18); Calcium 7.8 mg/dL (8.5-10.1); Carbon Dioxide 25.3 meq/L (21.0-32.0); Chloride 120 meq/L (98-107); Glomerular Filtration Rate 76 mL/min (>89); Glucose,Random 127 mg/dL (74-106); Magnesium 1.3 mg/dL (1.5-2.5); Sodium 153 meq/L (136-145)
[2018-08-16 08:08] LABS: Potassium 2.9 meq/L (3.5-5.1)
[2018-08-16] MEDS ORDERED: levoFLOXacin 500 MG Tablet PO SCH (09:00)
[2018-08-16] MEDS: Enoxaparin Inj 30 MG/0.3 ML Syringe SQ SCH (09:20)
[2018-08-16] MEDS: Polyethylene Glycol 3350 17 GM Packet PO SCH ×2 (10:35→21:38)
[2018-08-16] MEDS: Senna/Docusate Sodium 8.6/50 MG Tablet PO SCH ×2 (10:35→22:23)
[2018-08-16] MEDS ORDERED: Potassium Chloride 25 MEQ Effervescent Tablet J-TUBE ONE (10:41)
[2018-08-16] MEDS ORDERED: Pharmacy Ordered Lab Info OTHER ONE (10:45)
--- NOTE | 2018-08-16 10:51 | P.PNONC ---
Subjective Interval history: T-max 101.1 F. Patient sleeping on approach, awakens easily to voice. Discussed treatment with IV antibiotics for pneumonia, patient verbalizes understanding. Discussed with RN, she reports that the patient had difficulty tolerating the 300 cc of free water every 6 hours. She also has IV potassium ordered replacement and p.o., will change p.o. potassium to effervescent so she may place in PEG tube. Patient has no complaints at this time. Objective Vital Signs/Intake & Output: Vital Signs 08/15/18 12:00 08/15/18 19:47 08/15/18 20:01 Temperature 99.9 F H 101.1 F H Pulse Rate 87 88 89 Respiratory Rate 18 16 Blood Pressure 110/51 L 109/63 Pulse Oximetry 100 100 08/15/18 20:38 08/15/18 23:27 08/16/18 00:05 Temperature 99.1 F Pulse Rate 83 83 71 Respiratory Rate 16 18 Blood Pressure 113/54 L Pulse Oximetry 94 L 99 08/16/18 04:00 08/16/18 04:10 08/16/18 09:14 Temperature 99.2 F 99.6 F Pulse Rate 80 69 Respiratory Rate 18 16 Blood Pressure 135/66 95/65 L Pulse Oximetry 100 100 Intake & Output 08/15/18 08/16/18 08/16/18 18:59 06:59 18:59 Intake Total 1400 / 1400 2230 / 2230 Output Total 800 / 800 Balance 1400 / 1400 1430 / 1430 Weight 68.1 kg Intake: IV 1400 / 1400 1160 / 1160 D10W Inj 1,000 ML @ 84 mls/hr 1000 / 1000 500 / 500 IV.CONT .[id number] [facility] Rx#: [id number] Maxipime Inj 2,000 MG In NS Inj 100 / 100 110 / 110 100 ML @ 200 mls/hr IV.SIG Q12H [facility] Rx#:[id number] KCl 20 mEq Premix Inj 20 meq In 200 / 200 200 / 200 100 ml @ 50 mls/hr IV.SIG Q2H [facility] Rx#:[id number] Vancomycin Inj 1,000 MG In NS 250 / 250 Inj 250 ML @ 250 mls/hr IV.SIG Q24H [facility] Rx#:[id number] Flagyl 500 MG Inj 100 ML @ 100 100 / 100 100 / 100 mls/hr IV.SIG Q6HR [facility] Rx#: [id number] Oral 120 / 120 Tube Feeding 650 / 650 Water Bolus Amount 300 / 300 Output: Urine 800 / 800 Other: # Voids 2 Date of Last Bowel Movement 08/14/18 # Bowel Movements 1 Result Diagrams: 08/16/18 04:43 08/16/18 04:43 Laboratory Results: Laboratory Results - last 24 hr 08/15/18 08/15/18 08/15/18 18:41 21:46 23:32 WBC RBC Hgb Hct MCV MCH MCHC RDW Plt Count MPV Prelim Diff (Auto) WBC Differential Seg Neuts % (Manual) Band Neuts % (Manual) Lymphocytes % (Manual) Monocytes % (Manual) Metamyelocytes % (Man) Abs Neuts (Manual) Nucleated RBCs/100 WBC Differential Comment Platelet Estimate Platelet Morphology Sodium Potassium Chloride Carbon Dioxide Anion Gap BUN Creatinine Estimated GFR POC Glucose 155 H 119 H Random Glucose Lactic Acid 2.2 H Calcium Phosphorus Magnesium Total Bilirubin AST ALT Alkaline Phosphatase Total Protein Albumin 08/16/18 08/16/18 08/16/18 04:41 04:43 04:43 WBC 3.1 L RBC 3.05 L Hgb 8.9 L Hct 27.1 L MCV 89.0 MCH 29.3 MCHC 32.9 RDW 13.7 Plt Count 90 L MPV 9.7 Prelim Diff (Auto) Manual diff required WBC Differential Manual diff final Seg Neuts % (Manual) 40 Band Neuts % (Manual) 11 H Lymphocytes % (Manual) 38 Monocytes % (Manual) 10 H Metamyelocytes % (Man) 1 Abs Neuts (Manual) 1.6 L Nucleated RBCs/100 WBC 1 H Differential Comment . Platelet Estimate Low L Platelet Morphology Normal Sodium 153 H Potassium 2.9 L* Chloride 120 H Carbon Dioxide 25.3 Anion Gap 8 BUN 16 Creatinine 1.19 Estimated GFR 76 L POC Glucose 131 H Random Glucose 127 H Lactic Acid Calcium 7.8 L Phosphorus 1.0 L Magnesium 1.3 L Total Bilirubin 0.4 AST 8 L ALT 7 L Alkaline Phosphatase 38 L Total Protein 6.0 L Albumin 1.7 L Culture Results: Microbiology 08/15/18 21:46 Anaerobic Blood Culture - Final Blood - Peripheral QNS - See aerobic report. 08/11/18 22:20 Aerobic Blood Culture - Preliminary Blood - Peripheral No growth in 4 days Anaerobic Blood Culture - Preliminary No growth in 4 days 08/11/18 22:10 Aerobic Blood Culture - Preliminary Blood - Peripheral No growth in 4 days Anaerobic Blood Culture - Preliminary No growth in 4 days Medications: Active Medications Generic Name Dose Route Start Last Admin Trade Name Beverly PRN Reason Stop Dose Admin Chlorhexidine Gluconate 3 pack 08/12/18 04:00 08/15/18 03:56 Chlorhexidine 2% Cloth TOPICAL 08/17/18 03:59 Not Given DAILY@0400 [facility] Enoxaparin Sodium 30 mg 08/12/18 00:49 08/16/18 09:20 Lovenox Inj SQ 30 mg DAILY [facility] Administration Metronidazole/Sodium Chloride 100 mls @ 100 mls/hr 08/16/18 09:00 08/16/18 09 :19 Flagyl 500 Mg Inj IV.SIG 100 mls/hr Q6H [facility] Administration Insulin Human Regular 0 units 08/12/18 00:00 08/15/18 23:39 Novolin R Correctional Sugar Inj SQ Not Given Q6HR [facility] Protocol Lactulose 30 ml 08/12/18 09:00 08/16/18 10:35 Lactulose Liq PO Not Given BID [facility] Pantoprazole Sodium 40 mg 08/13/18 00:00 08/15/18 23:41 Protonix Inj IV.PUSH 40 mg Q24H [facility] Administration Polyethylene Glycol 17 gm 08/12/18 09:00 08/16/18 10:35 Miralax PO Not Given BID [facility] Senna/Docusate Sodium 1 tab 08/12/18 09:00 08/16/18 10:35 Gilda-Colace PO Not Given BID [facility] Objective Remarks: GENERAL: Chronically ill-appearing male patient, appears older than stated age, in no acute distress. SKIN: Warm and dry. HEAD: Normocephalic. EYES: No scleral icterus. No injection or drainage. NECK: Supple, trachea midline. CARDIOVASCULAR: Regular rate and rhythm without murmurs. RESPIRATORY: Posterior breath sounds clear, equal bilaterally. No accessory muscle use. GASTROINTESTINAL: Abdomen soft, non-tender, nondistended. PEG tube to LUQ. EXTREMITIES: No cyanosis, or edema. MUSCULOSKELETAL: Adequate muscle tone. NEUROLOGICAL: No obvious focal deficit. Awake, alert, and oriented x3. PSYCHIATRIC: Appropriate mood and affect; insight and judgment normal. Assessment/Plan - Plan Mr. 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 Currently admitted for neutropenia, pneumonia, pancytopenia and renal failure. Recommendations: 1. Squamous cell carcinoma, status [facility] completed approximately 5 days prior to admission. 2. Pancytopenia, secondary to chemotherapy, improving. WBC 3.1, hemoglobin 8.9 , platelets 90 K, ANC 1600. 3. Fever, T-max 101.1 F blood cultures no growth times 4 days, repeat cultures pending. Will resume IV antibiotics with Zosyn and Flagyl. 4. Upper lobe pneumonia. Patient still spiking temperatures will resume IV antibiotics with Zosyn and Flagyl. Continue to monitor fevers. 5. Hypokalemia and hypernatremia, management per attending. Changed p.o. potassium to effervescent, patient will be unable to swallow potassium tablet. Patient also receiving IV potassium supplementation. 6. RN reports patient is not tolerating 300 mL of free water every 6 hours, will decrease 200 mL. - Attending Statement The exam, history, and the medical decision-making described in the above note were completed with the assistance of the mid-level provider. I reviewed and agree with the findings presented. I attest that I had a [id number] encounter with the patient on the same day, and personally performed and documented my assessment and findings in the medical record. He is complaining of weakness had fever last night with no chills. I have DC IV antibiotics vancomycin, cefepime and Flagyl yesterday and started him on Levaquin p.o. as neutropenia had resolved For the fever and aspiration pneumonia I will resume IV Flagyl and start Zosyn Discussed with patient. He did not have any specific questions Continue tube feeding Pancytopenia will continue to improve Monitor CBC and electrolytes
[2018-08-16] MEDS: Piperacil/Tazo 3.375 GM Premix 50 ML IV.SIG SCH ×2 (12:00→20:02)
[2018-08-16] MEDS: POTASSIUM CHLORIDE IV.CONT SCH (12:21)
[2018-08-16] MEDS: DEXTROSE IV.CONT SCH (12:21)
[2018-08-16] MEDS: NACL 0.3% IV.CONT SCH (12:21)
[2018-08-16] MEDS: Insulin NovoLIN Regular Correctional Sugar Inj SQ SCH ×2 (14:45→20:01)
--- NOTE | 2018-08-16 15:24 | P.PN ---
Subjective Interval history: awake and alert interactive does own oral sucitoning- - l tolerating tube feedings no complains of pain states some loose stools Physical Exam Vital signs: Vital Signs 08/15/18 19:47 08/15/18 20:01 08/15/18 20:38 Temperature 101.1 F H Pulse Rate 88 89 83 Respiratory Rate 16 16 Blood Pressure 109/63 Pulse Oximetry 100 94 L 08/15/18 23:27 08/16/18 00:05 08/16/18 04:00 Temperature 99.1 F 99.2 F Pulse Rate 83 71 80 Respiratory Rate 18 18 Blood Pressure 113/54 L 135/66 Pulse Oximetry 99 100 08/16/18 04:10 08/16/18 08:00 08/16/18 09:14 Temperature 99.6 F Pulse Rate 69 75 Respiratory Rate 16 Blood Pressure 95/65 L Pulse Oximetry 100 08/16/18 12:00 08/16/18 12:14 08/16/18 13:46 Temperature 98.8 F Pulse Rate 100 H 91 H Respiratory Rate 16 Blood Pressure 98/66 L Pulse Oximetry 100 100 Intake & Output 08/15/18 08/16/18 08/16/18 18:59 06:59 18:59 Intake Total 1400 / 1400 2230 / 2230 100 / 100 Output Total 800 / 800 Balance 1400 / 1400 1430 / 1430 100 / 100 Weight 68.1 kg Intake: IV 1400 / 1400 1160 / 1160 100 / 100 D10W Inj 1,000 ML @ 84 mls/hr 1000 / 1000 500 / 500 IV.CONT .[id number] [facility] Rx#: [id number] Maxipime Inj 2,000 MG In NS Inj 100 / 100 110 / 110 100 ML @ 200 mls/hr IV.SIG Q12H [facility] Rx#:[id number] KCl 20 mEq Premix Inj 20 meq In 200 / 200 200 / 200 100 ml @ 50 mls/hr IV.SIG Q2H [facility] Rx#:[id number] Vancomycin Inj 1,000 MG In NS 250 / 250 Inj 250 ML @ 250 mls/hr IV.SIG Q24H [facility] Rx#:[id number] Flagyl 500 MG Inj 100 ML @ 100 100 / 100 100 / 100 100 / 100 mls/hr IV.SIG Q6H [facility] Rx#: [id number] Oral 120 / 120 Tube Feeding 650 / 650 Water Bolus Amount 300 / 300 Output: Urine 800 / 800 Other: # Voids 2 Date of Last Bowel Movement 08/14/18 # Bowel Movements 1 Narrative: awake and alert, no acute distress anciteric neck supple no rales no wheezes regular rhythm abdmen soft- god bowel sounds + PEG in place extremities no edema neuro exam- non focal Results - Labs CBC & Chem 7: 08/17/18 06:37 08/17/18 06:37 Laboratory Results - last 24 hr 08/15/18 08/15/18 08/15/18 18:41 21:46 23:32 WBC RBC Hgb Hct MCV MCH MCHC RDW Plt Count MPV Prelim Diff (Auto) WBC Differential Seg Neuts % (Manual) Band Neuts % (Manual) Lymphocytes % (Manual) Monocytes % (Manual) Metamyelocytes % (Man) Abs Neuts (Manual) Nucleated RBCs/100 WBC Differential Comment Platelet Estimate Platelet Morphology Sodium Potassium Chloride Carbon Dioxide Anion Gap BUN Creatinine Estimated GFR POC Glucose 155 H 119 H Random Glucose Lactic Acid 2.2 H Calcium Phosphorus Magnesium Total Bilirubin AST ALT Alkaline Phosphatase Total Protein Albumin 08/16/18 08/16/18 08/16/18 04:41 04:43 04:43 WBC 3.1 L RBC 3.05 L Hgb 8.9 L Hct 27.1 L MCV 89.0 MCH 29.3 MCHC 32.9 RDW 13.7 Plt Count 90 L MPV 9.7 Prelim Diff (Auto) Manual diff required WBC Differential Manual diff final Seg Neuts % (Manual) 40 Band Neuts % (Manual) 11 H Lymphocytes % (Manual) 38 Monocytes % (Manual) 10 H Metamyelocytes % (Man) 1 Abs Neuts (Manual) 1.6 L Nucleated RBCs/100 WBC 1 H Differential Comment . Platelet Estimate Low L Platelet Morphology Normal Sodium 153 H Potassium 2.9 L* Chloride 120 H Carbon Dioxide 25.3 Anion Gap 8 BUN 16 Creatinine 1.19 Estimated GFR 76 L POC Glucose 131 H Random Glucose 127 H Lactic Acid Calcium 7.8 L Phosphorus 1.0 L Magnesium 1.3 L Total Bilirubin 0.4 AST 8 L ALT 7 L Alkaline Phosphatase 38 L Total Protein 6.0 L Albumin 1.7 L Microbiology 08/15/18 21:46 Blood - Peripheral Aerobic Blood Culture - Preliminary No growth in 1 day 08/15/18 21:46 Blood - Peripheral Anaerobic Blood Culture - Final QNS - See aerobic report. 08/15/18 21:40 Blood - Peripheral Aerobic Blood Culture - Preliminary No growth in 1 day 08/15/18 21:40 Blood - Peripheral Anaerobic Blood Culture - Preliminary No growth in 1 day 08/11/18 22:20 Blood - Peripheral Aerobic Blood Culture - Final No growth in 5 days 08/11/18 22:20 Blood - Peripheral Anaerobic Blood Culture - Final No growth in 5 days 08/11/18 22:10 Blood - Peripheral Aerobic Blood Culture - Final No growth in 5 days 08/11/18 22:10 Blood - Peripheral Anaerobic Blood Culture - Final No growth in 5 days Assessment and Plan - Plan Mr. 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 Currently admitted for neutropenia, pneumonia, pancytopenia and renal failure. 57-year-old man with Right upper lobe pneumonia Currently on cefepime and Flagyl, monitor culture report Nebs, Aggressive pulmonary toilet Severe sepsis Continue IV fluid resuscitation Broad-spectrum antibiotics including Flagyl and cefepime Acute kidney injury Strict I's and O's Continue IV fluid hydration and monitor BUN and creatinine Renal ultrasound -unremarkable Hypernatremia Free water deficit Severe dehydration Acute intravascular volume depletion Acute protein calorie malnutritionsevere Severe dysphasia Continue D10 water 08/14/18 Jevity 1.5 at 60 mils an hour with tray, Speech therapy recommended thin liquid diet on August 12, 2018 Daily BMP, magnesium, phosphorus change IVF to 1/3 NS Severe neutropenic sepsis Right upper lobe pneumonia 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 Rivera Consult infectious disease specialist as needed Daily CBC Hyperglycemia of critical illness -- SSI, medium scale, every 6 Hypokalemia Hypomagnesemia Hypophosphatemia HYpernatremia KCL in IVF -K supplement 25 meq /PEG bid - [id number] 400 mg bid/PEG - give IV phosphorous x 1 - recheck electrolytes in am - d/w and patient- refused the [place] central line to be access- they wont unless they [facility] - d/w with them that our oncology urse are very adept at accessing this- refused till they get okay from [place] [facility]ology - will replace peripheral and PEG for now Prophylaxis: GI Prophylaxis Protonix / pEG DVT Prophylaxis -- SCDs -UP and ambulate- encourage Lovenox 30 mg subcu daily
[2018-08-16] MEDS: Mag Sulf 1 gm/100 ml Premix 100 ML IV.SIG SCH ×2 (17:00→23:27)
[2018-08-16] MEDS ORDERED: Potassium Phosphate Inj 15 MMOL in Sodium Chlor 0.9% Inj 150 ML IV.SIG ONE (17:00)
[2018-08-16] MEDS: Chlorhexidine Gluconate 2% 1 Pack (2 Cloths) TOPICAL SCH (20:17)
[2018-08-16] MEDS: Potassium Chloride 25 MEQ Effervescent Tablet G-TUBE SCH (21:38)
[2018-08-16] MEDS: Sodium Chloride 0.9% 2 ML Flush BID IV.FLUSH SCH (21:39)
[2018-08-16] MEDS ORDERED: Acetaminophen 325 MG Tablet PO ONE (22:01)
[2018-08-17] MEDS: Pantoprazole Inj 40 MG Vial IV.PUSH SCH (00:37)
[2018-08-17] MEDS: Insulin NovoLIN Regular Correctional Sugar Inj SQ SCH ×5 (00:40→18:03)
[2018-08-17] MEDS: Piperacil/Tazo 3.375 GM Premix 50 ML IV.SIG SCH ×3 (02:39→17:55)
[2018-08-17] MEDS: NACL 0.3% IV.CONT SCH ×2 (05:03→14:26)
[2018-08-17] MEDS: POTASSIUM CHLORIDE IV.CONT SCH ×2 (05:03→14:26)
[2018-08-17] MEDS: DEXTROSE IV.CONT SCH ×2 (05:03→14:26)
[2018-08-17 08:08] LABS: Baso % (Auto) 0.2 % (0.0-2.0); Eos % (Auto) 0.1 % (0.0-4.0); Hematocrit 25.3 % (39.0-51.0); Hemoglobin 8.3 gm/dL (13.0-17.0); Lymph # (Auto) 1.2 th/mm3 (1.0-4.8); Lymph % (Auto) 34.6 % (9.0-44.0); Mean Corpuscular HGB Conc 32.8 % (32.0-36.0); Mean Corpuscular Hemoglobin 29.1 pg (27.0-34.0); Mean Corpuscular Volume 88.9 fL (80.0-100.0); Mean Platelet Volume 9.6 fL (7.0-11.0); Mono # (Auto) 0.3 th/mm3 (0.0-0.9); Mono % (Auto) 9.8 % (0.0-8.0); Neut # (Auto) 1.9 th/mm3 (1.8-7.7); Neut % (Auto) 55.3 % (16.0-70.0); Platelet Count 114 th/mm3 (150-450); Red Blood Count 2.85 mil/mm3 (4.50-5.90); Red Cell Distribution Width 13.9 % (11.6-17.2); White Blood Count 3.5 th/mm3 (4.0-11.0)
[2018-08-17 08:25] LABS: Calcium 7.6 mg/dL (8.5-10.1); Carbon Dioxide 25.6 meq/L (21.0-32.0); Magnesium 1.5 mg/dL (1.5-2.5); Potassium 3.6 meq/L (3.5-5.1)
[2018-08-17 08:27] LABS: Phosphorus 1.2 mg/dL (2.5-4.9)
[2018-08-17 08:54] LABS: Lymphocytes 26 % (9-44); Monocytes 3 % (0-8)
[2018-08-17] MEDS: Senna/Docusate Sodium 8.6/50 MG Tablet PO SCH ×2 (10:00→22:50)
[2018-08-17] MEDS: Polyethylene Glycol 3350 17 GM Packet PO SCH (10:00)
[2018-08-17] MEDS: Enoxaparin Inj 30 MG/0.3 ML Syringe SQ SCH (10:06)
[2018-08-17] MEDS: Potassium Chloride 25 MEQ Effervescent Tablet G-TUBE SCH ×2 (10:06→22:11)
[2018-08-17] MEDS: Sodium Chloride 0.9% 2 ML Flush BID IV.FLUSH SCH ×2 (10:07→22:50)
[2018-08-17] MEDS: Acetaminophen 325 MG Tablet PO PRN ×3 (11:24→22:10)
--- NOTE | 2018-08-17 13:43 | P.PN ---
Subjective Interval history: seen with supportive at bedside no complains does own suctioning chews on ice toelrating tube feedings Physical Exam Vital signs: Vital Signs 08/16/18 13:46 08/16/18 17:22 08/16/18 20:00 Temperature 98.8 F 100.9 F H 100.6 F H Pulse Rate 91 H 94 H 97 H Respiratory Rate 16 19 18 Blood Pressure 98/66 L 95/56 L 88/51 L Pulse Oximetry 100 100 98 08/16/18 20:06 08/16/18 22:58 08/17/18 00:05 Temperature Pulse Rate 91 H 88 Respiratory Rate 18 Blood Pressure Pulse Oximetry 08/17/18 00:32 08/17/18 04:00 08/17/18 04:03 Temperature 99.3 F 98.8 F Pulse Rate 92 H 79 72 Respiratory Rate 18 18 Blood Pressure 85/49 L 87/51 L Pulse Oximetry 99 99 08/17/18 05:00 08/17/18 08:00 08/17/18 12:59 Temperature 100.8 F H 100.5 F H Pulse Rate 71 94 H Respiratory Rate 16 18 16 Blood Pressure 101/54 L 101/52 L Pulse Oximetry 100 98 Intake & Output 08/16/18 08/17/18 08/17/18 18:59 06:59 18:59 Intake Total 1675 / 1675 2175 / 2175 100 / 100 Output Total 400 / 400 Balance 1675 / 1675 1775 / 1775 100 / 100 Intake: IV 1200 / 1200 2175 / 2175 100 / 100 KCl Inj 40 MEQ In D5W/1/3 NS 1020 / 1020 Inj 1,000 ML @ 84 mls/hr IV. CONT .Q12H9M [facility] Rx#:[id number] LR 1000 mL Inj 500 ML @ 500 mls 500 / 500 /hr IV.SIG ONCE ONE Rx#: [id number] Magnesium Sulfate 1 gm/D5W 100 100 / 100 100 / 100 ml Premix 100 ML @ 100 mls/hr IV.SIG Q1H [facility]UDIA Rx#:[id number] Zosyn 3.375 GM Premix 50 ML @ 200 / 200 100 mls/hr IV.SIG Q8H [facility] Rx#: [id number] Potassium Phosphate Inj 15 MMOL 155 / 155 In NS Inj 150 ML @ 38.75 mls/ hr IV.SIG ONCE ONE Rx#:[id number] Flagyl 500 MG Inj 100 ML @ 100 100 / 100 200 / 200 100 / 100 mls/hr IV.SIG Q6H [facility] Rx#: [id number] Oral 475 / 475 Output: Urine 400 / 400 Other: # Voids 3 Date of Last Bowel Movement 08/16/18 08/16/18 # Bowel Movements 2 Narrative: awake and alert, no acute distress anicteric neck supple no rales no wheezes regular rhythm abdmen soft- god bowel sounds + PEG in place extremities no edema neuro exam- non focal Results - Labs CBC & Chem 7: 08/17/18 06:37 08/17/18 06:37 Laboratory Results - last 24 hr 08/17/18 08/17/18 08/17/18 00:40 06:37 06:37 WBC 3.5 L RBC 2.85 L Hgb 8.3 L Hct 25.3 L MCV 88.9 MCH 29.1 MCHC 32.8 RDW 13.9 Plt Count 114 L MPV 9.6 Prelim Diff (Auto) Slide review pending Neut % (Auto) 55.3 Lymph % (Auto) 34.6 [place] % (Auto) 9.8 H Eos % (Auto) 0.1 Baso % (Auto) 0.2 Neut # (Auto) 1.9 Lymph # (Auto) 1.2 Nicholas # (Auto) 0.3 Eos # (Auto) 0.0 Baso # (Auto) 0.0 WBC Differential Manual diff final Seg Neuts % (Manual) 60 Band Neuts % (Manual) 10 H Lymphocytes % (Manual) 26 Monocytes % (Manual) 3 Basophils % (Manual) 1 Abs Neuts (Manual) 2.5 Differential Comment . Platelet Estimate Low L Platelet Morphology Enlarged H Sodium 151 H Potassium 3.6 Chloride 118 H Carbon Dioxide 25.6 Anion Gap 7 BUN 16 Creatinine 1.17 Estimated GFR 78 L POC Glucose 147 H Random Glucose 121 H Calcium 7.6 L Phosphorus 1.2 L Magnesium 1.5 08/17/18 12:56 WBC RBC Hgb Hct MCV MCH MCHC RDW Plt Count MPV Prelim Diff (Auto) Neut % (Auto) Lymph % (Auto) Nicholas % (Auto) Eos % (Auto) Baso % (Auto) Neut # (Auto) Lymph # (Auto) Nicholas # (Auto) Eos # (Auto) Baso # (Auto) WBC Differential Seg Neuts % (Manual) Band Neuts % (Manual) Lymphocytes % (Manual) Monocytes % (Manual) Basophils % (Manual) Abs Neuts (Manual) Differential Comment Platelet Estimate Platelet Morphology Sodium Potassium Chloride Carbon Dioxide Anion Gap BUN Creatinine Estimated GFR POC Glucose 156 H Random Glucose Calcium Phosphorus Magnesium Microbiology 08/15/18 21:46 Blood - Peripheral Aerobic Blood Culture - Preliminary No growth in 2 days 08/15/18 21:46 Blood - Peripheral Anaerobic Blood Culture - Final QNS - See aerobic report. 08/15/18 21:40 Blood - Peripheral Aerobic Blood Culture - Preliminary No growth in 2 days 08/15/18 21:40 Blood - Peripheral Anaerobic Blood Culture - Preliminary No growth in 2 days 08/11/18 22:20 Blood - Peripheral Aerobic Blood Culture - Final No growth in 5 days 08/11/18 22:20 Blood - Peripheral Anaerobic Blood Culture - Final No growth in 5 days 08/11/18 22:10 Blood - Peripheral Aerobic Blood Culture - Final No growth in 5 days 08/11/18 22:10 Blood - Peripheral Anaerobic Blood Culture - Final No growth in 5 days Assessment and Plan - Plan Mr. 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 Currently admitted for neutropenia, pneumonia, pancytopenia and renal failure. 57-year-old man with Right upper lobe pneumonia Currently on cefepime and Flagyl, monitor culture report Nebs, Aggressive pulmonary toilet Severe sepsis Continue IV fluid resuscitation Broad-spectrum antibiotics including Flagyl and cefepime Acute kidney injury Strict I's and O's Continue IV fluid hydration and monitor BUN and creatinine Renal ultrasound -unremarkable Hypernatremia- improved Free water deficit Severe dehydration Acute intravascular volume depletion- resolved Acute protein calorie malnutritionsevere Severe dysphasia Continue D10 water 08/14/18 Jevity 1.5 at 60 mils an hour with traalix, Speech therapy recommended thin liquid diet on August 12, 2018 Daily BMP, magnesium, phosphorus change IVF to 1/3 NS Increase free water to 300 cc q 6 as dietitian recommended Severe neutropenic sepsis Right upper lobe pneumonia 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 Rivera Consult infectious disease specialist as needed Daily CBC Hyperglycemia of critical illness -- SSI, medium scale, every 6 Hypokalemia- improved Hypomagnesemia Hypophosphatemia HYpernatremia KCL in IVF - K supplement 25 meq /PEG bid - stat [id number] 400 mg bid - give IV phosphorous x 1 - ff electrolytes in am - d/w and patient- refused the [place] central line to be access- they wont unless they [facility] - d/w with them that our oncology nurse are very adept at accessing this- refused till they get okay from [facility] - patient refused us to access this "that's my baby" - will replace peripheral and PEG for now Diarrhea- check c diff - DC scheduled Lactulose and Miralax - monitor BMs Prophylaxis: GI Prophylaxis Protonix per pEG DVT Prophylaxis -- SCDs Lovenox 30 mg subcu daily
--- NOTE | 2018-08-17 15:11 | P.PNONC ---
Subjective Interval history: T-max 100.9 F. Patient awake and alert, productive cough. Patient self suctions. Hemoglobin trending down. He got PRBCs on the 24. He denies any bleeding, denies dark stools. Objective Vital Signs/Intake & Output: Vital Signs 08/16/18 17:22 08/16/18 20:00 08/16/18 20:06 Temperature 100.9 F H 100.6 F H Pulse Rate 94 H 97 H 91 H Respiratory Rate 19 18 Blood Pressure 95/56 L 88/51 L Pulse Oximetry 100 98 08/16/18 22:58 08/17/18 00:05 08/17/18 00:32 Temperature 99.3 F Pulse Rate 88 92 H Respiratory Rate 18 18 Blood Pressure 85/49 L Pulse Oximetry 99 08/17/18 04:00 08/17/18 04:03 08/17/18 05:00 Temperature 98.8 F Pulse Rate 79 72 Respiratory Rate 18 16 Blood Pressure 87/51 L Pulse Oximetry 99 08/17/18 08:00 08/17/18 12:59 Temperature 100.8 F H 100.5 F H Pulse Rate 71 94 H Respiratory Rate 18 16 Blood Pressure 101/54 L 101/52 L Pulse Oximetry 100 98 Intake & Output 08/16/18 08/17/18 08/17/18 18:59 06:59 18:59 Intake Total 1675 / 1675 2175 / 2175 1170 / 1170 Output Total 400 / 400 Balance 1675 / 1675 1775 / 1775 1170 / 1170 Intake: IV 1200 / 1200 2175 / 2175 1170 / 1170 KCl Inj 40 MEQ In D5W/1/3 NS 1020 / 1020 1020 / 1020 Inj 1,000 ML @ 84 mls/hr IV. CONT .Q12H9M [facility] Rx#:[id number] LR 1000 mL Inj 500 ML @ 500 mls 500 / 500 /hr IV.SIG ONCE ONE Rx#: [id number] Magnesium Sulfate 1 gm/D5W 100 100 / 100 100 / 100 ml Premix 100 ML @ 100 mls/hr IV.SIG Q1H [facility] Rx#:[id number] Zosyn 3.375 GM Premix 50 ML @ 200 / 200 50 / 50 100 mls/hr IV.SIG Q8H [facility] Rx#: [id number] Potassium Phosphate Inj 15 MMOL 155 / 155 In NS Inj 150 ML @ 38.75 mls/ hr IV.SIG ONCE ONE Rx#:[id number] Flagyl 500 MG Inj 100 ML @ 100 100 / 100 200 / 200 100 / 100 mls/hr IV.SIG Q6H [facility] Rx#: [id number] Oral 475 / 475 Output: Urine 400 / 400 Other: # Voids 3 Date of Last Bowel Movement 08/16/18 08/16/18 # Bowel Movements 2 Result Diagrams: 08/17/18 06:37 08/17/18 06:37 Laboratory Results: Laboratory Results - last 24 hr 08/17/18 08/17/18 08/17/18 00:40 06:37 06:37 WBC 3.5 L RBC 2.85 L Hgb 8.3 L Hct 25.3 L MCV 88.9 MCH 29.1 MCHC 32.8 RDW 13.9 Plt Count 114 L MPV 9.6 Prelim Diff (Auto) Slide review pending Neut % (Auto) 55.3 Lymph % (Auto) 34.6 [place] % (Auto) 9.8 H Eos % (Auto) 0.1 Baso % (Auto) 0.2 Neut # (Auto) 1.9 Lymph # (Auto) 1.2 [place] # (Auto) 0.3 Eos # (Auto) 0.0 Baso # (Auto) 0.0 WBC Differential Manual diff final Seg Neuts % (Manual) 60 Band Neuts % (Manual) 10 H Lymphocytes % (Manual) 26 Monocytes % (Manual) 3 Basophils % (Manual) 1 Abs Neuts (Manual) 2.5 Differential Comment . Platelet Estimate Low L Platelet Morphology Enlarged H Sodium 151 H Potassium 3.6 Chloride 118 H Carbon Dioxide 25.6 Anion Gap 7 BUN 16 Creatinine 1.17 Estimated GFR 78 L POC Glucose 147 H Random Glucose 121 H Calcium 7.6 L Phosphorus 1.2 L Magnesium 1.5 08/17/18 12:56 WBC RBC Hgb Hct MCV MCH MCHC RDW Plt Count MPV Prelim Diff (Auto) Neut % (Auto) Lymph % (Auto) [place] % (Auto) Eos % (Auto) Baso % (Auto) Neut # (Auto) Lymph # (Auto) [place] # (Auto) Eos # (Auto) Baso # (Auto) WBC Differential Seg Neuts % (Manual) Band Neuts % (Manual) Lymphocytes % (Manual) Monocytes % (Manual) Basophils % (Manual) Abs Neuts (Manual) Differential Comment Platelet Estimate Platelet Morphology Sodium Potassium Chloride Carbon Dioxide Anion Gap BUN Creatinine Estimated GFR POC Glucose 156 H Random Glucose Calcium Phosphorus Magnesium Culture Results: Microbiology 08/15/18 21:46 Aerobic Blood Culture - Preliminary Blood - Peripheral No growth in 2 days Anaerobic Blood Culture - Final QNS - See aerobic report. 08/15/18 21:40 Aerobic Blood Culture - Preliminary Blood - Peripheral No growth in 2 days Anaerobic Blood Culture - Preliminary No growth in 2 days 08/11/18 22:20 Aerobic Blood Culture - Final Blood - Peripheral No growth in 5 days Anaerobic Blood Culture - Final No growth in 5 days 08/11/18 22:10 Aerobic Blood Culture - Final Blood - Peripheral No growth in 5 days Anaerobic Blood Culture - Final No growth in 5 days Medications: Active Medications Generic Name Dose Route Start Last Admin Trade Name Freq PRN Reason Stop Dose Admin Acetaminophen 650 mg 08/17/18 10:27 08/17/18 11:24 Tylenol PO 650 mg Q4H PRN Administration fever >100.3 Enoxaparin Sodium 30 mg 08/12/18 00:49 08/17/18 10:06 Lovenox Inj SQ 30 mg DAILY CLAUDIA Administration Metronidazole/Sodium Chloride 100 mls @ 100 mls/hr 08/16/18 09:00 08/17/18 14 :22 Flagyl 500 Mg Inj IV.SIG 100 mls/hr Q6H CLAUDIA Administration Piperacillin/Tazobactam/Dextrose 50 mls @ 100 mls/hr 08/16/18 10:00 08/17/18 12:20 Zosyn 3.375 Gm Premix IV.SIG Infused Q8H [facility]IA Infusion Potassium Chloride 40 meq/ 1,020 mls @ 84 mls/hr 08/16/18 11:00 08/17/18 14: 26 Dextrose/Sodium Chloride IV.CONT 84 mls/hr .Q12H9M CLAUDIA Administration Insulin Human Regular 0 units 08/12/18 00:00 08/17/18 13:48 Novolin R Correctional Sugar Inj SQ 2 units Q6HR CLAUDIA Administration Protocol Potassium Bicarb/Potassium Chloride 25 meq 08/16/18 21:00 08/17/18 10:06 K-Lyte Cl Eff G-TUBE 25 meq BID CLAUDIA Administration Senna/Docusate Sodium 1 tab 08/12/18 09:00 08/17/18 10:00 Gilda-Colace PO Not Given BID CLAUDIA Sodium Chloride 2 ml 08/16/18 21:00 08/17/18 10:07 Ns Flush IV.FLUSH 2 ml BID CLAUDIA Administration Objective Remarks: GENERAL: Chronically ill-appearing male patient, appears older than stated age, in no acute distress. SKIN: Warm and dry. HEAD: Normocephalic. EYES: No scleral icterus. No injection or drainage. NECK: Supple, trachea midline. CARDIOVASCULAR: Regular rate and rhythm without murmurs. RESPIRATORY: Posterior breath sounds diminished, equal bilaterally. Nonlabored at rest. GASTROINTESTINAL: Abdomen soft, non-tender, nondistended. PEG tube to LUQ. EXTREMITIES: No cyanosis, or edema. MUSCULOSKELETAL: Adequate muscle tone. NEUROLOGICAL: No obvious focal deficit. Awake, alert, and oriented x3. PSYCHIATRIC: Appropriate mood and affect; insight and judgment normal. Assessment/Plan - Plan Mr. 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 Currently admitted for neutropenia, pneumonia, pancytopenia and renal failure. Recommendations: 1. Squamous cell carcinoma, status [facility] completed approximately 5 days prior to admission. 2. Pancytopenia, secondary to chemotherapy, improving. WBC 3.1->3.5, hemoglobin decreased slightly to 8.9->8.3, platelets 90->114 K, ANC 2500. 3. Fever, T-max 100.9F blood cultures no growth times 4 days, repeat cultures pending. Will resume IV antibiotics with Zosyn and Flagyl. 4. Upper lobe pneumonia. Patient still spiking temperatures continue IV antibiotics with Zosyn and Flagyl. Continue to monitor fevers. 5. Hypokalemia and hypernatremia, improving, sodium 151 potassium 3.6. Magnesium has also improved to 1.5, phosphorus remains low at 1.2. Management per attending. 6. On Lovenox 30 mg for prophylaxis. - Attending Statement The exam, history, and the medical decision-making described in the above note were completed with the assistance of the mid-level provider. I reviewed and agree with the findings presented. I attest that I had a [id number] encounter with the patient on the same day, and personally performed and documented my assessment and findings in the medical record. Patient denies any new complaint He is running fever He is on the antibiotics, cultures are negative Consult ID in the morning
[2018-08-17] MEDS ORDERED: Sodium Glycerophosphate Inj 30 MMOL in Sodium Chlor 0.9% Inj 250 ML IV.SIG ONE (16:00)
[2018-08-17] MEDS: Magnesium Oxide 400 MG Tablet G-TUBE SCH (22:11)
[2018-08-18] MEDS: Insulin NovoLIN Regular Correctional Sugar Inj SQ SCH ×4 (01:24→18:47)
[2018-08-18] MEDS: Piperacil/Tazo 3.375 GM Premix 50 ML IV.SIG SCH ×3 (02:44→18:07)
[2018-08-18 08:40] LABS: Baso % (Auto) 0.3 % (0.0-2.0); Hemoglobin 8.3 gm/dL (13.0-17.0); Lymph # (Auto) 1.7 th/mm3 (1.0-4.8); Lymph % (Auto) 25.3 % (9.0-44.0); Mean Corpuscular HGB Conc 34.4 % (32.0-36.0); Mean Corpuscular Hemoglobin 29.8 pg (27.0-34.0); Mean Corpuscular Volume 86.7 fL (80.0-100.0); Mean Platelet Volume 9.6 fL (7.0-11.0); Mono # (Auto) 0.6 th/mm3 (0.0-0.9); Mono % (Auto) 8.8 % (0.0-8.0); Neut # (Auto) 4.3 th/mm3 (1.8-7.7); Neut % (Auto) 65.6 % (16.0-70.0); Platelet Count 161 th/mm3 (150-450); Red Blood Count 2.77 mil/mm3 (4.50-5.90); Red Cell Distribution Width 13.6 % (11.6-17.2); White Blood Count 6.6 th/mm3 (4.0-11.0)
[2018-08-18 09:03] LABS: Calcium 7.5 mg/dL (8.5-10.1); Carbon Dioxide 27.5 meq/L (21.0-32.0); Magnesium 1.2 mg/dL (1.5-2.5); Potassium 3.8 meq/L (3.5-5.1)
[2018-08-18 09:07] LABS: Phosphorus 2.4 mg/dL (2.5-4.9)
[2018-08-18] MEDS: Enoxaparin Inj 30 MG/0.3 ML Syringe SQ SCH (11:20)
[2018-08-18] MEDS: Magnesium Oxide 400 MG Tablet G-TUBE SCH (11:21)
[2018-08-18] MEDS: Potassium Chloride 25 MEQ Effervescent Tablet G-TUBE SCH ×2 (11:22→21:18)
[2018-08-18] MEDS: Senna/Docusate Sodium 8.6/50 MG Tablet PO SCH ×2 (11:22→20:47)
[2018-08-18] MEDS: Sodium Chloride 0.9% 2 ML Flush BID IV.FLUSH SCH ×2 (11:23→21:13)
--- NOTE | 2018-08-18 11:51 | MB ---
cc: Wilfredo Cueva MD DATE: 08/18/2018 REQUESTING PHYSICIAN: Dr. Mary Oliver. REASON FOR CONSULTATION: Persistent fever. HISTORY OF PRESENT ILLNESS: He is a 57-year-old black male, who was diagnosed with squamous cell cancer of the esophagus. The patient underwent chemotherapy about a week before admission. He presented to the emergency department because of fever. The patient had a slight cough and generalized malaise on presentation, and he was noted to be bringing up yellow sputum. Chest x-ray showed an infiltrate at the upper lung on the right. He was given antibiotics including cefepime, Flagyl, and vancomycin. Antibiotics were discontinued on 08/15/2018, and his temperature started rising again, and climbed up to 102.8 degrees yesterday evening. The temperature had subsided to low-grade on 08/16/2018. The patient notes that he gets chills. He has creamy-colored sputum, which he is suctioning using a catheter. The patient is receiving tube feedings via a gastric tube. His white blood cell count initially was low at 1.5 on 08/11/2018. The white blood cell count has increased to 6.6 today. The patient denies shortness of breath, nausea or vomiting. He notes having diarrhea about 1 episode a day. C diff testing is negative. Temperature early today was 99.6. The patient appears comfortable. Blood cultures from 08/11/2018 and 08/15/2018 have no growth. Urinalysis on 08/12/2018 was unremarkable, and culture was not done. PAST MEDICAL HISTORY: 1. Esophageal tumor. 2. The patient is status post chemotherapy, which led to neutropenia. The neutropenia is recovering. 3. Pneumonia of the right upper lung. The patient is producing sputum. 4. Persistent fever. 5. Squamous cell carcinoma of the esophagus or oropharynx. 6. History of ankle surgery. 7. History of knee surgery. ALLERGIES: GRAPEFRUIT. MEDICATIONS: 1. Piperacillin/tazobactam 2. Flagyl. 3. Oxycodone. 4. Potassium. SOCIAL HISTORY: No tobacco use. The patient is a former smoker. No alcohol use. No illicit drugs. FAMILY HISTORY: Noncontributory. REVIEW OF SYSTEMS: All systems have been reviewed and are negative, except for features mentioned in history of present illness. PHYSICAL EXAMINATION: GENERAL: This is a slender, well-developed male, who is in no acute distress. He is awake, alert, and oriented. VITAL SIGNS: Temperature 99.6, BP 102/53, respirations 18, heart rate 80. HEENT: The head is atraumatic. Extraocular movements are grossly intact. Pupils reactive to light. No icterus. Oropharynx: Moist mucosa. NECK: Supple. No adenopathy. CHEST: Right upper chest has an [id number], which appears intact. LUNGS: Decreased breath sounds throughout. HEART: Regular S1, S2. No audible murmurs, rubs or gallops. ABDOMEN: Bowel sounds diminished. Soft. No tenderness appreciated. RECTAL: Not performed. EXTREMITIES: No clubbing, cyanosis or edema. SKIN: No rash. NEUROLOGIC: No gross focal findings. PSYCHIATRIC: The patient is calm and cooperative. LABORATORY DATA: WBC 6.6, platelets 161, hemoglobin 8.3, 65% neutrophils, 25% lymphocytes. Creatinine 1.37, BUN 16, sodium 148. IMPRESSION: 1. Fever. The patient is status post chemotherapy for cancer of the esophagus or oropharynx. 2. Immunosuppression secondary to chemotherapy RECOMMENDATIONS: 1. Continue piperacillin/tazobactam. 2. Continue Flagyl. 3. Repeat the chest x-ray. 4. Send sputum culture. 5. Monitor temperature. 6. Obtain blood cultures if temperature spikes again. The source of the fever very likely is secondary to the pneumonia, which may not have improved with prior antibiotics. Thank you for this consultation. I will monitor the patient's progress along with you, and will make further recommendations and follow up, if necessary. Wilfredo Cueva MD FFD/rh , 11:08 AM , 11:22 AM
--- NOTE | 2018-08-18 12:10 | XR ---
EXAM DATE: 08/18/2018 12:04 PM EST AGE/SEX: 57 years / Male INDICATIONS: Pneumonia. CLINICAL DATA: This is the patient's initial encounter. Patient reports that signs and symptoms have been present for 1 week and indicates a pain score of 0/10. MEDICAL/SURGICAL HISTORY: . hyopharyngeal cancer . peg tube COMPARISON: C, CHEST 1V SINGLE AP, 08/11/2018. . FINDINGS: There is a right-sided CT compatible [id number] in place from the right internal jugular approach with tip overlying the SVC. The heart size is normal. There is increased density in the right upper l joni and at the right base. The density in the right upper lobe appears to be cavitary. The left lung is grossly clear. There is a focal area of sclerosis seen at the proximal right humerus. Old healed f racture deformities are seen at lower right ribs. CONCLUSION: Progression of pulmonary consolidation and possible cavitary change in the right upper lung. There is also some new atelectasis or consolidation at the right base. Electronically signed by: Osvaldo Gaston MD 08/18/2018 12:09 PM EST
--- NOTE | 2018-08-18 13:42 | P.PN ---
Subjective Interval history: awake and alert no complains voiding spontaneously Physical Exam Vital signs: Vital Signs 08/17/18 16:00 08/17/18 17:58 08/17/18 19:00 Temperature 101.8 F H Pulse Rate 91 H 101 H 105 H Respiratory Rate 16 Blood Pressure 123/57 L Pulse Oximetry 99 08/17/18 22:04 08/17/18 23:40 08/18/18 00:00 Temperature 102.8 F H 100.5 F H Pulse Rate 96 H 88 82 Respiratory Rate 18 18 Blood Pressure 118/64 96/42 L Pulse Oximetry 100 99 08/18/18 01:22 08/18/18 03:25 08/18/18 04:00 Temperature 99.6 F Pulse Rate 80 75 Respiratory Rate 18 18 Blood Pressure 102/53 L Pulse Oximetry 99 08/18/18 08:00 Temperature Pulse Rate 74 Respiratory Rate Blood Pressure Pulse Oximetry Intake & Output 08/17/18 08/18/18 08/18/18 18:59 06:59 18:59 Intake Total 2588 / 2588 530 / 530 Output Total 1850 / 1850 725 / 725 Balance 738 / 738 -195 / -195 Weight 70 kg Intake: IV 1320 / 1320 530 / 530 KCl Inj 40 MEQ In D5W/1/3 NS 1020 / 1020 Inj 1,000 ML @ 84 mls/hr IV. CONT .Q12H9M [facility] Rx#:[id number] Zosyn 3.375 GM Premix 50 ML @ 100 / 100 50 / 50 100 mls/hr IV.SIG Q8H [facility] Rx#: [id number] Glycophos Inj 30 MMOL In NS Inj 280 / 280 250 ML @ 40 mls/hr IV.SIG ONCE ONE Rx#:[id number] Flagyl 500 MG Inj 100 ML @ 100 200 / 200 200 / 200 mls/hr IV.SIG Q6H [facility] Rx#: [id number] Tube Feeding 768 / 768 Water Bolus Amount 500 / 500 Output: Urine 1850 / 1850 725 / 725 Other: # Voids 1 Date of Last Bowel Movement 08/17/18 08/16/18 # Bowel Movements 1 Narrative: awake and alert, no acute distress anicteric neck supple no rales no wheezes regular rhythm abdomen soft- god bowel sounds + PEG in place extremities no edema neuro exam- non focal Results - Labs CBC & Chem 7: 08/18/18 07:51 08/18/18 07:51 Laboratory Results - last 24 hr 08/17/18 08/17/18 08/18/18 18:03 23:14 00:31 WBC RBC Hgb Hct MCV MCH MCHC RDW Plt Count MPV Neut % (Auto) Lymph % (Auto) [place] % (Auto) Eos % (Auto) Baso % (Auto) Neut # (Auto) Lymph # (Auto) [place] # (Auto) Eos # (Auto) Baso # (Auto) WBC Differential Differential Comment Sodium Potassium Chloride Carbon Dioxide Anion Gap BUN Creatinine Estimated GFR POC Glucose 130 H 135 H Random Glucose Calcium Phosphorus Magnesium Stl C.difficile DNA Amp Negative St C. diff Tox Epid 027 Negative 08/18/18 08/18/18 08/18/18 06:10 07:51 07:51 WBC 6.6 RBC 2.77 L Hgb 8.3 L Hct 24.0 L MCV 86.7 MCH 29.8 MCHC 34.4 RDW 13.6 Plt Count 161 D MPV 9.6 Neut % (Auto) 65.6 Lymph % (Auto) 25.3 [place] % (Auto) 8.8 H Eos % (Auto) 0.0 Baso % (Auto) 0.3 Neut # (Auto) 4.3 Lymph # (Auto) 1.7 [place] # (Auto) 0.6 Eos # (Auto) 0.0 Baso # (Auto) 0.0 WBC Differential . Differential Comment Auto diff final Sodium 148 H Potassium 3.8 Chloride 114 H Carbon Dioxide 27.5 Anion Gap 7 BUN 16 Creatinine 1.37 H Estimated GFR 65 L POC Glucose 96 Random Glucose 94 Calcium 7.5 L Phosphorus 2.4 L D Magnesium 1.2 L Stl C.difficile DNA Amp St C. diff Tox Epid 027 Microbiology 08/15/18 21:46 Blood - Peripheral Aerobic Blood Culture - Preliminary No growth in 3 days 08/15/18 21:46 Blood - Peripheral Anaerobic Blood Culture - Final QNS - See aerobic report. 08/15/18 21:40 Blood - Peripheral Aerobic Blood Culture - Preliminary No growth in 3 days 08/15/18 21:40 Blood - Peripheral Anaerobic Blood Culture - Preliminary No growth in 3 days - Imaging Impressions Chest X-Ray 08/18/18 10:52 CONCLUSION: Progression of pulmonary consolidation and possible cavitary change in the right upper lung. There is also some new atelectasis or consolidation at the right base. Assessment and Plan - Plan Mr. 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 Currently admitted for neutropenia, pneumonia, pancytopenia and renal failure. 57-year-old man with Severe neutropenic sepsis Right upper lobe pneumonia Pancytopenia Febrile neutropenia Thrombocytopenia secondary to chemotherapy Anemia secondary to chemotherapy Currently on Flagyl and cefepime Management per oncology ,Dr. Rivera ID ff Daily CBC Right upper lobe pneumonia Currently on cefepime and Flagyl, ID ff Nebs, Aggressive pulmonary toilet Acute kidney injury Strict I's and O's Continue IV fluid hydration and monitor BUN and creatinine Renal ultrasound -unremarkable Hypernatremia- improved Free water deficit Severe dehydration Acute intravascular volume depletion- resolved Acute protein calorie malnutritionsevere Severe dysphasia Continue D10 water 08/14/18 Jevity 1.5 at 60 mils an hour with tray, Speech therapy recommended thin liquid diet on August 12, 2018 Daily BMP, magnesium, phosphorus change IVF to 1/3 NS Free water to 300 cc q 6 as dietitian recommended Hyperglycemia of critical illness -- SSI, medium scale, every 6 Hypokalemia- improved Hypomagnesemia- persists Hypophosphatemia- persist HYpernatremia- trending down KCL in IVF - K supplement 25 meq /PEG bid - stat [id number] 400 mg bid - give IV phosphorous x 1 - ff electrolytes in am - d/w and patient- refused the [place] central line to be access- they wont unless [facility] - d/w with them that our oncology nurse are very adept at accessing this- refused till they get okay from [place] oncology - patient refused us to access this "that's my baby" - will replace peripheral and PEG for now - give 2 gm MgS02 now - give IV Phosphorous x 1 now - ff CMP Diarrhea- check c diff - DC scheduled Lactulose and Miralax - monitor BMs Prophylaxis: GI Prophylaxis Protonix per pEG DVT Prophylaxis -- SCDs Lovenox 30 mg subcu daily
[2018-08-18] MEDS ORDERED: Potassium Phosphate Inj 30 MMOL in Sodium Chlor 0.9% Inj 250 ML IV.SIG ONE (15:00)
[2018-08-18] MEDS: Mag Sulf 1 gm/100 ml Premix 100 ML IV.SIG SCH ×2 (15:50→18:06)
--- NOTE | 2018-08-18 17:19 | P.PNONC ---
Subjective Interval history: Patient is complaining of fever but no chills he is complaining of weakness Objective Vital Signs/Intake & Output: Vital Signs 08/17/18 17:58 08/17/18 19:00 08/17/18 22:04 Temperature 101.8 F H 102.8 F H Pulse Rate 101 H 105 H 96 H Respiratory Rate 16 18 Blood Pressure 123/57 L 118/64 Pulse Oximetry 99 100 08/17/18 23:40 08/18/18 00:00 08/18/18 01:22 Temperature 100.5 F H Pulse Rate 88 82 Respiratory Rate 18 18 Blood Pressure 96/42 L Pulse Oximetry 99 08/18/18 03:25 08/18/18 04:00 08/18/18 08:00 Temperature 99.6 F Pulse Rate 80 75 74 Respiratory Rate 18 Blood Pressure 102/53 L Pulse Oximetry 99 08/18/18 15:44 Temperature 98.4 F Pulse Rate 85 Respiratory Rate 18 Blood Pressure 92/56 L Pulse Oximetry 100 Intake & Output 08/17/18 08/18/18 08/18/18 18:59 06:59 18:59 Intake Total 2588 / 2588 530 / 530 150 / 150 Output Total 1850 / 1850 725 / 725 Balance 738 / 738 -195 / -195 150 / 150 Weight 70 kg Intake: IV 1320 / 1320 530 / 530 150 / 150 KCl Inj 40 MEQ In D5W/1/3 NS 1020 / 1020 Inj 1,000 ML @ 84 mls/hr IV. CONT .Q12H9M [facility] Rx#:[id number] Zosyn 3.375 GM Premix 50 ML @ 100 / 100 50 / 50 50 / 50 100 mls/hr IV.SIG Q8H [facility] Rx#: [id number] Glycophos Inj 30 MMOL In NS Inj 280 / 280 250 ML @ 40 mls/hr IV.SIG ONCE ONE Rx#:[id number] Flagyl 500 MG Inj 100 ML @ 100 200 / 200 200 / 200 100 / 100 mls/hr IV.SIG Q6H [facility] Rx#: [id number] Tube Feeding 768 / 768 Water Bolus Amount 500 / 500 Output: Urine 1850 / 1850 725 / 725 Other: # Voids 1 Date of Last Bowel Movement 08/17/18 08/16/18 # Bowel Movements 1 Result Diagrams: 08/18/18 07:51 08/18/18 07:51 Laboratory Results: Laboratory Results - last 24 hr 08/17/18 08/17/18 08/18/18 18:03 23:14 00:31 WBC RBC Hgb Hct MCV MCH MCHC RDW Plt Count MPV Neut % (Auto) Lymph % (Auto) [place] % (Auto) Eos % (Auto) Baso % (Auto) Neut # (Auto) Lymph # (Auto) [place] # (Auto) Eos # (Auto) Baso # (Auto) WBC Differential Differential Comment Sodium Potassium Chloride Carbon Dioxide Anion Gap BUN Creatinine Estimated GFR POC Glucose 130 H 135 H Random Glucose Calcium Phosphorus Magnesium Stl C.difficile DNA Amp Negative St C. diff Tox Epid 027 Negative 08/18/18 08/18/18 08/18/18 06:10 07:51 07:51 WBC 6.6 RBC 2.77 L Hgb 8.3 L Hct 24.0 L MCV 86.7 MCH 29.8 MCHC 34.4 RDW 13.6 Plt Count 161 D MPV 9.6 Neut % (Auto) 65.6 Lymph % (Auto) 25.3 [place] % (Auto) 8.8 H Eos % (Auto) 0.0 Baso % (Auto) 0.3 Neut # (Auto) 4.3 Lymph # (Auto) 1.7 [place] # (Auto) 0.6 Eos # (Auto) 0.0 Baso # (Auto) 0.0 WBC Differential . Differential Comment Auto diff final Sodium 148 H Potassium 3.8 Chloride 114 H Carbon Dioxide 27.5 Anion Gap 7 BUN 16 Creatinine 1.37 H Estimated GFR 65 L POC Glucose 96 Random Glucose 94 Calcium 7.5 L Phosphorus 2.4 L D Magnesium 1.2 L Stl C.difficile DNA Amp St C. diff Tox Epid 027 Culture Results: Microbiology 08/15/18 21:46 Aerobic Blood Culture - Preliminary Blood - Peripheral No growth in 3 days Anaerobic Blood Culture - Final QNS - See aerobic report. 08/15/18 21:40 Aerobic Blood Culture - Preliminary Blood - Peripheral No growth in 3 days Anaerobic Blood Culture - Preliminary No growth in 3 days 08/11/18 22:20 Aerobic Blood Culture - Final Blood - Peripheral No growth in 5 days Anaerobic Blood Culture - Final No growth in 5 days 08/11/18 22:10 Aerobic Blood Culture - Final Blood - Peripheral No growth in 5 days Anaerobic Blood Culture - Final No growth in 5 days Imaging Studies: Impressions Chest X-Ray 08/18/18 10:52 CONCLUSION: Progression of pulmonary consolidation and possible cavitary change in the right upper lung. There is also some new atelectasis or consolidation at the right base. Medications: Active Medications Generic Name Dose Route Start Last Admin Trade Name Freq PRN Reason Stop Dose Admin Acetaminophen 650 mg 08/17/18 10:27 08/17/18 22:10 Tylenol PO 650 mg Q4H PRN Administration fever >100.3 Enoxaparin Sodium 30 mg 08/12/18 00:49 08/18/18 11:20 Lovenox Inj SQ 30 mg DAILY [facility] Administration Metronidazole/Sodium Chloride 100 mls @ 100 mls/hr 08/16/18 09:00 08/18/18 15 :50 Flagyl 500 Mg Inj IV.SIG 100 mls/hr Q6H [facility] Administration Piperacillin/Tazobactam/Dextrose 50 mls @ 100 mls/hr 08/16/18 10:00 08/18/18 13:00 Zosyn 3.375 Gm Premix IV.SIG Infused Q8H [facility] Infusion Potassium Chloride 40 meq/ 1,020 mls @ 84 mls/hr 08/16/18 11:00 08/17/18 14: 26 Dextrose/Sodium Chloride IV.CONT 84 mls/hr .Q12H9M [facility] Administration Insulin Human Regular 0 units 08/12/18 00:00 08/18/18 12:47 Novolin R Correctional Sugar Inj SQ Not Given Q6HR [facility] Protocol Lansoprazole 30 mg 08/18/18 09:00 08/18/18 11:21 Prevacid Solutab NG/OG 30 mg DAILY [facility] Administration Magnesium Oxide 400 mg 08/17/18 21:00 08/18/18 11:21 Mag-Ox G-TUBE 400 mg BID [facility] Administration Potassium Bicarb/Potassium Chloride 25 meq 08/16/18 21:00 08/18/18 11:22 K-Lyte Cl Eff G-TUBE 25 meq BID [facility] Administration Senna/Docusate Sodium 1 tab 08/12/18 09:00 08/18/18 11:22 Gilda-Colace PO Not Given BID [facility] Sodium Chloride 2 ml 08/16/18 21:00 08/18/18 11:23 Ns Flush IV.FLUSH 2 ml BID [facility] Administration Objective Remarks: GENERAL: Chronically ill-appearing male patient, appears older than stated age, in no acute distress. SKIN: Warm and dry. HEAD: Normocephalic. EYES: No scleral icterus. No injection or drainage. NECK: Supple, trachea midline. CARDIOVASCULAR: Regular rate and rhythm without murmurs. RESPIRATORY: Posterior breath sounds diminished, equal bilaterally. Nonlabored at rest. GASTROINTESTINAL: Abdomen soft, non-tender, nondistended. PEG tube to LUQ. EXTREMITIES: No cyanosis, or edema. MUSCULOSKELETAL: Adequate muscle tone. NEUROLOGICAL: No obvious focal deficit. Awake, alert, and oriented x3. PSYCHIATRIC: Appropriate mood and affect; insight and judgment normal. Assessment/Plan - Plan Mr. 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 Currently admitted for neutropenia, pneumonia, pancytopenia and renal failure. Recommendations: 1. Squamous cell carcinoma, [facility] completed approximately 5 days prior to admission. 2. Pancytopenia, secondary to chemotherapy, improving. WBC 3.1->3.5, hemoglobin decreased slightly to 8.9->8.3, platelets 90->114 K, ANC 2500. 3. Fever, T-max 100.9F blood cultures no growth times 4 days, repeat cultures pending. Will resume IV antibiotics with Zosyn and Flagyl. 4. Upper lobe pneumonia. Patient still spiking temperatures continue IV antibiotics with Zosyn and Flagyl. Continue to monitor fevers. 5. Hypokalemia and hypernatremia, improving, sodium 151 potassium 3.6. Magnesium has also improved to 1.5, phosphorus remains low at 1.2. Management per attending. 6. On Lovenox 30 mg for prophylaxis. 08/18/2018 Patient has fever Consult ID for antibiotic management Patient is not neutropenic Once his fever resolved then he could be discharged from my standpoint. He will follow up with [facility] oncologist upon discharge
[2018-08-18] MEDS: NACL 0.3% IV.CONT SCH ×2 (18:08→18:59)
[2018-08-18] MEDS: DEXTROSE IV.CONT SCH ×2 (18:08→18:59)
[2018-08-18] MEDS: POTASSIUM CHLORIDE IV.CONT SCH ×2 (18:08→18:59)
[2018-08-19] MEDS: Insulin NovoLIN Regular Correctional Sugar Inj SQ SCH ×4 (00:37→20:50)
[2018-08-19] MEDS: Piperacil/Tazo 3.375 GM Premix 50 ML IV.SIG SCH ×3 (01:31→20:51)
[2018-08-19] MEDS: Magnesium Oxide 400 MG Tablet G-TUBE SCH ×3 (02:35→20:52)
[2018-08-19 04:12] LABS: Alanine Aminotransferase 7 U/L (12-78); Albumin 1.5 g/dL (3.4-5.0); Alkaline Phosphatase 32 U/L (45-117); Anion Gap 7 meq/L (5-15); Aspartate Aminotransferase 11 U/L (15-37); Blood Urea Nitrogen 15 mg/dL (7-18); Calcium 7.3 mg/dL (8.5-10.1); Carbon Dioxide 27.9 meq/L (21.0-32.0); Chloride 113 meq/L (98-107); Glomerular Filtration Rate Greater Than 89 mL/min (>89); Glucose,Random 77 mg/dL (74-106); Potassium 4.1 meq/L (3.5-5.1); Sodium 148 meq/L (136-145); Total Protein 5.6 g/dL (6.4-8.2)
[2018-08-19] MEDS: POTASSIUM CHLORIDE IV.CONT SCH (05:01)
[2018-08-19] MEDS: NACL 0.3% IV.CONT SCH (05:01)
[2018-08-19] MEDS: DEXTROSE IV.CONT SCH (05:01)
[2018-08-19] MEDS: Potassium Chloride 25 MEQ Effervescent Tablet G-TUBE SCH ×2 (09:25→20:51)
[2018-08-19] MEDS: Sodium Chloride 0.9% 2 ML Flush BID IV.FLUSH SCH ×2 (09:25→20:52)
[2018-08-19] MEDS: Enoxaparin Inj 30 MG/0.3 ML Syringe SQ SCH (09:25)
[2018-08-19] MEDS: Senna/Docusate Sodium 8.6/50 MG Tablet PO SCH ×2 (09:25→20:52)
--- NOTE | 2018-08-19 09:33 | P.PNONC ---
Subjective Interval history: No further fevers Patient resting in bed in no acute distress Asking when he can go home Denies any current nausea Objective Vital Signs/Intake & Output: Vital Signs 08/18/18 12:00 08/18/18 15:44 08/18/18 16:00 Temperature 98.4 F Pulse Rate 56 L 85 61 Respiratory Rate 18 Blood Pressure 92/56 L Pulse Oximetry 100 08/18/18 20:00 08/19/18 00:00 08/19/18 04:00 Temperature 99.9 F H 99.8 F H 98.5 F Pulse Rate 84 74 75 Respiratory Rate 16 16 16 Blood Pressure 87/49 L 102/57 L 109/60 Pulse Oximetry 99 98 98 08/19/18 08:00 Temperature 98.5 F Pulse Rate 85 Respiratory Rate 18 Blood Pressure 85/44 L Pulse Oximetry 100 Intake & Output 08/18/18 08/19/18 08/19/18 18:59 06:59 18:59 Intake Total 1270 / 1270 1000 / 1000 Output Total 525 / 525 Balance 1270 / 1270 475 / 475 Intake: IV 1270 / 1270 760 / 760 KCl Inj 40 MEQ In D5W/1/3 NS 1020 / 1020 Inj 1,000 ML @ 84 mls/hr IV. CONT .Q12H9M [facility] Rx#:[id number] Magnesium Sulfate 1 gm/D5W 100 100 / 100 100 / 100 ml Premix 100 ML @ 100 mls/hr IV.SIG Q1H [facility] Rx#:[id number] Zosyn 3.375 GM Premix 50 ML @ 50 / 50 100 / 100 100 mls/hr IV.SIG Q8H [facility] Rx#: [id number] Potassium Phosphate Inj 30 MMOL 260 / 260 In NS Inj 250 ML @ 43.333 mls/ hr IV.SIG ONCE ONE Rx#:[id number] Flagyl 500 MG Inj 100 ML @ 100 100 / 100 300 / 300 mls/hr IV.SIG Q6H [facility] Rx#: [id number] Oral 240 / 240 Output: Urine 525 / 525 Other: Date of Last Bowel Movement 08/16/18 Result Diagrams: 08/19/18 10:21 08/19/18 02:45 Laboratory Results: Laboratory Results - last 24 hr 08/18/18 08/19/18 08/19/18 18:42 00:35 02:45 Sodium 148 H Potassium 4.1 Chloride 113 H Carbon Dioxide 27.9 Anion Gap 7 BUN 15 Creatinine 1.03 Estimated GFR Greater than 89 POC Glucose 155 H 87 Random Glucose 77 Calcium 7.3 L* Calcium Adj for Albumin 8.1 L Total Bilirubin 0.3 AST 11 L ALT 7 L Alkaline Phosphatase 32 L Total Protein 5.6 L Albumin 1.5 L 08/19/18 05:59 Sodium Potassium Chloride Carbon Dioxide Anion Gap BUN Creatinine Estimated GFR POC Glucose 102 Random Glucose Calcium Calcium Adj for Albumin Total Bilirubin AST ALT Alkaline Phosphatase Total Protein Albumin Culture Results: Microbiology 08/15/18 21:46 Aerobic Blood Culture - Preliminary Blood - Peripheral No growth in 3 days Anaerobic Blood Culture - Final QNS - See aerobic report. 08/15/18 21:40 Aerobic Blood Culture - Preliminary Blood - Peripheral No growth in 3 days Anaerobic Blood Culture - Preliminary No growth in 3 days 08/11/18 22:20 Aerobic Blood Culture - Final Blood - Peripheral No growth in 5 days Anaerobic Blood Culture - Final No growth in 5 days 08/11/18 22:10 Aerobic Blood Culture - Final Blood - Peripheral No growth in 5 days Anaerobic Blood Culture - Final No growth in 5 days Imaging Studies: Impressions Chest X-Ray 08/18/18 10:52 CONCLUSION: Progression of pulmonary consolidation and possible cavitary change in the right upper lung. There is also some new atelectasis or consolidation at the right base. Medications: Active Medications Generic Name Dose Route Start Last Admin Trade Name Freq PRN Reason Stop Dose Admin Acetaminophen 650 mg 08/17/18 10:27 08/17/18 22:10 Tylenol PO 650 mg Q4H PRN Administration fever >100.3 Enoxaparin Sodium 30 mg 08/12/18 00:49 08/19/18 09:25 Lovenox Inj SQ Not Given DAILY [facility] Metronidazole/Sodium Chloride 100 mls @ 100 mls/hr 08/16/18 09:00 08/19/18 09 :17 Flagyl 500 Mg Inj IV.SIG 100 mls/hr Q6H [facility] Administration Piperacillin/Tazobactam/Dextrose 50 mls @ 100 mls/hr 08/16/18 10:00 08/19/18 02:28 Zosyn 3.375 Gm Premix IV.SIG Infused Q8H [facility] Infusion Potassium Chloride 40 meq/ 1,020 mls @ 84 mls/hr 08/16/18 11:00 12/01/18 05: 01 Dextrose/Sodium Chloride IV.CONT Not Given .Q12H9M COUNT INCLUDES THE [facility] Insulin Human Regular 0 units 08/12/18 00:00 08/19/18 06:18 Novolin R Correctional Sugar Inj SQ Not Given Q6HR COUNT INCLUDES THE [facility] Protocol Lansoprazole 30 mg 08/18/18 09:00 08/19/18 09:26 Prevacid Solutab NG/OG Not Given DAILY COUNT INCLUDES THE [facility] Magnesium Oxide 400 mg 08/17/18 21:00 08/19/18 09:25 Mag-Ox G-TUBE Not Given BID [facility] Potassium Bicarb/Potassium Chloride 25 meq 08/16/18 21:00 08/19/18 09:25 K-Lyte Cl Eff G-TUBE Not Given BID COUNT INCLUDES THE [facility] Senna/Docusate Sodium 1 tab 08/12/18 09:00 08/19/18 09:25 Gilda-Colace PO Not Given BID COUNT INCLUDES THE [facility] Sodium Chloride 2 ml 08/16/18 21:00 08/19/18 09:25 Ns Flush IV.FLUSH 2 ml BID [facility] Administration Objective Remarks: GENERAL: Chronically ill-appearing male patient, appears older than stated age, in no acute distress. SKIN: Warm and dry. HEAD: Normocephalic. EYES: No scleral icterus. No injection or drainage. NECK: Supple, trachea midline. CARDIOVASCULAR: Regular rate and rhythm without murmurs. RESPIRATORY: Posterior breath sounds diminished, equal bilaterally. Nonlabored at rest. GASTROINTESTINAL: Abdomen soft, non-tender, nondistended. PEG tube to LUQ. Tube feed infusing at 50 mL/h EXTREMITIES: No cyanosis, or edema. MUSCULOSKELETAL: Adequate muscle tone. NEUROLOGICAL: No obvious focal deficit. Awake, alert, and oriented x3. Assessment/Plan - Plan Mr. 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 Currently admitted for neutropenia, pneumonia, pancytopenia and renal failure. Recommendations: 1. Squamous cell carcinoma, [facility]; completed approximately 5 days prior to admission. 2. Pancytopenia, secondary to chemotherapy, improving. CBC pending today. 3. Chest x-ray yesterday shows consolidation and possible cavitary change in the right upper lung with new consolidation in the right base. Continue antibiotics per infectious disease. 4. Once discharged he will [facility] If his fevers remain abated he can follow[facility] the [facility]. - Attending Statement The exam, history, and the medical decision-making described in the above note were completed with the assistance of the mid-level provider. I reviewed and agree with the findings presented. I attest that I had a [id number] encounter with the patient on the same day, and personally performed and documented my assessment and findings in the medical record. Patient is feeling better. He is now afebrile. His blood counts have improved. He will continue antibiotics per infectious disease.
--- NOTE | 2018-08-19 10:33 | P.PN ---
Subjective Interval history: awake and alert, no complains afebrile states feeling great Physical Exam Vital signs: Vital Signs 08/18/18 12:00 08/18/18 15:44 08/18/18 16:00 Temperature 98.4 F Pulse Rate 56 L 85 61 Respiratory Rate 18 Blood Pressure 92/56 L Pulse Oximetry 100 08/18/18 20:00 08/19/18 00:00 08/19/18 04:00 Temperature 99.9 F H 99.8 F H 98.5 F Pulse Rate 84 74 75 Respiratory Rate 16 16 16 Blood Pressure 87/49 L 102/57 L 109/60 Pulse Oximetry 99 98 98 08/19/18 08:00 Temperature 98.5 F Pulse Rate 85 Respiratory Rate 18 Blood Pressure 85/44 L Pulse Oximetry 100 Intake & Output 08/18/18 08/19/18 08/19/18 18:59 06:59 18:59 Intake Total 1270 / 1270 1000 / 1000 Output Total 525 / 525 Balance 1270 / 1270 475 / 475 Intake: IV 1270 / 1270 760 / 760 KCl Inj 40 MEQ In D5W/1/3 NS 1020 / 1020 Inj 1,000 ML @ 84 mls/hr IV. CONT .Q12H9M [facility] Rx#:[id number] Magnesium Sulfate 1 gm/D5W 100 100 / 100 100 / 100 ml Premix 100 ML @ 100 mls/hr IV.SIG Q1H [facility] Rx#:[id number] Zosyn 3.375 GM Premix 50 ML @ 50 / 50 100 / 100 100 mls/hr IV.SIG Q8H [facility] Rx#: [id number] Potassium Phosphate Inj 30 MMOL 260 / 260 In NS Inj 250 ML @ 43.333 mls/ hr IV.SIG ONCE ONE Rx#:[id number] Flagyl 500 MG Inj 100 ML @ 100 100 / 100 300 / 300 mls/hr IV.SIG Q6H [facility] Rx#: [id number] Oral 240 / 240 Output: Urine 525 / 525 Other: Date of Last Bowel Movement 08/16/18 Narrative: awake and alert, no acute distress anicteric neck supple no rales no wheezes regular rhythm abdomen soft- god bowel sounds + PEG in place extremities no edema neuro exam- non focal Results - Labs CBC & Chem 7: 08/18/18 07:51 08/19/18 02:45 Laboratory Results - last 24 hr 08/18/18 08/19/18 08/19/18 18:42 00:35 02:45 Sodium 148 H Potassium 4.1 Chloride 113 H Carbon Dioxide 27.9 Anion Gap 7 BUN 15 Creatinine 1.03 Estimated GFR Greater than 89 POC Glucose 155 H 87 Random Glucose 77 Calcium 7.3 L* Calcium Adj for Albumin 8.1 L Total Bilirubin 0.3 AST 11 L ALT 7 L Alkaline Phosphatase 32 L Total Protein 5.6 L Albumin 1.5 L 08/19/18 05:59 Sodium Potassium Chloride Carbon Dioxide Anion Gap BUN Creatinine Estimated GFR POC Glucose 102 Random Glucose Calcium Calcium Adj for Albumin Total Bilirubin AST ALT Alkaline Phosphatase Total Protein Albumin Microbiology 08/18/18 11:30 Sputum - Oral Tracheal Aspirate Gram Stain - Final 08/15/18 21:46 Blood - Peripheral Aerobic Blood Culture - Preliminary No growth in 3 days 08/15/18 21:46 Blood - Peripheral Anaerobic Blood Culture - Final QNS - See aerobic report. 08/15/18 21:40 Blood - Peripheral Aerobic Blood Culture - Preliminary No growth in 3 days 08/15/18 21:40 Blood - Peripheral Anaerobic Blood Culture - Preliminary No growth in 3 days - Imaging Impressions Chest X-Ray 08/18/18 10:52 CONCLUSION: Progression of pulmonary consolidation and possible cavitary change in the right upper lung. There is also some new atelectasis or consolidation at the right base. Assessment and Plan - Plan Mr. 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 Currently admitted for neutropenia, pneumonia, pancytopenia and renal failure. 57-year-old man with Severe neutropenic sepsis Right upper lobe pneumonia Pancytopenia Febrile neutropenia Thrombocytopenia secondary to chemotherapy Anemia secondary to chemotherapy Currently on Flagyl and cefepime Management per oncology ,Dr. Rivera ID ff Daily CBC Right upper lobe pneumonia Currently on Zosyn and Flagyl, ID ff Nebs, Aggressive pulmonary toilet Acute kidney injury Strict I's and O's Continue IV fluid hydration and monitor BUN and creatinine Renal ultrasound -unremarkable Hypernatremia- improved Free water deficit Severe dehydration Acute intravascular volume depletion- resolved Acute protein calorie malnutritionsevere Severe dysphasia Continue D10 water 08/14/18 Jevity 1.5 at 60 mils an hour with tray, Speech therapy recommended thin liquid diet on August 12, 2018 Daily BMP, magnesium, phosphorus change IVF to 1/3 NS Free water to 300 cc q 6 as dietitian recommended Hyperglycemia of critical illness -- SSI, medium scale, every 6 Hypokalemia- improved Hypomagnesemia- persists Hypophosphatemia- persist HYpernatremia- trending down KCL in IVF - K supplement 25 meq /PEG bid - stat [id number] 400 mg bid - give IV phosphorous x 1 - ff electrolytes in am - d/w and patient- refused the [place] central line to be access- they wont unless [facility] - d/w with them that our oncology nurse are very adept at accessing this- refused till they get okay from [place] oncology - patient refused us to access this "that's my baby" - will replace peripheral and PEG for now - give 2 gm MgS02 now - give IV Phosphorous x 1 now - ff CMP Diarrhea- check c diff - DC scheduled Lactulose and Miralax - monitor BMs Prophylaxis: GI Prophylaxis Protonix per pEG DVT Prophylaxis -- SCDs Lovenox 30 mg subcu daily
[2018-08-19 10:40] LABS: Baso % (Auto) 0.1 % (0.0-2.0); Eos % (Auto) 0.1 % (0.0-4.0); Hematocrit 23.6 % (39.0-51.0); Hemoglobin 7.9 gm/dL (13.0-17.0); Lymph # (Auto) 1.3 th/mm3 (1.0-4.8); Lymph % (Auto) 24.4 % (9.0-44.0); Mean Corpuscular HGB Conc 33.6 % (32.0-36.0); Mean Corpuscular Hemoglobin 29.1 pg (27.0-34.0); Mean Corpuscular Volume 86.6 fL (80.0-100.0); Mean Platelet Volume 9.2 fL (7.0-11.0); Mono # (Auto) 0.4 th/mm3 (0.0-0.9); Mono % (Auto) 8.1 % (0.0-8.0); Neut # (Auto) 3.7 th/mm3 (1.8-7.7); Neut % (Auto) 67.3 % (16.0-70.0); Platelet Count 185 th/mm3 (150-450); Red Blood Count 2.72 mil/mm3 (4.50-5.90); Red Cell Distribution Width 13.8 % (11.6-17.2); White Blood Count 5.5 th/mm3 (4.0-11.0)
[2018-08-20] MEDS: Insulin NovoLIN Regular Correctional Sugar Inj SQ SCH ×4 (00:08→18:01)
[2018-08-20] MEDS: DEXTROSE IV.CONT SCH ×3 (00:09→15:51)
[2018-08-20] MEDS: POTASSIUM CHLORIDE IV.CONT SCH ×3 (00:09→15:51)
[2018-08-20] MEDS: NACL 0.3% IV.CONT SCH ×3 (00:09→15:51)
[2018-08-20] MEDS: Piperacil/Tazo 3.375 GM Premix 50 ML IV.SIG SCH ×3 (02:11→17:05)
[2018-08-20 06:42] LABS: Albumin 1.4 g/dL (3.4-5.0); Alkaline Phosphatase 30 U/L (45-117); Anion Gap 7 meq/L (5-15); Aspartate Aminotransferase 9 U/L (15-37); Blood Urea Nitrogen 12 mg/dL (7-18); Calcium 7.3 mg/dL (8.5-10.1); Carbon Dioxide 29.3 meq/L (21.0-32.0); Chloride 110 meq/L (98-107); Glomerular Filtration Rate 86 mL/min (>89); Glucose,Random 82 mg/dL (74-106); Magnesium 1.4 mg/dL (1.5-2.5); Sodium 146 meq/L (136-145); Total Protein 5.8 g/dL (6.4-8.2)
[2018-08-20] MEDS: Potassium Chloride 25 MEQ Effervescent Tablet G-TUBE SCH ×2 (08:54→21:11)
[2018-08-20] MEDS: Enoxaparin Inj 30 MG/0.3 ML Syringe SQ SCH (08:54)
[2018-08-20] MEDS: Senna/Docusate Sodium 8.6/50 MG Tablet PO SCH ×2 (08:55→21:05)
[2018-08-20] MEDS: Magnesium Oxide 400 MG Tablet G-TUBE SCH ×2 (08:55→21:11)
[2018-08-20] MEDS: Sodium Chloride 0.9% 2 ML Flush BID IV.FLUSH SCH ×2 (08:55→21:04)
--- NOTE | 2018-08-20 15:30 | P.PN ---
Subjective Interval history: no complains good po, no diarrhea reported no pain Physical Exam Vital signs: Vital Signs 08/19/18 16:00 08/19/18 20:00 08/20/18 00:00 Temperature 98.3 F 100.2 F H Pulse Rate 79 74 72 Respiratory Rate 16 18 Blood Pressure 85/50 L 89/45 L Pulse Oximetry 99 98 08/20/18 03:16 08/20/18 04:00 08/20/18 08:00 Temperature 100.1 F H Pulse Rate 74 76 72 Respiratory Rate 16 Blood Pressure 101/53 L Pulse Oximetry 98 08/20/18 12:00 Temperature Pulse Rate 69 Respiratory Rate Blood Pressure Pulse Oximetry Intake & Output 08/19/18 08/20/18 08/20/18 18:59 06:59 18:59 Intake Total 1110 / 1110 640 / 640 150 / 150 Output Total 1200 / 1200 1125 / 1125 Balance -90 / -90 -485 / -485 150 / 150 Intake: IV 250 / 250 520 / 520 150 / 150 KCl Inj 40 MEQ In D5W/1/3 NS 220 / 220 Inj 1,000 ML @ 84 mls/hr IV. CONT .Q12H9M [facility] Rx#:[id number] Zosyn 3.375 GM Premix 50 ML @ 50 / 50 100 / 100 50 / 50 100 mls/hr IV.SIG Q8H [facility] Rx#: [id number] Flagyl 500 MG Inj 100 ML @ 100 200 / 200 200 / 200 100 / 100 mls/hr IV.SIG Q6H [facility] Rx#: [id number] Oral 860 / 860 120 / 120 Output: Urine 1200 / 1200 1125 / 1125 Other: Date of Last Bowel Movement 08/19/18 08/19/18 08/20/18 # Bowel Movements 1 2 Narrative: awake and alert, no acute distress anicteric neck supple no rales no wheezes regular rhythm abdomen soft- good bowel sounds + PEG in place extremities no edema Results - Labs CBC & Chem 7: 08/19/18 10:21 08/20/18 05:09 Laboratory Results - last 24 hr 08/19/18 08/19/18 08/20/18 02:45 20:44 05:09 Sodium 146 H Potassium 4.0 Chloride 110 H Carbon Dioxide 29.3 Anion Gap 7 BUN 12 Creatinine 1.07 Estimated GFR 86 L POC Glucose 133 H Random Glucose 82 Calcium 7.3 L* Calcium Adj for Albumin 8.0 L Magnesium 1.7 1.4 L Total Bilirubin 0.4 AST 9 L ALT Less than 6 L Alkaline Phosphatase 30 L Total Protein 5.8 L Albumin 1.4 L 08/20/18 05:59 Sodium Potassium Chloride Carbon Dioxide Anion Gap BUN Creatinine Estimated GFR POC Glucose 87 Random Glucose Calcium Calcium Adj for Albumin Magnesium Total Bilirubin AST ALT Alkaline Phosphatase Total Protein Albumin Microbiology 08/18/18 11:30 Sputum - Oral Tracheal Aspirate Gram Stain - Final 08/18/18 11:30 Sputum - Oral Tracheal Aspirate Sputum Culture - Final Stenotrophomonas maltophilia 08/15/18 21:46 Blood - Peripheral Aerobic Blood Culture - Final No growth in 5 days 08/15/18 21:46 Blood - Peripheral Anaerobic Blood Culture - Final QNS - See aerobic report. 08/15/18 21:40 Blood - Peripheral Aerobic Blood Culture - Final No growth in 5 days 08/15/18 21:40 Blood - Peripheral Anaerobic Blood Culture - Final No growth in 5 days Assessment and Plan - Plan Mr. 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 Currently admitted for neutropenia, pneumonia, pancytopenia and renal failure. 57-year-old man with Severe neutropenic sepsis Right upper lobe pneumonia Pancytopenia Febrile neutropenia Thrombocytopenia secondary to chemotherapy Anemia secondary to chemotherapy Currently on Flagyl and cefepime Management per oncology ,Dr. Rivera ID ff Daily CBC Right upper lobe pneumonia Currently on Zosyn and Flagyl, ID ff Nebs, Aggressive pulmonary toilet Acute kidney injury- Improved AHYpernatremia- improving Strict I's and O's Continue IV fluid 1/3 NS hydration and monitor BUN and creatinine Renal ultrasound -unremarkable Hypernatremia- improved Free water deficit Severe dehydration Acute intravascular volume depletion- resolved Acute protein calorie malnutritionsevere Severe dysphasia Continue D10 water 08/14/18 Jevity 1.5 at 60 mils an hour with tray, Speech therapy recommended thin liquid diet on August 12, 2018 Daily BMP, magnesium, phosphorus change IVF to 1/3 NS Free water to 300 cc q 6 as dietitian recommended Hyperglycemia of critical illness -- SSI, medium scale, every 6 Hypokalemia- improved Hypomagnesemia- persists Hypophosphatemia- persist HYpernatremia- trending down KCL in IVF - K supplement 25 meq /PEG bid - stat [id number] 400 mg bid- increase to 800 mg bd - S/P IV Phosphourous 08/19 - ff electrolytes in am - d/w and patient- refused the [facility] central line to be access- they wont unless they [facility] - d/w with them that our oncology nurse are very adept at accessing this- refused till they get okay from [facility] - patient refused us to access this "that's my baby" - will replace peripheral and PEG for now - give 2 gm MgS02 now - ff CMP Diarrhea- check c diff - DC scheduled Lactulose and Miralax - monitor BMs Prophylaxis: GI Prophylaxis Protonix per pEG DVT Prophylaxis -- SCDs Lovenox 30 mg subcu daily
[2018-08-20] MEDS: Mag Sulf 1 gm/100 ml Premix 100 ML IV.SIG SCH ×2 (17:05→19:47)
[2018-08-21] MEDS: Insulin NovoLIN Regular Correctional Sugar Inj SQ SCH ×4 (00:07→20:42)
[2018-08-21] MEDS: Piperacil/Tazo 3.375 GM Premix 50 ML IV.SIG SCH (03:00)
[2018-08-21] MEDS: NACL 0.3% IV.CONT SCH (05:07)
[2018-08-21] MEDS: POTASSIUM CHLORIDE IV.CONT SCH (05:07)
[2018-08-21] MEDS: DEXTROSE IV.CONT SCH (05:07)
[2018-08-21 08:17] LABS: Calcium 7.8 mg/dL (8.5-10.1); Carbon Dioxide 29.5 meq/L (21.0-32.0); Phosphorus 3.1 mg/dL (2.5-4.9)
[2018-08-21 08:18] LABS: Potassium 4.7 meq/L (3.5-5.1)
[2018-08-21] MEDS ORDERED: Sodium Chlor 0.9% Inj 500 ML IV.SIG ONE (10:20)
[2018-08-21] MEDS: Enoxaparin Inj 30 MG/0.3 ML Syringe SQ SCH (10:24)
[2018-08-21] MEDS: levoFLOXacin 750 MG Tablet PO SCH (10:25)
[2018-08-21] MEDS: Potassium Chloride 25 MEQ Effervescent Tablet G-TUBE SCH ×2 (10:25→20:44)
[2018-08-21] MEDS: Magnesium Oxide 400 MG Tablet G-TUBE SCH ×2 (10:25→20:44)
[2018-08-21] MEDS: Senna/Docusate Sodium 8.6/50 MG Tablet PO SCH ×2 (10:26→20:57)
[2018-08-21] MEDS: Sodium Chloride 0.9% 2 ML Flush BID IV.FLUSH SCH ×2 (10:27→20:45)
--- NOTE | 2018-08-21 10:49 | P.PNONC ---
Subjective Interval history: Afebrile. Patient sitting in chair, states that he walked the hallways this a.m. RN is at the bedside taking his vital signs, he is hypotensive at this time. He denies any dizziness or lightheadedness. Patient states that he is ready to go home. Objective Vital Signs/Intake & Output: Vital Signs 08/20/18 12:00 08/20/18 16:00 08/20/18 20:00 Temperature 97.9 F 99.5 F Pulse Rate 71 67 70 Respiratory Rate 18 18 15 Blood Pressure 90/57 L 95/60 L 86/62 L Pulse Oximetry 99 100 100 08/21/18 00:00 08/21/18 04:00 08/21/18 08:00 Temperature 99.1 F 98.9 F Pulse Rate 69 72 61 Respiratory Rate 16 16 Blood Pressure 101/52 L 115/51 L Pulse Oximetry 100 100 Intake & Output 08/20/18 08/21/18 08/21/18 18:59 06:59 18:59 Intake Total 2160 / 2160 350 / 350 Output Total 900 / 900 750 / 750 Balance 1260 / 1260 -400 / -400 Intake: IV 1400 / 1400 350 / 350 KCl Inj 40 MEQ In D5W/1/3 NS 1000 / 1000 Inj 1,000 ML @ 84 mls/hr IV. CONT .Q12H9M [facility] Rx#:[id number] Magnesium Sulfate 1 gm/D5W 100 100 / 100 100 / 100 ml Premix 100 ML @ 100 mls/hr IV.SIG Q1H [facility] Rx#:[id number] Zosyn 3.375 GM Premix 50 ML @ 100 / 100 50 / 50 100 mls/hr IV.SIG Q8H [facility] Rx#: [id number] Flagyl 500 MG Inj 100 ML @ 100 200 / 200 200 / 200 mls/hr IV.SIG Q6H [facility] Rx#: [id number] Oral 760 / 760 Output: Urine 900 / 900 750 / 750 Other: Date of Last Bowel Movement 08/20/18 08/20/18 # Bowel Movements 2 Result Diagrams: 08/19/18 10:21 08/21/18 06:44 Laboratory Results: Laboratory Results - last 24 hr 08/21/18 06:44 Sodium 144 Potassium 4.7 Chloride 110 H Carbon Dioxide 29.5 Anion Gap 5 BUN 10 Creatinine 1.05 Estimated GFR 88 L Random Glucose 81 Calcium 7.8 L Phosphorus 3.1 Culture Results: Microbiology 08/18/18 11:30 Gram Stain - Final Sputum - Oral Tracheal Aspirate Sputum Culture - Final Stenotrophomonas maltophilia 08/15/18 21:46 Aerobic Blood Culture - Final Blood - Peripheral No growth in 5 days Anaerobic Blood Culture - Final QNS - See aerobic report. 08/15/18 21:40 Aerobic Blood Culture - Final Blood - Peripheral No growth in 5 days Anaerobic Blood Culture - Final No growth in 5 days Medications: Active Medications Generic Name Dose Route Start Last Admin Trade Name Freq PRN Reason Stop Dose Admin Acetaminophen 650 mg 08/17/18 10:27 08/17/18 22:10 Tylenol PO 650 mg Q4H PRN Administration fever >100.3 Enoxaparin Sodium 30 mg 08/12/18 00:49 08/21/18 10:24 Lovenox Inj SQ 30 mg DAILY [facility] Administration Metronidazole/Sodium Chloride 100 mls @ 100 mls/hr 08/16/18 09:00 08/21/18 10 :26 Flagyl 500 Mg Inj IV.SIG 100 mls/hr Q6H [facility] Administration Potassium Chloride 40 meq/ 1,020 mls @ 84 mls/hr 08/16/18 11:00 08/21/18 05: 07 Dextrose/Sodium Chloride IV.CONT Not Given .Q12H9M [facility] Insulin Human Regular 0 units 08/12/18 00:00 08/21/18 05:07 Novolin R Correctional Sugar Inj SQ Not Given Q6HR [facility] Protocol Lansoprazole 30 mg 08/18/18 09:00 08/21/18 10:25 Prevacid Solutab NG/OG 30 mg DAILY [facility] Administration Levofloxacin 750 mg 08/21/18 10:00 08/21/18 10:25 Levaquin PO 750 mg DAILY [facility] Administration Magnesium Oxide 400 mg 08/17/18 21:00 08/21/18 10:25 Mag-Ox G-TUBE 400 mg BID [facility] Administration Potassium Bicarb/Potassium Chloride 25 meq 08/16/18 21:00 08/21/18 10:25 K-Lyte Cl Eff G-TUBE 25 meq BID [facility] Administration Senna/Docusate Sodium 1 tab 08/12/18 09:00 08/21/18 10:26 Gilda-Colace PO Not Given BID [facility] Sodium Chloride 2 ml 08/16/18 21:00 08/21/18 10:27 Ns Flush IV.FLUSH Not Given BID [facility] Objective Remarks: GENERAL: Chronically ill-appearing male patient, appears older than stated age, in no acute distress. SKIN: Warm and dry. HEAD: Normocephalic. EYES: No scleral icterus. No injection or drainage. NECK: Supple, trachea midline. CARDIOVASCULAR: Regular rate and rhythm without murmurs. RESPIRATORY: Posterior breath sounds diminished, equal bilaterally. Nonlabored at rest. GASTROINTESTINAL: Abdomen soft, non-tender, nondistended. PEG tube to LUQ. EXTREMITIES: No cyanosis, or edema. MUSCULOSKELETAL: Adequate muscle tone. NEUROLOGICAL: No obvious focal deficit. Awake, alert, and oriented x3. PSYCHIATRIC: Appropriate mood and affect; insight and judgment normal. Assessment/Plan - Plan Mr. 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 Currently admitted for neutropenia, pneumonia, pancytopenia and renal failure. Recommendations: 1. Squamous cell carcinoma, status post chemotherapy with the [facility]; completed approximately 5 days prior to admission. 2. Pancytopenia, secondary to chemotherapy, improving. WBC 5.5, hemoglobin 7.9 , platelet count 185,000. 3. Chest x-ray yesterday shows consolidation and possible cavitary change in the right upper lung with new consolidation in the right base. Continue antibiotics per infectious disease. Sputum culture grew stenotrophomonas maltophilia, with susceptibility report with levofloxacin and Bactrim. Infectious disease is following and will defer to them for possible antibiotic changes. 4. Hypertension, asymptomatic. Will transfuse 500 mL normal saline bolus and recheck blood pressure. 5. Once discharged he will follow-up with the [facility] oncologist. - Attending Statement The exam, history, and the medical decision-making described in the above note were completed with the assistance of the mid-level provider. I reviewed and agree with the findings presented. I attest that I had a [id number] encounter with the patient on the same day, and personally performed and documented my assessment and findings in the medical record. Patient states that he is feeling better He wants to go home IV antibiotics changed to oral Levaquin by ID today If he remains afebrile on p.o. Levaquin then he could be discharged from my standpoint Patient will [facility] upon [facility]
--- NOTE | 2018-08-21 10:56 | P.PNID ---
Subjective Remarks: Pt up in chair. Blood pressure low 71/50. Says he feels fine. Denies dizziness. No SOB, REID. Still has copious secretions oral. Suctioning himself. Notes 1 loose stool a day. C. diff is negative. Sputum culture has Stenotrophomonas. Blood cultures from 08/11/2018 and 08/15/2018 have no growth. Urinalysis on 08/12/2018 was unremarkable, and culture was not done. Past Medical History: PAST MEDICAL HISTORY: 1. Esophageal tumor. 2. The patient is status post chemotherapy, which led to neutropenia. The neutropenia is recovering. 3. Pneumonia of the right upper lung. The patient is producing sputum. 4. Persistent fever. 5. Squamous cell carcinoma of the esophagus or oropharynx. 6. History of ankle surgery. 7. History of knee surgery. Allergies/Adverse Reactions: Allergies grapefruit Allergy (Severe, Verified 08/11/18 20:56) Anaphylaxis SEIZURES Objective Vital Signs 08/20/18 12:00 08/20/18 16:00 08/20/18 20:00 Temperature 97.9 F 99.5 F Pulse Rate 71 67 70 Respiratory Rate 18 18 15 Blood Pressure 90/57 L 95/60 L 86/62 L Pulse Oximetry 99 100 100 08/21/18 00:00 08/21/18 04:00 08/21/18 08:00 Temperature 99.1 F 98.9 F Pulse Rate 69 72 61 Respiratory Rate 16 16 Blood Pressure 101/52 L 115/51 L Pulse Oximetry 100 100 Intake & Output 08/20/18 08/21/18 08/21/18 18:59 06:59 18:59 Intake Total 2160 / 2160 350 / 350 Output Total 900 / 900 750 / 750 Balance 1260 / 1260 -400 / -400 Intake: IV 1400 / 1400 350 / 350 KCl Inj 40 MEQ In D5W/1/3 NS 1000 / 1000 Inj 1,000 ML @ 84 mls/hr IV. CONT .Q12H9M [facility] Rx#:[id number] Magnesium Sulfate 1 gm/D5W 100 100 / 100 100 / 100 ml Premix 100 ML @ 100 mls/hr IV.SIG Q1H [facility] Rx#:[id number] Zosyn 3.375 GM Premix 50 ML @ 100 / 100 50 / 50 100 mls/hr IV.SIG Q8H [facility] Rx#: [id number] Flagyl 500 MG Inj 100 ML @ 100 200 / 200 200 / 200 mls/hr IV.SIG Q6H [facility] Rx#: [id number] Oral 760 / 760 Output: Urine 900 / 900 750 / 750 Other: Date of Last Bowel Movement 08/20/18 08/20/18 # Bowel Movements 2 08/18/18 11:30 Sputum - Oral Tracheal Aspirate Gram Stain - Final 08/18/18 11:30 Sputum - Oral Tracheal Aspirate Sputum Culture - Final Stenotrophomonas maltophilia 08/15/18 21:46 Blood - Peripheral Aerobic Blood Culture - Final No growth in 5 days 08/15/18 21:46 Blood - Peripheral Anaerobic Blood Culture - Final QNS - See aerobic report. 08/15/18 21:40 Blood - Peripheral Aerobic Blood Culture - Final No growth in 5 days 08/15/18 21:40 Blood - Peripheral Anaerobic Blood Culture - Final No growth in 5 days Lab - Chemistry Results 08/19/18 08/19/18 08/19/18 02:45 12:33 20:44 Sodium Potassium Chloride Carbon Dioxide Anion Gap BUN Creatinine Estimated GFR POC Glucose 97 133 H Random Glucose Calcium Calcium Adj for Albumin Phosphorus Magnesium 1.7 Total Bilirubin AST ALT Alkaline Phosphatase Total Protein Albumin 08/20/18 08/20/18 08/21/18 05:09 05:59 06:44 Sodium 146 H 144 Potassium 4.0 4.7 Chloride 110 H 110 H Carbon Dioxide 29.3 29.5 Anion Gap 7 5 BUN 12 10 Creatinine 1.07 1.05 Estimated GFR 86 L 88 L POC Glucose 87 Random Glucose 82 81 Calcium 7.3 L* 7.8 L Calcium Adj for Albumin 8.0 L Phosphorus 3.1 Magnesium 1.4 L Total Bilirubin 0.4 AST 9 L ALT Less than 6 L Alkaline Phosphatase 30 L Total Protein 5.8 L Albumin 1.4 L Imaging: ITS Impressions Abdomen/Bladder Ultrasound 08/12/18 00:00 CONCLUSION: 1. No acute findings. Echogenic kidneys characteristic of medical renal disease. 2. Tiny 1 cm right renal cyst. Chest X-Ray 08/18/18 10:52 CONCLUSION: Progression of pulmonary consolidation and possible cavitary change in the right upper lung. There is also some new atelectasis or consolidation at the right base. Physical Exam: PHYSICAL EXAMINATION: GENERAL: No acute distress. Awake, alert, and oriented. HEENT: The head is atraumatic. Extraocular movements are grossly intact. Pupils reactive to light. No icterus. Oropharynx: Moist mucosa. NECK: Supple. No adenopathy. CHEST: Right upper chest has an [id number], which appears intact. LUNGS: Decreased breath sounds throughout. HEART: Regular S1, S2. No audible murmurs, rubs or gallops. ABDOMEN: Bowel sounds diminished. Soft. No tenderness appreciated. EXTREMITIES: No clubbing, cyanosis or edema. SKIN: No rash. NEUROLOGIC: No gross focal findings. PSYCHIATRIC: Calm and cooperative. Assessment and Plan - Plan IMPRESSION: 1. Fever. The patient is status post chemotherapy for cancer of the esophagus or oropharynx. 2. Pneumonia. Gram negative. 3. Immunosuppression secondary to chemotherapy. 4. Hypotension. Pt not symptomatic. RECOMMENDATIONS: 1. Start Levaquin PO for Stenotrophomonas. 2. Stop piperacillin/tazobactam. 3. Stop Flagyl. 4. Repeat the chest x-ray. 5. Monitor temperature.
--- NOTE | 2018-08-21 11:43 | XR ---
EXAM DATE: 08/21/2018 11:39 AM EST AGE/SEX: 57 years / Male INDICATIONS: Shortness of breath. Pneumonia. CLINICAL DATA: This is the patient's subsequent encounter. Patient reports that signs and symptoms h ave been present for 1 week and indicates a pain score of 0/10. MEDICAL/SURGICAL HISTORY: . hyopharyngeal cancer. . Peg tube. COMPARISON: [facility] [place], CHEST 1V SINGLE AP, 08/18/2018. [facility] [place], CHEST 1V SINGLE AP, 08/11/2018. [facility] [place], [address] 1V SINGLE AP, 06/27/2018. . FINDINGS: 2 portable AP views of the chest demonstrate a normal-sized cardiac silhouette. Right chest wall Infu se-a-Port remains present and EKG lines overlie the patient. Left lung demonstrates no abnormality. T here is consolidation in the right upper lobe unchanged from the prior study with stable appearance i ndicating questionable cavitation. No pleural effusion or pneumothorax is identified. The bones and s oft tissues demonstrate no acute abnormality. Sclerosis in the right proximal humerus is stable. CONCLUSION: Stable right upper lobe airspace consolidation compared to the 08/18/2018 examination. As described p reviously the consolidation has increased compared to the 08/11/2018 exam. Electronically signed by: Osvaldo Patiño MD 08/21/2018 11:41 AM EST
--- NOTE | 2018-08-21 13:55 | P.DIET ---
Nutritional Evaluation Type of nutrition evaluation: follow-up Nutrition consult regarding: Tube Feeding Nutrition screening: [facility] [place]: 08/11 [facility] [place] Objective - Diagnosis Sepsis, PNA, neutropenia, DOMINICK - Objective % IBW: 80 (IBW: 83.6kg) Body Weight Used for Calculations: Actual (66.5kg admit wt) Energy Needs - Lower Range (kCal/kg): 33 Energy Needs - Upper Range (kCal/kg): 37 Lower Limit kCal/kg (kCals): 2,194 Upper Limit kCal/kg (kCals): 2,461 Lower Limit Protein Factor (Grams per Kg): 1.2 Upper Limit Protein Factor (Grams per Kg): 1.5 Lower Protein Needs (Protein): 80 Upper Protein Needs (Protein): 100 Fluid Factor (ml/kg): 35 Estimated Fluid Needs (ml): 2,328 Dietitian Reviewed in Medical Record: Current diet, Curent medications, Intake & Output, Labs, Medical history Diet Order: NPO Objective Comments: PMH: squamous cell carcinoma of the base of the tongue, complicated by significant dysphagia s/p PEG placement. first cycle of chemotherapy last week. Labs of note: Mg 1.4 UOP: 1650mls/24 hrs, +LBM 08/20 Assessment Assessment: Pt at high nutritional risk r/t his current clinical status. Pt currently receiving Jevity 1.5 @ 30mL/hr via PEG tube. RD to recommend Jevity with goal rate 65ml/hr to provide 2340kcals, 100gms protein and 1186mls free water. Noted DOMINICK much improved, UOP good. Will continue to monitor TF tolerance, clinical course. Labs reviewed, dietitian following. Recommendations: TF Jevity 1.5 with goal rate 65ml/hr Dietitian to Monitor: Lab values, Electrolytes, Renal labs, Intake & Output, Tube feeding tolerance, Weight change, Medical course
--- NOTE | 2018-08-21 14:54 | P.PN ---
Physical Exam Vital signs: Vital Signs 08/20/18 16:00 08/20/18 20:00 08/21/18 00:00 Temperature 97.9 F 99.5 F 99.1 F Pulse Rate 67 70 69 Respiratory Rate 18 15 16 Blood Pressure 95/60 L 86/62 L 101/52 L Pulse Oximetry 100 100 100 08/21/18 04:00 08/21/18 08:00 08/21/18 10:05 Temperature 98.9 F 97.9 F Pulse Rate 72 61 93 H Respiratory Rate 16 16 Blood Pressure 115/51 L 80/55 L Pulse Oximetry 100 100 08/21/18 12:03 Temperature 97.9 F Pulse Rate 81 Respiratory Rate 16 Blood Pressure 85/52 L Pulse Oximetry 100 Intake & Output 08/20/18 08/21/18 08/21/18 18:59 06:59 18:59 Intake Total 2160 / 2160 350 / 350 Output Total 900 / 900 750 / 750 Balance 1260 / 1260 -400 / -400 Intake: IV 1400 / 1400 350 / 350 KCl Inj 40 MEQ In D5W/1/3 NS 1000 / 1000 Inj 1,000 ML @ 84 mls/hr IV. CONT .Q12H9M [facility] Rx#:[id number] Magnesium Sulfate 1 gm/D5W 100 100 / 100 100 / 100 ml Premix 100 ML @ 100 mls/hr IV.SIG Q1H [facility] Rx#:[id number] Zosyn 3.375 GM Premix 50 ML @ 100 / 100 50 / 50 100 mls/hr IV.SIG Q8H [facility] Rx#: [id number] Flagyl 500 MG Inj 100 ML @ 100 200 / 200 200 / 200 mls/hr IV.SIG Q6H [facility] Rx#: [id number] Oral 760 / 760 Output: Urine 900 / 900 750 / 750 Other: Date of Last Bowel Movement 08/20/18 08/20/18 # Bowel Movements 2 Results - Labs CBC & Chem 7: 08/19/18 10:21 08/21/18 06:44 Laboratory Results - last 24 hr 08/21/18 06:44 Sodium 144 Potassium 4.7 Chloride 110 H Carbon Dioxide 29.5 Anion Gap 5 BUN 10 Creatinine 1.05 Estimated GFR 88 L Random Glucose 81 Calcium 7.8 L Phosphorus 3.1 Microbiology 08/18/18 11:30 Sputum - Oral Tracheal Aspirate Gram Stain - Final 08/18/18 11:30 Sputum - Oral Tracheal Aspirate Sputum Culture - Final Stenotrophomonas maltophilia 08/15/18 21:46 Blood - Peripheral Aerobic Blood Culture - Final No growth in 5 days 08/15/18 21:46 Blood - Peripheral Anaerobic Blood Culture - Final QNS - See aerobic report. 08/15/18 21:40 Blood - Peripheral Aerobic Blood Culture - Final No growth in 5 days 08/15/18 21:40 Blood - Peripheral Anaerobic Blood Culture - Final No growth in 5 days - Imaging Impressions Chest X-Ray 08/21/18 10:51 CONCLUSION: Stable right upper lobe airspace consolidation compared to the 08/18/2018 examination. As described previously the consolidation has increased compared to the 08/11/2018 exam. Assessment and Plan - Plan 1. Fever. The patient is status post chemotherapy for cancer of the esophagus or oropharynx. 2. Pneumonia. Gram negative. 3. Immunosuppression secondary to chemotherapy. 4. Hypotension. Pt not symptomatic. RECOMMENDATIONS: 1. Start Levaquin PO for Stenotrophomonas. 2. Stop piperacillin/tazobactam. 3. Stop Flagyl. 4. Repeat the chest x-ray. 5. Monitor temperature.
--- NOTE | 2018-08-21 15:05 | P.PN ---
Subjective Interval history: awake and alert no complains does own suctioning states had soft formed BBM today and yesterday once a day, no diarrhea Physical Exam Vital signs: Vital Signs 08/20/18 16:00 08/20/18 20:00 08/21/18 00:00 Temperature 97.9 F 99.5 F 99.1 F Pulse Rate 67 70 69 Respiratory Rate 18 15 16 Blood Pressure 95/60 L 86/62 L 101/52 L Pulse Oximetry 100 100 100 08/21/18 04:00 08/21/18 08:00 08/21/18 10:05 Temperature 98.9 F 97.9 F Pulse Rate 72 61 93 H Respiratory Rate 16 16 Blood Pressure 115/51 L 80/55 L Pulse Oximetry 100 100 08/21/18 12:03 Temperature 97.9 F Pulse Rate 81 Respiratory Rate 16 Blood Pressure 85/52 L Pulse Oximetry 100 Intake & Output 08/20/18 08/21/18 08/21/18 18:59 06:59 18:59 Intake Total 2160 / 2160 350 / 350 Output Total 900 / 900 750 / 750 Balance 1260 / 1260 -400 / -400 Intake: IV 1400 / 1400 350 / 350 KCl Inj 40 MEQ In D5W/1/3 NS 1000 / 1000 Inj 1,000 ML @ 84 mls/hr IV. CONT .Q12H9M CLAUDIA Rx#:[id number] Magnesium Sulfate 1 gm/D5W 100 100 / 100 100 / 100 ml Premix 100 ML @ 100 mls/hr IV.SIG Q1H CLAUDIA Rx#:[id number] Zosyn 3.375 GM Premix 50 ML @ 100 / 100 50 / 50 100 mls/hr IV.SIG Q8H CLAUDIA Rx#: [id number] Flagyl 500 MG Inj 100 ML @ 100 200 / 200 200 / 200 mls/hr IV.SIG Q6H CLAUDIA Rx#: [id number] Oral 760 / 760 Output: Urine 900 / 900 750 / 750 Other: Date of Last Bowel Movement 08/20/18 08/20/18 # Bowel Movements 2 Narrative: awake and alert, no acute distress anicteric neck supple no rales no wheezes regular rhythm abdomen soft- good bowel sounds + PEG in place extremities no edema up and ambulating- no dizziness Results - Labs CBC & Chem 7: 08/23/18 06:16 08/23/18 06:16 Laboratory Results - last 24 hr 08/21/18 06:44 Sodium 144 Potassium 4.7 Chloride 110 H Carbon Dioxide 29.5 Anion Gap 5 BUN 10 Creatinine 1.05 Estimated GFR 88 L Random Glucose 81 Calcium 7.8 L Phosphorus 3.1 Microbiology 08/18/18 11:30 Sputum - Oral Tracheal Aspirate Gram Stain - Final 08/18/18 11:30 Sputum - Oral Tracheal Aspirate Sputum Culture - Final Stenotrophomonas maltophilia 08/15/18 21:46 Blood - Peripheral Aerobic Blood Culture - Final No growth in 5 days 08/15/18 21:46 Blood - Peripheral Anaerobic Blood Culture - Final QNS - See aerobic report. 08/15/18 21:40 Blood - Peripheral Aerobic Blood Culture - Final No growth in 5 days 08/15/18 21:40 Blood - Peripheral Anaerobic Blood Culture - Final No growth in 5 days - Imaging Impressions Chest X-Ray 08/21/18 10:51 CONCLUSION: Stable right upper lobe airspace consolidation compared to the 08/18/2018 examination. As described previously the consolidation has increased compared to the 08/11/2018 exam. Assessment and Plan - Plan Mr. 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 Currently admitted for neutropenia, pneumonia, pancytopenia and renal failure. 57-year-old man with Severe neutropenic sepsis Right upper lobe pneumonia Pancytopenia Febrile neutropenia Thrombocytopenia secondary to chemotherapy Anemia secondary to chemotherapy on IV Flagyl Cefepime DC and changed to po Levaquin 08/21- by ID Management per oncology ,Dr. Rivera ID ff Daily CBC Right upper lobe pneumonia Currently on Zosyn and Flagyl, ID ff- vhange to po Levquin 750 mg daily today Nebs, Aggressive pulmonary toilet Acute kidney injury- Improved AHYpernatremia- improving Strict I's and O's Continue IV fluid 1/3 NS hydration and monitor BUN and creatinine Renal ultrasound -unremarkable Hypernatremia- improved Free water deficit Severe dehydration Acute intravascular volume depletion- resolved Acute protein calorie malnutritionsevere Severe dysphasia Jevity 1.5 at 60 mils an hour with tray, Speech therapy recommended thin liquid diet on August 12, 2018 Daily BMP, magnesium, phosphorus change IVF to 1/3 NS Free water to 300 cc q 6 as dietitian recommended d/w staff nurse to go up goal rate on TF Hyperglycemia of critical illness -- SSI, medium scale, every 6 Hypokalemia- improved Hypomagnesemia-Improved Hypophosphatemia-Improved HYpernatremia- IMproved - K supplement 25 meq /PEG bid - on [id number] to 800 mg bd - S/P IV Phosphourous 08/19 - ff electrolytes - d/w and patient- refused the [facility] central line to be access- they wont unless they [facility] - d/w with them that our oncology nurse are very adept at accessing this- refused till they get okay from [place] [facility] - patient refused us to access this "that's my baby" - will replace peripheral and PEG for now - ff CMP Diarrhea-no further episodes- 1x a day- soft - DC scheduled Lactulose and Miralax - monitor BMs Prophylaxis: GI Prophylaxis Protonix per pEG DVT Prophylaxis -- SCDs Lovenox 30 mg subcu daily CM DC planning- for DC needs
--- NOTE | 2018-08-21 20:16 | ECG ---
Date Performed: 08/20/2018 Time Performed: 12:17:06 PTAGE: 57 years EKG: Sinus rhythm . Normal ECG PREVIOUS TRACING 08/11/2018 @ 22.04 Since the previous tracing, no significant change noted DOCTOR: Viki Pina Interpretating Date/Time 08/21/2018 20:05:42
[2018-08-22] MEDS: POTASSIUM CHLORIDE IV.CONT SCH ×2 (00:07→15:26)
[2018-08-22] MEDS: DEXTROSE IV.CONT SCH ×2 (00:07→15:26)
[2018-08-22] MEDS: NACL 0.3% IV.CONT SCH ×2 (00:07→15:26)
[2018-08-22] MEDS: Insulin NovoLIN Regular Correctional Sugar Inj SQ SCH ×5 (00:09→23:02)
[2018-08-22 05:38] LABS: Baso % (Auto) 0.3 % (0.0-2.0); Hematocrit 22.6 % (39.0-51.0); Hemoglobin 7.6 gm/dL (13.0-17.0); Lymph # (Auto) 1.9 th/mm3 (1.0-4.8); Lymph % (Auto) 33.3 % (9.0-44.0); Mean Corpuscular HGB Conc 33.8 % (32.0-36.0); Mean Corpuscular Hemoglobin 29.1 pg (27.0-34.0); Mono # (Auto) 0.5 th/mm3 (0.0-0.9); Neut # (Auto) 3.3 th/mm3 (1.8-7.7); Neut % (Auto) 57.4 % (16.0-70.0); Platelet Count 316 th/mm3 (150-450); Red Blood Count 2.63 mil/mm3 (4.50-5.90); White Blood Count 5.8 th/mm3 (4.0-11.0)
[2018-08-22] MEDS: Senna/Docusate Sodium 8.6/50 MG Tablet PO SCH ×2 (08:22→21:05)
[2018-08-22] MEDS: Enoxaparin Inj 30 MG/0.3 ML Syringe SQ SCH (08:39)
[2018-08-22] MEDS: Potassium Chloride 25 MEQ Effervescent Tablet G-TUBE SCH ×2 (08:39→21:03)
[2018-08-22] MEDS: levoFLOXacin 750 MG Tablet PO SCH (08:39)
[2018-08-22] MEDS: Magnesium Oxide 400 MG Tablet G-TUBE SCH ×2 (08:40→21:03)
[2018-08-22] MEDS: Sodium Chloride 0.9% 2 ML Flush BID IV.FLUSH SCH ×2 (08:52→21:07)
--- NOTE | 2018-08-22 10:34 | P.PNID ---
Subjective Remarks: Pt says he feels okay. Has low-grade fever. Blood pressure improved. Had bout of watery stools this morning. Denies shortness of breath. Reports less oral secretions. Chest x-ray shows persistent infiltrate in the right upper lobe. Sputum culture has Stenotrophomonas. Blood cultures from 08/11/2018 and 08/15/2018 have no growth. Urinalysis on 08/12/2018 was unremarkable, and culture was not done. Past Medical History: PAST MEDICAL HISTORY: 1. Esophageal tumor. 2. The patient is status post chemotherapy, which led to neutropenia. The neutropenia is recovering. 3. Pneumonia of the right upper lung. The patient is producing sputum. 4. Persistent fever. 5. Squamous cell carcinoma of the esophagus or oropharynx. 6. History of ankle surgery. 7. History of knee surgery. Allergies/Adverse Reactions: Allergies grapefruit Allergy (Severe, Verified 08/11/18 20:56) Anaphylaxis SEIZURES Objective Vital Signs 08/21/18 12:00 08/21/18 12:03 08/21/18 16:00 Temperature 97.9 F 99.4 F Pulse Rate 81 81 76 Respiratory Rate 16 Blood Pressure 85/52 L 79/50 L Pulse Oximetry 100 96 08/21/18 18:10 08/21/18 20:00 08/22/18 00:00 Temperature 98.7 F 99.4 F Pulse Rate 77 76 Respiratory Rate 16 16 Blood Pressure 111/50 L 106/53 L 95/49 L Pulse Oximetry 99 98 08/22/18 04:00 08/22/18 08:22 Temperature 99.8 F H 99.4 F Pulse Rate 78 85 Respiratory Rate 16 16 Blood Pressure 106/52 L 102/45 L Pulse Oximetry 97 98 Intake & Output 08/21/18 08/22/18 08/22/18 18:59 06:59 18:59 Intake Total 580 / 580 Output Total 625 / 625 650 / 650 Balance -625 / -625 -70 / -70 Weight 72 kg Intake: Tube Feeding 280 / 280 Tube Irrigant 300 / 300 Output: Urine 625 / 625 650 / 650 Other: # Voids 1 1 Date of Last Bowel Movement 08/21/18 08/21/18 08/21/18 # Bowel Movements 1 1 08/18/18 11:30 Sputum - Oral Tracheal Aspirate Gram Stain - Final 08/18/18 11:30 Sputum - Oral Tracheal Aspirate Sputum Culture - Final Stenotrophomonas maltophilia 08/15/18 21:46 Blood - Peripheral Aerobic Blood Culture - Final No growth in 5 days 08/15/18 21:46 Blood - Peripheral Anaerobic Blood Culture - Final QNS - See aerobic report. 08/15/18 21:40 Blood - Peripheral Aerobic Blood Culture - Final No growth in 5 days 08/15/18 21:40 Blood - Peripheral Anaerobic Blood Culture - Final No growth in 5 days Lab - Hematology Results 08/22/18 03:34 WBC 5.8 RBC 2.63 L Hgb 7.6 L Hct 22.6 L MCV 86.0 MCH 29.1 MCHC 33.8 RDW 14.0 Plt Count 316 D MPV 9.0 Neut % (Auto) 57.4 Lymph % (Auto) 33.3 [place] % (Auto) 9.0 H Eos % (Auto) 0.0 Baso % (Auto) 0.3 Neut # (Auto) 3.3 Lymph # (Auto) 1.9 [place] # (Auto) 0.5 Eos # (Auto) 0.0 Baso # (Auto) 0.0 WBC Differential . Differential Comment Auto diff final Lab - Chemistry Results 08/21/18 08/21/18 06:44 06:44 Sodium 144 Potassium 4.7 Chloride 110 H Carbon Dioxide 29.5 Anion Gap 5 BUN 10 Creatinine 1.05 Estimated GFR 88 L Random Glucose 81 Calcium 7.8 L Phosphorus 3.1 Magnesium 1.9 Imaging: ITS Impressions Abdomen/Bladder Ultrasound 08/12/18 00:00 CONCLUSION: 1. No acute findings. Echogenic kidneys characteristic of medical renal disease. 2. Tiny 1 cm right renal cyst. Chest X-Ray 08/21/18 10:51 CONCLUSION: Stable right upper lobe airspace consolidation compared to the 08/18/2018 examination. As described previously the consolidation has increased compared to the 08/11/2018 exam. Physical Exam: PHYSICAL EXAMINATION: GENERAL: No acute distress. Awake, alert, and oriented. HEENT: Extraocular movements are grossly intact. Pupils reactive to light. No icterus. Oropharynx: Moist mucosa. NECK: Supple without adenopathy. CHEST: Right upper chest has an Uszwgn-p-Fkea which appears intact. LUNGS: Decreased breath sounds throughout. HEART: Regular S1, S2. No audible murmurs, rubs or gallops. ABDOMEN: Bowel sounds diminished. Soft. No tenderness appreciated. EXTREMITIES: No clubbing, cyanosis or edema. SKIN: No rash. Warm to touch. NEUROLOGIC: No gross focal findings. PSYCHIATRIC: Calm and cooperative. Assessment and Plan - Plan IMPRESSION: 1. Fever. The patient is status post chemotherapy for cancer of the esophagus or oropharynx. 2. Pneumonia. Gram negative. 3. Immunosuppression secondary to chemotherapy. 4. Hypotension. Pt not symptomatic. RECOMMENDATIONS: 1. Start Levaquin PO for Stenotrophomonas. 2. Resume Flagyl and in light of persistent diarrhea. 3. Monitor temperature. If the temperature stays down over the next 24 hours we can plan on discharge.
--- NOTE | 2018-08-22 12:49 | P.PNIM ---
Subjective Interval history: Patient is feeling better. Current treatment is Levaquin and Flagyl. No new complaints. Physical Exam Vital signs: Last Vital Signs Temp 99.4 F 08/22/18 08:22 Pulse 85 08/22/18 08:22 Resp 16 08/22/18 08:22 BP 102/45 L 08/22/18 08:22 Pulse Ox 98 08/22/18 08:22 Intake & Output 08/20/18 08/21/18 08/22/18 08/23/18 06:59 06:59 06:59 06:59 Intake Total 1750 / 1750 3530 / 3530 580 / 580 Output Total 2325 / 2325 1650 / 1650 1275 / 1275 Balance -575 / -575 1880 / 1880 -695 / -695 Weight 70 kg 72 kg Narrative: GENERAL: NAD, A&Ox3 HEAD: Normocephalic. NECK: Supple, trachea midline. No lymphadenopathy. EYES: No scleral icterus. No injection or drainage. CARDIOVASCULAR: Regular rate and rhythm without murmurs, gallops, or rubs. RESPIRATORY: Breath sounds equal bilaterally. No accessory muscle use. GASTROINTESTINAL: Abdomen soft, non-tender, nondistended. MUSCULOSKELETAL: No cyanosis, or edema. SKIN: Warm and dry. NEURO: No focal neurological deficits. Results Labs CBC & Chem 7: 08/22/18 03:34 08/21/18 06:44 Assessment and Plan Plan 57-year-old male admitted secondary to neutropenia, pneumonia, pancytopenia, and renal failure. History of squamous cell carcinoma involving upper esophagus and posterior oropharynx. [facility] Severe neutropenic sepsis Right upper lobe pneumonia Pancytopenia Febrile neutropenia Thrombocytopenia secondary to chemotherapy Anemia secondary to chemotherapy Continue Flagyl Continue Levaquin ID following Oncology following Follow CBC Monitor for fevers over next 24 hours If no fevers over next 24 hours will consider for discharge tomorrow morning Acute kidney injury Improved Follow renal function Avoid nephrotoxins Hypernatremia Improving Follow sodium levels Negative renal ultrasound May have been related to dehydration Dehydration resolved Acute protein calorie malnutritionsevere Severe dysphasia Continue Jevity 1.5 at 60 mils an hour with tray Speech therapy recommended thin liquid diet on August 12, 2018 Follow BMP, magnesium, phosphorus DVT Prophylaxis SCDs Lovenox Progress Note: Quality VTE Deep Vein Thrombosis/Pulmonary Embolism Present on Admission: No
[2018-08-22] MEDS: metroNIDAZOLE 500 MG Tablet PO SCH ×2 (15:28→21:07)
[2018-08-23] MEDS: POTASSIUM CHLORIDE IV.CONT SCH ×2 (04:52)
[2018-08-23] MEDS: NACL 0.3% IV.CONT SCH ×2 (04:52)
[2018-08-23] MEDS: DEXTROSE IV.CONT SCH ×2 (04:52)
[2018-08-23] MEDS: metroNIDAZOLE 500 MG Tablet PO SCH (05:00)
[2018-08-23] MEDS: Insulin NovoLIN Regular Correctional Sugar Inj SQ SCH (05:01)
[2018-08-23 07:02] LABS: Alanine Aminotransferase 9 U/L (12-78); Albumin 1.6 g/dL (3.4-5.0); Anion Gap 4 meq/L (5-15); Aspartate Aminotransferase 7 U/L (15-37); Blood Urea Nitrogen 6 mg/dL (7-18); Calcium 7.7 mg/dL (8.5-10.1); Carbon Dioxide 26.6 meq/L (21.0-32.0); Chloride 109 meq/L (98-107); Glomerular Filtration Rate Greater Than 89 mL/min (>89); Glucose,Random 113 mg/dL (74-106); Potassium 4.9 meq/L (3.5-5.1); Sodium 140 meq/L (136-145)
[2018-08-23 07:03] LABS: Alkaline Phosphatase 38 U/L (45-117); Total Protein 6.4 g/dL (6.4-8.2)
[2018-08-23 07:08] LABS: Baso % (Auto) 0.3 % (0.0-2.0); Eos % (Auto) 0.1 % (0.0-4.0); Hematocrit 22.9 % (39.0-51.0); Hemoglobin 7.7 gm/dL (13.0-17.0); Lymph # (Auto) 1.9 th/mm3 (1.0-4.8); Mean Corpuscular HGB Conc 33.7 % (32.0-36.0); Mean Corpuscular Volume 86.1 fL (80.0-100.0); Mean Platelet Volume 8.7 fL (7.0-11.0); Mono # (Auto) 0.6 th/mm3 (0.0-0.9); Mono % (Auto) 9.8 % (0.0-8.0); Neut # (Auto) 3.2 th/mm3 (1.8-7.7); Neut % (Auto) 55.8 % (16.0-70.0); Platelet Count 361 th/mm3 (150-450); Red Blood Count 2.66 mil/mm3 (4.50-5.90); White Blood Count 5.7 th/mm3 (4.0-11.0)
[2018-08-23] MEDS: levoFLOXacin 750 MG Tablet PO SCH (08:51)
[2018-08-23] MEDS: Magnesium Oxide 400 MG Tablet G-TUBE SCH (08:51)
[2018-08-23] MEDS: Enoxaparin Inj 30 MG/0.3 ML Syringe SQ SCH (08:52)
[2018-08-23] MEDS: Senna/Docusate Sodium 8.6/50 MG Tablet PO SCH (09:09)
[2018-08-23] MEDS: Sodium Chloride 0.9% 2 ML Flush BID IV.FLUSH SCH (09:09)
[2018-08-23] MEDS: Potassium Chloride 25 MEQ Effervescent Tablet G-TUBE SCH (09:09)
--- NOTE | 2018-08-23 10:08 | P.PNID ---
Subjective Remarks: Pt feels okay. No complaints. Blood pressure Stable. Temp normal. Continues too have watery stools. Denies shortness of breath. Reports less oral secretions. Past Medical History: PAST MEDICAL HISTORY: 1. Esophageal tumor. 2. The patient is status post chemotherapy, which led to neutropenia. The neutropenia is recovering. 3. Pneumonia of the right upper lung. The patient is producing sputum. 4. Persistent fever. 5. Squamous cell carcinoma of the esophagus or oropharynx. 6. History of ankle surgery. 7. History of knee surgery. Allergies/Adverse Reactions: Allergies grapefruit Allergy (Severe, Verified 08/11/18 20:56) Anaphylaxis SEIZURES Objective Vital Signs 08/22/18 12:00 08/22/18 15:23 08/22/18 16:00 Temperature 99.1 F 98.8 F Pulse Rate 68 69 67 Respiratory Rate 16 16 Blood Pressure 93/46 L 112/42 L Pulse Oximetry 98 100 08/22/18 20:00 08/23/18 00:00 08/23/18 04:00 Temperature 99 F 99.3 F 99.8 F H Pulse Rate 70 78 81 Respiratory Rate 16 16 16 Blood Pressure 121/54 L 110/54 L 106/52 L Pulse Oximetry 100 100 99 08/23/18 08:35 08/23/18 08:44 Temperature 98.8 F Pulse Rate 73 80 Respiratory Rate 16 Blood Pressure 111/56 L Pulse Oximetry 100 Intake & Output 08/22/18 08/23/18 08/23/18 18:59 06:59 18:59 Intake Total 1020 / 1020 1020 / 1020 Output Total 750 / 750 850 / 850 Balance 270 / 270 170 / 170 Weight 72.1 kg Intake: IV 1020 / 1020 1020 / 1020 KCl Inj 40 MEQ In D5W/1/3 NS 1020 / 1020 1020 / 1020 Inj 1,000 ML @ 84 mls/hr IV. CONT .Q12H9M CLAUDIA Rx#:[id number] Output: Urine 750 / 750 850 / 850 Other: # Voids 1 Date of Last Bowel Movement 08/21/18 08/21/18 # Bowel Movements 1 08/18/18 11:30 Sputum - Oral Tracheal Aspirate Gram Stain - Final 08/18/18 11:30 Sputum - Oral Tracheal Aspirate Sputum Culture - Final Stenotrophomonas maltophilia 08/15/18 21:46 Blood - Peripheral Aerobic Blood Culture - Final No growth in 5 days 08/15/18 21:46 Blood - Peripheral Anaerobic Blood Culture - Final QNS - See aerobic report. 08/15/18 21:40 Blood - Peripheral Aerobic Blood Culture - Final No growth in 5 days 08/15/18 21:40 Blood - Peripheral Anaerobic Blood Culture - Final No growth in 5 days Lab - Hematology Results 08/22/18 08/23/18 03:34 06:16 WBC 5.8 5.7 RBC 2.63 L 2.66 L Hgb 7.6 L 7.7 L Hct 22.6 L 22.9 L MCV 86.0 86.1 MCH 29.1 29.0 MCHC 33.8 33.7 RDW 14.0 14.0 Plt Count 316 D 361 MPV 9.0 8.7 Neut % (Auto) 57.4 55.8 Lymph % (Auto) 33.3 34.0 [place] % (Auto) 9.0 H 9.8 H Eos % (Auto) 0.0 0.1 Baso % (Auto) 0.3 0.3 Neut # (Auto) 3.3 3.2 Lymph # (Auto) 1.9 1.9 [place] # (Auto) 0.5 0.6 Eos # (Auto) 0.0 0.0 Baso # (Auto) 0.0 0.0 WBC Differential . . Differential Comment Auto diff final Auto diff final Lab - Chemistry Results 08/21/18 08/23/18 06:44 06:16 Sodium 140 Potassium 4.9 Chloride 109 H Carbon Dioxide 26.6 Anion Gap 4 L BUN 6 L Creatinine 1.03 Estimated GFR Greater than 89 Random Glucose 113 H Calcium 7.7 L Magnesium 1.9 Total Bilirubin 0.3 AST 7 L ALT 9 L Alkaline Phosphatase 38 L Total Protein 6.4 D Albumin 1.6 L Imaging: ITS Impressions Abdomen/Bladder Ultrasound 08/12/18 00:00 CONCLUSION: 1. No acute findings. Echogenic kidneys characteristic of medical renal disease. 2. Tiny 1 cm right renal cyst. Chest X-Ray 08/21/18 10:51 CONCLUSION: Stable right upper lobe airspace consolidation compared to the 08/18/2018 examination. As described previously the consolidation has increased compared to the 08/11/2018 exam. Physical Exam: PHYSICAL EXAMINATION: GENERAL: No acute distress. Awake, alert, and oriented. HEENT: Extraocular movements are grossly intact. Pupils reactive to light. No icterus. Oropharynx: Moist mucosa. NECK: Supple without adenopathy. CHEST: Right upper chest has an Wctpyu-y-Kinh which appears intact. LUNGS: Decreased breath sounds. HEART: Regular S1, S2. No audible murmurs, rubs or gallops. ABDOMEN: Bowel sounds diminished. Soft. No tenderness appreciated. EXTREMITIES: No clubbing, cyanosis or edema. SKIN: No rash. Warm to touch. NEUROLOGIC: Non focal. PSYCHIATRIC: Calm and cooperative. Assessment and Plan - Plan IMPRESSION: 1. Pneumonia. Stenotrophomonas. 2. Fever. improved. The patient is status post chemotherapy for cancer of the esophagus or oropharynx. 3. Immunosuppression secondary to chemotherapy. Stable. RECOMMENDATIONS: Discharge on Levaquin PO 750mg daily x 7 days and Flagyl 500mg po tid x 7 days. Follow up with primary doctor and oncologist.
--- NOTE | 2018-08-23 12:20 | P.DS ---
DS: Providers Date of admission: 08/11/18 23:29 Primary care physician: [facility] Consults: 08/11/18 23:52 Consult to Oncology Routine Consulting Provider: Jaswinder Rivera Reason for Consultation: neutropenic sepsis Notified:: Service Spoke with:: TANIA Date Notified:: 08/12/18 Time Notified:: 00:26 Ordering Provider: JANA 08/12/18 11:00 Consult to Hospitalist Routine Consulting Provider: Elia Day Reason for Consultation: Assume care in am 08/13/18 Notified:: Service Spoke with:: BERNIE Date Notified:: 08/12/18 Time Notified:: 11:04 Ordering Provider: BA 08/17/18 22:32 Consult to Infectious Diseases Routine Consulting Provider: Wilfredo Cueva Reason for Consultation: persistent fever Notified:: Service Spoke with:: Tomas Date Notified:: 08/17/18 Time Notified:: 22:39 Ordering Provider: ZAY Brief History from admission: 57yM with history of squamous cell carcinoma of the base of the tongue, complicated by significant dysphagia s/p PEG placement. first cycle of chemotherapy last week. complains of 2 days of fever, chills, cough, sputum production. RUL infiltrate on CXR. pancytopenic and borderline neutropenic. associated kidney injury with elevated Cr. patient admits to drinking gatorade, eating popsicles, drinking juice. known aspirations and last evaluated by speech was strict NPO with sips of water for comfort. ROS negative for chest pain, shortness of breath, nausea, vomiting, diarrhea, constipation, abdominal pain. remainder ROS negative. Hypotensive with sbp 70s on my evaluation, although fluid responsive, receiving ivf on my evaluation. DS: Summary 57-year-old male admitted secondary to neutropenia, pneumonia, pancytopenia, and renal failure. History of squamous cell carcinoma involving upper esophagus and posterior oropharynx. [facility] he was admitted and treated for sepsis and pneumonia as well as acute kidney injury. He has responded well to treatments. Renal function has returned to baseline. Currently he is changed to Levaquin and metronidazole as a treatment which will continue for 7 more days. Probiotics are also provided at time of discharge. No further fevers. Medically stable and cleared for discharge home today. Time Spent with Patient Total time spent providing and/or coordinating discharge services: Quality: VTE Deep Vein Thrombosis/Pulmonary Embolism Present on Admission: No Results Labs on day of discharge: Labs from last 24 hours 08/23/18 08/23/18 06:16 06:16 WBC 5.7 RBC 2.66 L Hgb 7.7 L Hct 22.9 L MCV 86.1 MCH 29.0 MCHC 33.7 RDW 14.0 Plt Count 361 MPV 8.7 Neut % (Auto) 55.8 Lymph % (Auto) 34.0 [place] % (Auto) 9.8 H Eos % (Auto) 0.1 Baso % (Auto) 0.3 Neut # (Auto) 3.2 Lymph # (Auto) 1.9 [place] # (Auto) 0.6 Eos # (Auto) 0.0 Baso # (Auto) 0.0 WBC Differential . Differential Comment Auto diff final Sodium 140 Potassium 4.9 Chloride 109 H Carbon Dioxide 26.6 Anion Gap 4 L BUN 6 L Creatinine 1.03 Estimated GFR Greater than 89 Random Glucose 113 H Calcium 7.7 L Total Bilirubin 0.3 AST 7 L ALT 9 L Alkaline Phosphatase 38 L Total Protein 6.4 D Albumin 1.6 L Impressions ITS Impressions Abdomen/Bladder Ultrasound 08/12/18 00:00 CONCLUSION: 1. No acute findings. Echogenic kidneys characteristic of medical renal disease. 2. Tiny 1 cm right renal cyst. Chest X-Ray 08/21/18 10:51 CONCLUSION: Stable right upper lobe airspace consolidation compared to the 08/18/2018 examination. As described previously the consolidation has increased compared to the 08/11/2018 exam. Discharge Plan Discharge Disposition Patient Disposition: Discharge Home Discharge Condition Condition: Stable Discharge Order Discharge Orders: Discharge Order (Routine); Ordered 08/23/18 Ordered By: Elia Day Oncology Clear for Discharge (Routine); Ordered 08/23/18 Ordered By: Bianca Leung Discharge Details Anticipated Discharge Date: 08/23/18 Physicians Team Primary Care Provider: [facility] 's Attending Provider: Elia Day Other Providers: Fortunato Oliver Franklyn Rxs /Orders / Referrals /Forms Prescriptions: New metronidazole 500 mg Tablet 500 mg PO Q8HR Qty: 21 RF: 0 levofloxacin 750 mg Tablet 750 mg PO DAILY Qty: 7 RF: 0 Lactobacillus acidophilus Capsule 500 mmu cells PO TID Qty: 30 RF: 0 potassium bicarb and chloride 25 mEq Tablet, Effervescent 25 meq G-Tube DAILY Qty: 30 RF: 0 Continue lansoprazole [Prevacid SoluTab] 30 mg Tablet,Disintegrat, Delay Rel 30 mg NG/OG DAILY Qty: 30 RF: 0 Discontinued cefuroxime axetil 500 mg Tablet 500 mg PO Q12H Qty: 8 RF: 0 Referrals: [facility],Physician 's [Primary Care Provider] - See Instructions Discharge Instructions Patient Printed Instructions: Celiac Disease (DC) Status ED Status: Left Department
== END 2018-08-23 14:50 | disposition home or self-care (01) ==
LOC: NEPD 19:16 → NEDA 23:29 → HIMC 08-12 00:55 → HCIN 08-12 14:34
PROVIDERS: ADMIT Hospitalist; ATTEND Hospitalist